=== PATIENT | male | born 1945 | race Hispanic/Latino ===

== ENCOUNTER 2017-10-04 12:34 | Emergency (ER) | payer MEDICARE, MEDICAID ==
[2017-10-04] MEDS ORDERED: Ketorolac Tromethamine 30 MG/ML VIAL ONE (13:27)
[2017-10-04 13:32] LABS: Bilirubin Small (Negative); Blood, Urine Negative (Negative); Glucose, Urine (Dipstick) Negative (Negative); Ketone, Urine Negative (Negative); Nitrite Negative (Negative); Protein, Urine (Dipstick) Negative (Neg-Trace)
[2017-10-04 13:40] LABS: Bacteria/HPF None Seen HPF (None Seen); Hyaline Casts/LPF 0-3 HYALINE CAST LPF (0-3 Hyaline); RBC/HPF 0-3 HPF (0-3); Squamous Epithelial None Seen HPF (0-3); WBC/HPF 0-3 HPF (0-3)
[2017-10-04 13:43] LABS: #Eosinphils 0.1 thou/uL (0.0-0.7); #Lymphocytes 1.6 thou/uL (1.20-3.40); #Monocytes 0.5 thou/uL (0.11-0.59); #Neutrophils 5.8 thou/uL (1.40-6.50); %Basophils 0.5 % (0.0-1.0); %Eosinophils 1.3 % (0.0-10.0); %Lymphocytes 20.1 % (21.0-51.0); Hematocrit 39.7 % (42.0-52.0); Mean Platelet Volume 6.5 fL (7.4-10.4)
--- NOTE | 2017-10-04 13:57 | CT ---
ABDOMEN CT WITHOUT CONTRAST PELVIC CT WITHOUT CONTRAST: Date: 10/04/17 HISTORY: Abdominal pain radiating to the groin. COMPARISON: None. CORRELATION: CT angiogram of the aorta. TECHNIQUE: Abdomen and pelvic CT performed without contrast. Coronal reformatted images are submitted for interp retation. FINDINGS: ABDOMEN CT: Dependent atelectatic changes. There is a focal opacity in the lingula, unchanged from the prior exam ination. Opacity has a pleural based component and measures 1.0 cm in the anterior posterior dimensio n. Extensive coronary artery calcification of the left coronary artery. No significant pericardial fl uid. Atherosclerosis of a nonaneurysmal aorta. No gastrohepatic, retrocrural, or periportal lymphaden opathy. Gallbladder is unremarkable. Symmetric attenuation of the psoas muscles. No mesenteric mass, lymphadenopathy, free air, or free fluid. Limited evaluation of the solid organs due to lack of IV contrast. No solid organ abnormality. Limited evaluation of the alimentary canal due to lack of oral contrast. No evidence of bowel obstruc tion. Ileocecal junction is normal. Normal caliber appendix. Fecal material in nondistended, nondilat ed colon. Bilaterally, no hydronephrosis, nephrolithiasis, or perinephric fat stranding. Bilateral ureters have a normal caliber. No hydroureter, periureteral fat stranding, or ureterolithiasis. PELVIC CT: Urinary bladder is decompressed. No pelvic mass, lymphadenopathy, free air, or free fluid. There are no lytic or blastic lesions in the osseous structures. IMPRESSION: 1. No evidence of nephrolithiasis or obstructive uropathy. 2. Stable atherosclerotic disease. 3. Stable coronary artery calcification. Pleural based opacities in the left hemithorax, unchanged. Follow-up imaging in 6 months is recommended[address]. POS: LARISA
[2017-10-04 14:06] LABS: ALT (SGPT) 8 U/L (8-55); AST (SGOT) 10 U/L (5-34); Alkaline Phosphatase 104 U/L (40-150); Anion Gap 11 mmol/L (10-20); BUN (Urea Nitrogen) 18 mg/dL (8.4-25.7); Bilirubin, Total 0.9 mg/dL (0.2-1.2); Calc. Creatinine Clearance 0 mL/min (70-130); Calcium 9.2 mg/dL (7.8-10.44); Carbon Dioxide 24 mmol/L (23-31); Chloride 105 mmol/L (98-107); Estimated GFR-MDRD 63; Globulin 3.4 g/dL (2.4-3.5); Lipase 51 U/L (8-78); Protein, Total 7.4 g/dL (5.8-8.1)
== END 2017-10-04 14:32 | disposition home or self-care (01) ==
LOC: ERS 12:34
DX: R10.32 Left lower quadrant pain (principal); E11.9 Type 2 diabetes mellitus without complications; E03.9 Hypothyroidism, unspecified; I25.10 Atherosclerotic heart disease of native coronary artery without angina pectoris; I25.2 Old myocardial infarction; E78.5 Hyperlipidemia, unspecified; I10 Essential (primary) hypertension; F32.9 Major depressive disorder, single episode, unspecified; F41.9 Anxiety disorder, unspecified; F17.200 Nicotine dependence, unspecified, uncomplicated; Z79.82 Long term (current) use of aspirin; Z79.84 Long term (current) use of oral hypoglycemic drugs; Z79.899 Other long term (current) drug therapy
CPT/HCPCS: 74176; 80053; 81003; 81015; 83690; 85025; 96374; J1885

== ENCOUNTER 2018-01-22 18:08 | Emergency (ER) | payer MEDICARE, MEDICAID ==
[2018-01-22 18:46] LABS: #Basophils 0.1 thou/uL (0.0-0.2); #Eosinphils 0.1 thou/uL (0.0-0.7); #Lymphocytes 1.3 thou/uL (1.20-3.40); #Monocytes 0.5 thou/uL (0.11-0.59); #Neutrophils 5.8 thou/uL (1.40-6.50); %Basophils 0.7 % (0.0-1.0); %Lymphocytes 17.2 % (21.0-51.0); %Monocytes 6.8 % (0.0-10.0); %Neutrophils 74.2 % (42.0-75.0); Hemoglobin 12.3 g/dL (14.0-18.0); Mean Corpuscular HGB CONC 32.7 g/dL (32.0-36.0); Mean Corpuscular Hemoglobin 26.2 pg (27.0-31.0); Mean Platelet Volume 7.4 fL (7.4-10.4); Platelet Count 273 thou/uL (130-400); Red Blood Cell (RBC) Count 4.71 mill/uL (4.70-6.10); White Blood Cell (WBC) Count 7.8 thou/uL (4.8-10.8)
[2018-01-22 19:07] LABS: ALT (SGPT) 15 U/L (8-55); AST (SGOT) 16 U/L (5-34); Alkaline Phosphatase 108 U/L (40-150); Anion Gap 14 mmol/L (10-20); BUN (Urea Nitrogen) 21 mg/dL (8.4-25.7); Bilirubin, Total 0.7 mg/dL (0.2-1.2); Calc. Creatinine Clearance 0 mL/min (70-130); Calcium 9.1 mg/dL (7.8-10.44); Carbon Dioxide 20 mmol/L (23-31); Chloride 105 mmol/L (98-107); Estimated GFR-MDRD 48; Globulin 3.1 g/dL (2.4-3.5); Glucose 196 mg/dL (83-110); Protein, Total 7.1 g/dL (5.8-8.1); Sodium 135 mmol/L (136-145)
[2018-01-22 19:12] LABS: CKMB 0.9 ng/mL (0-6.6); Troponin I Less than 0.010 ng/mL (< 0.028)
--- NOTE | 2018-01-22 19:19 | CT ---
CT BRAIN NONCONTRAST: HISTORY: 72-year-old male with altered mental status and syncope. FINDINGS: There is no midline shift or any other mass effect. There is no evidence of acute intracranial hemor rhage, large cortical infarct, obstructive hydrocephalus, or extraaxial fluid collection. The calvar ium is intact. IMPRESSION: No acute intracranial findings. janes POS: LARISA
--- NOTE | 2018-01-22 19:22 | RAD ---
RADIOGRAPH CHEST 1 VIEW: HISTORY: 72-year-old male with altered mental status and syncope. FINDINGS: There is no air space density, pulmonary edema, or pneumothorax. The lateral costophrenic angles are sharp. There are sternotomy wires. IMPRESSION: 1. No acute pulmonary findings. 2. Evidence for previous open heart surgery. janes POS: LARISA
[2018-01-22 21:25] LABS: Bilirubin Small (Negative); Blood, Urine Negative (Negative); Clarity CLEAR (Clear); Glucose, Urine (Dipstick) Negative (Negative); Leukocyte Negative (Negative); Nitrite Negative (Negative); Protein, Urine (Dipstick) Trace mg/dL (Neg-Trace); Specific Gravity, Urine 1.019 (1.002-1.036)
== END 2018-01-22 21:37 | disposition home or self-care (01) ==
LOC: ERS 18:08
DX: R53.1 Weakness (principal); I25.10 Atherosclerotic heart disease of native coronary artery without angina pectoris; I25.2 Old myocardial infarction; E11.9 Type 2 diabetes mellitus without complications; E78.5 Hyperlipidemia, unspecified; I10 Essential (primary) hypertension; F32.9 Major depressive disorder, single episode, unspecified; F17.200 Nicotine dependence, unspecified, uncomplicated; Z79.899 Other long term (current) drug therapy; Z79.82 Long term (current) use of aspirin; Z79.891 Long term (current) use of opiate analgesic
CPT/HCPCS: 36415; 70450; 71045; 80053; 81003; 82553; 84484; 85025; 93005; 96360; 96361

== ENCOUNTER 2018-02-27 22:26 | Emergency (ER) | payer MEDICARE, MEDICAID ==
[2018-02-27] MEDS ORDERED: Adacel (T-DAP) 0.5 ML VIAL ONE (22:42)
== END 2018-02-27 23:55 | disposition home or self-care (01) ==
LOC: ERS 22:26
DX: S61.511A Laceration without foreign body of right wrist, initial encounter (principal); E11.9 Type 2 diabetes mellitus without complications; E03.9 Hypothyroidism, unspecified; E78.5 Hyperlipidemia, unspecified; F32.9 Major depressive disorder, single episode, unspecified; F17.200 Nicotine dependence, unspecified, uncomplicated; I25.2 Old myocardial infarction; I25.10 Atherosclerotic heart disease of native coronary artery without angina pectoris; I10 Essential (primary) hypertension; Z79.82 Long term (current) use of aspirin; Z79.84 Long term (current) use of oral hypoglycemic drugs; Z79.899 Other long term (current) drug therapy; Z23 Encounter for immunization; W25.XXXA Contact with sharp glass, initial encounter
CPT/HCPCS: 12001; 90471; 90715

== ENCOUNTER 2018-12-05 05:37 | Emergency (ER) | payer MEDICARE, MEDICAID ==
--- NOTE | 2018-12-05 08:10 | RAD ---
RIGHT FOOT 3 VIEWS: Date: 12/05/18 INDICATION: Right foot pain. COMPARISON: 04/06/17. FINDINGS: No acute fracture or subluxation is evident. Lisfranc alignment is preserved. There is mild great toe MTP osteoarthrosis. There is scattered IP osteoarthrosis. Enthesopathic change seen off the posterio r calcaneus which is stable. IMPRESSION: No acute osseous abnormality. POS: BH
== END 2018-12-05 06:46 | disposition home or self-care (01) ==
LOC: ERS 05:37
DX: L03.115 Cellulitis of right lower limb (principal); M79.671 Pain in right foot; I25.10 Atherosclerotic heart disease of native coronary artery without angina pectoris; I25.2 Old myocardial infarction; E11.9 Type 2 diabetes mellitus without complications; E03.9 Hypothyroidism, unspecified; E78.5 Hyperlipidemia, unspecified; I10 Essential (primary) hypertension; F32.9 Major depressive disorder, single episode, unspecified

== ENCOUNTER 2018-12-07 08:14 | Observation (INO) | payer MEDICARE, MEDICAID ==
[2018-12-07] MEDS ORDERED: Ketorolac Tromethamine 30 MG/ML VIAL ONE (09:34)
[2018-12-07 11:22] LABS: #Eosinphils 0.1 thou/uL (0.0-0.7); #Lymphocytes 1.5 thou/uL (1.20-3.40); #Monocytes 0.9 thou/uL (0.11-0.59); #Neutrophils 6.7 thou/uL (1.40-6.50); %Basophils 0.5 % (0.0-1.0); %Eosinophils 1.3 % (0.0-10.0); %Lymphocytes 16.2 % (21.0-51.0); %Monocytes 9.3 % (0.0-10.0); %Neutrophils 72.8 % (42.0-75.0); Hemoglobin 12.1 g/dL (14.0-18.0); Mean Corpuscular HGB CONC 31.7 g/dL (32.0-36.0); Mean Platelet Volume 7.7 fL (7.4-10.4); Platelet Count 274 thou/uL (130-400); RBC Distribution Width 13.4 % (11.5-14.5); Red Blood Cell (RBC) Count 5.05 mill/uL (4.70-6.10); White Blood Cell (WBC) Count 9.3 thou/uL (4.8-10.8)
[2018-12-07 11:42] LABS: ALT (SGPT) 9 U/L (8-55); AST (SGOT) 11 U/L (5-34); Albumin 4.2 g/dL (3.4-4.8); Alkaline Phosphatase 109 U/L (40-150); Anion Gap 12 mmol/L (10-20); BUN (Urea Nitrogen) 19 mg/dL (8.4-25.7); Bilirubin, Total 0.9 mg/dL (0.2-1.2); Calc. Creatinine Clearance 0 mL/min (70-130); Calcium 9.3 mg/dL (7.8-10.44); Carbon Dioxide 25 mmol/L (23-31); Chloride 103 mmol/L (98-107); Estimated GFR-MDRD 56; Globulin 3.1 g/dL (2.4-3.5); Glucose 221 mg/dL (83-110); Potassium 4.1 mmol/L (3.5-5.1); Protein, Total 7.3 g/dL (5.8-8.1); Sodium 136 mmol/L (136-145)
[2018-12-07] MEDS ORDERED: Acetaminophen 500 MG TAB ONE (11:48)
[2018-12-07] MEDS ORDERED: Ondansetron PF 4 MG/2 ML Vial IVP PRN (12:00)
[2018-12-07] MEDS ORDERED: Ondansetron ODT 4 MG TAB SL PRN (12:00)
[2018-12-07] MEDS ORDERED: Acetaminophen 325 MG TAB PO PRN ×2 (12:00→15:14)
[2018-12-07] MEDS ORDERED: HYDROcodone/Acetaminophen 5/325 mg Tablet PO PRN ×3 (12:00→15:14)
[2018-12-07] MEDS ORDERED: Piperacillin/Tazobactam 3.375 GM VIAL ONE (12:39)
--- NOTE | 2018-12-07 12:56 | PDOC.FPRHP ---
- History of Present Illness Chief Complaint: Foot pain History of Present Illness: Mr. Olvera presents today for evaluation of foot pain He was seen 2 days ago and DCd home with a diagnosis of cellulitis on kelfex and doxycyline. He reports that since that time he has had increased pain, redness, fever, and chills. Took tylenol at home for fever and returned to the ED. He reports his movement in his foot is restricted 2/2 pain, sensation normal. Denies syncope, SOB, lesions in other areas, or known breaks in the skin. He reports that his sugars have all been under 200 recently. Reports good compliance with medication. ED Course: BCx, Xray, vanc CBC, ESR, CRP, CMP - Allergies/Adverse Reactions Allergies Allergy/AdvReac Type Severity Reaction Status Date / Time No Known Allergies Allergy Verified 12/07/18 15:43 - Home Medications Medication Instructions Recorded Confirmed Type Gabapentin [Neurontin] 600 mg PO TID 04/13/14 12/07/18 History Rosuvastatin [Crestor] 20 mg PO HS 04/13/14 12/07/18 History Acetaminophen [Tylenol Extra 2 tab PO Q6HR PRN 12/07/18 12/07/18 History Strength] Levothyroxine Sodium 150 mcg PO DAILY 12/07/18 12/07/18 History Tamsulosin HCl 0.4 mg PO DAILY 12/07/18 12/07/18 History metFORMIN HCl [Metformin HCl] 1,000 mg PO BID 12/07/18 12/07/18 History Clindamycin [Cleocin] 300 mg PO Q8H #42 cap 12/08/18 Rx - History PMHx: DMII, CAD, HTN, Hypothyroid, BPH, COPD PSHx: 3v CABG 2001, stent prox circumflex 2015, ORIF R shoulder FHx: CAD Social: no TAD - Review of Systems General: reports: fever/chills. denies: weight/appetite/sleep changes, night sweats Eyes: denies: eye pain, vision changes ENT: denies: nasal congestion, rhinorrhea Respiratory: denies: cough, congestion, shortness of breath Cardiovascular: denies: chest pain, palpitation, edema Gastrointestinal: reports: nausea. denies: vomiting, diarrhea, constipation Genitourinary: denies: incontinence, dysuria Skin: reports: rashes (R sided erythema extending from distal metatarsal to mid foot, no skin breaks, minimal edema/crepitus, pulses auscultated with doppler, ROM intact), lesions Musculoskeletal: reports: pain, tenderness, stiffness Neurological: denies: numbness, syncope - Vital signs BP: 165/81 HR: 70 RR: 18 Tmax: 97.7 Pox: 100% on RA Wt: 68kg - Physical Exam Constitutional: NAD, awake, alert and oriented HEENT: normocephalic and atraumatic, grossly normal vision, grossly normal hearing Neck: supple, FROM Chest: no-tender to palpation Heart: RRR, normal S1/S2, no murmurs/rubs/gallops Lungs: CTAB, no respiratory distress Abdomen: soft, non-tender Musculoskeletal: normal structure, normal tone -Musculoskeletal: R sided erythema extending from distal metatarsal to mid foot, no skin breaks, minimal edema/crepitus, pulses auscultated with doppler, ROM intact Neurological: no focal deficit, CN II-XII intact Skin: good turgor Heme/Lymphatic: no unusual bruising or bleeding Psychiatric: normal mood and affect, good judgment and insight FMR H&P: Results - Labs Result Diagrams: 12/08/18 04:45 12/08/18 04:45 Lab results: WBC 9.3 thou/uL (4.8-10.8) 12/07/18 11:00 Hgb 12.1 g/dL (14.0-18.0) L 12/07/18 11:00 Hct 38.3 % (42.0-52.0) L 12/07/18 11:00 MCV 76.0 fL (78.0-98.0) L 12/07/18 11:00 Plt Count 274 thou/uL (130-400) 12/07/18 11:00 Neutrophils % 72.8 % (42.0-75.0) 12/07/18 11:00 ESR Westergren 77 mm/hr (Less than 20) 12/07/18 11:00 Sodium 136 mmol/L (136-145) 12/07/18 11:00 Potassium 4.1 mmol/L (3.5-5.1) 12/07/18 11:00 Chloride 103 mmol/L (98-107) 12/07/18 11:00 Carbon Dioxide 25 mmol/L (23-31) 12/07/18 11:00 BUN 19 mg/dL (8.4-25.7) 12/07/18 11:00 Creatinine 1.27 mg/dL (0.7-1.3) 12/07/18 11:00 Glucose 221 mg/dL (83-110) H 12/07/18 11:00 Calcium 9.3 mg/dL (7.8-10.44) 12/07/18 11:00 Total Bilirubin 0.9 mg/dL (0.2-1.2) 12/07/18 11:00 AST 11 U/L (5-34) 12/07/18 11:00 ALT 9 U/L (8-55) 12/07/18 11:00 Alkaline Phosphatase 109 U/L (40-150) 12/07/18 11:00 C-Reactive Protein 5.68 mg/dL (= or < 0.5) H 12/07/18 11:00 Serum Total Protein 7.3 g/dL (5.8-8.1) 12/07/18 11:00 Albumin 4.2 g/dL (3.4-4.8) 12/07/18 11:00 FMR H&P: A/P - Problem List (1) Cellulitis Status: Acute Code(s): L03.90 - CELLULITIS, UNSPECIFIED (2) Hypothyroidism Status: Acute Code(s): E03.9 - HYPOTHYROIDISM, UNSPECIFIED (3) Anemia Status: Chronic Code(s): D64.9 - ANEMIA, UNSPECIFIED Qualifiers: Anemia type: B12 deficiency Vitamin B12 deficiency anemia type: unspecified B12 deficiency Qualified Code(s): D51.9 - Vitamin B12 deficiency anemia, unspecified (4) CAD (coronary artery disease) Status: Chronic Code(s): I25.10 - ATHSCL HEART DISEASE OF [place] CORONARY ARTERY W/O ANG PCTRS Qualifiers: Coronary Disease-Associated Artery/Lesion type: [place] artery [place] vs. transplanted heart: [place] heart (5) Diabetes mellitus type 2 in nonobese Status: Chronic Code(s): E11.9 - TYPE 2 DIABETES MELLITUS WITHOUT COMPLICATIONS (6) HLD (hyperlipidemia) Status: Chronic Code(s): E78.5 - HYPERLIPIDEMIA, UNSPECIFIED - Plan Cellulitis with concern for osteomyelitis - Elevated inflammatory markers in diabetic who failed outpatient treatment, no WBC elevation, VSS, afebrile - Xray wnl, MRI pending. Consult surgery with positive results - Vanc/zosyn - LR 120ml/hr - monitor vitals q4hr - wound care consulted DMII - poorly controlled 2/2 non compliance according to clinic records - lantus 30 units BID, moderate SSI - CC diet HTN - continue home meds - pressures in range Hypothyroid - continue home meds HLD - continue home meds CAD - no active chest pain, continue to monitor - continue home meds Code: Full ppx: lovenox Dispo: admit to medical, begin abx, continue osteo work up FMR H&P: Upper Level - Pertinent history 73M with history of uncontrolled, non compliant diabetes presents for evaluation of 2 day right foot pain. It involves the first digit and second. He does not know of inciting injury or events that lead to this. He was given doxycycline and keflex when seen at the ER 2 days ago. He states things have not improved. He endorse pain and subjective chills. While he endorses good compliance with his medication and with glucoses under 200, he has been known to be noncompliant, not taking his medication since his about 6 months prior. - Pertinent findings Gen: Grossly alert, oriented, not in acute distress. HEENT: Normocephalic, vision and hearing grossly intact, midline trachea, moist mucosal membrane CV: On doppler, pulse can be detected in dorsalis pedis of right foot. Resp: Unlabored, no retraction GI: Soft, no guarding, no rigidity Ext: No pitting edema. First and second right digit on foot are erythematous, indurated. No open wound. Mild tenderness to palpation. Neuro: No focal deficit - Plan Date/Time: 12/07/18 1250 I, [Joe Ly], have evaluated this patient and agree with findings/plan as outlined by agronomy internship resident. Pertinent changes/additions are listed here. 1. Diabetic foot cellulitis, concern for deeper infection - IDSA moderate severity class due to deep tissue involvement without SIRS but with concern for osteo due to elevated ESR/CRP - Cellultitis that has not improved with outpatient treatment. - While Xray negative, is too early for bony destruction to show up on xray - Plan for MRI, broad abx. Will consult gen surg as needed. - Admit to Medical 2. Uncontrolled DM2 - Chronic issue - Restart home insulin at reduced dosing. Continue gabapentin - Start sliding scale insulin, cc diet. 3. HTN - Chronic stable issue - Continue home med 4. Hypothyroid - Chronic stable Issue - Continue home meds 5. HLD - Chronic stable issue - Continue home meds 6. BPH - Chronic stable issue - Continue flomax Addendum - Attending - Attending Attestation Date/Time: 12/07/18 [id number] I personally evaluated the patient and discussed the management with Dr. Eaton and Dr. Chacon I agree with the History, Examination, Assessment and Plan documented above with any addition or exceptions noted below. 73 yo male with poorly controlled DM presents for foot infection. Currently on oral antibiotics for foot cellulitis. Reports worsening pain and redness. Minimal drainage at toe webbing. systemic symptoms reported include fever, chills, aches. VS reviewed. Labs reviewed. Agree with resident documented PE. 1. Uncontrolled DM: Adjust medications for improved wound healing. 2. DM foot wound: ESR and other clinical findings concerning for osteo. MRI pending. Start empiric antibiotics. Jose
--- NOTE | 2018-12-07 13:21 | RAD ---
RIGHT FOOT 3 VIEWS: HISTORY: Possible cellulitis. Pain. COMPARISON: 12/05/2018. FINDINGS: There are minimal vascular calcifications. Lisfranc alignment is maintained. Joint spaces are prese rved. No significant erosive or destructive changes. No significant soft tissue swelling. IMPRESSION: Unremarkable right foot 3 views. No significant change. POS: CET
[2018-12-07 15:05] VITALS: BMI 23.3
[2018-12-07] MEDS ORDERED: HumaLOG 300 UNITS/3 ML VIAL SC PRN (15:14)
[2018-12-07] MEDS ORDERED: Ondansetron ODT 4 MG TAB PO PRN (15:14)
[2018-12-07] MEDS ORDERED: Dextrose 50% Abboject 50 ML SYRINGE SLOW IVP PRN (15:14)
[2018-12-07] MEDS ORDERED: Dextrose 5% in Water 1,000 ML IV PRN (15:14)
[2018-12-07] MEDS: Sodium Chloride 0.9% 1,000 ML IV SCH (15:59)
[2018-12-07] MEDS: Lactated Ringer's 1,000 ML IV SCH (16:30)
--- NOTE | 2018-12-07 17:49 | MRI ---
EXAM: RIGHT FOOT MRI WITHOUT IV CONTRAST: 12/07/18 HISTORY: Right foot pain with redness around the first metatarsophalangeal joint. Concern for infection. Possi ble osteomyelitis. FINDINGS: there is some minimal nonspecific soft tissue swelling anteromedial and posterior to the great toe pr imarily at the level of the metatarsophalangeal joint. There is some mild nonspecific edematous ricks es overlying the dorsal aspect of the foot. There are some arthrosis changes involving the foot incl uding the first metatarsophalangeal joint. The sesamoid bones demonstrate normal signal. No evidence for a drainable abscess. No evidence for osteomyelitis. IMPRESSION: Some very mild soft tissue swelling around the great toe without evidence for drainable abscess or os teomyelitis. This certainly could represent some nonspecific cellulitis. Minimal edematous changes ov er the dorsal aspect of the foot. Generalized degenerative and osteoarthrosis changes including the f irst metatarsophalangeal joint. POS: LARISA
[2018-12-07] MEDS ORDERED: Piperacillin/Tazobactam 3.375 GM in Sodium Chloride 0.9% 100 ML IVPB SCH (18:00)
[2018-12-07] MEDS: Piperacillin/Tazobactam 3.375 GM in Sodium Chloride 0.9% 100 ML IVPB SCH (18:25)
[2018-12-07] MEDS: HumaLOG 300 UNITS/3 ML VIAL SC PRN (19:17)
[2018-12-07] MEDS: Insulin Glargine 30 UNITS in Pre-Filled Syringe 1 EACH SC SCH (20:49)
[2018-12-07] MEDS ORDERED: Vancomycin HCl 1.75 GM in Sodium Chloride 0.9% 500 ML IVPB SCH (21:00)
[2018-12-08] MEDS: Piperacillin/Tazobactam 3.375 GM in Sodium Chloride 0.9% 100 ML IVPB SCH ×3 (02:10→10:55)
[2018-12-08] MEDS: Lactated Ringer's 1,000 ML IV SCH ×2 (03:22→08:08)
[2018-12-08] MEDS: Sodium Chloride 0.9% 1,000 ML IV SCH (03:24)
[2018-12-08 05:16] LABS: #Eosinphils 0.2 thou/uL (0.0-0.7); #Lymphocytes 1.3 thou/uL (1.20-3.40); #Monocytes 0.9 thou/uL (0.11-0.59); %Basophils 0.5 % (0.0-1.0); %Eosinophils 2.6 % (0.0-10.0); %Lymphocytes 17.4 % (21.0-51.0); %Monocytes 11.7 % (0.0-10.0); %Neutrophils 67.9 % (42.0-75.0); Hemoglobin 11.3 g/dL (14.0-18.0); Mean Corpuscular HGB CONC 31.9 g/dL (32.0-36.0); Mean Corpuscular Hemoglobin 24.3 pg (27.0-31.0); Mean Corpuscular Volume 76.1 fL (78.0-98.0); Mean Platelet Volume 7.7 fL (7.4-10.4); Platelet Count 258 thou/uL (130-400); RBC Distribution Width 13.3 % (11.5-14.5); Red Blood Cell (RBC) Count 4.66 mill/uL (4.70-6.10); White Blood Cell (WBC) Count 7.3 thou/uL (4.8-10.8)
[2018-12-08 05:34] LABS: Anion Gap 13 mmol/L (10-20); BUN (Urea Nitrogen) 19 mg/dL (8.4-25.7); Calc. Creatinine Clearance 52 mL/min (70-130); Carbon Dioxide 25 mmol/L (23-31); Chloride 106 mmol/L (98-107); Estimated GFR-MDRD 62; Glucose 182 mg/dL (83-110); Potassium 3.7 mmol/L (3.5-5.1); Sodium 140 mmol/L (136-145)
--- NOTE | 2018-12-08 06:16 | PDOC.FM ---
- Subjective Subjective: Mr. Olvera is resting comfortably in bed, he would like to go home. the pain in his foot is much better, he would like to eat. - Objective Vital Signs & Weight: Vital Signs (12 hours) Temp Pulse Resp BP BP Pulse Ox 12/08/18 03:22 65 18 147/75 H 97 12/07/18 23:38 98.0 F 75 18 173/72 H 95 12/07/18 19:31 97.7 F 78 18 145/92 H 96 Weight Admit Weight 63.775 kg Weight 63.775 kg I&O: 12/06/18 12/07/18 12/08/18 06:59 06:59 06:59 Intake Total 1860 Output Total 1100 Balance 760 Result Diagrams: 12/08/18 04:45 12/08/18 04:45 Phys Exam - Physical Examination Constitutional: NAD HEENT: moist MMs Neck: no JVD Gastrointestinal: no distention Musculoskeletal: pulses present Neurological: moves all 4 limbs Psychiatric: normal affect Deviation from normal: erythema/edema greatly reduced, minimal pain Dx/Plan (1) Cellulitis Code(s): L03.90 - CELLULITIS, UNSPECIFIED Status: Acute (2) Hypothyroidism Code(s): E03.9 - HYPOTHYROIDISM, UNSPECIFIED Status: Acute (3) Anemia Code(s): D64.9 - ANEMIA, UNSPECIFIED Status: Chronic Qualifiers: Anemia type: B12 deficiency Vitamin B12 deficiency anemia type: unspecified B12 deficiency Qualified Code(s): D51.9 - Vitamin B12 deficiency anemia, unspecified (4) CAD (coronary artery disease) Code(s): I25.10 - ATHSCL HEART DISEASE OF [place] CORONARY ARTERY W/O ANG PCTRS Status: Chronic Qualifiers: Coronary Disease-Associated Artery/Lesion type: [place] artery [place] vs. transplanted heart: [place] heart (5) Diabetes mellitus type 2 in nonobese Code(s): E11.9 - TYPE 2 DIABETES MELLITUS WITHOUT COMPLICATIONS Status: Chronic (6) HLD (hyperlipidemia) Code(s): E78.5 - HYPERLIPIDEMIA, UNSPECIFIED Status: Chronic - Plan Plan: Cellulitis with concern for osteomyelitis - Elevated inflammatory markers in diabetic who failed outpatient treatment, no WBC elevation, VSS, afebrile - Xray wnl, MRI not suspicious for osteomyelitis. Consult surgery with positive results - Vanc/zosyn - LR 120ml/hr, DC IVF - monitor vitals q4hr - wound care consulted DMII - poorly controlled 2/2 non compliance according to clinic records - lantus 30 units BID, moderate SSI - CC diet HTN - continue home meds - pressures in range Hypothyroid - continue home meds HLD - continue home meds CAD - no active chest pain, continue to monitor - continue home meds Code: Full ppx: lovenox Dispo: transition to PO abx, possible DC
[2018-12-08] MEDS ORDERED: Acetaminophen 500 MG TAB PO PRN (06:17)
[2018-12-08 07:50] VITALS: BP 137/63; TEMP 98.5
[2018-12-08] MEDS ORDERED: metFORMIN 500 MG TAB PO SCH (08:00)
[2018-12-08] MEDS: Insulin Glargine 30 UNITS in Pre-Filled Syringe 1 EACH SC SCH (08:13)
[2018-12-08] MEDS ORDERED: Enoxaparin Sodium 40 MG/0.4 ML SYRINGE SC SCH (09:00)
[2018-12-08] MEDS ORDERED: Tamsulosin HCl 0.4 MG CAP PO SCH (09:00)
[2018-12-08] MEDS ORDERED: Gabapentin 300 MG CAP PO SCH (09:00)
[2018-12-08] MEDS ORDERED: Vancomycin HCl 1.25 GM in Sodium Chloride 0.9% 250 ML 250 ML IVPB SCH (09:00)
[2018-12-08] MEDS: HumaLOG 300 UNITS/3 ML VIAL SC PRN (10:56)
[2018-12-08] MEDS ORDERED: Clindamycin 150 MG CAP PO SCH (12:00)
[2018-12-08] MEDS ORDERED: Rosuvastatin 20 MG TAB PO SCH (21:00)
[2018-12-09] MEDS ORDERED: Levothyroxine 150 MCG TAB PO SCH (06:00)
--- NOTE | 2018-12-10 10:07 | PRG ---
DATE OF SERVICE: ADDENDUM: The patient was seen, evaluated, and examined with the residents by bedside. Please see the note from Dr. Eaton, for which I agree. The patient was seen, evaluated, and examined with the residents, basically right foot, basically first MTP area erythema and swelling thought to be cellulitis. MRI though is fairly benign and failed outpatient doxycycline and Keflex and so we switched him over to IV vancomycin and Zosyn. MRI that did not show any evidence of this is osteomyelitis and so, should be able to be switched over to p.o. clindamycin and discharge. We will continue same home medicines, etc. Close followup in the next few days to make sure it is completely clearing. All this was communicated with the patient through a electrical equipment technician that he chose on his phone. Job ID: [id number]
--- NOTE | 2018-12-10 13:55 | DIS ---
DATE OF ADMISSION: 12/07/2018 DATE OF DISCHARGE: 12/08/2018 RESIDENT: Homer Eaton DO ADMITTING ATTENDING: Lorene Montaño MD. DISCHARGE ATTENDING: Semaj Rhodes MD. CONSULTS: None. PROCEDURES: None. IMAGING: Foot x-ray significant for unremarkable right foot 3 views, no significant change when compared to x-ray from 2 days ago. Lower extremity MRI: Impression , mild tissue swelling around the great toe without evidence for drainable abscess or suspicion for osteomyelitis very well. PRIMARY DIAGNOSIS: Cellulitis. SECONDARY DIAGNOSES: 1. Diabetes mellitus, type 2. 2. Hypertension. 3. Hypothyroidism. 4. Hyperlipidemia. 5. Coronary artery disease. DISCHARGE MEDICATIONS: 1. Crestor 20 mg p.o. at bedtime. 2. Gabapentin 600 mg p.o. t.i.d. 3. Tamsulosin 0.4 mg p.o. daily. 4. Metformin 1000 mg p.o. b.i.d. 5. Tylenol Extra Strength two tabs p.o. q.6 hours p.r.n. 6. Levothyroxine 150 mcg p.o. daily. 7. Clindamycin 300 mg p.o. q.8 hours for a total of seven days. DISCONTINUED MEDICATIONS: 1. Keflex. 2. Doxycycline. HISTORY OF PRESENT ILLNESS/HOSPITAL COURSE: Mr. Olvera is a 73-year-old male who presents for evaluation of right foot pain. He was discharged from the emergency department on Keflex and doxycycline 2 days ago. He reports that since that time , the pain is increased and the swelling and redness have increased as well. He also reports fever and chills. Also, he has had to come back to the emergency room after not getting better. All imaging of the foot was negative for osteomyelitis, successfully ruling it out. The patient tolerated p.o. antibiotics well. Vital signs remained stable, remained afebrile, considered stable for discharge home on p.o. antibiotics. DISCHARGE INSTRUCTIONS: 1. Diet as tolerated diabetic. 2. Activity as tolerated. 3. Follow up with PCP, Dr. Joe Chacon in 3-4 days. Job ID: [id number] MTDD
== END 2018-12-08 12:26 | disposition home or self-care (01) ==
LOC: ERS 08:14 → 2SW 14:56
PROVIDERS: ADMIT Family Medicine; ATTEND Family Medicine
DX: E11.628 Type 2 diabetes mellitus with other skin complications (principal); L03.115 Cellulitis of right lower limb; E03.9 Hypothyroidism, unspecified; D51.9 Vitamin B12 deficiency anemia, unspecified; I25.10 Atherosclerotic heart disease of native coronary artery without angina pectoris; E78.5 Hyperlipidemia, unspecified; I10 Essential (primary) hypertension; N40.0 Benign prostatic hyperplasia without lower urinary tract symptoms; F32.9 Major depressive disorder, single episode, unspecified; Z79.2 Long term (current) use of antibiotics; Z79.84 Long term (current) use of oral hypoglycemic drugs; Z79.899 Other long term (current) drug therapy; Z91.19 Patient's noncompliance with other medical treatment and regimen; Z95.1 Presence of aortocoronary bypass graft
CPT/HCPCS: 73630; 73721; 80048; 80053; 82962 ×2; 85025 ×2; 85652; 86140; 87040; 90662; 96361 ×2; 96365; 96366 ×2; 96367; 96372 ×2; 97139; 99284; G0008; G0378 ×2; 36415; 36416; 90471; J1650; J1825; J1885; J2543; J3370; J7050

== ENCOUNTER 2019-01-03 11:08 | Outpatient (CLI) | payer MEDICARE, MEDICAID ==
--- NOTE | 2019-01-03 13:43 | RAD ---
RIGHT FOOT THREE VIEWS: History: Pain. Comparison: 12-07-18 FINDINGS: Stable vascular calcifications. Joint spaces are preserved. No significant change. No fracture. No co rtical irregularity or periosteal reaction. Lisfranc alignment is maintained. IMPRESSION: No significant interval change. If there is concern, consider MRI. POS: CET
== END 2019-01-03 11:09 | disposition home or self-care (01) ==
LOC: BICRAD 11:08
PROVIDERS: ATTEND Family Medicine
DX: M79.671 Pain in right foot (principal); E11.9 Type 2 diabetes mellitus without complications

== ENCOUNTER 2019-05-24 22:38 | Inpatient (IN) | payer MEDICARE, MEDICAID ==
[~2019-05-24 22:38] MED LIST: ISOVUE-370 76%-LOCM 1 ML ONE
--- NOTE | 2019-05-24 23:14 | RAD ---
Portable frontal chest radiograph: 05/24/2019 COMPARISON: 01/22/2018 HISTORY: Nausea and vomiting FINDINGS: Midline sternotomy wires are noted. No pneumothorax or pleural fluid. No focal consolidatio n or alveolar edema. IMPRESSION: No acute findings.
[2019-05-24 23:46] LABS: #Lymphocytes 0.5 thou/uL (1.20-3.40); #Neutrophils 5.3 thou/uL (1.40-6.50); %Eosinophils 0.4 % (0.0-10.0); %Lymphocytes 8.7 % (21.0-51.0); %Monocytes 0.6 % (0.0-10.0); %Neutrophils 90.3 % (42.0-75.0); Hemoglobin 10.6 g/dL (14.0-18.0); Mean Corpuscular HGB CONC 32.5 g/dL (32.0-36.0); Mean Corpuscular Hemoglobin 24.8 pg (27.0-31.0); Mean Corpuscular Volume 76.3 fL (78.0-98.0); Mean Platelet Volume 7.9 fL (7.4-10.4); Platelet Count 195 thou/uL (130-400); RBC Distribution Width 14.4 % (11.5-14.5); Red Blood Cell (RBC) Count 4.28 mill/uL (4.70-6.10); White Blood Cell (WBC) Count 5.9 thou/uL (4.8-10.8)
[2019-05-24 23:49] LABS: Base Excess-Venous -2.1 mmol/L (-2.0 to 3.0); Bicarbonate (HCO3v) 21.7 mmol/L (22.0-28.0); CO2 Tension (PvCO2) 33.2 mmHg (40.0-50.0); Calcium, Ionized 1.02 mmol/L (See Comments:); Chloride 110 mmol/L (98-107); Hemoglobin - Calc 11.1 g/dL (14.0-18.0); Potassium 3.7 mmol/L (3.5-5.1); Sodium 141 mmol/L (138-145); T. Carbon Dioxide 22.8 mmol/L (22.0-28.0); vO2 Saturation-calc 75.2 % (60.0-85.0)
[2019-05-25 00:11] LABS: ALT (SGPT) 267 U/L (8-55); AST (SGOT) 651 U/L (5-34); Albumin 3.7 g/dL (3.4-4.8); Alkaline Phosphatase 242 U/L (40-150); Anion Gap 14 mmol/L (10-20); BUN (Urea Nitrogen) 21 mg/dL (8.4-25.7); Bilirubin, Total 1.3 mg/dL (0.2-1.2); Calc. Creatinine Clearance 0 mL/min (70-130); Calcium 8.5 mg/dL (7.8-10.44); Carbon Dioxide 21 mmol/L (23-31); Chloride 108 mmol/L (98-107); Estimated GFR-MDRD 63; Globulin 2.9 g/dL (2.4-3.5); Glucose 175 mg/dL (83-110); Lipase 105 U/L (8-78); Potassium 3.7 mmol/L (3.5-5.1); Protein, Total 6.6 g/dL (5.8-8.1); Sodium 139 mmol/L (136-145)
[2019-05-25] MEDS ORDERED: Piperacillin/Tazobactam 4.5 GM VIAL ONE (00:27)
[2019-05-25] MEDS ORDERED: Vancomycin HCl 1.5 GM in Sodium Chloride 0.9% 250 ML 300 ML IVPB SCH (00:45)
[2019-05-25 00:51] LABS: Bacteria/HPF 2+ HPF (None Seen); Bilirubin Negative (Negative); Blood, Urine Negative (Negative); Clarity Turbid (Clear); Glucose, Urine (Dipstick) Normal (Negative); Leukocyte Negative Leu/uL (Negative); Nitrite Negative (Negative); Protein, Urine (Dipstick) 70 mg/dL (Neg-Trace); RBC/HPF 0-3 HPF (0-3); Squamous Epithelial 0-3 HPF (0-3); Urobilinogen 3 mg/dL (Less than 2); WBC/HPF 0-3 HPF (0-3); Yeast-Budding 1+ HPF (None Seen)
[2019-05-25 01:04] LABS: Sperm/HPF Rare HPF (None Seen)
[2019-05-25] MEDS ORDERED: Acetaminophen 325 MG TAB ONE (01:07)
[2019-05-25] MEDS ORDERED: Acetaminophen 325 MG TAB PO PRN (03:37)
[2019-05-25] MEDS ORDERED: Ondansetron ODT 4 MG TAB PO PRN (03:37)
[2019-05-25] MEDS ORDERED: HumaLOG 300 UNITS/3 ML VIAL SC PRN (03:47)
[2019-05-25] MEDS ORDERED: Dextrose 5% in Water 1,000 ML IV PRN (03:47)
[2019-05-25] MEDS ORDERED: Dextrose 50% Abboject 50 ML SYRINGE SLOW IVP PRN (03:47)
[2019-05-25] MEDS ORDERED: Norepinephrine 4 MG/4 ML VIAL ONE (03:49)
[2019-05-25] MEDS ORDERED: Norepinephrine 8 MG in Dextrose 5% in Water 242 ML IVPB PRN ×2 (03:52→16:15)
[2019-05-25] MEDS ORDERED: Norepinephrine 8 MG/250 ML BAG IVPB PRN (03:52)
--- NOTE | 2019-05-25 05:22 | HP ---
PRIMARY CARE DOCTOR: None reported. CODE STATUS: Full code. TIME OF EVALUATION: 3:39 a.m. CHIEF COMPLAINT: Fever. HISTORY OF PRESENT ILLNESS: This is a 73-year-old male patient with past medical history of diabetes, coronary artery disease, hypothyroidism, hyperlipidemia, hypertension, came to the hospital after having fever, severe abdominal pain. The symptoms started around 3 or 4 p.m. with no clear triggers, no alleviating factors, associated with nausea and vomiting. The symptoms have improved after initial treatment in the ER. On diagnostic imaging, it was found the patient had possible ascending cholangitis. The patient has been treated with broad-spectrum antibiotics. Blood pressure continued to drop, we put central line. The patient responded to fluids, might need vasopressors if he does not improve. REVIEW OF SYSTEMS: CONSTITUTIONAL: The patient has fever, chills, generalized weakness, respiratory, no cough, sputum production, shortness of breath. CARDIOVASCULAR: No chest pain or palpitation. GASTROINTESTINAL: The patient had nausea, vomiting, diarrhea, abdominal pain. PHYSICIAN OFFICE NURSE: No dizziness. The patient had some change in mental status and had some hallucinations. Mentation seems to be better. GENITOURINARY: No burning on urination. EXTREMITIES: No leg swelling. All other systems were reviewed and negative except for the findings mentioned above. FAMILY HISTORY: Reviewed, noncontributory for current presentation. PAST MEDICAL HISTORY: As mentioned in the HPI. PAST SURGICAL HISTORY: The patient has a history of CABG, three vessels. PSYCHIATRIC HISTORY: Includes depression. SOCIAL HISTORY: The patient is home with family. No alcohol. No drugs. No smoking history. KNOWN ALLERGIES: No known drug allergies. REPORTED MEDICATIONS: 1. Gabapentin. 2. Levothyroxine. 3. Tamsulosin. 4. Crestor. PHYSICAL EXAMINATION: VITAL SIGNS: On presentation, blood pressure 116/78 with heart rate 115, respiratory rate was 25, temperature 100.4. Pain 9/10. Oxygen saturation was 100% on room air. GENERAL: The patient is alert, oriented, not in acute distress. HEENT: Eyes, normal conjunctivae, moist oral mucosa. Anicteric. No JVD. RESPIRATORY: Bilateral air entry. No rales. No wheezing. Symmetric expansion. CARDIOVASCULAR: Normal rate, regular rhythm. No murmurs. No gallop. No edema. ABDOMEN: Soft, tender. Normal bowel sounds. MUSCULOSKELETAL: Baseline range of motion and strength. SKIN: Warm, intact. No pallor. No rash. No redness. Capillary refill seems to be intact. NEUROLOGIC: No evidence of any new focal weakness. Cranial nerves seems to be intact. PSYCHIATRIC: The patient is in good mood. No anxiety. Optimal judgment. Mentation has improved. IMAGING STUDIES: Chest x-ray was reviewed. The patient has no acute findings. Abdomen and pelvis CT was done. Also discussed with the ER physician. The patient has possible ascending cholangitis/cholecystitis. No official report from Radiology, needs to be followed. LABORATORY DATA: Reviewed. The patient has white count 5.9, hemoglobin 10.6, platelet count 195. Blood gas, VBG was done with pH 7.42, pCO2 of 33.2. Chemistry: Sodium 139, potassium 3.7, chloride 108, carbon dioxide 21, anion gap 14, BUN 21, creatinine 1.14, GFR 63, glucose 175. Lactic acid 1.9, calcium 9.5, total bilirubin 1.3. LFTs , ALT 267, alkaline phosphatase 242. Serum total protein 6.6, lipase 105. Urine was done and it was negative. ASSESSMENT AND PLAN: The patient will be placed in the hospital with following medical problems: 1. Severe sepsis. The patient has significant drop in blood pressure, last blood pressure in the 90s. The patient has tachycardia, fever, possible source is acute cholecystitis. The patient received antibiotics. Surgery will be consulted. We will follow recommendations. We will place in IMCU. Patient needs vasopressors. There is high risk of septic shock, will be placed in the ICU. after recurrent evaluation pt underwent into septic shock, placed on levophed with respiective consultation to critical care for assistance with our patient, also surgery and GI as per surgery recommendations. 2. He has acute cholecystitis. The patient has elevated LFTs. The patient is septic. We will treat as above. 3. Deep venous thrombosis prophylaxis. 4. History of coronary artery disease, this is chronic, stable, no need for any acute intervention at this point. We will reconcile home medications. 5. History of diabetes. There is uncontrolled glucose of 175. Place the patient on sliding scale for optimal control. 6. Chronic microcytic anemia, seems to be stable compared with previous lab values. This is something that can be followed as outpatient. 7. Hypothyroidism. Reconcile home medication. Continue hormone replacement. 8. Hyperlipidemia. Low-cholesterol diet is advised once patient is able to eat. Reconcile home medications. 9. History of hypertension, is uncontrolled. The patient is in severe sepsis with significant drop in the systolic blood pressure since presentation after hydration of 2 L. We will not restart blood pressure medication at this point. This can be reconcile later on once the patient is stable. Job ID: [id number] [facility]
[2019-05-25] MEDS: Sodium Chloride 0.9% 1,000 ML IV SCH ×2 (05:45→11:57)
[2019-05-25] MEDS: Levothyroxine Sodium 50 MCG TAB PO SCH (05:45)
--- NOTE | 2019-05-25 06:51 | CON ---
DATE OF CONSULTATION: CHIEF COMPLAINT: Right upper quadrant abdominal pain. HISTORY OF PRESENT ILLNESS: This is a 73-year-old male with multiple medical problems, who came in complaining of severe abdominal pain, nausea, vomiting. He was hypotensive and brought in by ambulance. PAST MEDICAL HISTORY: Diabetes, hypertension, coronary artery disease, myocardial infarction. PAST SURGICAL HISTORY: CABG. ALLERGIES: NO KNOWN DRUG ALLERGIES. MEDICATIONS: 1. Gabapentin. 2. Levothyroxine. 3. Tamsulosin. 4. Crestor. FAMILY HISTORY: Noncontributory. SOCIAL HISTORY: Speaks [place]. Lives with family. No alcohol. No drugs. No tobacco. PHYSICAL EXAMINATION: VITAL SIGNS: Temperature 97.9, pulse 93, blood pressure 118/54. GENERAL: He is awake, somewhat lethargic. HEENT: Do not notice any definite jaundice. ABDOMEN: Very tender in the right upper quadrant. LABORATORY DATA: His white count is 5.9, H and H 10 and 32, platelet count of 195. Electrolytes show an elevated glucose of 175. His T bilirubin is 1.3, alkaline phosphatase 242, lipase 105, AST of 651. ASSESSMENT: Hypotensive patient, on Levophed with cholecystitis and elevated liver functions. PLAN: GI consultation, percutaneous drainage of gallbladder, and cholecystostomy tube. Job ID: [id number]
--- NOTE | 2019-05-25 08:04 | CT ---
CT OF ABDOMEN AND PELVIS: DATE: 05/25/2019. COMPARISON: 10/04/2017. HISTORY: Nausea and vomiting. TECHNIQUE: Axial CT imaging obtained at 5 mm intervals from the lung bases through the pubic symphysis with Iv c ontrast. Coronal reformatted imaging obtained. FINDINGS: Evaluation of the lung bases is limited secondary to motion. There is a pleural-based nodular opacit y noted within the lingula measuring approximately 1.3 cm in AP dimension and 1.3 cm in transverse di mension This is new when compared to 12/04/2014 exam. When compared to 10/04/2017 exam, this nodule appears increased in size, previously measuring 8 x 10 mm. No free intraperitoneal air or fluid is seen. The gallbladder is distended measuring 4.8 cm in transverse dimension. There is punctate multifocal calcification within the gallbladder proximally suggesting cholelithiasis. There is small volume yg e fluid in the right paracolic gutter superiorly and within Morison's pouch. No discrete focal liver lesion identified. Spleen, pancreas, adrenal glands, and kidneys demonstrate no acute findings. Limited assessment of the bowel without oral contrast media demonstrates no inflammatory change or ev idence of obstruction. The appendix is visualized and is within normal limits. There is extensive multifocal atherosclerotic calcification of the abdominal aorta and its branches. There is no lymphadenopathy seen in the abdomen or pelvis. Review of the osseous structures demonstrates no acute findings. IMPRESSION: 1. Cholelithiasis with gallbladder distention and small volume free fluid in the right paracolic gut ter and Morison's pouch. Findings may be on the basis of acute cholecystitis. Dedicated right upper quadrant ultrasound advised. 2. Nodular opacity within the peripheral aspect of the lingula, which appears more prominent than on the prior examination. This could represent a neoplastic/malignant lesion. A dedicated CT examinat ion of the chest with IV contrast is advised for full assessment. CODE T POS: [facility]
[2019-05-25 08:05] LABS: INR-International Normal Ratio 1.4; PTT 32.2 SEC (22.9-36.1); Prothrombin Time 16.9 SEC (12.0-14.7)
--- NOTE | 2019-05-25 08:12 | ULT ---
RIGHT UPPER QUADRANT ULTRASOUND: DATE: 05/25/2019. COMPARISON: None. HISTORY: Right upper quadrant pain. TECHNIQUE: Multiplanar, davis scale sonographic imaging of the right upper quadrant obtained. FINDINGS: The imaged pancreas appears grossly unremarkable. The body and tail of the pancreas are partially ob scured by bowel gas. There is no focal liver lesion or intrahepatic biliary dilatation. The gallbladder is distended, measuring at least 5.3 cm in transverse dimension. The gallbladder wal l appears mildly thickened, measuring 4 mm. Punctate stones are noted in the region of the gallbladd er neck. Gallbladder sludge noted as well. Small volume pericholecystic fluid is seen. The lidder reports a positive Levin's sign. The common bile duct measures 6-7 mm, within normal limits for a patient of this age. The right kidney measures 11.6 cm in craniocaudal dimension and demonstrates no hydronephrosis. Ther e is small volume free fluid in Morison's pouch. A 7 mm right renal cyst is noted. IMPRESSION: Cholelithiasis with gallbladder sludge. Positive Levin's sign with mildly thickened gallbladder wal l and pericholecystic fluid/fluid in Morison's pouch. Findings are suspicious for acute cholecystiti s in the proper clinical setting. If further imaging assessment is clinically warranted, hepatobilia ry scan could best assess patency of the cystic duct. Recommend surgical consultation. POS: [facility]
[2019-05-25] MEDS ORDERED: Sodium Bicarbonate 2.5 MEQ/5 ML VIAL ONE (09:13)
[2019-05-25] MEDS ORDERED: Midazolam HCl 2 mg/2 ml Vial ONE (09:13)
[2019-05-25] MEDS ORDERED: Fentanyl 100 MCG/2 ML VIAL ONE (09:13)
[2019-05-25 09:24] LABS: ALT (SGPT) 370 U/L (8-55); AST (SGOT) 393 U/L (5-34); Albumin 3.1 g/dL (3.4-4.8); Alkaline Phosphatase 196 U/L (40-150); Anion Gap 12 mmol/L (10-20); BUN (Urea Nitrogen) 17 mg/dL (8.4-25.7); Bilirubin, Total 2.3 mg/dL (0.2-1.2); Calc. Creatinine Clearance 0 mL/min (70-130); Calcium 7.5 mg/dL (7.8-10.44); Carbon Dioxide 19 mmol/L (23-31); Chloride 113 mmol/L (98-107); Estimated GFR-MDRD 77; Globulin 2.5 g/dL (2.4-3.5); Glucose 165 mg/dL (83-110); Potassium 3.2 mmol/L (3.5-5.1); Protein, Total 5.6 g/dL (5.8-8.1); Sodium 141 mmol/L (136-145)
[2019-05-25 09:58] LABS: Band 36 % (5-11); Hemoglobin 10.1 g/dL (14.0-18.0); Lymphocytes 7 % (21-51); MDiff Complete? YES; Mean Corpuscular HGB CONC 32.4 g/dL (32.0-36.0); Mean Corpuscular Volume 77.3 fL (78.0-98.0); Mean Platelet Volume 8.4 fL (7.4-10.4); Neutrophil 56 % (42-75); Platelet Count 188 thou/uL (130-400); RBC Distribution Width 14.5 % (11.5-14.5); Red Blood Cell (RBC) Count 4.04 mill/uL (4.70-6.10); Vacuoles SLIGHT; White Blood Cell (WBC) Count 21.2 thou/uL (4.8-10.8)
--- NOTE | 2019-05-25 10:38 | RAD ---
PORTABLE CHEST: HISTORY: Central line placement. COMPARISON: Prior day's study. FINDINGS: There is interval placement of a right central line, catheter tip overlies the superior vena cava. N o signs of pneumothorax. IMPRESSION: Post central line placement. No signs of pneumothorax. No other interval change. POS: [facility]
--- NOTE | 2019-05-25 11:28 | PDOC.PN ---
- Subjective Encounter Start Date: 05/25/19 Encounter Start Time: 09:00 -: old records requested/rev Patient seen and examined. c/o abdominal pain, s/p drain placement, No overnight events - Objective Resuscitation Status - Order Detail: 05/25/19 03:37 Resuscitation Status Routine Resuscitation Status: FULL: Full Resuscitation MAR Reviewed: Yes Vital Signs & Weight: Vital Signs (12 hours) Temp Pulse Ox 05/25/19 08:00 98.6 F 05/25/19 07:00 98.6 F 05/25/19 06:17 98 Weight Weight 2.3 oz Most Recent Monitor Data Heart Rate from ECG 90 NIBP 106/65 NIBP BP-Mean 78 Respiration from ECG 16 SpO2 100 I&O: 05/24/19 05/25/19 05/26/19 06:59 06:59 06:59 Intake Total 0 Output Total 350 Balance -350 Result Diagrams: 05/26/19 04:20 05/26/19 04:20 Additional Labs: Accuchecks 05/25/19 05:53 POC Glucose 162 H Radiology Reviewed by me: Yes (US CT abdomen report noted) EKG Reviewed by me: Yes Phys Exam - Physical Examination Constitutional: NAD HEENT: moist MMs, sclera anicteric Neck: no JVD, supple Respiratory: no wheezing, no rales Cardiovascular: RRR, no significant murmur, no rub Gastrointestinal: soft, no distention, positive bowel sounds Musculoskeletal: no edema, pulses present Neurological: non-focal, normal sensation Lymphatic: no nodes Psychiatric: normal affect, A&O x 3 Skin: no rash, normal turgor Dx/Plan (1) Severe sepsis Code(s): A41.9 - SEPSIS, UNSPECIFIED ORGANISM; R65.20 - SEVERE SEPSIS WITHOUT SEPTIC SHOCK Status: Acute Comment: due to acute cholecystitis with septic shock (2) Cholelithiasis with acute cholecystitis Code(s): K80.00 - CALCULUS OF GALLBLADDER W ACUTE CHOLECYST W/O OBSTRUCTION Status: Acute Comment: s/p cholecystostomy tube placement (3) Abnormal LFTs Code(s): R94.5 - ABNORMAL RESULTS OF LIVER FUNCTION STUDIES Status: Acute Comment: due to acute cholecystitis (4) Hypokalemia Code(s): E87.6 - HYPOKALEMIA Status: Acute (5) Diabetes type 2, controlled Code(s): E11.9 - TYPE 2 DIABETES MELLITUS WITHOUT COMPLICATIONS Status: Chronic (6) CAD (coronary artery disease) Code(s): I25.10 - ATHSCL HEART DISEASE OF [place] CORONARY ARTERY W/O ANG PCTRS Status: Chronic (7) COPD (chronic obstructive pulmonary disease) Status: Chronic (8) HLD (hyperlipidemia) Code(s): E78.5 - HYPERLIPIDEMIA, UNSPECIFIED Status: Chronic (9) Hypothyroidism Code(s): E03.9 - HYPOTHYROIDISM, UNSPECIFIED Status: Chronic (10) Tobacco abuse Code(s): Z72.0 - TOBACCO USE Status: Chronic (11) BPH (benign prostatic hyperplasia) Code(s): N40.0 - BENIGN PROSTATIC HYPERPLASIA WITHOUT LOWER URINRY TRACT SYMP Status: Chronic (12) Bacteremia, escherichia coli Code(s): R78.81 - BACTEREMIA Status: Acute - Plan cont current plan of care, continue antibiotics * continue zosyn * continue IVF * medication reviewed as below * symptomatic treatment * vasopressure support as needed * follow up on culture * General surgery recommendation appreciated * monitor in CCU * pulmonary consult. Review of Systems - Review of Systems ENT: negative: Ear Pain, Ear Discharge, Nose Pain, Nose Discharge, Nose Congestion, Mouth Pain, Mouth Swelling, Throat Pain, Throat Swelling, Other Respiratory: negative: Cough, Dry, Shortness of Breath, Hemoptysis, SOB with Excertion, Pleuritic Pain, Sputum, Wheezing Cardiovascular: negative: chest pain, palpitations, orthopnea, paroxysmal nocturnal dyspnea, edema, light headedness, other Gastrointestinal: Nausea, Abdominal Pain. negative: Vomiting, Diarrhea, Constipation, Melena, Hematochezia, Other Genitourinary: negative: Dysuria, Frequency, Incontinence, Hematuria, Retention , Other Musculoskeletal: negative: Neck Pain, Shoulder Pain, Arm Pain, Back Pain, Hand Pain, Leg Pain, Foot Pain, Other - Medications/Allergies Allergies/Adverse Reactions: Allergies Allergy/AdvReac Type Severity Reaction Status Date / Time No Known Allergies Allergy Verified 12/07/18 15:43 Medications: Current Medications Acetaminophen (Tylenol) 650 mg PO Q4H PRN PRN Reason: Headache/Fever/Mild Pain (1-3) Acetaminophen (Tylenol) 650 mg MO Q4H PRN PRN Reason: Headache/Fever/Mild Pain (1-3) Dextrose/Water (Dextrose 50%) 25 gm SLOW IVP PRN PRN PRN Reason: Hypoglycemia Glucagon (Glucagon) 1 mg IM PRN PRN PRN Reason: Hypoglycemia Piperacillin Sod/Tazobactam (Sod 4.5 gm/ Sodium Chloride) 100 mls @ 200 mls/hr IVPB 0800,1600,2359 [facility] Sodium Chloride (Normal Saline 0.9%) 1,000 mls @ 125 mls/hr IV .Q8H [facility] Last Admin: 05/25/19 05:45 Dose: 1,000 mls Dextrose/Water (D5w) 1,000 mls @ 0 mls/hr IV .Q0M PRN PRN Reason: Hypoglycemia Norepinephrine Bitartrate (Levophed) 250 mls @ 0 mls/hr IVPB INF PRN; Protocol PRN Reason: Blood Pressure Norepinephrine Bitartrate 8 mg (/ Dextrose/Water) 250 mls @ 0 mls/hr IVPB INF PRN; Protocol PRN Reason: TO MAINTAIN MAP > 65 Insulin Human Lispro (Humalog) 0 units SC .MILD SLIDING SCALE PRN PRN Reason: Mild Correctional Scale Levothyroxine Sodium (Synthroid) 150 mcg PO 0600 [facility] Last Admin: 05/25/19 05:45 Dose: 150 mcg Miscellaneous Medication (Pharmacy To Dose) 1 each IVPB PRN PRN PRN Reason: SEPSIS Ondansetron HCl (Zofran Odt) 4 mg PO Q6H PRN PRN Reason: Nausea/Vomiting Ondansetron HCl (Zofran) 4 mg IVP Q6H PRN PRN Reason: Nausea/Vomiting Pneumococcal 13-Valent Conj Vacc (Prevnar) 0.5 ml IM .ONCE ONE Stop: 05/26/19 08:46
[2019-05-25] MEDS ORDERED: Sodium Chloride 0.65% Nasal 44 ML BOT EA NARE PRN (11:29)
[2019-05-25] MEDS ORDERED: Cepastat Lozenges 1 LOZ PO PRN (11:29)
[2019-05-25] MEDS ORDERED: Senokot S 8.6-50 MG TAB PO PRN (11:29)
[2019-05-25] MEDS ORDERED: Diabetic Tussin 200 MG/10 ML UDCUP PO PRN (11:29)
--- NOTE | 2019-05-25 11:51 | CT ---
CT-guided cholecystostomy tube placement. HISTORY: Patient with cholecystitis symptoms unable to go to surgery due to clinical status. A cholec ystostomy tube was requested. COMPARISON: Ultrasound examination and CT study done earlier today. FINDINGS: After informed consent was obtained patient was prepped and draped in the normal sterile fa shion. Local anesthesia was obtained with 1% Xylocaine. A small skin incision was made with a #11 scalpel blade. An AccuStick system was used. Initially a 22-gauge Chiba needle was inserted into the gallbladder with the maximum amount of purchase of liver that I could obtain. The patient was very combative during the examination and would not cooperate with holding the breath. A wire was placed through the 22-gauge needle an AccuStick system was inserted. After images confirm the position within the gallbladder A.038 inch guidewire was then introduced and once again images confirm the position within the gallbladder. Dilatation was performed to 8 Upper [place] and subsequently an 8 [place] drainage catheter was placed. Approximately 35 cc of bile-colored fluid was obtained. The tube was sutured in position and a Percu-Stay was also placed. The patient tolerated the procedure wi thout any immediate complications. Conscious sedation was used during the examination with a total of 100 mcg of fentanyl and 2 mg of Versed administered intravenously during the procedure.. IMPRESSION: Successful placement of an 8 [place] drainage catheter into the gallbladder. The final suleman m shows that the gallbladder is decompressed.
[2019-05-25] MEDS: Piperacillin/Tazobactam 4.5 GM in Sodium Chloride 0.9% 100 ML IVPB SCH ×3 (11:55→23:48)
[2019-05-25] MEDS: HYDROcodone/Acetaminophen 5/325 mg Tablet PO PRN (11:55)
[2019-05-25] MEDS ORDERED: Morphine 4 MG/ML VIAL ONE (12:16)
[2019-05-25] MEDS: Ondansetron PF 4 MG/2 ML Vial IVP PRN (12:19)
[2019-05-25] MEDS ORDERED: Vancomycin HCl 1.75 GM in Sodium Chloride 0.9% 500 ML IVPB SCH (13:00)
[2019-05-25] MEDS: Morphine 2 MG/ML SYRINGE SLOW IVP PRN ×2 (14:46→17:07)
[2019-05-25] MEDS: Ondansetron PF 4 MG/2 ML Vial SLOW IVP PRN (14:46)
--- NOTE | 2019-05-25 15:52 | CON ---
DATE OF CONSULTATION: 05/25/2019 CHIEF COMPLAINT: Abdominal pain. HISTORY OF PRESENT ILLNESS: Mr. Olvera is a 73-year-old man, who developed onset of severe abdominal pain yesterday afternoon. He ate some tamales for lunch, later after that developed severe epigastric aching, abdominal pain. The pain progressed such that he came to the emergency room by ambulance early this morning. When he came in, he had fever and tachycardia and developed hypotension. He received fluids and required pressors to keep his blood pressure up. He had a CT scan of the abdomen and pelvis that showed cholelithiasis. He had an ultrasound showing signs of cholecystitis and a bile duct that was 6 to 7 mm. He was evaluated by General Surgery, Dr. Henry, and ultimately, due to the septic picture and hypotension requiring pressors, he was sent for cholecystostomy tube placement by Interventional Radiology as he was not safe for surgery for his gallbladder. Given the sepsis as well, there was a question of cholangitis, and therefore, GI was consulted to evaluate further. Mr. Olvera states that he did have some nausea and vomiting last night. He had the cholecystostomy tube placed and he has pain at the site of the cholecystostomy tube, but the upper abdominal pain is doing better. He has had no diarrhea, constipation, or blood in the stool. No bloody emesis. PAST MEDICAL HISTORY: Coronary artery disease, diabetes mellitus, hypothyroidism, hyperlipidemia, and hypertension. PAST SURGICAL HISTORY: Coronary artery bypass graft. FAMILY HISTORY: Negative for GI malignancy. SOCIAL HISTORY: No alcohol, tobacco, or drugs. ALLERGIES: NO KNOWN DRUG ALLERGIES. MEDICATIONS: Currently include: 1. Levothyroxine. 2. Zosyn. 3. Vancomycin. Home medications include: 1. Metformin. 2. Tamsulosin. 3. Rosuvastatin. 4. Levothyroxine. 5. Gabapentin. 6. Clindamycin. 7. Acetaminophen. REVIEW OF SYSTEMS: Negative x10 systems reviewed except as stated in the history of present illness. PHYSICAL EXAMINATION: VITAL SIGNS: Temperature is 98.6 now, it was up to 100.4 in the ER; pulse 105; and blood pressure 99/64. GENERAL: He is in no acute distress. He is awake, alert, and oriented x3. HEENT: Eyes have no scleral icterus. Oropharynx is clear without lesions. LYMPH: No cervical or supraclavicular lymphadenopathy. LUNGS: Clear to auscultation bilaterally. HEART: Tachycardic, S1 and S2, without murmur. ABDOMEN: Soft. He does have some diffuse tenderness without guarding. Bowel sounds are present. EXTREMITIES: No lower extremity edema. He has a transhepatic cholecystostomy tube present between the right ribs. NEUROLOGIC: Cranial nerves are grossly intact. There is no asterixis. LABORATORY DATA: White blood cell count is 21.2, up from 5.9 on initial presentation last night; hemoglobin 10.1; MCV 77; platelets 188; and 36% bands. INR 1.4 and creatinine 0.96. He did have a low ferritin back in 2010, but it has been a while. Bilirubin is 2.3; AST 393, down from 651 last night; ALT 370, which is an increase; alkaline phosphatase 196; albumin 3.1; and lipase 105. IMPRESSION: 1. Acute cholecystitis, presenting with sepsis and hemodynamic instability and fever. He is status post cholecystostomy tube placement and is doing better hemodynamically after that. He is on broad-spectrum antibiotics. 2. Cholelithiasis. Question from a Gastroenterology standpoint now is whether or not he has choledocholithiasis. For now, he is drained and is clinically improving. Ultimately, he will require a cholecystectomy in the future. At that point, intraoperative cholangiogram could be performed to evaluate for choledocholithiasis. Alternatively, after the inflammation in the gallbladder is resolved, cholangiogram through the gallbladder could be considered as an option through the cholecystostomy tube. His common bile duct was not significantly dilated. His liver tests, however, were significantly elevated, which could be related to the cholecystitis or sepsis or potentially choledocholithiasis. A small amount of pus was initially drained from the gallbladder and then it ran with a clear yellow bile. RECOMMENDATIONS: Supportive care and antibiotics in the ICU. Typically, the cholecystostomy tube is left in place for quite a while before following through with surgery afterwards. We can determine if ERCP will be required based on intraoperative cholangiogram or cholangiogram through the cholecystostomy tube if that is possible. As long as he is draining well, then there is no urgency for ERCP at this point, and we will follow the trend of his liver tests and I will continue to follow. Job ID: [id number]
[2019-05-25] MEDS: 1/2 NS w/KCL 20 mEq 1,000 ML IV SCH ×2 (16:15→23:49)
[2019-05-25] MEDS: Acetaminophen 650 MG Suppository PR PRN (16:22)
--- NOTE | 2019-05-25 17:07 | CON ---
DATE OF CONSULTATION: 05/25/2019 SERVICE: Pulmonary Medicine. REASON FOR CONSULTATION: Severe sepsis, ICU patient. HISTORY OF PRESENT ILLNESS: The patient is a 73-year-old male with past medical history significant for essentially nothing. He presented to the hospital with complaints of abdominal discomfort. He was also having some fever. In the emergency department, he was discovered to have acute cholecystitis. Because of his severe inflammatory changes, he was deemed not to be a good surgical candidate in this setting. As such, he was referred for cholecystostomy tube placement. This was a difficult placement, but ultimately, it was put in the right position. It drained out significant amounts of purulent material. The patient had onset of more severe discomfort after the drain was placed. He had increasing tachycardia, tachypnea, and shortness of breath. He was tucked into the ICU. Gram-negative rods are already growing in blood cultures. Gram stain in the cholecystostomy fluid is also positive for gram-negative rods. He indicates having severe abdominal discomfort at this point. He has multiple doses of morphine and seems to be settling down a little bit. He looks less labored. He has a cough, but he did not bring up any sputum. Prior to this event, he did not have any shortness of breath, nausea, vomiting, or diarrhea. He does not have any hot, red, or swollen joints , arthralgias. PAST MEDICAL HISTORY: 1. Type-2 diabetes mellitus. 2. Coronary artery disease. 3. Dyslipidemia. 4. Hypertension. 5. Hypothyroidism. PAST SURGICAL HISTORY: 1. Coronary artery bypass graft, 3 vessels. 2. Percutaneous cholecystostomy drain placement. SOCIAL HISTORY: Negative for alcohol, tobacco, or illicit drug use. He lives at home with family. He is fully functional with his ADLs. FAMILY HISTORY: Noncontributory. ALLERGIES: NO KNOWN DRUG ALLERGIES. MEDICATIONS: List of the patient's inpatient medications were reviewed. I have discontinued the vancomycin as we already have our organism. REVIEW OF SYSTEMS: General; head, ears, eyes, nose, throat; cardiovascular; respiratory; GI; ; musculoskeletal; neurologic; and skin are negative as mentioned is the HPI. PHYSICAL EXAMINATION: VITAL SIGNS: Afebrile. Pulse 105, blood pressure 104/50, respirations 23, saturation 91% on room air. HEENT: Normocephalic and atraumatic. Sclerae white. Conjunctivae pink. Oral mucosa is moist without lesions. GENERAL: The patient is awake, alert. He is in moderate distress secondary to abdominal discomfort. HEART: Tachycardic. Regular. ABDOMEN: Soft. Tender to palpation throughout. There is guarding. There is also some rigidity. Rebound tenderness is present at this point. Bowel sounds are hypoactive. : Elliott catheter in place. NEUROLOGIC: Grossly nonfocal. LABORATORY DATA: WBC 21.2, hemoglobin 10.1, platelets 188,000. Neutrophils are 56% on top of 36% bands. INR 1.4. PH 7.4, pCO2 of 33. Creatinine is downtrending to 0.96. Potassium 3.2 and stable. Liver function studies including AST, ALT, and alkaline phosphatase are all downtrending at this moment. Total bilirubin however is up trending to 2.3. Calcium 7.5. Urinalysis is unremarkable. Blood cultures are growing gram-negative rods in 2/2. Body fluid culture has many gram- negative rods. There are also few white blood cells present. Urine culture is negative to date. Influenza A and B are negative. IMAGING: Abdominal imaging is consistent with acute cholecystitis. ASSESSMENT: 1. Septic shock. 2. Cholecystitis, status post percutaneous cholecystostomy tube, postop day zero. 3. Elevated transaminases. 4. Type-2 diabetes mellitus. 5. Bacteremia secondary to gram-negative anurag. DISCUSSION AND PLAN: We will drop the vancomycin. I will continue the Zosyn. I transduce a CVP. He has been adequately volume resuscitated. I will continue some IV hydration on him as he clinically appears to be dry. I will switch him over to half-normal saline with a little bit of potassium running at 150 an hour. We will watch his respiratory status quite closely. There is a very good chance that he is going to start dropping blood pressures. If this occurs, if his CVP is adequate , we will initiate some Levophed. At this point, he is protecting his airway quite well and is on room air. He does have much respiratory reserve currently. I will follow him very closely while he remains in the ICU. Once he cools off, in a couple of weeks, he will be a good candidate for a cholecystectomy. 70 minutes have been devoted to this patient in various activities. I personally reviewed all imaging studies and laboratory data noted within this document. For fifty percent of this time, I was interacting with the patient at the bedside or coordinating care with the care team. For the remainder of the time I was immediately available to the patient in the hospital unit. Job ID: [id number] MTDD
[2019-05-25] MEDS ORDERED: Fentanyl 100 MCG/2 ML VIAL SLOW IVP PRN (18:44)
[2019-05-25] MEDS: Fentanyl 100 MCG/2 ML VIAL SLOW IVP PRN ×3 (18:49→23:47)
[2019-05-26 04:49] LABS: #Eosinphils 0.1 thou/uL (0.0-0.7); #Lymphocytes 0.8 thou/uL (1.20-3.40); #Monocytes 0.4 thou/uL (0.11-0.59); #Neutrophils 9.6 thou/uL (1.40-6.50); %Basophils 0.1 % (0.0-1.0); %Eosinophils 0.7 % (0.0-10.0); %Monocytes 3.5 % (0.0-10.0); %Neutrophils 88.7 % (42.0-75.0); Hemoglobin 9.9 g/dL (14.0-18.0); Mean Corpuscular HGB CONC 31.8 g/dL (32.0-36.0); Mean Corpuscular Volume 78.7 fL (78.0-98.0); Mean Platelet Volume 8.3 fL (7.4-10.4); Platelet Count 149 thou/uL (130-400); RBC Distribution Width 14.6 % (11.5-14.5); Red Blood Cell (RBC) Count 3.96 mill/uL (4.70-6.10); White Blood Cell (WBC) Count 10.8 thou/uL (4.8-10.8)
[2019-05-26 05:07] LABS: Anion Gap 15 mmol/L (10-20); BUN (Urea Nitrogen) 15 mg/dL (8.4-25.7); Calc. Creatinine Clearance 72 mL/min (70-130); Calcium 7.6 mg/dL (7.8-10.44); Carbon Dioxide 18 mmol/L (23-31); Chloride 111 mmol/L (98-107); Estimated GFR-MDRD 87; Glucose 76 mg/dL (83-110); Potassium 3.8 mmol/L (3.5-5.1); Sodium 140 mmol/L (136-145)
[2019-05-26] MEDS: Levothyroxine Sodium 50 MCG TAB PO SCH (06:12)
[2019-05-26] MEDS: 1/2 NS w/KCL 20 mEq 1,000 ML IV SCH (06:12)
[2019-05-26] MEDS: Piperacillin/Tazobactam 4.5 GM in Sodium Chloride 0.9% 100 ML IVPB SCH ×2 (07:57→16:26)
[2019-05-26] MEDS ORDERED: Loperamide HCl 2 MG CAP PO PRN (08:24)
[2019-05-26] MEDS ORDERED: Zolpidem Tartrate 5 MG TAB PO PRN (08:24)
[2019-05-26] MEDS ORDERED: Artificial Tears 18 DROP/0.9 ML EA EYE PRN (08:24)
[2019-05-26] MEDS ORDERED: Prevnar 13-Val Conj/PF 0.5 ML SYRINGE IM ONE (08:45)
[2019-05-26] MEDS ORDERED: 1/2 NS w/KCL 20 mEq 1,000 ML IV SCH (09:30)
--- NOTE | 2019-05-26 10:03 | PRG ---
DATE OF SERVICE: 05/26/2019 SERVICE: Pulmonary medicine. INTERVAL HISTORY: The patient is doing really well from respiratory standpoint. He is breathing comfortably. His abdominal pain is little bit improved. He is no longer guarding. Otherwise, he has weaned off all Levophed. His blood pressures have firmed up, his heart rate settled down. PHYSICAL EXAMINATION: VITAL SIGNS: Afebrile with a T-max of 100.0, pulse 90, blood pressure 138/68, respirations 22, saturation 100% on 2 L nasal cannula. GENERAL: The patient is awake and alert, in no apparent distress. LUNGS: Decent air entry. No prolonged expiratory phase. Rhonchi present. Minimal dependent crackles are noted. HEART: Normal rate, regular. ABDOMEN: Soft. It is exquisitely tender to palpation. There is rebound but no guarding. Bowel sounds are hypoactive. : Elliott catheter in place. NEUROLOGIC: Grossly nonfocal. LABORATORY DATA: WBC 10.8, hemoglobin 9.9, platelets 149,000. Chloride 111. Basic metabolic profile is otherwise unremarkable. Potassium has improved to 3.8, creatinine is 0.86. Basic metabolic profile is otherwise unremarkable. Calcium is improved to 7.6. Urinalysis is essentially unremarkable. Body fluid cultures growing gram-negative rods. Blood culture is growing E coli in 2/2. Urine culture is negative to date. ASSESSMENT: 1. Septic shock, resolving. 2. Cholecystitis, status post percutaneous cholecystostomy tube, postop day 1. 3. Elevated transaminases. 4. Type 2 diabetes mellitus. 5. Bacteremia secondary to Escherichia coli. DISCUSSION AND PLAN: We will continue our empiric antibiotics. We will discontinue the transduction of the CVP. I will drop our IV fluids down to 50 an hour. At this point, he is stable for transition to the surgical unit. Once his gallbladder cools off for an adequate period of time, he will likely require a cholecystectomy. Pulmonary will follow for now. I will repeat LFTs in the morning. Job ID: [id number] [facility] CENTERJaki
[2019-05-26] MEDS: Morphine 2 MG/ML SYRINGE SLOW IVP PRN ×5 (11:00→22:02)
--- NOTE | 2019-05-26 11:50 | PDOC.PN ---
- Subjective Encounter Start Date: 05/26/19 Encounter Start Time: 07:30 Patient seen and examined. No new complaints. No overnight events - Objective Resuscitation Status - Order Detail: 05/25/19 03:37 Resuscitation Status Routine Resuscitation Status: FULL: Full Resuscitation MAR Reviewed: Yes Vital Signs & Weight: Vital Signs (12 hours) Temp Pulse Resp BP Pulse Ox 05/26/19 10:11 98.8 F 92 24 H 146/70 H 93 L 05/26/19 07:44 100 05/26/19 04:00 100.0 F H Weight Weight 141 lb 1.533 oz Most Recent Monitor Data Heart Rate from ECG 90 NIBP 138/68 NIBP BP-Mean 91 Respiration from ECG 22 SpO2 100 I&O: 05/25/19 05/26/19 05/27/19 06:59 06:59 06:59 Intake Total 4035.9 0 Output Total 1915 440 Balance 2120.9 -440 Result Diagrams: 05/26/19 04:20 05/26/19 04:20 Additional Labs: Accuchecks 05/26/19 05/26/19 05/25/19 11:10 05:46 21:14 POC Glucose 73 74 91 05/25/19 05/25/19 16:16 12:49 POC Glucose 122 H 163 H EKG Reviewed by me: Yes Phys Exam - Physical Examination Constitutional: NAD HEENT: PERRLA, moist MMs, sclera anicteric Neck: no JVD, supple Respiratory: no wheezing, no rales, no rhonchi Cardiovascular: RRR, no significant murmur, no rub Gastrointestinal: soft, no distention, positive bowel sounds epigastric discomfort, drain in place Musculoskeletal: no edema, pulses present Neurological: non-focal, normal sensation, moves all 4 limbs Lymphatic: no nodes Psychiatric: normal affect, A&O x 3 Skin: no rash, normal turgor Dx/Plan (1) Severe sepsis Code(s): A41.9 - SEPSIS, UNSPECIFIED ORGANISM; R65.20 - SEVERE SEPSIS WITHOUT SEPTIC SHOCK Status: Acute Comment: due to acute cholecystitis with septic shock (2) Bacteremia, escherichia coli Code(s): R78.81 - BACTEREMIA Status: Acute (3) Cholelithiasis with acute cholecystitis Code(s): K80.00 - CALCULUS OF GALLBLADDER W ACUTE CHOLECYST W/O OBSTRUCTION Status: Acute Comment: s/p cholecystostomy tube placement (4) Abnormal LFTs Code(s): R94.5 - ABNORMAL RESULTS OF LIVER FUNCTION STUDIES Status: Acute Comment: due to acute cholecystitis (5) Hypokalemia Code(s): E87.6 - HYPOKALEMIA Status: Acute (6) Diabetes type 2, controlled Code(s): E11.9 - TYPE 2 DIABETES MELLITUS WITHOUT COMPLICATIONS Status: Chronic (7) CAD (coronary artery disease) Code(s): I25.10 - ATHSCL HEART DISEASE OF [place] CORONARY ARTERY W/O ANG PCTRS Status: Chronic (8) COPD (chronic obstructive pulmonary disease) Status: Chronic (9) HLD (hyperlipidemia) Code(s): E78.5 - HYPERLIPIDEMIA, UNSPECIFIED Status: Chronic (10) Hypothyroidism Code(s): E03.9 - HYPOTHYROIDISM, UNSPECIFIED Status: Chronic (11) Tobacco abuse Code(s): Z72.0 - TOBACCO USE Status: Chronic (12) BPH (benign prostatic hyperplasia) Code(s): N40.0 - BENIGN PROSTATIC HYPERPLASIA WITHOUT LOWER URINRY TRACT SYMP Status: Chronic - Plan cont current plan of care, continue antibiotics, PT/OT * reduce IVF * urine output is good * drain output is getting more clearer * continue zosyn * continue PT * eventual lap matthew before discharge * medication reviewed as below * symptomatic treatment. * transfer to medical Review of Systems - Review of Systems ENT: negative: Ear Pain, Ear Discharge, Nose Pain, Nose Discharge, Nose Congestion, Mouth Pain, Mouth Swelling, Throat Pain, Throat Swelling, Other Respiratory: negative: Cough, Dry, Shortness of Breath, Hemoptysis, SOB with Excertion, Pleuritic Pain, Sputum, Wheezing Cardiovascular: negative: chest pain, palpitations, orthopnea, paroxysmal nocturnal dyspnea, edema, light headedness, other Gastrointestinal: Nausea, Abdominal Pain. negative: Vomiting, Diarrhea, Constipation, Melena, Hematochezia, Other Genitourinary: negative: Dysuria, Frequency, Incontinence, Hematuria, Retention , Other Musculoskeletal: negative: Neck Pain, Shoulder Pain, Arm Pain, Back Pain, Hand Pain, Leg Pain, Foot Pain, Other Skin: negative: Rash, Lesions, Raúl, Bruising, Other - Medications/Allergies Allergies/Adverse Reactions: Allergies Allergy/AdvReac Type Severity Reaction Status Date / Time No Known Allergies Allergy Verified 12/07/18 15:43 Medications: Current Medications Acetaminophen (Tylenol) 650 mg PO Q4H PRN PRN Reason: Headache/Fever/Mild Pain (1-3) Acetaminophen (Tylenol) 650 mg PA Q4H PRN PRN Reason: Headache/Fever/Mild Pain (1-3) Last Admin: 05/25/19 16:22 Dose: 650 mg Hydrocodone Bitart/Acetaminophen ([place] 5/325) 1 tab PO Q4H PRN PRN Reason: Moderate Pain (4-6) Last Admin: 05/25/19 11:55 Dose: 1 tab Artificial Tears (Tears Naturale) 2 drop EA EYE PRN PRN PRN Reason: Dry Eyes Dextrose/Water (Dextrose 50%) 25 gm SLOW IVP PRN PRN PRN Reason: Hypoglycemia Glucagon (Glucagon) 1 mg IM PRN PRN PRN Reason: Hypoglycemia Guaifenesin (Robitussin Sf) 200 mg PO Q4H PRN PRN Reason: Cough Piperacillin Sod/Tazobactam (Sod 4.5 gm/ Sodium Chloride) 100 mls @ 200 mls/hr IVPB 0800,1600,2359 [facility] Last Admin: 05/26/19 07:57 Dose: 100 mls Dextrose/Water (D5w) 1,000 mls @ 0 mls/hr IV .Q0M PRN PRN Reason: Hypoglycemia Potassium Chloride/Sodium Chloride (1/2 Ns W/Kcl 20 Meq) 1,000 mls @ 50 mls/hr IV .Q20H [facility] Last Admin: 05/26/19 11:00 Dose: 1,000 mls Insulin Human Lispro (Humalog) 0 units SC .MILD SLIDING SCALE PRN PRN Reason: Mild Correctional Scale Levothyroxine Sodium (Synthroid) 150 mcg PO 0600 [facility] Last Admin: 05/26/19 06:12 Dose: 150 mcg Loperamide HCl (Imodium) 2 mg PO PRN PRN PRN Reason: Diarrhea/Loose Stools Morphine Sulfate (Morphine) 2 mg SLOW IVP Q2H PRN PRN Reason: Moderate Pain (4-6) Last Admin: 05/26/19 11:00 Dose: 2 mg Ondansetron HCl (Zofran Odt) 4 mg PO Q6H PRN PRN Reason: Nausea/Vomiting Ondansetron HCl (Zofran) 4 mg IVP Q6H PRN PRN Reason: Nausea/Vomiting Last Admin: 05/25/19 12:19 Dose: 4 mg Ondansetron HCl (Zofran) 4 mg SLOW IVP Q2H PRN PRN Reason: Nausea/Vomiting Last Admin: 05/25/19 14:46 Dose: 4 mg Senna/Docusate Sodium (Senokot S) 2 tab PO BID PRN PRN Reason: Constipation Sodium Chloride ([place] Nasal [place] 0.65%) 0 ml EA NARE QIDPRN PRN PRN Reason: Nasal Congestion Throat Lozenges (Cepastat Lozenges) 1 rachel PO Q2H PRN PRN Reason: Sore Throat Zolpidem Tartrate (Ambien) 5 mg PO HSPRN PRN PRN Reason: Insomnia
--- NOTE | 2019-05-26 11:53 | PRG ---
DATE OF SERVICE: 05/26/2019 SUBJECTIVE: The patient is feeling much better after percutaneous drainage of his gallbladder. He has had moderate pain, but it is much improved. OBJECTIVE: VITAL SIGNS: His temperature is 98.8, pulse 92, blood pressure 146/70. Drain output just 25 mL. Urine output is good at 1200. GENERAL: He is more awake and alert. LABORATORY DATA: His white count is gone from 21 to 10, hemoglobin and hematocrit 10 and 31, platelet count 149. His LFTs are good. PLAN: Repeat LFTs. Continue drainage. Allow him to have clear liquids. Job ID: [id number]
[2019-05-26 14:32] LABS: ALT (SGPT) 196 U/L (8-55); AST (SGOT) 102 U/L (5-34); Albumin 2.9 g/dL (3.4-4.8); Alkaline Phosphatase 125 U/L (40-150); Bilirubin, Direct 2.4 mg/dL (0.1-0.3); Bilirubin, Total 3.1 mg/dL (0.2-1.2); Protein, Total 5.5 g/dL (5.8-8.1)
[2019-05-26] MEDS: Acetaminophen 650 MG Suppository PR PRN (21:55)
[2019-05-27] MEDS: Piperacillin/Tazobactam 4.5 GM in Sodium Chloride 0.9% 100 ML IVPB SCH ×4 (00:13→23:42)
[2019-05-27] MEDS: Acetaminophen 650 MG Suppository PR PRN (02:46)
[2019-05-27] MEDS: Morphine 2 MG/ML SYRINGE SLOW IVP PRN ×2 (02:46→05:35)
[2019-05-27] MEDS ORDERED: Sodium Chloride 0.9% 1,000 ML IV SCH (03:00)
--- NOTE | 2019-05-27 03:02 | PDOC.EVN ---
Event Note - Event Note Event Note: Patient continues to have some fever overnight. Will change IV fluids to NS at [address] Gomez.
[2019-05-27 04:40] LABS: #Basophils 0.1 thou/uL (0.0-0.2); #Lymphocytes 0.6 thou/uL (1.20-3.40); #Monocytes 0.3 thou/uL (0.11-0.59); #Neutrophils 8.9 thou/uL (1.40-6.50); %Basophils 0.5 % (0.0-1.0); %Eosinophils 0.4 % (0.0-10.0); %Lymphocytes 6.5 % (21.0-51.0); %Monocytes 2.5 % (0.0-10.0); %Neutrophils 90.1 % (42.0-75.0); Hemoglobin 10.3 g/dL (14.0-18.0); Mean Corpuscular HGB CONC 31.5 g/dL (32.0-36.0); Mean Corpuscular Hemoglobin 24.2 pg (27.0-31.0); Mean Corpuscular Volume 76.8 fL (78.0-98.0); Mean Platelet Volume 8.6 fL (7.4-10.4); Platelet Count 150 thou/uL (130-400); RBC Distribution Width 14.2 % (11.5-14.5); Red Blood Cell (RBC) Count 4.27 mill/uL (4.70-6.10); White Blood Cell (WBC) Count 9.8 thou/uL (4.8-10.8)
[2019-05-27 04:43] LABS: ALT (SGPT) 139 U/L (8-55); AST (SGOT) 62 U/L (5-34); Albumin 2.7 g/dL (3.4-4.8); Alkaline Phosphatase 134 U/L (40-150); Bilirubin, Direct 2.6 mg/dL (0.1-0.3); Bilirubin, Total 3.9 mg/dL (0.2-1.2); Protein, Total 5.4 g/dL (5.8-8.1)
[2019-05-27 04:44] LABS: ALT (SGPT) 146 U/L (8-55); AST (SGOT) 65 U/L (5-34); Albumin 2.7 g/dL (3.4-4.8); Alkaline Phosphatase 132 U/L (40-150); Anion Gap 13 mmol/L (10-20); BUN (Urea Nitrogen) 12 mg/dL (8.4-25.7); Bilirubin, Total 3.8 mg/dL (0.2-1.2); Calc. Creatinine Clearance 69 mL/min (70-130); Carbon Dioxide 18 mmol/L (23-31); Chloride 107 mmol/L (98-107); Estimated GFR-MDRD 86; Globulin 2.8 g/dL (2.4-3.5); Glucose 115 mg/dL (83-110); Potassium 3.2 mmol/L (3.5-5.1); Protein, Total 5.5 g/dL (5.8-8.1); Sodium 135 mmol/L (136-145)
[2019-05-27] MEDS: HYDROcodone/Acetaminophen 5/325 mg Tablet PO PRN ×4 (06:56→23:44)
[2019-05-27] MEDS: Levothyroxine Sodium 50 MCG TAB PO SCH (06:56)
--- NOTE | 2019-05-27 08:17 | RAD ---
CHEST 1 VIEW: Date: 05/27/19 COMPARISON: Prior day's examination. HISTORY: Respiratory distress. Fever. FINDINGS: Heart size is borderline with postop sternotomy changes. There is right-sided central line unchanged in position. Increasing upper lobe parenchymal changes and changes within the right lower lobe sugges t infiltrative change rather than edema. IMPRESSION: Bilateral upper lobe and right lower lobe infiltrative appearing changes. There could be some associa lacy right effusion. POS: TPC
[2019-05-27] MEDS: Ondansetron PF 4 MG/2 ML Vial IVP PRN ×2 (08:31→16:36)
--- NOTE | 2019-05-27 11:02 | PRG ---
DATE OF SERVICE: 05/27/2019 SERVICE: Pulmonary Medicine. INTERVAL HISTORY: The patient is doing wonderful from respiratory standpoint. He has been weaned down to 0.5 L nasal cannula. He denies any current nausea, vomiting, or diarrhea. He indicates that his abdominal discomfort continues to improve. Otherwise, he has no specific complaints today. His blood pressure is firmed up, and he is no longer toxic appearing. He is talking comfortable on the phone with relatives. PHYSICAL EXAMINATION: VITAL SIGNS: Afebrile currently with a T-max of 101.8 overnight, pulse 93, blood pressure 132/73, respirations 18, and saturation 98% on 2 L nasal cannula. GENERAL: The patient is awake and alert, in no apparent distress. LUNGS: Decent air entry. Minimal dependent crackles are present. HEART: Normal rate, regular. ABDOMEN: Soft. Tender to palpation. There is no rebound or guarding present today. Bowel sounds are present. MUSCULOSKELETAL: No cyanosis or clubbing. I do not appreciate any pitting in bilateral lower extremities. NEUROLOGIC: Grossly nonfocal. LABORATORY DATA: WBC 9.8, hemoglobin 10.3 and stable, and platelets 150,000. INR 1.4. Potassium 3.2. Basic metabolic profile is otherwise unremarkable. AST and ALT are both downtrending, bilirubin 2.6. Total bilirubin is stable. Urinalysis is unremarkable. E coli is growing in the gallbladder fluid. It is also growing blood in 2/2. There is nearly a pansensitive organism. IMAGING DATA: Chest x-ray demonstrates possible right-sided pleural effusion, which is small. There are bilateral upper lobe infiltrates. There is a right IJ central venous catheter in good position. Previous sternotomy wires are present. ASSESSMENT: 1. Septic shock, resolved. 2. Cholecystitis, severe, status post percutaneous cholecystostomy tube, postop day #2. 3. Type 2 diabetes mellitus. 4. Bacteremia secondary to Escherichia coli. 5. Right-sided pleural effusion, and bilateral infiltrates, new since presentation to the hospital. DISCUSSION AND PLAN: The infiltrates are likely associated with volume. He was aggressively fluid resuscitated on presentation, and he has not developed any lower extremity swelling. A chest x-ray should be repeated in 4 to 5 days. This should be a two view film. If the effusion persists, a repeat Pulmonary consultation should be considered. At this point, he has no further requirements for inpatient Pulmonary/Critical Care opinion, and I will sign off. Please call with additional questions or concerns through time. Job ID: [id number]
--- NOTE | 2019-05-27 12:29 | PRG ---
DATE OF SERVICE: SUBJECTIVE: Mr. Olvera still has abdominal pain, which is currently being controlled with oral pain medication. He did receive morphine last night, but he gets nausea with the morphine. OBJECTIVE: VITAL SIGNS: Temperature 97.8, pulse 90, and blood pressure 122/71. GENERAL: He is in no acute distress. He is awake and alert. LUNGS: Some expiratory wheezes and decreased breath sounds on the right. HEART: Regular rate and rhythm without murmur. ABDOMEN: Tender somewhat diffusely, but more so in the upper abdomen. Bowel sounds are present. EXTREMITIES: No lower extremity edema. LABORATORY DATA: White blood cell count 9.8, hemoglobin 10.3, and platelets 150. Creatinine 0.87, bilirubin 3.9, AST 62, ALT 139, and alk phos 134. IMPRESSION: 1. Acute cholecystitis, status post cholecystostomy tube. He is having good drainage of bile from the tube. He has expected pain given the transhepatic approach required to get to the gallbladder for the cholecystostomy tube. 2. Abnormal liver tests. His bilirubin remains elevated, but his alkaline phosphatase is normal and his transaminases are significantly improving. His white blood cell count is normal and he is afebrile. I think he has no ongoing signs of cholangitis at this point and ERCP will not be required immediately. RECOMMENDATIONS: 1. He will require the cholecystostomy tube for around 6 weeks, at which point, a cholangiogram could be performed through the cholecystostomy tube. If a stone is identified in the bile duct at that point, then ERCP could be performed then. Cholecystectomy will typically be performed around 6 weeks after placement of the tube as well. 2. Once his pain is controlled and as his liver tests continue to improve, then he should be ready to discharge. I would suspect this will likely be in a couple of days or so. Job ID: [id number]
--- NOTE | 2019-05-27 13:19 | PRG ---
DATE OF SERVICE: 05/27/2019 SUBJECTIVE: The patient states that he is feeling a little less pain, still having some nausea. He has not taken much p.o. He became a little hypoxic last night, and the chest x-ray suggested CHF, so he is on fluid restriction. OBJECTIVE: VITAL SIGNS: His temperature is 97.8, pulse 90, and blood pressure 122/71. GENERAL: He looks good. He is wide awake, alert. ABDOMEN: Soft, nondistended, nontender. The percutaneous drain put out 100 yesterday. LABORATORY DATA: His white count is 9.8, H and H 10 and 32, and platelet count 150. His T-bilirubin was still elevated at 3.9. LFTs are still elevated. ASSESSMENT: Status post percutaneous drain, better. Worried, there may be a stone in his duct. PLAN: I have recommend GI re-evaluate him. Job ID: [id number]
[2019-05-27] MEDS: Potassium Chloride 40 MEQ in Premix Bag 1 BAG IVPB SCH ×2 (13:24→18:02)
--- NOTE | 2019-05-27 17:54 | PDOC.PN ---
- Subjective Encounter Start Date: 05/27/19 Encounter Start Time: 10:45 Subjective: has mild abd pain at the percut tube site -: no nausea, is tolerating liq diet - Objective Resuscitation Status - Order Detail: 05/25/19 03:37 Resuscitation Status Routine Resuscitation Status: FULL: Full Resuscitation MAR Reviewed: Yes Vital Signs & Weight: Vital Signs (12 hours) Temp Pulse Resp BP Pulse Ox 05/27/19 15:45 98.3 F 89 20 148/75 H 96 05/27/19 11:23 97.8 F 90 18 122/71 98 05/27/19 07:19 98.1 F 93 18 132/73 98 Weight Weight 152 lb 6.4 oz Most Recent Monitor Data Heart Rate from ECG 90 NIBP 138/68 NIBP BP-Mean 91 Respiration from ECG 22 SpO2 100 I&O: 05/26/19 05/27/19 05/28/19 06:59 06:59 06:59 Intake Total 4035.9 770 Output Total 1915 3340 60 Balance 2120.9 -2570 -60 Result Diagrams: 05/27/19 04:14 05/27/19 04:14 Additional Labs: Accuchecks 05/27/19 05/27/19 05/27/19 15:52 11:27 06:19 POC Glucose 121 H 110 116 H 05/26/19 21:45 POC Glucose 103 Phys Exam - Physical Examination HEENT: PERRLA icterus+ Neck: no JVD, supple Respiratory: no wheezing rhonchi+ Cardiovascular: RRR, no significant murmur Gastrointestinal: soft, no distention, positive bowel sounds percut biliary tube+ Musculoskeletal: no edema, pulses present Neurological: non-focal, moves all 4 limbs Psychiatric: normal affect, A&O x 3 Dx/Plan (1) Acute cholecystitis Code(s): K81.0 - ACUTE CHOLECYSTITIS Status: Acute Comment: s/p percut biliary tube (2) Bacteremia, escherichia coli Code(s): R78.81 - BACTEREMIA Status: Acute (3) Severe sepsis Code(s): A41.9 - SEPSIS, UNSPECIFIED ORGANISM; R65.20 - SEVERE SEPSIS WITHOUT SEPTIC SHOCK Status: Resolved Comment: due to acute cholecystitis (4) BPH (benign prostatic hyperplasia) Code(s): N40.0 - BENIGN PROSTATIC HYPERPLASIA WITHOUT LOWER URINRY TRACT SYMP Status: Chronic Qualifiers: Lower urinary tract symptom presence: symptoms absent Qualified Code(s): N40.0 - Benign prostatic hyperplasia without lower urinary tract symptoms (5) CAD (coronary artery disease) Code(s): I25.10 - ATHSCL HEART DISEASE OF [place] CORONARY ARTERY W/O ANG PCTRS Status: Chronic Qualifiers: Coronary Disease-Associated Artery/Lesion type: bypass graft [place] vs. 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 Review of Systems - Medications/Allergies Allergies/Adverse Reactions: Allergies Allergy/AdvReac Type Severity Reaction Status Date / Time No Known Allergies Allergy Verified 12/07/18 15:43 Medications: Current Medications Acetaminophen (Tylenol) 650 mg PO Q4H PRN PRN Reason: Headache/Fever/Mild Pain (1-3) Acetaminophen (Tylenol) 650 mg VT Q4H PRN PRN Reason: Headache/Fever/Mild Pain (1-3) Last Admin: 05/27/19 02:46 Dose: 650 mg Hydrocodone Bitart/Acetaminophen ([place] 5/325) 1 tab PO Q4H PRN PRN Reason: Moderate Pain (4-6) Last Admin: 05/27/19 16:35 Dose: 1 tab Artificial Tears (Tears Naturale) 2 drop EA EYE PRN PRN PRN Reason: Dry Eyes Dextrose/Water (Dextrose 50%) 25 gm SLOW IVP PRN PRN PRN Reason: Hypoglycemia Glucagon (Glucagon) 1 mg IM PRN PRN PRN Reason: Hypoglycemia Guaifenesin (Robitussin Sf) 200 mg PO Q4H PRN PRN Reason: Cough Piperacillin Sod/Tazobactam (Sod 4.5 gm/ Sodium Chloride) 100 mls @ 200 mls/hr IVPB 0800,1600,2359 [facility] Last Admin: 05/27/19 16:36 Dose: 100 mls Dextrose/Water (D5w) 1,000 mls @ 0 mls/hr IV .Q0M PRN PRN Reason: Hypoglycemia Potassium Chloride 40 meq/ (Device) 100 mls @ 25 mls/hr IVPB Q4H [facility] Stop: 05/27/19 18:59 Last Admin: 05/27/19 13:24 Dose: 100 mls Insulin Human Lispro (Humalog) 0 units SC .MILD SLIDING SCALE PRN PRN Reason: Mild Correctional Scale Levothyroxine Sodium (Synthroid) 150 mcg PO 0600 [facility] Last Admin: 05/27/19 06:56 Dose: 150 mcg Loperamide HCl (Imodium) 2 mg PO PRN PRN PRN Reason: Diarrhea/Loose Stools Morphine Sulfate (Morphine) 2 mg SLOW IVP Q2H PRN PRN Reason: Moderate Pain (4-6) Last Admin: 05/27/19 05:35 Dose: 2 mg Ondansetron HCl (Zofran Odt) 4 mg PO Q6H PRN PRN Reason: Nausea/Vomiting Ondansetron HCl (Zofran) 4 mg IVP Q6H PRN PRN Reason: Nausea/Vomiting Last Admin: 05/27/19 16:36 Dose: 4 mg Ondansetron HCl (Zofran) 4 mg SLOW IVP Q2H PRN PRN Reason: Nausea/Vomiting Last Admin: 05/25/19 14:46 Dose: 4 mg Senna/Docusate Sodium (Senokot S) 2 tab PO BID PRN PRN Reason: Constipation Sodium Chloride ([place] Nasal [place] 0.65%) 0 ml EA NARE QIDPRN PRN PRN Reason: Nasal Congestion Throat Lozenges (Cepastat Lozenges) 1 rachel PO Q2H PRN PRN Reason: Sore Throat Zolpidem Tartrate (Ambien) 5 mg PO HSPRN PRN PRN Reason: Insomnia
[2019-05-27] MEDS: Ondansetron PF 4 MG/2 ML Vial SLOW IVP PRN (19:17)
[2019-05-28] MEDS: Levothyroxine Sodium 50 MCG TAB PO SCH (06:15)
[2019-05-28 08:09] LABS: #Basophils 0.1 thou/uL (0.0-0.2); #Eosinphils 0.2 thou/uL (0.0-0.7); #Lymphocytes 1.3 thou/uL (1.20-3.40); #Monocytes 0.6 thou/uL (0.11-0.59); #Neutrophils 8.4 thou/uL (1.40-6.50); %Basophils 0.8 % (0.0-1.0); %Eosinophils 1.8 % (0.0-10.0); %Lymphocytes 12.4 % (21.0-51.0); %Monocytes 5.2 % (0.0-10.0); %Neutrophils 79.7 % (42.0-75.0); Hemoglobin 10.3 g/dL (14.0-18.0); Mean Corpuscular HGB CONC 32.1 g/dL (32.0-36.0); Mean Corpuscular Hemoglobin 24.5 pg (27.0-31.0); Mean Corpuscular Volume 76.3 fL (78.0-98.0); Mean Platelet Volume 8.7 fL (7.4-10.4); Platelet Count 138 thou/uL (130-400); RBC Distribution Width 14.4 % (11.5-14.5); White Blood Cell (WBC) Count 10.6 thou/uL (4.8-10.8)
--- NOTE | 2019-05-28 08:20 | PRG ---
DATE OF SERVICE: 05/28/2019 SUBJECTIVE: The patient says he feels much better today, really has no pain. No nausea or vomiting. He wants to know when he can go home. He is tolerating clear liquids. OBJECTIVE: VITAL SIGNS: His temperature is 98.4, pulse 88, and blood pressure 122/53. GENERAL: He appears to be comfortable, in no apparent distress. HEENT: He has obvious jaundice. ABDOMEN: Soft, nondistended, and nontender. His drain tube is draining a thin green bile. ASSESSMENT: Choledocholithiasis with history of cholangitis and acute cholecystitis. PLAN: Full liquids. GI wants to wait before doing any type of ERCP at this point, but I am concerned that his LFTs are not coming down. Job ID: [id number]
[2019-05-28 08:38] LABS: ALT (SGPT) 92 U/L (8-55); AST (SGOT) 33 U/L (5-34); Albumin 2.7 g/dL (3.4-4.8); Alkaline Phosphatase 131 U/L (40-150); Bilirubin, Total 4.4 mg/dL (0.2-1.2); Protein, Total 5.7 g/dL (5.8-8.1)
[2019-05-28] MEDS: Piperacillin/Tazobactam 4.5 GM in Sodium Chloride 0.9% 100 ML IVPB SCH ×2 (09:33→15:57)
[2019-05-28] MEDS: HYDROcodone/Acetaminophen 5/325 mg Tablet PO PRN ×2 (10:19→20:26)
--- NOTE | 2019-05-28 12:54 | PDOC.HOSPP ---
- Subjective Subjective: abd pain is better, no nausea is tolerating liq diet says he is ambulating in room - Objective Vital Signs & Weight: Vital Signs (12 hours) Temp Pulse Resp BP Pulse Ox 05/28/19 12:32 98.2 F 79 18 151/64 H 88 L 05/28/19 09:00 97.6 F 75 16 157/68 H 93 L 05/28/19 08:00 93 L 05/28/19 05:38 92 L 05/28/19 04:10 98.4 F 88 16 122/53 L 92 L 05/28/19 02:44 98.9 F 05/28/19 01:08 96 97 Weight Weight 145 lb 14.4 oz Most Recent Monitor Data Heart Rate from ECG 90 NIBP 138/68 NIBP BP-Mean 91 Respiration from ECG 22 SpO2 100 I&O: 05/27/19 05/28/19 05/29/19 06:59 06:59 06:59 Intake Total 770 880 Output Total 5028 4390 487 [facility]2570 -1535 -350 Result Diagrams: 05/28/19 07:52 05/27/19 04:14 Additional Labs: Accuchecks 05/28/19 05/28/19 05/27/19 11:08 05:28 21:35 POC Glucose 98 115 H 143 H 05/27/19 15:52 POC Glucose 121 H ROS - Review of Systems All systems: All other ROS were reviewed and found negative. - Medication Medications: Active Medications Generic Name Dose Route Start Last Admin Trade Name Freq PRN Reason Stop Dose Admin Acetaminophen 650 mg 05/25/19 03:37 05/27/19 21:04 Tylenol PO 650 mg Q4H PRN Administration Headache/Fever/Mild Pain (1-3) Acetaminophen 650 mg 05/25/19 03:37 05/27/19 02:46 Tylenol OR 650 mg Q4H PRN Administration Headache/Fever/Mild Pain (1-3) Hydrocodone Bitart/Acetaminophen 1 tab 05/25/19 11:29 05/28/19 10:19 [place] 5/325 PO 1 tab Q4H PRN Administration Moderate Pain (4-6) Piperacillin Sod/Tazobactam 100 mls @ 200 mls/hr 05/25/19 08:00 05/28/19 09: 33 Sod 4.5 gm/ Sodium Chloride IVPB 100 mls 0800,1600,2359 ISI Administration Levothyroxine Sodium 150 mcg 05/25/19 06:00 05/28/19 06:15 Synthroid PO 150 mcg 0600 ISI Administration Morphine Sulfate 2 mg 05/25/19 12:17 05/27/19 05:35 Morphine SLOW IVP 2 mg Q2H PRN Administration Moderate Pain (4-6) Ondansetron HCl 4 mg 05/25/19 03:37 05/27/19 16:36 Zofran IVP 4 mg Q6H PRN Administration Nausea/Vomiting Ondansetron HCl 4 mg 05/25/19 12:18 05/27/19 19:17 Zofran SLOW IVP 4 mg Q2H PRN Administration Nausea/Vomiting - Exam awake alert Eye: PERRL, scleral icterus ENT: no oropharyngeal lesions, dry oral mucosa Neck: supple, no JVD Heart: RRR, no murmur Respiratory: no wheezes, no rales Gastrointestinal: soft, non-distended, normal bowel sounds (percut biliary tube+ ) Extremities: no cyanosis, no clubbing Skin: normal turgor, no lesions Neurological: CN's grossly intact, no focal deficits Musculoskeletal: normal tone, normal strength Hosp A/P (1) Acute cholecystitis Code(s): K81.0 - ACUTE CHOLECYSTITIS Status: Acute (2) Bacteremia, escherichia coli Code(s): R78.81 - BACTEREMIA Status: Acute (3) Severe sepsis Code(s): A41.9 - SEPSIS, UNSPECIFIED ORGANISM; R65.20 - SEVERE SEPSIS WITHOUT SEPTIC SHOCK Status: Resolved (4) BPH (benign prostatic hyperplasia) Code(s): N40.0 - BENIGN PROSTATIC HYPERPLASIA WITHOUT LOWER URINRY TRACT SYMP Status: Chronic Qualifiers: Lower urinary tract symptom presence: symptoms absent Qualified Code(s): N40.0 - Benign prostatic hyperplasia without lower urinary tract symptoms (5) CAD (coronary artery disease) Code(s): I25.10 - ATHSCL HEART DISEASE OF [place] CORONARY ARTERY W/O ANG PCTRS Status: Chronic Qualifiers: Coronary Disease-Associated Artery/Lesion type: bypass graft [place] vs. 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
--- NOTE | 2019-05-28 20:19 | PRG ---
DATE OF SERVICE: 05/28/2019 SUBJECTIVE: Mr. Olvera has pain in his right side when he breathes, which he states is similar to pain when he had a broken rib. OBJECTIVE: VITAL SIGNS: Temperature 98.1, pulse 75, blood pressure 154/72. GENERAL: He is in no acute distress. Awake and alert. LUNGS: Clear to auscultation bilaterally. HEART: Regular rate and rhythm without murmur. ABDOMEN: pot tender in the epigastric region without guarding. Bowel sounds are present. EXTREMITIES: No lower extremity edema. LABORATORY DATA: Bilirubin 4.4, AST 33, ALT 92, alkaline phosphatase 131. IMPRESSION: 1. Cholecystitis, status post cholecystostomy tube. 2. E. coli sepsis with E. coli also growing from the biliary drainage. 3. Abnormal liver tests. His transaminases and alkaline phosphatase have all markedly improved. His bilirubin is trending up. This pattern is most consistent with results from a hepatic injury from the sepsis itself rather than obstruction. An ischemic component could also have caused this pattern. With that being said, I cannot guarantee that he does not have choledocholithiasis. His bile duct was not significantly dilated on presentation and his bilirubin was not significantly elevated on presentation either. I will tentatively set him up for ERCP on . We will recheck his bilirubin tomorrow. If it is markedly trending down tomorrow, then we may hold off ERCP, otherwise, again we will replan it for . Job ID: [id number]
[2019-05-29] MEDS: Piperacillin/Tazobactam 4.5 GM in Sodium Chloride 0.9% 100 ML IVPB SCH ×3 (00:46→16:05)
[2019-05-29] MEDS: HYDROcodone/Acetaminophen 5/325 mg Tablet PO PRN ×4 (01:27→22:42)
[2019-05-29] MEDS: Levothyroxine Sodium 50 MCG TAB PO SCH (05:36)
[2019-05-29 09:50] LABS: ALT (SGPT) 72 U/L (8-55); AST (SGOT) 30 U/L (5-34); Alkaline Phosphatase 153 U/L (40-150); Bilirubin, Direct 3.6 mg/dL (0.1-0.3); Bilirubin, Total 5.1 mg/dL (0.2-1.2); Protein, Total 6.7 g/dL (5.8-8.1)
[2019-05-29] MEDS: Ondansetron PF 4 MG/2 ML Vial SLOW IVP PRN (10:34)
--- NOTE | 2019-05-29 16:20 | PDOC.HOSPP ---
- Subjective Subjective: has mild ruq pain where the percut cath is placed no nausea, tolerating oral diet has ambulated with PT yesterday - Objective Vital Signs & Weight: Vital Signs (12 hours) Temp Pulse Resp BP Pulse Ox 05/29/19 14:54 98.1 F 70 16 162/68 H 93 L 05/29/19 10:53 97.9 F 68 16 148/68 H 95 05/29/19 08:00 95 05/29/19 07:40 97.9 F 67 18 170/67 H 95 05/29/19 06:17 96 05/29/19 04:26 98.3 F 67 18 137/67 96 Weight Weight 143 lb 1.6 oz Most Recent Monitor Data Heart Rate from ECG 90 NIBP 138/68 NIBP BP-Mean 91 Respiration from ECG 22 SpO2 100 I&O: 05/28/19 05/29/19 05/30/19 06:59 06:59 06:59 Intake Total 880 100 Output Total 2415 1900 Balance -1535 -1800 Result Diagrams: 05/28/19 07:52 05/27/19 04:14 Additional Labs: Accuchecks 05/29/19 05/29/19 05/29/19 14:54 11:02 05:37 POC Glucose 131 H 95 71 05/28/19 05/28/19 21:18 17:03 POC Glucose 74 78 ROS - Review of Systems All systems: All other ROS were reviewed and found negative. - Medication Medications: Active Medications Generic Name Dose Route Start Last Admin Trade Name Freq PRN Reason Stop Dose Admin Acetaminophen 650 mg 05/25/19 03:37 05/27/19 21:04 Tylenol PO 650 mg Q4H PRN Administration Headache/Fever/Mild Pain (1-3) Acetaminophen 650 mg 05/25/19 03:37 05/27/19 02:46 Tylenol [place] 650 mg Q4H PRN Administration Headache/Fever/Mild Pain (1-3) Hydrocodone Bitart/Acetaminophen 1 tab 05/25/19 11:29 05/29/19 16:09 [place] 5/325 PO 1 tab Q4H PRN Administration Moderate Pain (4-6) Piperacillin Sod/Tazobactam 100 mls @ 200 mls/hr 05/25/19 08:00 05/29/19 16: 05 Sod 4.5 gm/ Sodium Chloride IVPB 100 mls 0800,1600,2359 ISI Administration Levothyroxine Sodium 150 mcg 05/25/19 06:00 05/29/19 05:36 Synthroid PO 150 mcg 0600 ISI Administration Morphine Sulfate 2 mg 05/25/19 12:17 05/27/19 05:35 Morphine SLOW IVP 2 mg Q2H PRN Administration Moderate Pain (4-6) Ondansetron HCl 4 mg 05/25/19 03:37 05/27/19 16:36 Zofran IVP 4 mg Q6H PRN Administration Nausea/Vomiting Ondansetron HCl 4 mg 05/25/19 12:18 05/29/19 10:34 Zofran SLOW IVP 4 mg Q2H PRN Administration Nausea/Vomiting - Exam awake alert Eye: PERRL, scleral icterus ENT: no oropharyngeal lesions, moist mucosa Neck: supple, no JVD Heart: RRR, no murmur Respiratory: no wheezes, no rales Gastrointestinal: soft, non-distended, normal bowel sounds, tender to palpation (percut biliary drain has bile in it) Extremities: no cyanosis, no edema Skin: no lesions, no rashes Neurological: CN's grossly intact, no focal deficits Musculoskeletal: normal strength, no muscle wasting Psychiatric: normal affect, A&O x 3 Hosp A/P (1) Acute cholecystitis Code(s): K81.0 - ACUTE CHOLECYSTITIS Status: Acute (2) Bacteremia, escherichia coli Code(s): R78.81 - BACTEREMIA Status: Acute (3) Severe sepsis Code(s): A41.9 - SEPSIS, UNSPECIFIED ORGANISM; R65.20 - SEVERE SEPSIS WITHOUT SEPTIC SHOCK Status: Resolved (4) BPH (benign prostatic hyperplasia) Code(s): N40.0 - BENIGN PROSTATIC HYPERPLASIA WITHOUT LOWER URINRY TRACT SYMP Status: Chronic Qualifiers: Lower urinary tract symptom presence: symptoms absent Qualified Code(s): N40.0 - Benign prostatic hyperplasia without lower urinary tract symptoms (5) CAD (coronary artery disease) Code(s): I25.10 - ATHSCL HEART DISEASE OF [place] CORONARY ARTERY W/O ANG PCTRS Status: Chronic Qualifiers: Coronary Disease-Associated Artery/Lesion type: bypass graft [place] vs. transplanted heart: [place] heart Associated angina: without angina Qualified Code(s): I25.810 - Atherosclerosis of coronary artery bypass graft(s) without angina pectoris (6) COPD (chronic obstructive pulmonary disease) Status: Chronic Qualifiers: COPD type: unspecified COPD Qualified Code(s): J44.9 - Chronic obstructive pulmonary disease, unspecified (7) Diabetes type 2, controlled Code(s): E11.9 - TYPE 2 DIABETES MELLITUS WITHOUT COMPLICATIONS Status: Chronic Qualifiers: Diabetes mellitus exterminator helper insulin use: without longterm use (8) HLD (hyperlipidemia) Code(s): E78.5 - HYPERLIPIDEMIA, UNSPECIFIED Status: Chronic Qualifiers: Hyperlipidemia type: unspecified Qualified Code(s): E78.5 - Hyperlipidemia , unspecified (9) Hypothyroidism Code(s): E03.9 - HYPOTHYROIDISM, UNSPECIFIED Status: Chronic Qualifiers: Hypothyroidism type: unspecified Qualified Code(s): E03.9 - Hypothyroidism , unspecified - Plan for ERCP in am, t.bili is around 5 this am. is ambulating in hallway per staff continue zosyn, synthroid diet per gen surg adv hemostable E.coli is sensitive to quinolones, likely will need anaerobic coverage, await opinion. Timing of lap matthew per .
--- NOTE | 2019-05-29 16:51 | PRG ---
DATE OF SERVICE: 05/29/2019 SUBJECTIVE: Mr. Olvera has mild pain today. He rates this as 4/10 and he has been taking [place] for that. No nausea or vomiting. He continues to have drainage from his cholecystostomy tube. OBJECTIVE: VITAL SIGNS: Temperature 98.1, pulse 70, blood pressure 162/68. GENERAL: He is in no acute distress. Awake and alert. LUNGS: Clear to auscultation bilaterally. HEART: Regular rate and rhythm without murmur. ABDOMEN: Soft. Minimal tenderness in the epigastric region without guarding. Bowel sounds are present. EXTREMITIES: No lower extremity edema. LABORATORY DATA: White blood cell count was 10 yesterday. Liver tests from today, bilirubin is increased to 5.1, ALT 72, AST 30, alkaline phosphatase 153. IMPRESSION: 1. Cholecystitis, status post cholecystostomy tube. 2. Abnormal liver tests. This could be secondary to the sepsis or medication side effects. However, given that his bilirubin continues to increase and his alkaline phosphatase increased today, we will need to rule out ongoing choledocholithiasis. RECOMMENDATIONS: ERCP tomorrow. Job ID: [id number]
[2019-05-30] MEDS: Piperacillin/Tazobactam 4.5 GM in Sodium Chloride 0.9% 100 ML IVPB SCH ×4 (00:04→23:21)
[2019-05-30] MEDS: HYDROcodone/Acetaminophen 5/325 mg Tablet PO PRN (03:08)
[2019-05-30] MEDS: Levothyroxine Sodium 50 MCG TAB PO SCH (06:07)
[2019-05-30 09:53] LABS: ALT (SGPT) 54 U/L (8-55); AST (SGOT) 31 U/L (5-34); Albumin 2.9 g/dL (3.4-4.8); Alkaline Phosphatase 189 U/L (40-150); Bilirubin, Direct 3.6 mg/dL (0.1-0.3); Protein, Total 6.1 g/dL (5.8-8.1)
[2019-05-30] MEDS ORDERED: Iothalamate Meglumine 60% 50 ML VIAL FS ONE (12:22)
[2019-05-30] MEDS ORDERED: Fentanyl 100 MCG/2 ML VIAL ONE (12:23)
[2019-05-30] MEDS ORDERED: Indomethacin 50 MG SUPP ONE ×2 (12:28→12:29)
[2019-05-30] MEDS ORDERED: Indomethacin 50 MG SUPP PR SCH (12:30)
--- NOTE | 2019-05-30 14:06 | RAD ---
EXAM: ERCP HISTORY: Elevated LFTs and gallstones FINDINGS/IMPRESSION: Limited fluoroscopic views from an ERCP were submitted for interpretation. A clint inage catheter projects in the region of the gallbladder. Contrast is seen in the common bile duct, cystic duct, gallbladder, and intrahepatic biliary tree. No filling defects are seen in the last imag e within the common bile duct. There is obviously not cystic duct obstruction as the contrast fills the gallbladder.
--- NOTE | 2019-05-30 17:02 | CON ---
DATE OF CONSULTATION: 05/30/2019 REASON FOR CONSULTATION: Acute cholecystitis, bacteremia. HISTORY OF PRESENT ILLNESS: A 73-year-old who was admitted with a history of type 2 diabetes, coronary artery disease, new onset of severe abdominal pain associated with fever and exam showed initial findings with blood pressure 116/78, heart rate 115, respirations 25, and a temperature 100.4, pain was 9/10. The abdomen is described as tender. Heart and lungs exam normal. Chest x-ray without infiltrates. CT of abdomen and pelvis with distended gallbladder and multifocal calcification within the gallbladder suggesting cholelithiasis. No discrete liver lesion identified. An abdominal ultrasound was completed the next day and it showed distended gallbladder with mildly thickened wall, stones within the gallbladder seen, small volume of pericholecystic fluid. CBD was within normal limits. Initial white cell count was 5.9 with 90% neutrophils and the bilirubin 1.3, AST 651, ALT 267, alkaline phosphatase 242 with lipase 105. ERCP was completed and it did not show any filling defects, and the ducts were patent. The patient had a surgical consultation. Because of his medical instability with hypotension on Levophed, percutaneous cholecystostomy was recommended and accomplished on May 25. The patient has improved and is currently in the surgical floor. He is awake, complaining that he wants to eat. Nobody is feeding him. He denies headaches. No visual symptoms, sore throat, odynophagia, or dysphagia. No cough or dyspnea. No chest pain. Minor abdominal pain. Voiding without difficulty. No joint symptoms. No neurological symptoms. PAST MEDICAL HISTORY: Type 2 diabetes, coronary artery disease, hypothyroidism, hyperlipidemia, and hypertension. PAST SURGICAL HISTORY: Bypass graft surgery. SOCIAL HISTORY: Never smoker. Lives with family in the area. ALLERGIES: NONE. CURRENT MEDICATIONS: 1. Tylenol. 2. [place]. 3. Dextrose. 4. Glucagon. 5. Synthroid. 6. Imodium. 7. Morphine. 8. Zofran. 9. Zosyn. PHYSICAL EXAMINATION: VITAL SIGNS: T-max 101.8 a few days ago he has defervesced since, blood pressure 180/60, pulse 71, respirations 18, and O2 saturation 95%. GENERAL: The patient has percutaneous cholecystostomy tube in the right upper quadrant lateral aspect and does not have a Elliott catheter. The patient has a peripheral IV access and no lymphadenopathy. HEENT: Ocular movements conjugate. Sclerae white. Pupils are equal. Oral cavity with still a few remaining teeth in place with marked decay and gum disease. NECK: Supple. No jugular vein distention or carotid bruits. LUNGS: Symmetric air entry. No crackles or wheezing. HEART: S1 and S2. Regular rate. No S3 or S4. ABDOMEN: Soft. Not distended or tender, maybe mild tenderness in the right upper quadrant area, but much less than before. No bladder distention. No joint inflammatory activity. EXTREMITIES: Able to move extremities equally. Pulses 1+ in dorsalis pedis. Plantar responses are flexor. No clonus. NEUROLOGIC: He is awake, oriented, and follows commands. LABORATORY DATA: Sodium 141, potassium 3.2, creatinine 0.96, glucose 165. Lactic acid 1.9. AST is down to 393, ALT is 370, alkaline phosphatase is down to 196, bilirubin is up to 2.3. The total albumin is down to 3.1. Urinalysis, 0 to 3 wbc's and microbiology with E. coli, which has broad susceptibility profile except to ampicillin and cefoxitin. This is retrieved from both the bile aspirate from the cholecystostomy procedure as well as 2 sets of blood cultures. ASSESSMENT: 1. Type 2 diabetes. 2. Coronary artery disease. 3. Sepsis with hypotension, requiring Levophed. 4. Acute cholecystitis with bacteremia, status post cholecystostomy. DISCUSSION: The patient did not have any evidence of obstruction of the bile duct and should be stable very soon to have cholecystectomy, after that, interruption of antimicrobial therapy could follow within a few days. He would be eligible for transition to oral quinolone for continuation of therapy in view of the susceptibility profile of the organism. He would not require more than 3 to 5 days after the cholecystectomy. An alternate approach if he is not felt to be a candidate for cholecystectomy at least at this time, would be to continue cholecystostomy drainage with eventual removal of the tube, continuation of antimicrobial therapy around 10-14 weeks approximately. Other sites of involvement are not apparent at this time. He does have one area of opacification in the right lung, but I believe this more likely to represent fluid and true infiltrate. Job ID: [id number] [facility]
[2019-05-31 03:49] VITALS: BMI 24.0
[2019-05-31] MEDS: Levothyroxine Sodium 50 MCG TAB PO SCH (05:38)
[2019-05-31] MEDS: Piperacillin/Tazobactam 4.5 GM in Sodium Chloride 0.9% 100 ML IVPB SCH ×2 (07:37→16:49)
[2019-05-31] MEDS ORDERED: Furosemide 40 MG/4 ML VIAL SLOW IVP SCH (07:45)
--- NOTE | 2019-05-31 08:39 | OP ---
DATE OF PROCEDURE: 05/30/2019 PREPROCEDURE DIAGNOSES: 1. Elevated LFTs. 2. Severe cholecystitis with need for cholecystostomy tube earlier this admission and pressors, now improved. 3. Persistent elevated bilirubin at 5 with a direct of 3.6. Normal AST and ALT. Alkaline phosphatase 189. Ultrasound showed a common bile duct of 4 mm, concern for possible ongoing choledocholithiasis versus intrahepatic cholestasis from sepsis. POSTPROCEDURE DIAGNOSES: 1. 4 mm common bile duct with no filling defects and no stones. Small sphincterotomy cut. Duct swept four times with no stones removed. Bile flows freely. 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 2. Elevated bilirubin is likely due to sepsis cholestasis. 3. Gallbladder does fill on this exam, full of gallstones. The patient is stable now and can go for a laparoscopic cholecystectomy whenever deemed ready by General Surgery. ANESTHESIA: General. DESCRIPTION OF PROCEDURE: The patient was informed of the risks, benefits, and possible complications of endoscopy including perforation, reaction to medication, aspiration, and pancreatitis. The patient and family gave informed consent. The patient was on antibiotics and therefore, no further prophylactic antibiotics were given. Indocin suppository 100 mg was given rectally. A liter of IV fluid was given before and during the procedure, lactated Ringer's. Once the patient was sedated in a prone position, casualty insurance claim adjuster films were obtained, showing cholecystostomy tube in place. The side-viewing duodenoscope was advanced through esophagus, stomach, and the second and third portion of the duodenum and slowly removed, when the ampulla was brought into view. Clear bile was noted to be draining from this. Cannulation could not initially be obtained. Therefore, a wire was placed in the pancreatic duct and a dual wire system was used to cannulate the common bile duct. Cholangiogram revealed a very narrow 4 mm duct with no overt filling defects. Distally, there was concern for possible small filling defect, this was more linear and not in the shape typically of a stone. A 9 mm catheter was then advanced over the guidewire up into the common hepatic duct. The balloon was inflated, and the balloon was slowly brought down through the duct while performing occlusion cholangiogram. This was after a sphincterotomy had been made over a guidewire. The occlusion cholangiogram showed no filling defects. No stones were noted to come from the ampulla. The gallbladder did fill. The duct was swept three more time, no stones noted. No stones were noted in the past. No filling defects were seen. The scope was removed. The patient tolerated the procedure well. No complications. Job ID: [id number]
[2019-05-31] MEDS ORDERED: Tamsulosin HCl 0.4 MG CAP PO SCH (09:00)
--- NOTE | 2019-05-31 09:00 | RAD ---
PORTABLE CHEST: HISTORY: Respiratory distress. COMPARISON: Prior day's study. FINDINGS: Heart size is within normal limits. Postop sternotomy changes are seen. The lungs are clear of infi ltrates. Right-sided central line is unchanged in position. IMPRESSION: Stable chest. POS: C
[2019-05-31 09:08] LABS: ALT (SGPT) 53 U/L (8-55); AST (SGOT) 46 U/L (5-34); Albumin 2.9 g/dL (3.4-4.8); Alkaline Phosphatase 236 U/L (40-150); Anion Gap 13 mmol/L (10-20); BUN (Urea Nitrogen) 13 mg/dL (8.4-25.7); Bilirubin, Total 4.3 mg/dL (0.2-1.2); Calc. Creatinine Clearance 80 mL/min (70-130); Calcium 8.5 mg/dL (7.8-10.44); Carbon Dioxide 25 mmol/L (23-31); Chloride 103 mmol/L (98-107); Estimated GFR-MDRD Greater than 90; Globulin 3.5 g/dL (2.4-3.5); Glucose 149 mg/dL (83-110); Protein, Total 6.4 g/dL (5.8-8.1); Sodium 138 mmol/L (136-145)
--- NOTE | 2019-05-31 09:42 | PRG ---
DATE OF SERVICE: 05/31/2019 SUBJECTIVE: The patient reports he feels fine. He has no pain. He is tolerating diet well. His ERCP yesterday showed no obstruction, free flow into the gallbladder and to the duodenum. OBJECTIVE: VITAL SIGNS: His temperature is 98.4, pulse 74, blood pressure 160/75. GENERAL: He is awake, alert, does not appear to be in any distress. HEENT: He has jaundice. LUNGS: Clear. ABDOMEN: Soft, nondistended, and nontender. LABORATORY DATA: His white count is 10.6, H and H of 10 and 32, platelet count of 138. ASSESSMENT: Acute cholecystitis with cholecystostomy tube. PLAN: The patient needs to allow his gallbladder to heal for about a month to 6 weeks prior to laparoscopic cholecystectomy due to the increased risk of surgery at this time. He should be discharged with his cholecystostomy tube and follow up with me in 2 to 3 weeks. Job ID: [id number]
--- NOTE | 2019-05-31 14:05 | PDOC.HOSPP ---
- Subjective Subjective: pt was seen and examined on 05/30/2019. abd pain is better, no nausea is ambulating had ercp with no obstruction per patient - Objective Vital Signs & Weight: Vital Signs (12 hours) Temp Pulse Resp BP Pulse Ox 05/31/19 11:16 97.8 F 75 14 160/78 H 95 05/31/19 07:25 98.4 F 74 14 169/75 H 96 05/31/19 03:25 95 05/31/19 03:22 98.4 F 93 16 148/68 H 74 L Weight Weight 140 lb Most Recent Monitor Data Heart Rate from ECG 90 NIBP 138/68 NIBP BP-Mean 91 Respiration from ECG 22 SpO2 100 I&O: 05/30/19 05/31/19 06/01/19 06:59 06:59 06:59 Intake Total 1230 Output Total 866 1510 Balance -866 -280 Result Diagrams: 05/28/19 07:52 05/31/19 07:54 Additional Labs: Accuchecks 05/31/19 05/31/19 05/30/19 11:14 06:06 20:38 POC Glucose 180 H 135 H 175 H 05/30/19 16:38 POC Glucose 120 H ROS - Review of Systems All systems: All other ROS were reviewed and found negative. - Medication Medications: Active Medications Generic Name Dose Route Start Last Admin Trade Name Freq PRN Reason Stop Dose Admin Acetaminophen 650 mg 05/25/19 03:37 05/27/19 21:04 Tylenol PO 650 mg Q4H PRN Administration Headache/Fever/Mild Pain (1-3) Acetaminophen 650 mg 05/25/19 03:37 05/27/19 02:46 Tylenol [place] 650 mg Q4H PRN Administration Headache/Fever/Mild Pain (1-3) Hydrocodone Bitart/Acetaminophen 1 tab 05/25/19 11:29 05/30/19 03:08 [place] 5/325 PO 1 tab Q4H PRN Administration Moderate Pain (4-6) Piperacillin Sod/Tazobactam 100 mls @ 200 mls/hr 05/25/19 08:00 05/31/19 07: 37 Sod 4.5 gm/ Sodium Chloride IVPB 100 mls 0800,1600,2359 ISI Administration Levothyroxine Sodium 150 mcg 05/25/19 06:00 05/31/19 05:38 Synthroid PO 150 mcg 0600 ISI Administration Morphine Sulfate 2 mg 05/25/19 12:17 05/27/19 05:35 Morphine SLOW IVP 2 mg Q2H PRN Administration Moderate Pain (4-6) Ondansetron HCl 4 mg 05/25/19 03:37 05/27/19 16:36 Zofran IVP 4 mg Q6H PRN Administration Nausea/Vomiting Ondansetron HCl 4 mg 05/25/19 12:18 05/29/19 10:34 Zofran SLOW IVP 4 mg Q2H PRN Administration Nausea/Vomiting Tamsulosin HCl 0.4 mg 05/31/19 09:00 05/31/19 10:43 Flomax PO 0.4 mg DAILY ISI Administration - Exam NAD, awake alert Eye: PERRL, scleral icterus ENT: normocephalic atraumatic, moist mucosa Neck: supple, no JVD Heart: RRR, no murmur Respiratory: no wheezes, no rales Gastrointestinal: soft, normal bowel sounds (percut biliary tube has bile) Extremities: no cyanosis, no edema Neurological: CN's grossly intact, no focal deficits Psychiatric: normal affect, A&O x 3 Hosp A/P (1) Acute cholecystitis Code(s): K81.0 - ACUTE CHOLECYSTITIS Status: Acute (2) Bacteremia, escherichia coli Code(s): R78.81 - BACTEREMIA Status: Acute (3) Severe sepsis Code(s): A41.9 - SEPSIS, UNSPECIFIED ORGANISM; R65.20 - SEVERE SEPSIS WITHOUT SEPTIC SHOCK Status: Resolved (4) BPH (benign prostatic hyperplasia) Code(s): N40.0 - BENIGN PROSTATIC HYPERPLASIA WITHOUT LOWER URINRY TRACT SYMP Status: Chronic Qualifiers: Lower urinary tract symptom presence: symptoms absent Qualified Code(s): N40.0 - Benign prostatic hyperplasia without lower urinary tract symptoms (5) CAD (coronary artery disease) Code(s): I25.10 - ATHSCL HEART DISEASE OF [place] CORONARY ARTERY W/O ANG PCTRS Status: Chronic Qualifiers: Coronary Disease-Associated Artery/Lesion type: bypass graft [place] vs. transplanted heart: [place] heart Associated angina: without angina Qualified Code(s): I25.810 - Atherosclerosis of coronary artery bypass graft(s) without angina pectoris (6) COPD (chronic obstructive pulmonary disease) Status: Chronic Qualifiers: COPD type: unspecified COPD Qualified Code(s): J44.9 - Chronic obstructive pulmonary disease, unspecified (7) Diabetes type 2, controlled Code(s): E11.9 - TYPE 2 DIABETES MELLITUS WITHOUT COMPLICATIONS Status: Chronic Qualifiers: Diabetes mellitus termite exterminator insulin use: without custodial use (8) HLD (hyperlipidemia) Code(s): E78.5 - HYPERLIPIDEMIA, UNSPECIFIED Status: Chronic Qualifiers: Hyperlipidemia type: unspecified Qualified Code(s): E78.5 - Hyperlipidemia , unspecified (9) Hypothyroidism Code(s): E03.9 - HYPOTHYROIDISM, UNSPECIFIED Status: Chronic Qualifiers: Hypothyroidism type: unspecified Qualified Code(s): E03.9 - Hypothyroidism , unspecified - Plan hemostable continue kristen d/w and Dr.Derbes [place] plan in am family to learn about percut biliary tube
--- NOTE | 2019-05-31 14:08 | PDOC.HOSPP ---
- Subjective Subjective: no abd pain, feels good wanting to go home - Objective Vital Signs & Weight: Vital Signs (12 hours) Temp Pulse Resp BP Pulse Ox 05/31/19 11:16 97.8 F 75 14 160/78 H 95 05/31/19 07:25 98.4 F 74 14 169/75 H 96 05/31/19 03:25 95 05/31/19 03:22 98.4 F 93 16 148/68 H 74 L Weight Weight 140 lb Most Recent Monitor Data Heart Rate from ECG 90 NIBP 138/68 NIBP BP-Mean 91 Respiration from ECG 22 SpO2 100 I&O: 05/30/19 05/31/19 06/01/19 06:59 06:59 06:59 Intake Total 1230 Output Total 866 1510 Balance -866 280 Result Diagrams: 05/28/19 07:52 05/31/19 07:54 Additional Labs: Accuchecks 05/31/19 05/31/19 05/30/19 11:14 06:06 20:38 POC Glucose 180 H 135 H 175 H 05/30/19 16:38 POC Glucose 120 H ROS - Review of Systems All systems: All other ROS were reviewed and found negative. - Medication Medications: Active Medications Generic Name Dose Route Start Last Admin Trade Name Freq PRN Reason Stop Dose Admin Acetaminophen 650 mg 05/25/19 03:37 05/27/19 21:04 Tylenol PO 650 mg Q4H PRN Administration Headache/Fever/Mild Pain (1-3) Acetaminophen 650 mg 05/25/19 03:37 05/27/19 02:46 Tylenol [place] 650 mg Q4H PRN Administration Headache/Fever/Mild Pain (1-3) Hydrocodone Bitart/Acetaminophen 1 tab 05/25/19 11:29 05/30/19 03:08 [place] 5/325 PO 1 tab Q4H PRN Administration Moderate Pain (4-6) Piperacillin Sod/Tazobactam 100 mls @ 200 mls/hr 05/25/19 08:00 05/31/19 07: 37 Sod 4.5 gm/ Sodium Chloride IVPB 100 mls 0800,1600,2359 ISI Administration Levothyroxine Sodium 150 mcg 05/25/19 06:00 05/31/19 05:38 Synthroid PO 150 mcg 0600 ISI Administration Morphine Sulfate 2 mg 05/25/19 12:17 05/27/19 05:35 Morphine SLOW IVP 2 mg Q2H PRN Administration Moderate Pain (4-6) Ondansetron HCl 4 mg 05/25/19 03:37 05/27/19 16:36 Zofran IVP 4 mg Q6H PRN Administration Nausea/Vomiting Ondansetron HCl 4 mg 05/25/19 12:18 05/29/19 10:34 Zofran SLOW IVP 4 mg Q2H PRN Administration Nausea/Vomiting Tamsulosin HCl 0.4 mg 05/31/19 09:00 05/31/19 10:43 Flomax PO 0.4 mg DAILY ISI Administration - Exam NAD, awake alert Eye: PERRL, scleral icterus ENT: no oropharyngeal lesions, moist mucosa Neck: supple, no JVD Heart: RRR, no murmur Respiratory: no wheezes, no rales Gastrointestinal: soft, non-tender, normal bowel sounds (percut biliary tube+) Extremities: no clubbing, no edema Neurological: CN's grossly intact, no focal deficits Musculoskeletal: normal tone, no muscle wasting Psychiatric: normal affect, A&O x 3 Hosp A/P (1) Acute cholecystitis Code(s): K81.0 - ACUTE CHOLECYSTITIS Status: Acute (2) Bacteremia, escherichia coli Code(s): R78.81 - BACTEREMIA Status: Acute (3) Severe sepsis Code(s): A41.9 - SEPSIS, UNSPECIFIED ORGANISM; R65.20 - SEVERE SEPSIS WITHOUT SEPTIC SHOCK Status: Resolved (4) BPH (benign prostatic hyperplasia) Code(s): N40.0 - BENIGN PROSTATIC HYPERPLASIA WITHOUT LOWER URINRY TRACT SYMP Status: Chronic Qualifiers: Lower urinary tract symptom presence: symptoms absent Qualified Code(s): N40.0 - Benign prostatic hyperplasia without lower urinary tract symptoms (5) CAD (coronary artery disease) Code(s): I25.10 - ATHSCL HEART DISEASE OF [place] CORONARY ARTERY W/O ANG PCTRS Status: Chronic Qualifiers: Coronary Disease-Associated Artery/Lesion type: bypass graft [place] vs. 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
[2019-05-31 15:26] VITALS: BP 147/74; TEMP 98.5
--- NOTE | 2019-05-31 21:30 | DIS ---
DATE OF ADMISSION: 05/25/2019 DATE OF DISCHARGE: 05/31/2019 DISCHARGE DISPOSITION: To home. PRIMARY DISCHARGE DIAGNOSES: Severe sepsis with cholangitis and acute cholecystitis, status post percutaneous biliary drain for laparoscopic cholecystectomy in 4 to 6 weeks. SECONDARY DISCHARGE DIAGNOSES: Coronary artery disease, benign prostatic hypertrophy, chronic obstructive pulmonary disease, diabetes mellitus type 2, hypothyroidism, dyslipidemia. PROCEDURES DONE DURING HOSPITALIZATION: The patient has had abdominal and pelvic CAT scan done on the day of admission, which showed cholelithiasis with gallbladder distention. The findings were suggestive of acute cholecystitis. Right upper quadrant ultrasound showed cholelithiasis with gallbladder sludge. There is positive Levin sign with thickened gallbladder wall and pericholecystic fluid. Findings were suspicious for acute cholecystitis. The patient had CT-guided cholecystostomy tube placement done by Interventional Radiology on 05/25/2019. He had an 8-[place] drainage catheter into the gallbladder. ERCP was done on 05/30/[address] Orozco, which showed free flowing of bile and mild ampullary stenosis. Blood cultures x2 grew E coli sensitive to all antibiotics except cefoxitin and ampicillin. Biliary cultures from gallbladder grew E coli with similar sensitivity pattern as blood. Discharge H and H of 10 and 32, platelet count 138. Had a white count of 10 on the day of discharge. Discharge total bilirubin is 4.3, AST 46, ALT 53, alkaline phosphatase 236. BNP 220. Albumin is 2.9 on the day of discharge. BUN 13, creatinine 0.7 on the day of discharge. Total bilirubin peaked up to 5.1 on the 24th. Initial AST on admission 651, ALT 267, alkaline phosphatase 242, total bilirubin 1.3 on the day of admission. INPATIENT CONSULTS: Dr. Henry for General Surgery, Dr. Raghavendra Ureña for Gastroenterology, Dr. Fowler for Infectious Disease, Dr. Sahu for Pulmonary/Critical Care. DISCHARGE MEDICATIONS: 1. Levaquin 500 mg p.o. daily for another 14 days. 2. Metformin 500 mg p.o. twice daily. 3. Flomax 0.4 mg p.o. daily. 4. Motrin p.r.n. for pain. 5. Crestor 20 mg p.o. q.h.s. 6. Levothyroxine 150 mcg p.o. daily. 7. Neurontin 600 mg p.o. three times daily. ALLERGIES: NO KNOWN DRUG ALLERGIES. DISCHARGE PLAN: The patient to follow up with primary care physician in 1 week. He needs to follow up with Dr. Henry in 2 weeks. BRIEF COURSE DURING HOSPITALIZATION: The patient initially was brought to emergency room with complaints of severe abdominal pain. He also had associated nausea and vomiting. The patient was septic with organ dysfunction and hypotension as well. He was placed on pressors and admitted to ICU. Initial workup in the ER revealed cholecystitis with cholelithiasis. He has had consultation with Dr. Henry for General Surgery and Dr. Raghavendra Ureña for Gastroenterology and Dr. Sahu for Pulmonary/Critical Care. The patient had pancultures drawn and was placed on broad-spectrum antibiotics. He was weaned off pressors and later downgraded to Med/Surge floor. The patient had CT-guided cholecystostomy tube placed by Interventional Radiology by Dr. Weston Negron in view of sepsis, cholangitis, and the patient requiring initially vasopressors. He still has a percutaneous biliary tube on the day of discharge. His total bilirubin was slowly increasing up to 5.1. Decision was made to have an ERCP to look out for choledocholithiasis, although his common bile duct had normal size on imaging. This was done by Dr. Orozco on the . He had mild ampullary stenosis, which was dilated. Postprocedure, the patient has remained hemodynamically stable. His daughter has been taught how to care for percutaneous biliary drainage tube. He will have this tube for another [address] Henry in his office. He has been instructed to come to the emergency room if the percutaneous tube was to get dislodged or get pulled. He was advised not to reposition the tube at home if it were to get dislodged. All these instructions were given in Swedish and the patient has clearly understood. He is hemodynamically stable. The patient will be sent home on Levaquin for a total duration of 14 days in view of initial presentation and the patient is still having a percutaneous tube. Dr. Henry has planned for laparoscopic cholecystectomy in 4 to 6 weeks once the inflammatory changes in the area resolves. Mr. Olvera is ambulating and tolerating solid food prior to discharge. Job ID: [id number]
== END 2019-05-31 19:32 | disposition home or self-care (01) | DRG 871 ==
LOC: ERS 22:38 → CCU 05-25 03:58 → SURG B 05-26 08:58
PROVIDERS: ADMIT Hospitalist; ATTEND Hospitalist
PROC: 0F9440Z Drainage of Gallbladder with Drainage Device, Percutaneous Endoscopic Approach (ICD-10-PCS; principal; 2019-05-25)
PROC: BF131ZZ Fluoroscopy of Gallbladder and Bile Ducts using Low Osmolar Contrast (ICD-10-PCS; 2019-05-25)
PROC: 0FJB8ZZ Inspection of Hepatobiliary Duct, Via Natural or Artificial Opening Endoscopic (ICD-10-PCS; 2019-05-25)
DX: A41.51 Sepsis due to Escherichia coli [E. coli] (principal); R65.21 Severe sepsis with septic shock; K80.42 Calculus of bile duct with acute cholecystitis without obstruction; J90 Pleural effusion, not elsewhere classified; R65.20 Severe sepsis without septic shock; I25.10 Atherosclerotic heart disease of native coronary artery without angina pectoris; N40.0 Benign prostatic hyperplasia without lower urinary tract symptoms; J44.9 Chronic obstructive pulmonary disease, unspecified; E11.9 Type 2 diabetes mellitus without complications; E03.9 Hypothyroidism, unspecified; E78.5 Hyperlipidemia, unspecified; I95.9 Hypotension, unspecified; F32.9 Major depressive disorder, single episode, unspecified; E87.6 Hypokalemia; D64.9 Anemia, unspecified; F17.200 Nicotine dependence, unspecified, uncomplicated; Z95.1 Presence of aortocoronary bypass graft; I25.2 Old myocardial infarction
CPT/HCPCS: 36415; 36416; 36556; 47010; 51701; 71045; 74177; 74330; 76705; 77002; 80048; 80053; 80076; 81003; 81015; 82330; 82803; 83605; 83690; 83880; 85025; 85610; 85730; 87040; 87070; 87077; 87086; 87149; 87186; 87205; 87804; 93005; 96361; 96365; 96367; C1729; G0283-GP; J1610; J1940; J2250; J2270; J2405; J2543; J3010; J3370; J3480; J3490; J7050; J7070; Q9966

== ENCOUNTER 2019-07-09 09:54 | Outpatient (CLI) | payer MEDICARE, MEDICAID ==
[2019-07-09 12:03] LABS: #Eosinphils 0.2 thou/uL (0.0-0.7); #Lymphocytes 1.5 thou/uL (1.20-3.40); #Monocytes 0.7 thou/uL (0.11-0.59); #Neutrophils 7.2 thou/uL (1.40-6.50); %Basophils 0.3 % (0.0-1.0); %Eosinophils 1.7 % (0.0-10.0); %Lymphocytes 15.6 % (21.0-51.0); %Monocytes 7.5 % (0.0-10.0); Hemoglobin 11.1 g/dL (14.0-18.0); Mean Corpuscular HGB CONC 33.2 g/dL (32.0-36.0); Mean Corpuscular Hemoglobin 25.4 pg (27.0-31.0); Mean Corpuscular Volume 76.5 fL (78.0-98.0); Mean Platelet Volume 7.7 fL (7.4-10.4); Platelet Count 281 thou/uL (130-400); RBC Distribution Width 15.9 % (11.5-14.5); Red Blood Cell (RBC) Count 4.38 mill/uL (4.70-6.10); White Blood Cell (WBC) Count 9.5 thou/uL (4.8-10.8)
[2019-07-09 12:35] LABS: ALT (SGPT) 16 U/L (8-55); AST (SGOT) 15 U/L (5-34); Albumin 4.1 g/dL (3.4-4.8); Alkaline Phosphatase 106 U/L (40-150); Anion Gap 11 mmol/L (10-20); BUN (Urea Nitrogen) 22 mg/dL (8.4-25.7); Bilirubin, Direct 0.4 mg/dL (0.1-0.3); Bilirubin, Total 0.8 mg/dL (0.2-1.2); Calc. Creatinine Clearance 0 mL/min (70-130); Calcium 9.1 mg/dL (7.8-10.44); Carbon Dioxide 25 mmol/L (23-31); Chloride 104 mmol/L (98-107); Estimated GFR-MDRD 68; Globulin 3.2 g/dL (2.4-3.5); Glucose 242 mg/dL (83-110); Potassium 4.2 mmol/L (3.5-5.1); Protein, Total 7.3 g/dL (5.8-8.1); Sodium 136 mmol/L (136-145)
--- NOTE | 2019-07-11 16:46 | EKG ---
Test Reason : Blood Pressure : / mmHG Vent. Rate : 083 BPM Atrial Rate : 083 BPM P-R Int : 164 ms QRS Dur : 130 ms QT Int : 396 ms P-R-T Axes : 052 059 050 degrees QTc Int : 465 ms Normal sinus rhythm Right bundle branch block Abnormal ECG Confirmed by MARTIN POTTER ([id number]) on 07/11/2019 4:45:55 PM Referred By: ELSY Confirmed By:MARTIN POTTER
== END 2019-07-09 09:55 | disposition home or self-care (01) ==
LOC: LABBT 09:54
PROVIDERS: ATTEND Surgery
DX: Z01.818 Encounter for other preprocedural examination (principal); K81.1 Chronic cholecystitis
CPT/HCPCS: 80053; 80076; 85025; 93005; 93010

== ENCOUNTER 2019-07-10 06:49 | Day surgery (SDC) | payer MEDICARE, MEDICAID ==
[2019-07-09 10:07] VITALS: BMI 25.0
[2019-07-10] MEDS ORDERED: Bupivacaine/Epinephrine 0.25% 30 ML VIAL ONE (08:01)
[2019-07-10] MEDS ORDERED: Fentanyl 100 MCG/2 ML VIAL ONE ×2 (08:43→10:05)
[2019-07-10] MEDS ORDERED: Lidocaine 2% Jelly 5 ML TUBE ONE (08:43)
[2019-07-10] MEDS ORDERED: Sodium Chloride 0.9% 100 ML ONE (08:45)
[2019-07-10] MEDS ORDERED: cefOXitin 2 GM VIAL ONE (08:45)
[2019-07-10] MEDS ORDERED: Insulin Regular 300 UNITS/3 ML VIAL ONE (08:52)
[2019-07-10] MEDS ORDERED: SUGAMMADEX SODIUM 200 MG/2 ML VIAL ONE (09:45)
[2019-07-10] MEDS ORDERED: Ondansetron PF 4 MG/2 ML Vial ONE (10:22)
[2019-07-10] MEDS ORDERED: Labetalol HCl 100 MG/20 ML VIAL ONE (10:34)
[2019-07-10] MEDS ORDERED: PROPOFOL 200 MG/20 ML VIAL ONE (10:54)
[2019-07-10] MEDS ORDERED: Lidocaine 1% PF 5 ML VIAL ONE (10:54)
[2019-07-10] MEDS ORDERED: Rocuronium Bromide 10 MG/ML (10ML VIAL) ONE (10:54)
[2019-07-10] MEDS ORDERED: HYDROcodone/Acetaminophen 5/325 mg Tablet ONE (11:05)
[2019-07-10] MEDS ORDERED: Ketorolac Tromethamine 30 MG/ML VIAL ONE (11:54)
--- NOTE | 2019-07-11 10:39 | OP ---
DATE OF PROCEDURE: 07/10/2019 PREOPERATIVE DIAGNOSIS: Acute on chronic cholecystitis. PROCEDURE PERFORMED: Laparoscopic cholecystectomy. INDICATIONS: A 74-year-old male, who a month ago presented with sepsis and cholangitis, had a cholecystostomy tube placed as well as an ERCP with sphincterotomy and stone extraction. He is now doing well. The cholecystostomy tube was removed, here for laparoscopic cholecystectomy. FINDINGS: A thickened gallbladder wall, dilated cystic duct. DESCRIPTION OF PROCEDURE: After informed consent was obtained, the patient was taken to the operating room and given general endotracheal anesthesia, placed in the supine position. Abdomen was prepped and draped in usual fashion. Local anesthesia infiltrated subcutaneously and deep and a subumbilical incision was performed. Subcu divided sharply. The fascia grasped and 2 stay sutures of 0 Vicryl placed in each side of midline. Midline incised. Digital palpation revealed no local adhesions. A blunt 12 mm trocar inserted. Pneumoperitoneum was created to a pressure of 15 mmHg. A 0 degree laparoscope inserted under direct vision. Three 5 mm ports were placed subcostally. The gallbladder was encased in omentum. This was taken down the gallbladder grasped and advanced superiorly. The peritoneum was dissected to expose the cystic duct and cystic artery in critical view. The duct was triply ligated with hemoclips and divided. The artery triply ligated with hemoclips and divided. The gallbladder was removed from its fossa utilizing electrocautery. It was placed in endosac and removed from the abdomen in the endosac. Hemostasis was assured. The abdomen irrigated. Irrigation fluid removed. Trocars and retractors removed. The fascia closed with interrupted 0 Vicryl suture. The skin closed with interrupted 4-0 Rapide. Dermabond applied. The patient tolerated the procedure well, transferred to Recovery in good condition. Sponge and needle count verified correct x2. Job ID: [id number]
== END 2019-07-10 13:20 | disposition home or self-care (01) ==
LOC: SDC 06:49
PROVIDERS: ATTEND Surgery
PROC: 0FT44ZZ Resection of Gallbladder, Percutaneous Endoscopic Approach (ICD-10-PCS; principal; 2019-07-10)
DX: K80.12 Calculus of gallbladder with acute and chronic cholecystitis without obstruction (principal); Z87.891 Personal history of nicotine dependence; Z79.4 Long term (current) use of insulin; Z79.82 Long term (current) use of aspirin; Z79.899 Other long term (current) drug therapy
CPT/HCPCS: 36416; 88304; J0694; J1815; J1885; J2405; J3010; J3490

== ENCOUNTER 2019-07-14 20:46 | Inpatient (IN) | payer MEDICARE, MEDICAID ==
[2019-07-14] MEDS ORDERED: Ketamine 50 MG/ML (10ML VIAL) ONE (21:00)
[2019-07-14] MEDS ORDERED: Rocuronium Bromide 10 MG/ML (10ML VIAL) ONE (21:00)
[2019-07-14] MEDS ORDERED: Norepinephrine 8 MG in Dextrose 5% in Water 242 ML IVPB PRN (21:05)
[2019-07-14] MEDS ORDERED: EPINEPHrine 1 MG/10 ML Abboject SYRINGE ONE (21:05)
[2019-07-14] MEDS ORDERED: fentaNYL Citrate/PF 2,000 MCG in Sodium Chloride 0.9% 60 ML IV SCH ×2 (21:13→23:13)
[2019-07-14] MEDS ORDERED: Fentanyl 100 MCG/2 ML VIAL ONE (21:15)
[2019-07-14] MEDS ORDERED: Piperacillin/Tazobactam 4.5 GM VIAL ONE (21:16)
[2019-07-14 21:33] LABS: Actual Bicarbonate (HCO3a) 16.3 mEq/L (22-28); Analyzer IN Cardio ER; Base Excess (BEa) -8.5 mEq/L (-2.0 to +3.0); Calcium, Ionized 1.05 mmol/L (1.12-1.30); Carboxyhemoglobin (COHb) 0.1 gm% (0.0-3.0); Hemoglobin (Hb) 8.9 g/dL (14.0-18.0); O2 Tension (PaO2) 150.1 mmHg (> 70.0); Potassium - ABG Lab 3.45 mmol/L (3.70-5.30); pH, Arterial 7.34 (7.35-7.45)
--- NOTE | 2019-07-14 21:41 | RAD ---
EXAM: Single view of the chest HISTORY: Altered mental status COMPARISON: 05/31/2019 FINDINGS: Single view of the chest shows a normal sized cardiomediastinal silhouette. The patient is status post sternotomy. There is an endotracheal tube with its tip between the clavicles. An NG tube courses off the inferior aspect of the film. A right subclavian central venous catheter is seen with its tip in the superior vena cava. No pneumothorax is present. There is a small left pleural effusion. The bones are unremarkable. IMPRESSION: 1. Appropriate position of lines and tubes 2. Small left pleural effusion
[2019-07-14 21:51] LABS: Amphetamine Not Detected (NotDetected); Barbiturates Screen Not Detected (NotDetected); Benzodiazepine Screen Not Detected (NotDetected); Bilirubin Negative (Negative); Blood, Urine 2+ (Negative); Clarity Turbid (Clear); Cocaine Metabolite Screen Not Detected (NotDetected); Glucose, Urine (Dipstick) 30 mg/dL (Negative); Leukocyte Negative Leu/uL (Negative); Medtox Control Line Valid? VALID (VALID); Medtox Reader # READER 1; Methadone Not Detected (NotDetected); Methamphetamine Not Detected (NotDetected); Mucous/LPF 2+ LPF (<2+); Nitrite Negative (Negative); Opiate Screen Detected (NotDetected); Oxycodone Screen Not Detected (NotDetected); Phencyclidine (PCP) Not Detected (NotDetected); Protein, Urine (Dipstick) 50 mg/dL (Neg-Trace); RBC/HPF 0-3 HPF (0-3); Squamous Epithelial 0-3 HPF (0-3); THC/Cannabinoid Screen Not Detected (NotDetected); Tricyclic Screen Not Detected (NotDetected)
[2019-07-14 21:53] LABS: #Eosinphils 0.2 thou/uL (0.0-0.7); #Lymphocytes 0.7 thou/uL (1.20-3.40); #Monocytes 0.6 thou/uL (0.11-0.59); #Neutrophils 9.4 thou/uL (1.40-6.50); %Basophils 0.1 % (0.0-1.0); %Eosinophils 1.9 % (0.0-10.0); %Lymphocytes 6.4 % (21.0-51.0); %Monocytes 5.5 % (0.0-10.0); %Neutrophils 86.1 % (42.0-75.0); Hemoglobin 8.7 g/dL (14.0-18.0); Mean Corpuscular Hemoglobin 26.2 pg (27.0-31.0); Mean Corpuscular Volume 79.5 fL (78.0-98.0); Mean Platelet Volume 7.8 fL (7.4-10.4); Platelet Count 193 thou/uL (130-400); RBC Distribution Width 15.8 % (11.5-14.5); Red Blood Cell (RBC) Count 3.32 mill/uL (4.70-6.10)
[2019-07-14 21:56] LABS: Bacteria/HPF Rare-Few HPF (None Seen)
--- NOTE | 2019-07-14 22:05 | CT ---
CT Abdomen Pelvis W Con: 07/14/2019 9:02 PM CLINICAL INFORMATION: Found in a car unresponsive COMPARISON: 05/25/2019 TECHNIQUE: Multiple contiguous axial images were obtained and a CT of the abdomen and pelvis with IV contrast. C oronal and sagittal reformats were performed. FINDINGS: Lower Chest: Bibasilar atelectasis Abdomen: Liver: within normal limits. Bile Ducts: Normal caliber. Gallbladder: Removed. There is a small amount of fluid in the gallbladder fossa likely from recent morales rgery. Pancreas: within normal limits. Spleen: within normal limits. Adrenals: within normal limits. Kidneys: Right kidney subcentimeter hypodensity likely represents a cyst. Pelvis: Reproductive Organs: No pelvic masses. Ureters: within normal limits. Bladder: within normal limits. A catheter is seen in the urinary bladder. Peritoneum: A moderate amount of free air is seen in the abdomen. This could be secondary to recent s urgery or secondary to a hollow viscus injury. No focal stranding changes are seen in the abdomen or pelvis. Bowel: Normal caliber. An NG tube is seen in the stomach. Normal appendix. A few scattered diverticul a are seen in the colon. Mesentery and Retroperitoneum: No enlarged mesenteric or retroperitoneal lymph nodes. Vessels: Atherosclerotic calcifications. Abdominal Wall: within normal limits. Bones: Within normal limits IMPRESSION: 1. There is free air in the abdomen. There is still fluid in the gallbladder fossa and the patient makenzie mercado had recent surgery as a cause for this free air. A hollow viscus perforation is also a possibility. Correlate with surgical history. 2. Right renal cyst 3. Diverticulosis
--- NOTE | 2019-07-14 22:07 | CT ---
EXAM: CT brain without contrast HISTORY: Found unresponsive in a car COMPARISON: 01/22/2018 TECHNIQUE: Multiple contiguous axial images were obtained and a CT of the brain without contrast. FINDINGS: There are scattered hypodensities in the subcortical and periventricular white matter consi stent with small vessel ischemic disease. There is no evidence of hydrocephalus, intracranial hemorrhage, or extra-axial fluid collection. The calvarium and overlying soft tissues are unremarkable. Fluid is seen in the right maxillary sinus . The other visualized paranasal sinuses and mastoid air cells are well aerated. IMPRESSION: No evidence of acute intracranial abnormality
--- NOTE | 2019-07-14 22:10 | CT ---
EXAM: CTA of the chest HISTORY: Found unresponsive in a car. COMPARISON: None TECHNIQUE: Multiple contiguous axial images were obtained a CTA of the chest with contrast per pulmon bessy embolism protocol. 3-D oblique MIP reformats and direct coronal reformats were performed. FINDINGS: HEART: Normal in size without focal cardiac abnormality. A central venous catheter seen with its tip at the atriocaval junction. PULMONARY ARTERIES: Normal in caliber without filling defects to suggest pulmonary emboli. MEDIASTINUM: No hilar or mediastinal lymphadenopathy. LUNGS: An endotracheal tube is seen with its tip above the jonelle. No focal infiltrates or masses. Bi basilar atelectasis. PLEURAL SPACE: No pleural effusion or pneumothorax. CHEST WALL SOFT TISSUES: Unremarkable VISUALIZED OSSEOUS STRUCTURES: Status post sternotomy. Degenerative changes in the spine. There are r emote healed left rib fractures. VISUALIZED SUBDIAPHRAGMATIC STRUCTURES: A dedicated abdominal CT IMPRESSION: 1. No evidence of pulmonary thromboembolism 2. Bibasilar atelectasis
[2019-07-14 22:14] LABS: Acetaminophen Less than 6.0 mcg/mL (10.0-30.0); Alcohol Less than 10 mg/dL (Less than 10); Lipase 51 U/L (8-78); Salicylate Less than 8.0 mg/dL (15.0-30.0)
[2019-07-14 22:16] LABS: ALT (SGPT) 37 U/L (8-55); AST (SGOT) 37 U/L (5-34); Albumin 3.1 g/dL (3.4-4.8); Alkaline Phosphatase 99 U/L (40-150); Anion Gap 17 mmol/L (10-20); BUN (Urea Nitrogen) 41 mg/dL (8.4-25.7); Bilirubin, Total 1.2 mg/dL (0.2-1.2); CK (CPK) 217 U/L (30-200); Calc. Creatinine Clearance 0 mL/min (70-130); Calcium 7.8 mg/dL (7.8-10.44); Carbon Dioxide 16 mmol/L (23-31); Chloride 105 mmol/L (98-107); Estimated GFR-MDRD 34; Globulin 2.8 g/dL (2.4-3.5); Glucose 181 mg/dL (83-110); Magnesium 1.4 mg/dL (1.6-2.6); Potassium 3.5 mmol/L (3.5-5.1); Protein, Total 5.9 g/dL (5.8-8.1); Sodium 134 mmol/L (136-145)
[2019-07-14] MEDS ORDERED: Magnesium 2 GM/50 ML BAG (IN WATER) ONE (23:06)
[2019-07-14] MEDS ORDERED: Ventilator Sedation Protocol 1 EACH FS SCH (23:12)
[2019-07-14] MEDS ORDERED: Propofol BOLUS 1,000 MG/100 ML VIAL IV PRN (23:13)
[2019-07-14] MEDS ORDERED: Fentanyl BOLUS 250 ML IVPB PRN (23:13)
[2019-07-14] MEDS ORDERED: DISCONTINUE PREVIOUS NARCOTIC PAIN MEDICATIONS AND BENZODIAZEPINES FS SCH (23:13)
[2019-07-14] MEDS ORDERED: Propofol 1,000 MG/100 ML VIAL IV PRN (23:13)
[2019-07-14] MEDS ORDERED: Morphine 2 MG/ML SYRINGE SLOW IVP PRN (23:13)
[2019-07-14] MEDS ORDERED: Lorazepam 2 MG/ML VIAL SLOW IVP PRN (23:13)
[2019-07-14] MEDS ORDERED: Dextrose 5% in Water 1,000 ML IV PRN (23:15)
[2019-07-14] MEDS ORDERED: HumaLOG 300 UNITS/3 ML VIAL SC PRN (23:15)
[2019-07-14] MEDS ORDERED: Dextrose 50% Abboject 50 ML SYRINGE SLOW IVP PRN (23:15)
[2019-07-15] MEDS: Sodium Chloride 0.9% 1,000 ML IV SCH ×3 (02:12→15:07)
[2019-07-15 04:21] LABS: #Eosinphils 0.3 thou/uL (0.0-0.7); #Lymphocytes 1.3 thou/uL (1.20-3.40); #Monocytes 0.8 thou/uL (0.11-0.59); #Neutrophils 7.6 thou/uL (1.40-6.50); %Eosinophils 3.3 % (0.0-10.0); %Lymphocytes 12.6 % (21.0-51.0); %Monocytes 7.8 % (0.0-10.0); %Neutrophils 76.2 % (42.0-75.0); Hemoglobin 8.8 g/dL (14.0-18.0); Mean Corpuscular HGB CONC 32.9 g/dL (32.0-36.0); Mean Corpuscular Hemoglobin 25.8 pg (27.0-31.0); Mean Corpuscular Volume 78.2 fL (78.0-98.0); Mean Platelet Volume 7.8 fL (7.4-10.4); Platelet Count 214 thou/uL (130-400); RBC Distribution Width 15.8 % (11.5-14.5); Red Blood Cell (RBC) Count 3.41 mill/uL (4.70-6.10); White Blood Cell (WBC) Count 9.9 thou/uL (4.8-10.8)
[2019-07-15 04:41] LABS: Anion Gap 14 mmol/L (10-20); BUN (Urea Nitrogen) 35 mg/dL (8.4-25.7); Calc. Creatinine Clearance 37 mL/min (70-130); Carbon Dioxide 19 mmol/L (23-31); Chloride 106 mmol/L (98-107); Estimated GFR-MDRD 43; Glucose 153 mg/dL (83-110); Potassium 3.5 mmol/L (3.5-5.1); Sodium 135 mmol/L (136-145)
[2019-07-15] MEDS: Piperacillin/Tazobactam 4.5 GM in Sodium Chloride 0.9% 100 ML IVPB SCH ×3 (05:13→22:00)
[2019-07-15 05:23] LABS: Puncture Site LBA
[2019-07-15 06:50] LABS: Actual Bicarbonate (HCO3a) 18.6 mEq/L (22-28); Base Excess (BEa) -5.1 mEq/L (-2.0 to +3.0); CO2 Tension 29.5 mmHg (35.0-45.0); Calcium, Ionized 1.09 mmol/L (1.12-1.30); Carboxyhemoglobin (COHb) 0.7 gm% (0.0-3.0); Hemoglobin (Hb) 9.7 g/dL (14.0-18.0); O2 Tension (PaO2) 134.8 mmHg (> 70.0); Potassium - ABG Lab 3.33 mmol/L (3.70-5.30); pH, Arterial 7.42 (7.35-7.45)
[2019-07-15 06:51] LABS: ALV-art Gradient 113.525 (0-20); Puncture Site LRA
--- NOTE | 2019-07-15 07:35 | HP ---
PRIMARY CARE DOCTOR: The patient has no PCP. CODE STATUS: Full code. TIME OF EVALUATION: 11 p.m. CHIEF COMPLAINT: The patient was found unresponsive. HISTORY OF PRESENT ILLNESS: This is a 74-year-old male patient with past medical history of CABG in 1999; diabetes, type 2; hypothyroidism; hyperlipidemia; and hypertension. As noted, also the patient has recent cholecystectomy, came to the hospital after being found unresponsive. As per family member, the patient was on his vehicle. The last time that he was contacted was around 5:00 p.m. by phone and he has been doing well during the day, the patient was baseline. The patient is able to drive and at around 8:00 p.m., he was found to be inside his car. Car was locked and he was unresponsive. He was found to have systolic blood pressures in the 80s. No clear triggers, no alleviating factors. Symptoms were severe. REVIEW OF SYSTEMS: Unable to obtain as the patient is intubated and sedated. PAST MEDICAL HISTORY: As mentioned in the HPI. SURGICAL HISTORY: The patient has a history of bypass graft surgery x3 vessels in 1999. PSYCHIATRIC HISTORY: History of depression. SOCIAL HISTORY: Lives at home with family. No alcohol. No drugs. The patient currently smokes tobacco. KNOWN ALLERGIES: No known drug allergies. REPORTED MEDICATIONS: Unable to obtain. PHYSICAL EXAMINATION: VITAL SIGNS: On presentation, initially systolics was in the 80s. The patient has been placed on Levophed. After fluid resuscitation, the patient's blood pressure has been stable in the 120s to 130s with heart rates in the 80s, respiratory rate was 19, and temperature 98.1. Pain, unable to rate. Oxygen saturation was 99% in the vent. GENERAL APPEARANCE: The patient is intubated, sedated, not responsive. HEENT: The patient is intubated. Dry oral mucosa. No JVD. RESPIRATORY: Bilateral air entry. No rales. No wheezes. Symmetric expansion. CARDIOVASCULAR: Normal rate, regular rhythm. No murmurs. No gallop. No edema. ABDOMEN: Soft. Normal bowel sounds. MUSCULOSKELETAL: Baseline range of motion and strength. SKIN: Warm, intact. No pallor. No rash. No redness. Capillary refill seems to be intact. NEURO: The patient is intubated, sedated, unable to fully explore. No evidence of any new focal weakness. PSYCH: Unable to explore, the patient is intubated. DIAGNOSTIC DATA: EKG was reviewed. The patient has normal sinus rhythm with RBBB, ventricular rate 87, [place] 174, QRS 142, and QT corrected 500. Abdomen and pelvis CT was done. The patient has free air in the abdomen. There is still fluid in the gallbladder fossa, and the patient likely had recent surgery as a cause of this free air. A hollow viscus perforation is also a possibility correlating surgical history. Right renal cyst. Diverticulosis. Chest x-ray was reviewed. Appropriate position of lines and tubes. Small right pleural effusion. Brain CT was done, no evidence of acute intracranial abnormalities. Chest CTA was done, no evidence of pulmonary thromboembolism. Bibasilar atelectasis. LABORATORY DATA: Reviewed. The patient has white count of 11. Hemoglobin 8.7, previous hemoglobin was 11. As the previous hemoglobin was 11, we will recheck hemoglobin stat. MCV 79.9 and platelet count 193. Chemistry; sodium 134, potassium 3.5, chloride 105, carbon dioxide 16, anion gap 17, BUN 41, and creatinine 1.96. On previous admission, the creatinine was 1.0. GFR 34, glucose 181, lactic acid 0.8, calcium 7.8, and magnesium 1.4. Total bilirubin 1.2, AST 37, ALT 37, and alkaline phosphatase 99. CK 217. Troponin was negative. Albumin 3.1. TSH 0.54660. Free T4 is normal. Urine was done, and the patient has white count of 4 to 6. Toxicology, the patient was positive for opiates. ASSESSMENT AND PLAN: The patient will be placed in the hospital with following medical problems; 1. Acute encephalopathy. The patient was found unresponsive, unclear etiology, could be secondary to dehydration. The patient was exposed to heat inside his car probably for hours. The patient has received hydration. Blood pressure has recovered. We will continue to monitor in ICU. Further workup is pending. 2. Hypotension on presentation of unclear etiology, could be related to dehydration. This patient has high BUN and creatinine. The patient received fluids. Blood pressure has recovered. We will continue to monitor. 3. Recent cholecystectomy. CAT scan has been reviewed, and Surgery is being consulted. We will follow recommendation from Surgery. Case was discussed by Dr. Jimenez with the surgeons. 4. Acute anemia, unclear etiology, could be related to recent surgery and some blood loss during the surgery. We will repeat hemoglobin, and we will treat accordingly. There is no evidence of bleeding seen or reported in the CAT scan. 5. Hyponatremia, sodium 134. This is mild. No need for acute intervention at this point. 6. Metabolic acidosis. This could be related to acute kidney injury. We will treat underlying condition. We will monitor. 7. Acute kidney injury. There is an increase of creatinine was 0.9. The patient received hydration. We will monitor. We will treat accordingly. 8. Hypomagnesemia. The patient has been given two rounds of magnesium. We will repeat electrolytes in the morning and replace it as needed. 9. Possible underlying infection. All this problems given the recent history of surgery and acute cholecystitis. Continued antibiotics have been started in the ER. Follow up cultures. If infection is ruled out, we can step down on antibiotics and discontinue it. 10. History of coronary artery disease. This problem is chronic, seems to be stable. We will monitor and treat accordingly. 11. History of hypothyroidism. Continue hormone replacement. 12. Hyperlipidemia. Low-cholesterol diet is advised. Reconcile home medications. 13. Uncontrolled hypertension. The patient presented with hypotension. We will not restart home medications until the patient is baseline. 14. Uncontrolled diabetes. The patient has blood sugar of 181. We will place the patient on sliding scale. 15. Deep venous thrombosis prophylaxis. Job ID: [id number]
--- NOTE | 2019-07-15 10:06 | PDOC.HOSPP ---
- Subjective Encounter Date: 07/15/19 Encounter Time: 09:45 Subjective: Mr. Olvera was seen today in follow-up possible heat stroke. He is intubated. He is awake and follows commands. - Objective Vital Signs & Weight: Vital Signs (12 hours) Temp Pulse Resp Pulse Ox 07/15/19 08:00 12 100 07/15/19 07:00 99 F 07/15/19 06:35 66 07/15/19 06:00 18 07/15/19 04:00 18 07/15/19 03:00 98.7 F 07/15/19 02:00 18 07/15/19 00:05 100 07/15/19 00:00 98.5 F 18 Weight Weight 140 lb 10.479 oz Most Recent Monitor Data Heart Rate from ECG 77 NIBP 116/50 NIBP BP-Mean 72 Respiration from ECG 14 SpO2 100 I&O: 07/14/19 07/15/19 07/16/19 06:59 06:59 06:59 Intake Total 561.7 Output Total 460 400 Balance 101.7 -400 Result Diagrams: 07/15/19 04:08 07/15/19 04:08 Hospitalist ROS - Medication Medications: Active Medications Generic Name Dose Route Start Last Admin Trade Name Freq PRN Reason Stop Dose Admin Piperacillin Sod/Tazobactam 100 mls @ 200 mls/hr 07/15/19 06:00 07/15/19 05: 13 Sod 4.5 gm/ Sodium Chloride IVPB 100 mls Q8HR ISI Administration Sodium Chloride 1,000 mls @ 75 mls/hr 07/15/19 02:15 07/15/19 05:16 Normal Saline 0.9% IV 1,000 mls .[id number] ISI Administration Propofol 1,000 mg 07/14/19 23:13 07/15/19 02:35 Diprivan IV 08/13/19 23:13 1,000 mg INF PRN Administration TO ACHIEVE GOAL RASS Protocol - Exam Eye: PERRL, anicteric sclera Heart: RRR, no murmur, no gallops, no rubs, normal peripheral pulses Respiratory: CTAB, no wheezes (+ coarse breath sounds), no rales, normal chest expansion Gastrointestinal: soft, non-tender, non-distended, normal bowel sounds, no palpable masses, no hepatomegaly, no splenomegaly Extremities: no cyanosis, no clubbing, no edema Neurological: CN's grossly intact (moves all extremities) Hosp A/P (1) Altered mental status Code(s): R41.82 - ALTERED MENTAL STATUS, UNSPECIFIED Status: Acute (2) Respiratory failure Code(s): J96.90 - RESPIRATORY FAILURE, UNSP, UNSP W HYPOXIA OR HYPERCAPNIA Status: Acute (3) Acute kidney injury Code(s): N17.9 - ACUTE KIDNEY FAILURE, UNSPECIFIED Status: Acute (4) CAD (coronary artery disease) Code(s): I25.10 - ATHSCL HEART DISEASE OF [place] CORONARY ARTERY W/O ANG PCTRS Status: Chronic Qualifiers: Coronary Disease-Associated Artery/Lesion type: bypass graft [place] vs. 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 etiology- patient was found in car unresponsive. CT brain was negative * Acute respiratory failure- plan is for bronchoscopy today- continue empiric antibiotics with Zosyn and Vancomycin * DM- continue SSI and scheduled Lantus * Acute Kidney injury- improving- likely due to pre-renal azotemia * CAD- stable * Recent Cholecystectomy- suspect changes on CT are consistent with this- await Surgery evaluation *
[2019-07-15] MEDS ORDERED: Magnesium Sulfate 4 GM in Sodium Chloride 0.9% 250 ML 250 ML IVPB SCH (10:15)
[2019-07-15] MEDS ORDERED: Insulin Glargine 20 UNITS in Pre-Filled Syringe 1 EACH SC SCH (10:15)
--- NOTE | 2019-07-15 12:24 | OP ---
DATE OF PROCEDURE: 07/15/2019 SERVICE: Pulmonary Medicine. PROCEDURE PERFORMED: Fiberoptic bronchoscopy with; 1. Airway inspection. 2. BAL of the left lower lobe. PREPROCEDURE DIAGNOSES: 1. Pulmonary infiltrate. 2. Possible endobronchial disease at the superior segment of the left lower lobe. POSTPROCEDURE DIAGNOSES: 1. Pulmonary infiltrate. 2. Possible endobronchial disease at the superior segment of the left lower lobe. MEDICATIONS USED: Propofol 20 mg IV push x1 off-pump. PREANESTHESIA ASSESSMENT: H and P had been performed. The patient's medications and allergies were reviewed. Informed consent was discussed from the medical decision maker. The rationale for performing the procedure as well as alternative options were discussed. DESCRIPTION OF PROCEDURE: Time-out was performed identifying the correct procedure and patient with name and date of . The bronchoscope was advanced through the 7.5 endotracheal tube. A tracheobronchial tree inspection was carried out with clear identification of the right upper lobe, right middle lobe, right lower lobe, left upper lobe, lingula, and left lower lobe. Anatomy was normal to the segmental level. Specifically, I did not see any endobronchial disease at the superior segment of the left lower lobe. There were no secretions present. A BAL was performed in the left lower lobe. Hemostasis was verified and the bronchoscope was subsequently removed from the patient. FINDINGS: 1. No endobronchial disease was present in bilateral lung goyal, and the superior segment of the left lower lobe was widely patent. 2. Secretions were absent. SPECIMENS OBTAINED: Microbiology on BAL. COMPLICATIONS: None. ESTIMATED BLOOD LOSS: None FLUOROSCOPY TIME: None. DISPOSITION: The patient will remain on mechanical ventilation and recover in the ICU. Job ID: [id number]
--- NOTE | 2019-07-15 12:44 | CON ---
DATE OF CONSULTATION: 07/15/2019 SERVICE: Pulmonary Medicine. REASON FOR CONSULTATION: Respiratory failure. HISTORY OF PRESENT ILLNESS: The patient is a very pleasant 74-year-old male with past medical history significant for essentially nothing. He is in his usual state of health when he started having increasing encephalopathy and confusion. He presented to the emergency department and was not protecting his airway. He ultimately got intubated. He was placed in the ICU on mechanical ventilation. He cannot provide any additional elements of the history at this point. Otherwise, he looks to be fairly comfortable. Overnight, all sedation was held and he woke up appropriately. He has been witnessed to move all 4 extremities and seems to be protecting his airway. He is following some simple commands, in [place]. PAST MEDICAL HISTORY: 1. Hypertension. 2. Dyslipidemia. 3. Coronary artery disease. 4. Type 2 diabetes mellitus. 5. Hypothyroidism. PAST SURGICAL HISTORY: 1. Cholecystectomy, recent. 2. Coronary artery bypass graft surgery. FAMILY HISTORY: Noncontributory. SOCIAL HISTORY: Negative for current alcohol, tobacco, or illicit drug use. There were no exposure to chemicals, dust, asbestos, or tuberculosis previously. ALLERGIES: NO KNOWN DRUG ALLERGIES. MEDICATIONS: List of his inpatient medications were reviewed. Multiple updates were made. REVIEW OF SYSTEMS: This cannot be obtained as the patient is currently intubated and under the influence of some sedation. PHYSICAL EXAMINATION: VITAL SIGNS: T-max 99.0, pulse 77, blood pressure 116/50, respirations 14, and saturation 100%, currently on 31% FiO2 and a PEEP of 5. GENERAL: The patient is intubated and sedated. HEENT: Normocephalic and atraumatic. Sclerae are white. Conjunctivae pink. Oral mucosa is moist without lesions. LUNGS: Decent air entry. No prolonged expiratory phase or wheezing is appreciated. No wheezing, rhonchi, or crackles. HEART: Normal rate, regular. ABDOMEN: Soft, nontender, and nondistended. Bowel sounds are positive. MUSCULOSKELETAL: No cyanosis or clubbing. No pitting in bilateral lower extremities. NEUROLOGIC: Grossly nonfocal. LABORATORY DATA: Hemoglobin 8.8, which is well below baseline of 11 from just last week; WBC 9.9; platelets 214,000; and MCV was previously low. PH of 7.42, pCO2 of 29, pO2 of 34 on SIMV at that time. Creatinine 1.59 and gently downtrending, baseline 1.05. Lipase 51. BNP and troponin are both unremarkable. Magnesium was low at 1.4. Liver function studies are otherwise unremarkable. Lactate 0.8. Urinalysis is negative for nitrites and leukocyte esterase. Significant hyaline casts are present. Urine drug screen is positive for opiates. Plasma alcohol, acetaminophen, and salicylates are negative. Blood cultures x2 are unremarkable. IMAGING DATA: 1. CTA of the chest demonstrates no evidence of PE. There is bibasilar atelectasis present. I cannot exclude an infiltrate in the left base. Additionally, I cannot clearly identify the takeoff of the superior segment of the left lower lobe. 2. CT of the brain demonstrates no acute intracranial abnormality. 3. CT of the abdomen and pelvis demonstrates free air in the belly. There is some free fluid as well. All of these are probably stable postop changes. ASSESSMENT: 1. Metabolic encephalopathy. 2. Heatstroke, possible. 3. Severe sepsis, quickly resolving. 4. Acute kidney injury. 5. Status post cholecystectomy, postoperative day 5 (free air and fluid may be secondary to recent procedure). DISCUSSION AND PLAN: I will do a bronchoscopy on the patient just so that I can clarify that abnormal finding on the CT. I will pay particular interest to the takeoff of the superior segment of the left lower lobe. Assuming this is stable, we will put him on a spontaneous breathing trial and consider extubation. I believe that the patient was intubated because of mentation issues. Those have resolved. He is clearing his end-organ damage, and his hemodynamics are perfectly stable. Whether or not an acute intervention is required for the abdomen is yet to be clarified. Surgical consultation is currently pending. I certainly do not see anything that looks consistent with an acute abdomen at this moment. At this point, my suspicion is that the patient may have fallen asleep in a hot car and had some element of heat stroke. That being said, at this point, I do agree with empiric antibiotics directed at [facility]. CRITICAL CARE TIME: 30 minutes. Job ID: [id number]
[2019-07-15 12:53] VITALS: BMI 23.3
[2019-07-15] MEDS: Gabapentin 300 MG CAP PO SCH ×2 (14:02→20:17)
[2019-07-15] MEDS: Insulin Glargine 20 UNITS in Pre-Filled Syringe 1 EACH SC SCH (20:17)
[2019-07-15] MEDS: Tamsulosin HCl 0.4 MG CAP PO SCH (20:17)
[2019-07-15] MEDS: Rosuvastatin 20 MG TAB PO SCH (20:17)
--- NOTE | 2019-07-15 22:36 | CON ---
DATE OF CONSULTATION: CHIEF COMPLAINT: Probable heat stroke. HISTORY OF PRESENT ILLNESS: The patient is a 74-year-old male, who underwent a laparoscopic cholecystectomy on July 10. He had cholangitis and had it drained and his family said he has been doing very well. He is really not having any pain. He was eating well. Yesterday, they found him locked in his car heat, unresponsive. He was brought in to the emergency room where he was intubated. A CT scan was performed that showed some free air and so there was concern about that. PAST MEDICAL HISTORY: Significant for diabetes, hypertension, cholecystitis. PAST SURGICAL HISTORY: He has had open-heart surgery and he has had the laparoscopic cholecystectomy. MEDICATIONS: 1. Levothyroxine. 2. Metformin. 3. Gabapentin. 4. Ibuprofen. 5. Levothyroxine. 6. Lisinopril. 7. Tamsulosin. ALLERGIES: NO KNOWN DRUG ALLERGIES. SOCIAL HISTORY: Former smoker, unemployed. FAMILY HISTORY: Unknown. PHYSICAL EXAMINATION: GENERAL: He is extubated. He is awake, he is somewhat weak. He denies any pain. VITAL SIGNS: His temperature is 98.3, pulse is 79, blood pressure 109/48. He is awake, alert. HEENT: Unremarkable. LUNGS: Clear. HEART: Regular rate and rhythm. ABDOMEN: Soft, nondistended, nontender. LABORATORY DATA: White count 9.9, H and H 8 and 27, and platelet count 214. Electrolytes are fine. His total bilirubin is 1.2, AST is 37, lipase 51. ASSESSMENT: Possible hypoglycemia/heat stroke. PLAN: Further medical management. No surgery needed at this time. Job ID: [id number]
[2019-07-15] MEDS ORDERED: Vancomycin HCl 1 GM in Premix Bag 1 BAG IVPB SCH (23:00)
[2019-07-16 05:26] LABS: #Eosinphils 0.5 thou/uL (0.0-0.7); #Lymphocytes 1.4 thou/uL (1.20-3.40); #Monocytes 0.8 thou/uL (0.11-0.59); #Neutrophils 7.4 thou/uL (1.40-6.50); %Basophils 0.1 % (0.0-1.0); %Eosinophils 4.6 % (0.0-10.0); %Lymphocytes 13.7 % (21.0-51.0); %Monocytes 7.8 % (0.0-10.0); %Neutrophils 73.8 % (42.0-75.0); Hemoglobin 9.1 g/dL (14.0-18.0); Mean Corpuscular HGB CONC 32.5 g/dL (32.0-36.0); Mean Corpuscular Hemoglobin 25.2 pg (27.0-31.0); Mean Corpuscular Volume 77.6 fL (78.0-98.0); Mean Platelet Volume 7.2 fL (7.4-10.4); Platelet Count 257 thou/uL (130-400); RBC Distribution Width 15.6 % (11.5-14.5); Red Blood Cell (RBC) Count 3.63 mill/uL (4.70-6.10); Reticulocyte Count 1.2 % (0.5-1.5); White Blood Cell (WBC) Count 10.1 thou/uL (4.8-10.8)
[2019-07-16 05:46] LABS: Iron 14 ug/dL (65-175); Iron Binding Capacity, Total 275 mcg/dL (261-462); Phosphorus 2.6 mg/dL (2.3-4.7)
[2019-07-16 05:47] LABS: Anion Gap 12 mmol/L (10-20); BUN (Urea Nitrogen) 16 mg/dL (8.4-25.7); Calc. Creatinine Clearance 60 mL/min (70-130); Calcium 8.8 mg/dL (7.8-10.44); Carbon Dioxide 23 mmol/L (23-31); Chloride 106 mmol/L (98-107); Estimated GFR-MDRD 74; Glucose 69 mg/dL (83-110); Iron 13 ug/dL (65-175); Iron Binding Capacity, Total 281 mcg/dL (261-462); Magnesium 1.8 mg/dL (1.6-2.6); Sodium 138 mmol/L (136-145); Transferrin, Serum 225 mg/dL (163-344)
[2019-07-16 05:49] LABS: Potassium 2.9 mmol/L (3.5-5.1)
[2019-07-16] MEDS: Levothyroxine 150 MCG TAB PO SCH (06:22)
[2019-07-16] MEDS: Piperacillin/Tazobactam 4.5 GM in Sodium Chloride 0.9% 100 ML IVPB SCH (06:22)
[2019-07-16] MEDS ORDERED: Potassium Chloride 20 MEQ TAB PO SCH ×2 (07:00→13:00)
[2019-07-16] MEDS: Gabapentin 300 MG CAP PO SCH ×3 (08:43→19:58)
[2019-07-16] MEDS: Lisinopril 2.5 MG TAB PO SCH (08:43)
[2019-07-16] MEDS: Aspirin 81 mg Enteric Coated Tablet PO SCH (08:43)
[2019-07-16] MEDS: Enoxaparin Sodium 30 MG/0.3 ML SYRINGE SC SCH (08:44)
[2019-07-16] MEDS: Insulin Glargine 20 UNITS in Pre-Filled Syringe 1 EACH SC SCH (09:19)
[2019-07-16] MEDS ORDERED: Cipro 250 MG TAB PO SCH (10:30)
--- NOTE | 2019-07-16 10:45 | PRG ---
DATE OF SERVICE: 07/16/2019 SERVICE: Pulmonary Medicine. INTERVAL HISTORY: The patient is doing great from respiratory standpoint. He remains on room air. Denies any current chest discomfort, nausea, vomiting, fevers, or chills. Otherwise, there has been no interval change to his condition. He got extubated comfortably yesterday. Since then, he has had absolutely no events. PHYSICAL EXAMINATION: VITAL SIGNS: Afebrile with a T-max of 99.3. Pulse 86, blood pressure 155/66, and saturation 100% on room air. GENERAL: The patient is awake and alert, in no apparent distress. LUNGS: Very good air entry with no prolonged expiratory phase or wheezing present. HEART: Normal rate and regular. ABDOMEN: Soft, nontender, and nondistended. Bowel sounds are positive. MUSCULOSKELETAL: No cyanosis or clubbing. No pitting in the bilateral lower extremities. NEUROLOGIC: Grossly nonfocal. LABORATORY DATA: Hemoglobin 9.1 and stable. CBC is otherwise unremarkable. MCV is low, retic count and retic fraction are quite low for this degree of anemia. Potassium 2.9. Basic metabolic profile is otherwise unremarkable. Iron is low, percent saturation is low, and the ferritin level is mid range. Total iron- binding capacity falls within the lower limits of normal. Magnesium 1.8, phosphorous falls within normal limits. All culture results remain negative to date. ASSESSMENT: 1. Metabolic encephalopathy, resolved. 2. Heatstroke, suspected. 3. Severe sepsis, resolved. 4. Acute kidney injury, resolved. 5. Status post cholecystectomy, postoperative day #6. DISCUSSION AND PLAN: We will continue empiric support. Potassium and magnesium will be replaced today. He remained stable for transition out of the ICU to the surgical unit. All end-organ damage is clearing beautifully. We can continue empiric antibiotics for the time being. A brief course of coverage should be considered, though is unlikely to be mandatory. Job ID: [id number] [facility]
[2019-07-16] MEDS ORDERED: Magnesium 2 GM/50 ML 2 GM in Premix Bag 1 BAG IVPB SCH (11:00)
[2019-07-16] MEDS: metroNIDAZOLE 500 MG TAB PO SCH ×2 (14:58→19:58)
--- NOTE | 2019-07-16 16:26 | PDOC.HOSPP ---
- Subjective Encounter Date: 07/16/19 Encounter Time: 16:24 Subjective: Mr. Olvera was seen today in follow-up of probable heat stroke. He is awake and alert today. He has been extubated. He says he does not remember what happened day be fore yesterday. - Objective Vital Signs & Weight: Vital Signs (12 hours) Temp Pulse Pulse BP BP Pulse Ox Pulse Ox 07/16/19 13:51 100 07/16/19 11:56 88 87 131/68 139/64 100 07/16/19 11:41 99.3 F 07/16/19 07:00 99.3 F Pulse Ox 07/16/19 13:51 07/16/19 11:56 99 07/16/19 11:41 07/16/19 07:00 Weight Admit Weight 140 lb Weight 141 lb 12.116 oz Most Recent Monitor Data Heart Rate from ECG 86 NIBP 131/68 NIBP BP-Mean 89 Respiration from ECG 16 SpO2 100 I&O: 07/15/19 07/16/19 07/17/19 06:59 06:59 06:59 Intake Total 561.7 2056 360 Output Total 460 3100 450 Balance 101.7 -1044 -90 Result Diagrams: 07/16/19 05:10 07/16/19 05:10 Additional Labs: Accuchecks 07/16/19 07/16/19 07/15/19 11:43 05:56 20:17 POC Glucose 155 H 71 167 H 07/15/19 17:30 POC Glucose 124 H Hospitalist ROS - Medication Medications: Active Medications Generic Name Dose Route Start Last Admin Trade Name Noemy PRN Reason Stop Dose Admin Aspirin 81 mg 07/16/19 09:00 07/16/19 08:43 Ecotrin PO 81 mg DAILY ISI Administration Enoxaparin Sodium 30 mg 07/16/19 09:00 07/16/19 08:44 Lovenox SC 30 mg 0900 ISI Administration Gabapentin 300 mg 07/15/19 15:00 07/16/19 14:59 Neurontin PO 300 mg TID ISI Administration Levothyroxine Sodium 150 mcg 07/16/19 06:00 07/16/19 06:22 Synthroid PO 150 mcg 0600 ISI Administration Lisinopril 2.5 mg 07/16/19 09:00 07/16/19 08:43 Zestril PO 2.5 mg DAILY ISI Administration Metronidazole 500 mg 07/16/19 15:00 07/16/19 14:58 Flagyl PO 07/22/19 15:01 500 mg TID ISI Administration Rosuvastatin Calcium 20 mg 07/15/19 21:00 07/15/19 20:17 Crestor PO 20 mg HS ISI Administration Sodium Chloride 10 ml 07/15/19 21:00 07/16/19 08:45 Flush - Normal Saline IVF 10 ml Q12HR ISI Administration Sodium Chloride 10 ml 07/15/19 15:06 07/15/19 22:01 Flush - Normal Saline IVF 10 ml PRN PRN Administration Saline Flush Tamsulosin HCl 0.4 mg 07/15/19 21:00 07/15/19 20:17 Flomax PO 0.4 mg HS ISI Administration - Exam Eye: PERRL, anicteric sclera Heart: RRR, no murmur, no gallops, no rubs, normal peripheral pulses Respiratory: CTAB, no wheezes, no rales, no ronchi, normal chest expansion Gastrointestinal: soft, non-tender, non-distended, normal bowel sounds, no palpable masses Extremities: no cyanosis, no clubbing, no edema Hosp A/P (1) Altered mental status Code(s): R41.82 - ALTERED MENTAL STATUS, UNSPECIFIED Status: Acute (2) Respiratory failure Code(s): J96.90 - RESPIRATORY FAILURE, UNSP, UNSP W HYPOXIA OR HYPERCAPNIA Status: Acute (3) Acute kidney injury Code(s): N17.9 - ACUTE KIDNEY FAILURE, UNSPECIFIED Status: Acute (4) CAD (coronary artery disease) Code(s): I25.10 - ATHSCL HEART DISEASE OF [place] CORONARY ARTERY W/O ANG PCTRS Status: Chronic Qualifiers: Coronary Disease-Associated Artery/Lesion type: bypass graft [place] vs. 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
[2019-07-16] MEDS: Ferrous Sulfate 325 MG TAB PO SCH (16:36)
[2019-07-16] MEDS: Cipro 250 MG TAB PO SCH (19:58)
[2019-07-16] MEDS: Rosuvastatin 20 MG TAB PO SCH (19:58)
[2019-07-16] MEDS: Tamsulosin HCl 0.4 MG CAP PO SCH (19:58)
[2019-07-16] MEDS: Insulin Glargine 15 UNITS in Pre-Filled Syringe 1 EACH SC SCH (19:59)
[2019-07-16] MEDS ORDERED: Acetaminophen 325 MG TAB PO PRN (20:36)
[2019-07-17] MEDS: Levothyroxine 150 MCG TAB PO SCH (05:01)
[2019-07-17] MEDS: Cipro 250 MG TAB PO SCH (05:01)
[2019-07-17 06:12] LABS: Anion Gap 12 mmol/L (10-20); BUN (Urea Nitrogen) 11 mg/dL (8.4-25.7); Calc. Creatinine Clearance 64 mL/min (70-130); Calcium 8.8 mg/dL (7.8-10.44); Carbon Dioxide 21 mmol/L (23-31); Chloride 107 mmol/L (98-107); Estimated GFR-MDRD 79; Glucose 84 mg/dL (83-110); Potassium 3.4 mmol/L (3.5-5.1); Sodium 137 mmol/L (136-145)
[2019-07-17] MEDS ORDERED: Clopidogrel Bisulfate 75 MG TAB ONE (07:23)
[2019-07-17 07:47] VITALS: BP 116/65; TEMP 97.9
[2019-07-17] MEDS: Aspirin 81 mg Enteric Coated Tablet PO SCH (08:43)
[2019-07-17] MEDS: metroNIDAZOLE 500 MG TAB PO SCH ×2 (08:43→16:25)
[2019-07-17] MEDS: Lisinopril 2.5 MG TAB PO SCH (08:43)
[2019-07-17] MEDS: Ferrous Sulfate 325 MG TAB PO SCH (08:43)
[2019-07-17] MEDS: Gabapentin 300 MG CAP PO SCH ×2 (08:43→16:25)
[2019-07-17] MEDS: Enoxaparin Sodium 30 MG/0.3 ML SYRINGE SC SCH ×2 (08:44→08:52)
[2019-07-17] MEDS: Insulin Glargine 15 UNITS in Pre-Filled Syringe 1 EACH SC SCH (08:53)
--- NOTE | 2019-07-17 14:40 | PDOC.HOSPP ---
- Subjective Encounter Date: 07/17/19 Encounter Time: 14:38 Subjective: Mr. Olvera was seen today in follow-up of heat stroke. He says he feels fine. He tells me he has to go home today, because he has to be there for his son's court date. - Objective Vital Signs & Weight: Vital Signs (12 hours) Temp Pulse Resp BP BP Pulse Ox 07/17/19 08:43 74 116/65 07/17/19 08:00 96 07/17/19 07:46 97.9 F 74 16 116/65 95 07/17/19 04:15 98.4 F 72 16 127/64 100 Weight Admit Weight 140 lb Weight 141 lb 12.116 oz Most Recent Monitor Data Heart Rate from ECG 86 NIBP 131/68 NIBP BP-Mean 89 Respiration from ECG 16 SpO2 100 I&O: 07/16/19 07/17/19 07/18/19 06:59 06:59 06:59 Intake Total 2056 1410 Output Total 3100 650 Balance -1044 760 Result Diagrams: 07/16/19 05:10 07/17/19 05:27 Additional Labs: Accuchecks 07/17/19 07/17/19 07/16/19 11:26 04:20 19:17 POC Glucose 276 H 70 77 07/16/19 16:47 POC Glucose 97 Hospitalist ROS - Medication Medications: Active Medications Generic Name Dose Route Start Last Admin Trade Name Freq PRN Reason Stop Dose Admin Acetaminophen 650 mg 07/16/19 20:36 07/16/19 20:55 Tylenol PO 650 mg Q6H PRN Administration Fever/Mild Pain 1-3 Aspirin 81 mg 07/16/19 09:00 07/17/19 08:43 Ecotrin PO 81 mg DAILY ISI Administration Ciprofloxacin 500 mg 07/16/19 20:00 07/17/19 05:01 Cipro PO 07/22/19 20:01 500 mg BID@0600,2000 ISI Administration Enoxaparin Sodium 30 mg 07/16/19 09:00 07/17/19 08:52 Lovenox SC 30 mg 00 ISI Administration Ferrous Sulfate 325 mg 07/16/19 17:00 07/17/19 08:43 Feosol PO 325 mg BID-WM ISI Administration Gabapentin 300 mg 07/15/19 15:00 07/17/19 08:43 Neurontin PO 300 mg TID ISI Administration Insulin Glargine 15 units/ 0.15 mls @ 1 mls/hr 07/16/19 21:00 07/17/19 08:53 Miscellaneous Medication SC 0.15 mls BID ISI Administration Insulin Human Lispro 0 units 07/14/19 23:15 07/17/19 12:16 Humalog SC 3 unit .MILD SLIDING SCALE PRN Administration Mild Correctional Scale Levothyroxine Sodium 150 mcg 07/16/19 06:00 07/17/19 05:01 Synthroid PO 150 mcg 0600 ISI Administration Lisinopril 2.5 mg 07/16/19 09:00 07/17/19 08:43 Zestril PO 2.5 mg DAILY ISI Administration Metronidazole 500 mg 07/16/19 15:00 07/17/19 08:43 Flagyl PO 07/22/19 15:01 500 mg TID ISI Administration Rosuvastatin Calcium 20 mg 07/15/19 21:00 07/16/19 19:58 Crestor PO 20 mg HS ISI Administration Sodium Chloride 10 ml 07/15/19 21:00 07/17/19 08:58 Flush - Normal Saline IVF 10 ml Q12HR ISI Administration Sodium Chloride 10 ml 07/15/19 15:06 07/15/19 22:01 Flush - Normal Saline IVF 10 ml PRN PRN Administration Saline Flush Tamsulosin HCl 0.4 mg 07/15/19 21:00 07/16/19 19:58 Flomax PO 0.4 mg HS ISI Administration - Exam Eye: PERRL Heart: RRR, no murmur, no gallops, no rubs, normal peripheral pulses Respiratory: CTAB, no wheezes, no rales, no ronchi, normal chest expansion Gastrointestinal: soft, non-tender, non-distended, normal bowel sounds Extremities: no cyanosis, no clubbing, no edema Skin: normal turgor Hosp A/P (1) Altered mental status Code(s): R41.82 - ALTERED MENTAL STATUS, UNSPECIFIED Status: Acute (2) Respiratory failure Code(s): J96.90 - RESPIRATORY FAILURE, UNSP, UNSP W HYPOXIA OR HYPERCAPNIA Status: Acute (3) Acute kidney injury Code(s): N17.9 - ACUTE KIDNEY FAILURE, UNSPECIFIED Status: Acute (4) CAD (coronary artery disease) Code(s): I25.10 - ATHSCL HEART DISEASE OF PLAT[place] CORONARY ARTERY W/O ANG PCTRS Status: Chronic Qualifiers: Coronary Disease-Associated Artery/Lesion type: bypass graft [place] vs. 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
--- NOTE | 2019-07-17 15:13 | PQF ---
CLINICAL DOCUMENTATION IMPROVEMENT CLARIFICATION FORM: ICD-10 Updated PLEASE DO AN ADDENDUM TO THE PROGRESS NOTE WITH ANY DOCUMENTATION UPDATES OR ADDITIONS AND CARRY THROUGH TO DC SUMMARY. THANK YOU. DATE: 07/17/19 ATTN: DR. GRULLON Please exercise your independent, professional judgment in responding to the clarification form. Clinical indicators are provided on the bottom of this form for your review Please check appropriate box(s) to clarify if the following diagnosis has been ruled in or ruled out: "SEPSIS" [ ] Ruled in diagnosis [ ] Continue to treat [ ] Resolved [ ] Ruled out diagnosis [ ] Cannot rule out diagnosis [ ] Other diagnosis [ ] Unable to determine In addition, please specify: Present on Admission (POA): [ ] Yes [ ] No [ ] Unable to determine For continuity of documentation, please document condition throughout progress notes and discharge summary. Thank You. CLINICAL INDICATORS - SIGNS / SYMPTOMS / LABS ER NOTE: "SEPSIS" BP 89/43 PULSE 128 RR 24 "MENTAL STATUS CHANGES" WBC 07/14: 11.0 CONSULTATION NOTE (MOHAN) 07/15: "SEVERE SEPSIS, QUICKLY RESOLVING" RISKS: ETIENNE (H&P 07/15) METABOLIC ENCEPHALOPATHY (ER NOTE) RECENT CHOLECYSTECTOMY (H&P 07/15) TREATMENT: IV LEVOPHED (ER) IV VANCOMYCIN (ER) IV ZOSYN (ER-07/15) CIPRO (07/16-PRESENT) CRITICAL CARE MONITORING BLOOD AND URINE CULTURES (07/14-07/15) (This form is maintained as a part of the permanent medical record) 2014 [employer], [employer]. All Rights Reserved [email or web address] Office: [phone] [facility] H[facility]ITALJ[facility]
--- NOTE | 2019-07-18 05:34 | DIS ---
DATE OF ADMISSION: 07/15/2019 DATE OF DISCHARGE: 07/17/2019 PRIMARY CARE PHYSICIAN: The patient does not have a primary care physician here in town. DISCHARGE DISPOSITION: Home. PRIMARY DISCHARGE DIAGNOSES: 1. Metabolic encephalopathy secondary to heat stroke. 2. Coronary artery disease. 3. Status post recent cholecystectomy. 4. Hypertension. 5. Diabetes mellitus, type 2. DISCHARGE MEDICATIONS: Include: 1. Crestor 20 mg at bedtime. 2. Flomax 0.4 mg daily. 3. Metformin 1000 mg twice daily. 4. Lisinopril 2.5 mg daily. 5. Levothyroxine 150 mcg daily. 6. Lantus insulin 50 units twice a day. 7. Neurontin 800 mg p.o. t.i.d. 8. Aspirin 81 mg daily. 9. Tylenol p.r.n. IMAGING DONE DURING THE HOSPITAL STAY: The patient had a CT angiogram of the chest showing no evidence of pulmonary embolism. There was bibasilar atelectasis. The patient had a CT scan of the brain, showed no evidence of any acute intracranial abnormalities. The patient had a CT scan of the abdomen and pelvis, showing a small amount of free air in the abdomen. There was fluid in the gallbladder fossa. There was a hollow viscus perforation possibility, evidence of diverticulosis. The patient also had a bronchoscopy, which was negative. There was no evidence of any airway or endobronchial disease. CODE STATUS: Full code. ALLERGIES: NO KNOWN DRUG ALLERGIES. HOSPITAL COURSE: Mr. Olvera is a 74-year-old gentleman, who was found by family in his car unresponsive. EMS was called and he was brought to the hospital. There was some concern, although it is unclear that he was not able to protect his airway. Therefore, he was intubated en route. He was brought into the hospital and admitted to the ICU. Pulmonary and Critical Care were consulted. The following morning, the patient was actually beginning to become more responsive and he was actually rapidly extubated the following day. It is unclear the events which led up to his hospitalization. The patient has no recollection of what happened, all he remembers is sitting in his car. It is suspected that he may have fallen asleep in the hot car and suffered from heat stroke. His temperature was elevated on admission. Otherwise, he had a rapid recovery. His blood pressure and blood sugars remained stable during his hospital stay. Urine tox screen was negative. No evidence of any infection. Therefore, he was discharged home once stable to continue his usual medications and have close outpatient followup with his primary care physician in 1 to 2 weeks. Job ID: [id number]
--- NOTE | 2019-07-20 15:56 | EKG ---
Test Reason : Blood Pressure : / mmHG Vent. Rate : 087 BPM Atrial Rate : 087 BPM P-R Int : 174 ms QRS Dur : 142 ms QT Int : 416 ms P-R-T Axes : 014 -02 014 degrees QTc Int : 500 ms Normal sinus rhythm Right bundle branch block Inferior infarct , age undetermined Abnormal ECG Confirmed by RADHA SAXENA ([id number]), acquisition editor SUSY SANTA ([id number]) on 07/20/2019 3:56:25 PM Referred By: Confirmed By:RADHA SAXENA
== END 2019-07-17 18:22 | disposition home or self-care (01) | DRG 922 ==
LOC: ERS 20:46 → CCU 07-15 → T4-B 07-16 12:26
PROVIDERS: ADMIT Hospitalist; ATTEND Hospitalist
PROC: 5A1945Z Respiratory Ventilation, 24-96 Consecutive Hours (ICD-10-PCS; principal; 2019-07-15)
PROC: 0BH17EZ Insertion of Endotracheal Airway into Trachea, Via Natural or Artificial Opening (ICD-10-PCS; 2019-07-15)
PROC: 02HV33Z Insertion of Infusion Device into Superior Vena Cava, Percutaneous Approach (ICD-10-PCS; 2019-07-15)
PROC: B518ZZA Fluoroscopy of Superior Vena Cava, Guidance (ICD-10-PCS; 2019-07-15)
PROC: 0B9J8ZX Drainage of Left Lower Lung Lobe, Via Natural or Artificial Opening Endoscopic, Diagnostic (ICD-10-PCS; 2019-07-15)
PROC: 3E033XZ Introduction of Vasopressor into Peripheral Vein, Percutaneous Approach (ICD-10-PCS; 2019-07-15)
DX: T67.0XXA Heatstroke and sunstroke, initial encounter (principal); J96.00 Acute respiratory failure, unspecified whether with hypoxia or hypercapnia; G93.41 Metabolic encephalopathy; E87.1 Hypo-osmolality and hyponatremia; N17.9 Acute kidney failure, unspecified; E86.0 Dehydration; D64.9 Anemia, unspecified; E83.42 Hypomagnesemia; I25.10 Atherosclerotic heart disease of native coronary artery without angina pectoris; E11.9 Type 2 diabetes mellitus without complications; E78.5 Hyperlipidemia, unspecified; E03.9 Hypothyroidism, unspecified; I10 Essential (primary) hypertension; F32.9 Major depressive disorder, single episode, unspecified; F17.200 Nicotine dependence, unspecified, uncomplicated; I25.2 Old myocardial infarction; Z90.49 Acquired absence of other specified parts of digestive tract; Z95.1 Presence of aortocoronary bypass graft; Z79.84 Long term (current) use of oral hypoglycemic drugs; Z79.899 Other long term (current) drug therapy
CPT/HCPCS: 31500; 36415; 36416; 36556; 51702; 70450; 71045; 71275; 74177; 80048; 80053; 80306; 80307; 81003; 81015; 82550; 82728; 82805; 83540; 83550; 83605; 83690; 83735; 83880; 84100; 84439; 84443; 84466; 84484; 85025; 85046; 86850; 86900; 86901; 87040; 87070; 87077; 87086; 87186; 87205; 93005; 94002; 94003; 96365; 96366; 96367; 96368; 96375; 96376; J0171; J1650; J1815; J2543; J2704; J3010; J3370; J3475; J3490; J7050; J7070; Q9966

== ENCOUNTER 2019-07-20 09:09 | Observation (INO) | payer MEDICARE, MEDICAID ==
[2019-07-20 09:38] LABS: #Eosinphils 0.4 thou/uL (0.0-0.7); #Lymphocytes 1.3 thou/uL (1.20-3.40); #Monocytes 0.6 thou/uL (0.11-0.59); #Neutrophils 7.9 thou/uL (1.40-6.50); %Basophils 0.3 % (0.0-1.0); %Lymphocytes 12.7 % (21.0-51.0); %Monocytes 6.2 % (0.0-10.0); %Neutrophils 76.9 % (42.0-75.0); Hemoglobin 9.8 g/dL (14.0-18.0); Mean Corpuscular HGB CONC 32.5 g/dL (32.0-36.0); Mean Corpuscular Hemoglobin 25.3 pg (27.0-31.0); Mean Corpuscular Volume 77.7 fL (78.0-98.0); Mean Platelet Volume 6.8 fL (7.4-10.4); Platelet Count 401 thou/uL (130-400); RBC Distribution Width 15.8 % (11.5-14.5); Red Blood Cell (RBC) Count 3.86 mill/uL (4.70-6.10); White Blood Cell (WBC) Count 10.3 thou/uL (4.8-10.8)
[2019-07-20 09:58] LABS: ALT (SGPT) 27 U/L (8-55); AST (SGOT) 23 U/L (5-34); Albumin 3.5 g/dL (3.4-4.8); Alkaline Phosphatase 96 U/L (40-150); Anion Gap 15 mmol/L (10-20); BUN (Urea Nitrogen) 24 mg/dL (8.4-25.7); Bilirubin, Total 0.3 mg/dL (0.2-1.2); CK (CPK) 81 U/L (30-200); Calc. Creatinine Clearance 0 mL/min (70-130); Calcium 8.3 mg/dL (7.8-10.44); Carbon Dioxide 19 mmol/L (23-31); Chloride 104 mmol/L (98-107); Estimated GFR-MDRD 22; Globulin 3.2 g/dL (2.4-3.5); Glucose 285 mg/dL (83-110); Lipase 78 U/L (8-78); Potassium 4.2 mmol/L (3.5-5.1); Protein, Total 6.7 g/dL (5.8-8.1); Sodium 134 mmol/L (136-145)
--- NOTE | 2019-07-20 10:17 | CT ---
EXAM: Abdomen and pelvic CT scan with contrast: HISTORY: Abdominal pain, weakness, hypotension COMPARISON: 07/14/2019 FINDINGS: There is some persistent but decreasing free intraperitoneal air. Minimal linear parenchymal changes particularly in the left base and lingula, possibly subsegmental a telectasis. Liver: Unremarkable. Gallbladder:Post surgical clips in the gallbladder fossa with a circumscribed low-attenuation focus i n the gallbladder fossa, etiology of which is uncertain, this could represent some residual gallbladder or neck of gallbladder or dilated cystic duct. Some other circumscribed fluid collection, including a circumscribed bile leak or choledochocyst is a possibility as well. Minimal surrounding fat stranding but showing definite improvement from prior CT. Pancreas:Unremarkable Spleen:Unremarkable. Adrenal glands:Unremarkable. Kidneys:No renal calculus or acute obstruction. Small renal cysts. No evidence for bowel obstruction. No CT evidence for acute appendicitis. The urinary bladder is unremarkable. Reproductive system:Unremarkable IMPRESSION: Decrease in amount of free intraperitoneal air as well as abnormal fat stranding in the region of the gallbladder fossa. Circumscribed somewhat irregularly-shaped fluid collection in the gallbladder fossa, possibly represe nting residual gallbladder, gallbladder neck, or dilated cystic duct versus some other type of circumscribed fluid collection including a circumscribed biloma or bile leak or choledochocyst. Follow-up NUCLEAR MEDICINE HEPATOBILIARY SCAN suggested for further assessment.
[2019-07-20] MEDS ORDERED: ISOVUE-370 76%-LOCM 1 ML ONE (12:55)
[2019-07-20] MEDS ORDERED: Ondansetron PF 4 MG/2 ML Vial IVP PRN (13:07)
[2019-07-20] MEDS ORDERED: Sodium Chloride 0.9% 1,000 ML IV SCH (13:07)
[2019-07-20] MEDS ORDERED: Ondansetron ODT 4 MG TAB SL PRN ×2 (13:07→19:39)
[2019-07-20 13:58] VITALS: BMI 22.5
[2019-07-20] MEDS ORDERED: Prevnar 13-Val Conj/PF 0.5 ML SYRINGE IM ONE (14:15)
--- NOTE | 2019-07-20 14:33 | PDOC.FPRHP ---
- History of Present Illness Chief Complaint: AMS History of Present Illness: Pt is a 74 yo with a history of DMII (insulin dependent), Hypothyroidism, HLD, and HTN who present to the ED via ambulance due to AMS. He says he was sitting in [employer] and fell asleep. One of the workers woke him up and said he looked unwell, so they called EMS. He denies any LOC, bowel or bladder incontinence, or biting his tongue. He was recently admitted 07/15/19 for acute encephalopathy and left AMA. ED Course: In the ED, he received 1L NS. His Creatinine was found to be 2.85 up from 0.94 on 07/17. His glucose was 285 and his Hgb was 9.8. - Allergies/Adverse Reactions Allergies Allergy/AdvReac Type Severity Reaction Status Date / Time No Known Allergies Allergy Verified 07/20/19 14:04 - Home Medications Medication Instructions Recorded Confirmed Type Gabapentin [Neurontin] 800 mg PO TID 04/13/14 07/20/19 History Rosuvastatin [Crestor] 20 mg PO HS 04/13/14 07/20/19 History Acetaminophen [Tylenol Extra 2 tab PO Q6HR PRN 12/07/18 07/20/19 History Strength] Levothyroxine Sodium 150 mcg PO DAILY 12/07/18 07/20/19 History Tamsulosin HCl 0.4 mg PO DAILY 12/07/18 07/20/19 History Ibuprofen [Motrin] 400 mg PO TID PRN #30 tab 05/30/19 07/20/19 Rx Aspirin [Aspir-Low] 81 mg PO DAILY 07/09/19 07/20/19 History Insulin Glargine,Hum.Rec.Anlog 50 units SQ BID 07/09/19 07/20/19 History [Lantus] Lisinopril [Zestril] 2.5 mg PO DAILY 07/09/19 07/20/19 History metFORMIN [Glucophage] 1,000 mg PO BID-WM 07/09/19 07/20/19 History Acetaminophen W/ Codeine 1 - 2 tab PO Q6HR PRN 07/20/19 07/20/19 History [Acetaminophen/Codeine #3] Ondansetron [Zofran ODT] 4 mg SL Q4HR PRN 07/20/19 07/20/19 History - History PMHx: DMII (Insulin Dependent), Hypothyroidism, HLD, HTN PSHx: Gallbladder, CABG 1999 FHx: Non-contributory Social: He quit smoking earlier this year he smoke from the age of [age]. He does not use recreational drugs and he does not drink. - Review of Systems General: denies: fever/chills Eyes: denies: vision changes ENT: denies: nasal congestion, rhinorrhea Respiratory: denies: cough, congestion, shortness of breath Cardiovascular: denies: chest pain Gastrointestinal: denies: nausea, vomiting, diarrhea Genitourinary: denies: dysuria Skin: denies: rashes Musculoskeletal: denies: pain Neurological: denies: numbness, weakness - Vital signs BP: 116/72 HR: 78 RR: 18 Tmax: 97.6 Pox: 100% on RA Wt: 61 kg - Physical Exam Constitutional: NAD HEENT: normocephalic and atraumatic, PERRLA, EOMI, normal nasal mucosa, MMM, oropharynx clear Neck: supple, trachea midline Chest: no-tender to palpation Heart: RRR, normal S1/S2, no murmurs/rubs/gallops Lungs: CTAB Abdomen: soft, non-tender, bowel sounds present Musculoskeletal: normal structure, normal tone Neurological: no focal deficit Skin: no rash/lesions Heme/Lymphatic: no unusual bruising or bleeding FMR H&P: Results - Labs Result Diagrams: 07/20/19 09:27 07/20/19 09:27 Lab results: WBC 10.3 thou/uL (4.8-10.8) 07/20/19 09:27 Hgb 9.8 g/dL (14.0-18.0) L 07/20/19 09:27 Hct 30.0 % (42.0-52.0) L 07/20/19 09:27 MCV 77.7 fL (78.0-98.0) L 07/20/19 09:27 Plt Count 401 thou/uL (130-400) H 07/20/19 09:27 Neutrophils % 76.9 % (42.0-75.0) H 07/20/19 09:27 Sodium 134 mmol/L (136-145) L 07/20/19 09:27 Potassium 4.2 mmol/L (3.5-5.1) 07/20/19 09:27 Chloride 104 mmol/L (98-107) 07/20/19 09:27 Carbon Dioxide 19 mmol/L (23-31) L 07/20/19 09:27 BUN 24 mg/dL (8.4-25.7) 07/20/19 09:27 Creatinine 2.85 mg/dL (0.7-1.3) H 07/20/19 09:27 Glucose 285 mg/dL (83-110) H 07/20/19 09:27 Calcium 8.3 mg/dL (7.8-10.44) 07/20/19 09:27 Total Bilirubin 0.3 mg/dL (0.2-1.2) 07/20/19 09:27 AST 23 U/L (5-34) 07/20/19 09:27 ALT 27 U/L (8-55) 07/20/19 09:27 Alkaline Phosphatase 96 U/L (40-150) 07/20/19 09:27 Creatine Kinase 81 U/L (30-200) 07/20/19 09:27 Serum Total Protein 6.7 g/dL (5.8-8.1) 07/20/19 09:27 Albumin 3.5 g/dL (3.4-4.8) 07/20/19 09:27 Lipase 78 U/L (8-78) 07/20/19 09:27 - EKG Interpretation EKG: EKG shows normal sinus rhythm, Rate (beats per minute): 75, with no ectopics, Conduction with, complete right bundle branch block, ST segments normal, T waves normal, [place] normal, Clinical impression:, non-specific EKG. FMR H&P: A/P - Problem List (1) Acute kidney injury Current Visit: No Status: Acute Code(s): N17.9 - ACUTE KIDNEY FAILURE, UNSPECIFIED (2) Microcytic anemia Current Visit: Yes Status: Acute Code(s): D50.9 - IRON DEFICIENCY ANEMIA, UNSPECIFIED (3) Diabetes type 2, controlled Current Visit: No Status: Chronic Code(s): E11.9 - TYPE 2 DIABETES MELLITUS WITHOUT COMPLICATIONS Qualifiers: Diabetes mellitus director long term care insulin use: without intermediate use (4) Hypothyroidism Current Visit: No Status: Chronic Code(s): E03.9 - HYPOTHYROIDISM, UNSPECIFIED Qualifiers: Hypothyroidism type: unspecified Qualified Code(s): E03.9 - Hypothyroidism , unspecified - Plan Pt is a 74 yo with a history of DMII (insulin dependent), Hypothyroidism, HLD, and HTN who present to the ED via ambulance due to AMS. 1. ETIENNE Cre: 2.85 * Cre: 0.94 on 07/17 * LR @ 100 * Ordered labs to calculate FeNa * Will monitor with serial BMP 2. Anemia Hgb: 9.4, MCV: 77 * Iron Studies ordered * Peripheral smear ordered * Will monitor * Consider iron supplementation when cause is assessed 3. DMII, Insulin Dependent B * Will restart home meds * Not taking at home as directed * Will start SSI 4. Hypothyroidism * Asymptomatic * Will restart home meds 5. HLD * Will restart home meds * Will get a lipid panel Code Status: Full DVT Prophylaxis: Lovenox GI prophylaxis: Pepcid Diet: CC Lines: Peripheral Dispo: Obs, d/c with resolution of ETIENNE and adjustment of medications. FMR H&P: Upper Level - Plan Date/Time: 07/20/19 1433 I, Gael Vazquez MD, have evaluated this patient and agree with findings/plan as outlined by civil engineering intern resident. Pertinent changes/additions are listed here. Manuel Olvera is a 74 year old M with a PMH of insulin dependent DM2, Hypothyoidism, HLD, HTN who presented to the ED via ambulance due to AMS. He was at [facility] and history from EMS is that patient fell asleep and was not very responsive. Patrons of [facility] were concerned and called 911. On arrival, EMS noted BP in the 80s systolic. He did not recall any details of the event. Does not remember falling asleep or being seen by EMS in [facility]. He denies any fever, chills, chest pain, dyspnea, n/v, abdominal pain. Patient has a history of a recent admission where he had acute renal failure. When he was discharged, his Cr was around 0.8. In the ED, her Cr was 2.85. The patient received 1 L NS and his BPs improved to the 120s systolic. He had a normal WBC on admission. Patient is being admitted to [facility] for ETIENNE. His mental status was improved in the ED. Will continue to monitor labs and will continue IVFs. Please see civil engineering intern note above for full H&P, which I have reviewed and agree with. Addendum - Attending - Attending Attestation Date/Time: 07/20/192020 I personally evaluated the patient and discussed the management with Drs. Rodas and George I agree with the History, Examination, Assessment and Plan documented above with any addition or exceptions noted below.
[2019-07-20] MEDS ORDERED: Acetaminophen 325 MG TAB PO PRN (14:41)
[2019-07-20 16:03] LABS: Iron Binding Capacity, Total 315 mcg/dL (261-462)
[2019-07-20 16:04] LABS: Iron 33 ug/dL (65-175)
[2019-07-20] MEDS: Lactated Ringer's 1,000 ML IV SCH (18:34)
[2019-07-20 18:58] LABS: Cardiac Risk 3.5 (Less than 4.5)
[2019-07-20 19:21] LABS: Free T4 (Free Thyroxine) 1.24 ng/dL (0.70-1.48); Thyroid Stimulating Hormone 0.5349 uIU/mL (0.35-4.94)
[2019-07-20 19:25] LABS: Creatinine, Urine 24.65 mg/dL (63-166)
[2019-07-20] MEDS ORDERED: Rosuvastatin 20 MG TAB PO SCH (21:00)
[2019-07-20] MEDS ORDERED: Insulin Glargine 50 UNITS in Pre-Filled Syringe 1 EACH SC SCH (21:00)
[2019-07-20] MEDS: Gabapentin 400 MG CAP PO SCH (21:17)
[2019-07-20 21:59] LABS: Bilirubin Negative (Negative); Blood, Urine Trace (Negative); Glucose, Urine (Dipstick) 100 mg/dL (Negative); Leukocyte Negative (Negative); Nitrite Negative (Negative); Protein, Urine (Dipstick) Negative (Neg-Trace); Urobilinogen 0.2 mg/dL (Less than 2)
[2019-07-20 22:00] LABS: Clarity Hazy (Clear); Urine Culture Reflex No No
[2019-07-20 22:03] LABS: Bacteria/HPF None Seen HPF (None Seen); RBC/HPF 0-3 HPF (0-3); Squamous Epithelial 0-3 HPF (0-3); WBC/HPF 0-3 HPF (0-3)
[2019-07-21] MEDS: Lactated Ringer's 1,000 ML IV SCH (04:36)
--- NOTE | 2019-07-21 05:20 | PDOC.FM ---
- Subjective Subjective: Pt did well overnight. No complaints of pain. He ate well. He did not have BM overnight. - Objective MAR Reviewed: Yes Vital Signs & Weight: Vital Signs (12 hours) Temp Pulse Resp BP Pulse Ox 07/21/19 04:32 98.7 F 77 20 138/65 97 07/20/19 23:31 98.8 F 75 16 135/61 96 07/20/19 19:26 98.6 F 74 14 149/67 H 100 Weight Weight 63.73 kg I&O: 07/19/19 07/20/19 07/21/19 06:59 06:59 06:59 Intake Total 1153 Output Total 1700 Balance -547 Result Diagrams: 07/21/19 05:41 07/21/19 05:41 Phys Exam - Physical Examination Constitutional: NAD HEENT: moist MMs Neck: no nodes, supple Respiratory: clear to auscultation bilateral Cardiovascular: RRR, no significant murmur Gastrointestinal: soft, non-tender, positive bowel sounds Musculoskeletal: no edema, pulses present Neurological: moves all 4 limbs Psychiatric: normal affect Skin: cap refill <2 seconds Dx/Plan (1) Acute kidney injury Code(s): N17.9 - ACUTE KIDNEY FAILURE, UNSPECIFIED Status: Acute (2) Microcytic anemia Code(s): D50.9 - IRON DEFICIENCY ANEMIA, UNSPECIFIED Status: Acute (3) Diabetes type 2, controlled Code(s): E11.9 - TYPE 2 DIABETES MELLITUS WITHOUT COMPLICATIONS Status: Chronic Qualifiers: Diabetes mellitus decal applier insulin use: without usp use (4) Hypothyroidism Code(s): E03.9 - HYPOTHYROIDISM, UNSPECIFIED Status: Chronic Qualifiers: Hypothyroidism type: unspecified Qualified Code(s): E03.9 - Hypothyroidism , unspecified - Plan Plan: Pt is a 74 yo with a history of DMII (insulin dependent), Hypothyroidism, HLD, and HTN who present to the ED via ambulance due to AMS. 1. ETIENNE Cre: 2.85 > 1.23 * Cre: 0.94 on 07/17 * LR @ 100 * FeNa: 7.7% Post Renal Obstructive * Will monitor with serial BMP 2. Anemia Hgb: 9.4, MCV: 77 * Iron 33, TIBC 315, % Sat 10, Ferritin 75.65- Iron Def Anemia likely * Peripheral smear ordered * Will monitor * Consider iron supplementation when cause is assessed 3. DMII, Insulin Dependent B * Will restart home meds * Not taking at home as directed * Will start SSI * BG checks QACHS 4. Hypothyroidism * Asymptomatic * TSH 0.5349, T4 1.24 * Will restart home meds 5. HLD * Will restart home meds * Trig 152, Chol 63, LDL 15, HDL 18 Code Status: Full DVT Prophylaxis: Lovenox GI prophylaxis: Pepcid Diet: CC Lines: Peripheral Dispo: Obs, d/c with resolution of ETIENNE and adjustment of medications. Addendum - Attending - Attending Attestation Date/Time: 07/21/19 [id number] I personally evaluated the patient and discussed the management with Dr. Stevens I agree with the History, Examination, Assessment and Plan documented above with any addition or exceptions noted below. Patient ETIENNE improved/resolved with fluids will need close outpatient follow up for monitoring of his DM,RFTs and anemia. Patient to continue on flomax for BPH.
[2019-07-21 05:52] LABS: #Eosinphils 0.6 thou/uL (0.0-0.7); #Lymphocytes 1.6 thou/uL (1.20-3.40); #Monocytes 0.6 thou/uL (0.11-0.59); #Neutrophils 7.7 thou/uL (1.40-6.50); %Basophils 0.2 % (0.0-1.0); %Eosinophils 6.2 % (0.0-10.0); %Lymphocytes 15.2 % (21.0-51.0); %Monocytes 5.4 % (0.0-10.0); Hemoglobin 10.2 g/dL (14.0-18.0); Mean Corpuscular HGB CONC 33.2 g/dL (32.0-36.0); Mean Corpuscular Hemoglobin 25.6 pg (27.0-31.0); Mean Corpuscular Volume 77.2 fL (78.0-98.0); Mean Platelet Volume 6.6 fL (7.4-10.4); Platelet Count 425 thou/uL (130-400); RBC Distribution Width 15.5 % (11.5-14.5); Red Blood Cell (RBC) Count 3.97 mill/uL (4.70-6.10); White Blood Cell (WBC) Count 10.5 thou/uL (4.8-10.8)
[2019-07-21] MEDS ORDERED: Levothyroxine 150 MCG TAB PO SCH (06:00)
[2019-07-21 06:58] LABS: Anion Gap 12 mmol/L (10-20); BUN (Urea Nitrogen) 15 mg/dL (8.4-25.7); Calc. Creatinine Clearance 48 mL/min (70-130); Calcium 8.3 mg/dL (7.8-10.44); Carbon Dioxide 24 mmol/L (23-31); Chloride 105 mmol/L (98-107); Estimated GFR-MDRD 58; Glucose 126 mg/dL (83-110); Potassium 3.6 mmol/L (3.5-5.1); Sodium 137 mmol/L (136-145)
[2019-07-21] MEDS ORDERED: Dextrose 5% in Water 1,000 ML IV PRN (07:15)
[2019-07-21] MEDS ORDERED: Dextrose 50% Abboject 50 ML SYRINGE SLOW IVP PRN (07:15)
[2019-07-21] MEDS ORDERED: Insulin Regular 300 UNITS/3 ML VIAL SC PRN (07:15)
[2019-07-21] MEDS ORDERED: metFORMIN 500 MG TAB PO SCH (08:00)
[2019-07-21] MEDS ORDERED: Famotidine 20 MG TAB PO SCH (09:00)
[2019-07-21] MEDS ORDERED: Tamsulosin HCl 0.4 MG CAP PO SCH (09:00)
[2019-07-21] MEDS ORDERED: Lisinopril 2.5 MG TAB PO SCH (09:00)
[2019-07-21] MEDS ORDERED: Aspirin 81 mg Enteric Coated Tablet PO SCH (09:00)
[2019-07-21] MEDS ORDERED: Insulin Glargine 50 UNITS in Pre-Filled Syringe 1 EACH SC SCH (09:00)
[2019-07-21] MEDS: Gabapentin 400 MG CAP PO SCH (09:04)
[2019-07-21 12:27] VITALS: BP 114/56; TEMP 97.9
--- NOTE | 2019-07-22 10:16 | DIS ---
DATE OF ADMISSION: 07/20/2019 DATE OF DISCHARGE: 07/21/2019 RESIDENT: David Stevens MD ADMITTING ATTENDING: Kristian Valenzuela MD DISCHARGE ATTENDING: Kristian Valenzuela MD CONSULTS: None. PROCEDURES PERFORMED: * Abdomen and pelvis CT 07/20: Decreased amount of free intraperitoneal air, as well as abnormal fat stranding in the region of the gallbladder fossa. Circumscribed somewhat irregular shaped fluid collection in the gallbladder fossa, possibly representing residual gallbladder neck or dilated cystic duct compared to some other type of circumscribed fluid collection including a circumscribed biloma or bile leak or choledochal cyst. PRIMARY DIAGNOSIS: Acute kidney injury. SECONDARY DIAGNOSES: 1. Microcytic anemia. 2. Diabetes type 2, uncontrolled. 3. Hypothyroidism. DISCHARGE MEDICATIONS: 1. Docusate sodium 100 mg p.o. b.i.d. 2. Iron 325 p.o. daily. DISCONTINUED MEDICATIONS: None. HISTORY OF PRESENT ILLNESS: The patient is a 74-year-old with history of type 2 diabetes insulin dependent, hypothyroidism, hyperlipidemia and hypertension, who presented to the ED via ambulance due to altered mental status. He says he was setting at [employer] and fell asleep, one of the workers woke him up and said he looked unwell, so they called EMS. He denies any loss of consciousness, bowel or bladder incontinence, or biting his tongue. He was recently admitted on for acute encephalopathy and left AMA. In the ED, he received 1 L of normal saline. His creatinine was found to be 2.85 up from 0.94 on 07/17. His glucose was 285. His hemoglobin was 9.8. 1. ETIENNE, creatinine 2.85, down to 1.23. * Creatinine 0.94 on 07/17. * FENa 7.7% post-renal obstruction but patient is currently on tamsulosin, so wethink this is the cause of elevated FENa. 2.Anemia. * Hemoglobin 9.4, MCV 77. * Iron 33, TIBC 315, percent sat 10, ferritin 75.65, most likely iron deficiency anemia. * The patient was sent home on iron supplementation. 3. Diabetes type 2, insulin dependent. * Blood glucose 285. * Restarted home medications. 4. Hypothyroidism. * TSH 0.5349, T4 of 1.24. * Restarted home medications. 5. Hyperlipidemia. * Triglycerides 152, cholesterol 63, LDL 15, HDL 18. * Rosuvastatin 20 mg at bedtime. DISPOSITION: Stable. DISCHARGE INSTRUCTION: 1. Location: Home. 2. Diet: Consistent carb. 3. ACTIVITY: As tolerated, but recommend on taking it easy for the next couple of days. 4. FOLLOWUP: Follow up with [facility] and physicians within 7 days. Recommend f /u with surgeon who did cholecystectomy for CT findings. Job ID: [id number] [email or web address]
== END 2019-07-21 13:20 | disposition home or self-care (01) ==
LOC: ERS 09:09 → 2SW 11:35
PROVIDERS: ADMIT Family Medicine; ATTEND Family Medicine
DX: N17.9 Acute kidney failure, unspecified (principal); R41.82 Altered mental status, unspecified; D50.9 Iron deficiency anemia, unspecified; E11.9 Type 2 diabetes mellitus without complications; E03.9 Hypothyroidism, unspecified; E78.5 Hyperlipidemia, unspecified; I10 Essential (primary) hypertension; Z87.891 Personal history of nicotine dependence; Z79.4 Long term (current) use of insulin; Z79.82 Long term (current) use of aspirin; Z79.899 Other long term (current) drug therapy; Z95.1 Presence of aortocoronary bypass graft
CPT/HCPCS: 74177; 80048; 80061; 81001; 82550; 82570; 82728; 82962 ×2; 83540; 83550; 83690; 84300; 84439; 84484; 85025; 90670; 93005; 96360; 96361; 99285; G0009; 36415; 36416; 80053; 84443; 90471; G0378; J1815; Q9966

== ENCOUNTER 2019-10-08 19:42 | Emergency (ER) | payer MEDICARE, MEDICAID ==
[2019-10-08] MEDS ORDERED: Proparacaine 0.5% Opth 15 ML BOT ONE (21:09)
[2019-10-08] MEDS ORDERED: Fluorescein Opthalmic Strip ONE (21:10)
== END 2019-10-08 23:56 | disposition home or self-care (01) ==
LOC: ERS 19:42
DX: S05.02XA Injury of conjunctiva and corneal abrasion without foreign body, left eye, initial encounter (principal); I25.10 Atherosclerotic heart disease of native coronary artery without angina pectoris; I25.2 Old myocardial infarction; E11.9 Type 2 diabetes mellitus without complications; E03.9 Hypothyroidism, unspecified; E78.5 Hyperlipidemia, unspecified; I10 Essential (primary) hypertension; F32.9 Major depressive disorder, single episode, unspecified; W22.8XXA Striking against or struck by other objects, initial encounter
CPT/HCPCS: 99283

== ENCOUNTER 2019-11-08 11:08 | Emergency (ER) | payer MEDICARE, MEDICAID ==
--- NOTE | 2019-11-08 12:05 | RAD ---
EXAM: XR Foot Lt 3 View STANDARD PROVIDED CLINICAL HISTORY: Pain FINDINGS: There is no evidence for fracture or other acute osseous abnormality. Alignment appears anatomic. Chery nt spaces appear preserved. Plantar and posterior calcaneal enthesophyte formation. Vascular calcifications. IMPRESSION: No evidence for an acute osseous abnormality. If there is persistent clinical concern, conservative m anagement and follow-up imaging advised.
[2019-11-08] MEDS ORDERED: HYDROcodone/Acetaminophen 10/325 mg Tablet ONE (12:06)
[2019-11-08] MEDS ORDERED: Ibuprofen 200 MG TAB ONE (13:01)
== END 2019-11-08 12:30 | disposition home or self-care (01) ==
LOC: ERS 11:08
DX: E11.69 Type 2 diabetes mellitus with other specified complication (principal); S91.105A Unspecified open wound of left lesser toe(s) without damage to nail, initial encounter; I25.10 Atherosclerotic heart disease of native coronary artery without angina pectoris; I25.2 Old myocardial infarction; E03.9 Hypothyroidism, unspecified; I10 Essential (primary) hypertension; F32.9 Major depressive disorder, single episode, unspecified; E78.5 Hyperlipidemia, unspecified; Z87.891 Personal history of nicotine dependence; X58.XXXA Exposure to other specified factors, initial encounter

== ENCOUNTER 2019-11-12 09:52 | Observation (INO) | payer MEDICARE, MEDICAID ==
[2019-11-12 11:00] LABS: Hemoglobin 10.4 g/dL (14.0-18.0); Mean Corpuscular HGB CONC 32.9 g/dL (32.0-36.0); Mean Corpuscular Hemoglobin 24.5 pg (27.0-31.0); Mean Corpuscular Volume 74.5 fL (78.0-98.0); Mean Platelet Volume 7.6 fL (7.4-10.4); Platelet Count 192 thou/uL (130-400); RBC Distribution Width 14.8 % (11.5-14.5); Red Blood Cell (RBC) Count 4.23 mill/uL (4.70-6.10); White Blood Cell (WBC) Count 9.9 thou/uL (4.8-10.8)
--- NOTE | 2019-11-12 11:04 | CT ---
Head CT without contrast 11/12/2019: COMPARISON: 07/14/2019 HISTORY: Fall, trauma TECHNIQUE: Axial CT imaging at 5 mm intervals from vertex through skull base without contrast FINDINGS: The imaged paranasal sinuses and mastoid air cells appear unremarkable. No displaced calvar ial fracture. No intracranial hemorrhage, midline shift, or mass effect. IMPRESSION: No intracranial hemorrhage or displaced calvarial fracture.
--- NOTE | 2019-11-12 11:05 | RAD ---
EXAM: Portable chest PROVIDED CLINICAL HISTORY: Chest pain COMPARISON: 07/14/2019 FINDINGS: Cardiac and mediastinal silhouette is within normal limits. No focal consolidation, pleural fluid or pneumothorax evident. Median sternotomy changes are seen. The bony thorax appears grossly intact. IMPRESSION: No evidence for an acute cardiopulmonary process.
--- NOTE | 2019-11-12 11:06 | CT ---
CT cervical spine noncontrast HISTORY: Fall. Neck injury. COMPARISON: 03/02/2017. FINDINGS: Vertebral body heights and alignment are maintained. Cervicothoracic junction is intact. Os teophytosis throughout the vertebral bodies and facets. Gas disc phenomenon at the C3-4, C4-5, and C5-6 levels. No acute fracture or dislocation. Prominent calcification within the carotid arteries at the bifurcations. IMPRESSION: No acute osseous abnormalities are demonstrated. There are degenerative changes throughou t the cervical spine. Prominent atherosclerosis.
[2019-11-12 11:07] LABS: ALT (SGPT) 23 U/L (8-55); AST (SGOT) 23 U/L (5-34); Albumin 4.2 g/dL (3.4-4.8); Alkaline Phosphatase 99 U/L (40-110); Anion Gap 14 mmol/L (10-20); BUN (Urea Nitrogen) 32 mg/dL (8.4-25.7); Bilirubin, Total 1.2 mg/dL (0.2-1.2); Calc. Creatinine Clearance 0 mL/min (70-130); Calcium 9.4 mg/dL (7.8-10.44); Carbon Dioxide 22 mmol/L (23-31); Chloride 110 mmol/L (98-107); Estimated GFR-MDRD 68; Globulin 3.2 g/dL (2.4-3.5); Glucose 102 mg/dL (83-110); Potassium 4.6 mmol/L (3.5-5.1); Protein, Total 7.4 g/dL (5.8-8.1); Sodium 141 mmol/L (136-145)
[2019-11-12 11:19] LABS: #Eosinphils 0.2 thou/uL (0.0-0.7); #Lymphocytes 1.1 thou/uL (1.20-3.40); #Monocytes 0.8 thou/uL (0.11-0.59); #Neutrophils 7.8 thou/uL (1.40-6.50); %Basophils 0.1 % (0.0-1.0); %Eosinophils 1.9 % (0.0-10.0); %Lymphocytes 11.4 % (21.0-51.0); %Monocytes 8.4 % (0.0-10.0); %Neutrophils 78.2 % (42.0-75.0); MDiff Complete? YES; Microcytosis SLIGHT = 6-15 cells (100X) (0-5/hpf); Platelet Morphology Comment Appears Adequate; Polychromasia SLIGHT = 2-3 cells (100X) (0-2/hpf)
[2019-11-12 11:29] LABS: CKMB 2.1 ng/mL (0-6.6)
--- NOTE | 2019-11-12 12:54 | PDOC.FPRHP ---
- History of Present Illness Chief Complaint: near syncope History of Present Illness: 74 y/o M with a pmhx of CAD S/P CABG, BPH on tamsulosin, HFpEF, and IDDM2, presents to the ED after a fall via EMS. He states he was standing up to wash his face and then fell over. He began to feel very dizzy. He "does not know what happened with his legs." He states he is unsure about loss consciousness, but states it is possible he was unconscious for about 10 minutes. Pt states he hit his head on right posterior side and hip on the left side. C/o pain to L-shoulder, L-hip and posterior head. C/o headache and L-shoulder pain. Pt c/o generalized weakness Pt denies eating any meals today. States he does not drink very much water, only about 15 oz a day. Denies CP or SOB at time of near syncopal event or now. Pt was started on Clindamycin 150 mg TID PO for 7 days antibiotics for gangrene in his left 5th digit on Nov 08 in the ER. Infection started 3-4 months ago. States he has been diagnosed with ischemic toe and will f/u with Dr. Stanford CV surg 11/19. Has not been treated until the . Started on [facility] 10 at [facility]. in X2 weeks pt states he will see surgeon for removal of toe. Pt was recently seen at [facility] for hypoglycemia. Lantus was decreased from 50 units to 45 units nightly. Pt states his fasting glucose has been 140-150 recently. Pt did not take his blood sugar morning of event. ED Course: Given 4 mg morphine, 162 ASA, 1 L NS EKG: Inverted T waves, RBBB - Allergies/Adverse Reactions Allergies Allergy/AdvReac Type Severity Reaction Status Date / Time No Known Allergies Allergy Verified 07/20/19 14:04 - Home Medications Medication Instructions Recorded Confirmed Type Gabapentin [Neurontin] 800 mg PO TID 04/13/14 11/12/19 History Rosuvastatin [Crestor] 20 mg PO HS 04/13/14 11/12/19 History Levothyroxine Sodium 125 mcg PO DAILY 12/07/18 11/12/19 History Tamsulosin HCl 0.4 mg PO DAILY 12/07/18 11/12/19 History Aspirin [Aspir-Low] 81 mg PO DAILY 07/09/19 11/12/19 History Insulin Glargine,Hum.Rec.Anlog 50 units SQ QPM 07/09/19 11/12/19 History [Lantus] Lisinopril [Zestril] 2.5 mg PO DAILY 07/09/19 11/12/19 History metFORMIN [Glucophage] 1,000 mg PO BID-WM 07/09/19 11/12/19 History HYDROcodone Bit/APAP 10/325 [[facility] 1 tab PO Q6HR PRN 11/12/19 11/12/19 History 10/325] - History PMHx: CAD s/p CABG 20 years ago. DM II insulin dependent, Hypothyroidism, Ischemic Left 5th toe. BPH with incontinence, HTN, Dry gangrene Left 5th digit. Adhesive capsulitis R shoulder PSHx: Cholecystectomy, CABG 2001, Stenting in 2008. FHx: Father: at 54 from [place], Mother: at 89 non-contributory. Social: Quit smoking 4 days ago. Smoked 1 ppd for 55 years. Denies Etoh or drug use. - Review of Systems General: reports: fatigue. denies: fever/chills, weight/appetite/sleep changes ENT: denies: nasal congestion Respiratory: denies: cough, shortness of breath, exercise intolerance Cardiovascular: denies: chest pain, palpitation, edema, paroxysmal nocturnal dyspnea, orthopnea Gastrointestinal: denies: nausea, vomiting, diarrhea, abdominal pain Genitourinary: denies: dysuria, polyuria Skin: denies: rashes, jaundice Musculoskeletal: reports: pain (see hpi), arthritis/arthralgias Neurological: reports: weakness, other (near syncopal event, see hpi) - Vital signs BP: 134/87 HR: 101 RR: 12 Tmax: 98.5 F Pox: 97% on RA Wt: 67.13 kg - Physical Exam Constitutional: NAD, awake, alert and oriented, well developed HEENT: PERRLA, EOMI, conjunctiva clear, no scleral icterus, grossly normal vision, grossly normal hearing, oropharynx clear, other (Slight ecchymosis to occipital region of head.) -HEENT: dry MM -Neck: C-collar in place. No tenderness to c-spine to palpation. Chest: no-tender to palpation Heart: RRR, normal S1/S2, no murmurs/rubs/gallops, pulses present, no edema Lungs: CTAB, no respiratory distress, good air movement, no rales/rhonchi, no wheezing, no retractions Abdomen: soft, non-tender, bowel sounds present, no masses/distention Musculoskeletal: normal structure, normal tone, ROM grossly normal -Musculoskeletal: Purple discoloration to Left 5th digit on foot. Very tender to touch. Neurological: no focal deficit, CN II-XII intact Skin: no jaundice Heme/Lymphatic: no purpura, no petechia Psychiatric: normal mood and affect, good judgment and insight, intact recent and remote memory FMR H&P: Results - Labs Result Diagrams: 11/12/19 10:38 11/12/19 10:38 Lab results: WBC 9.9 thou/uL (4.8-10.8) 11/12/19 10:38 Hgb 10.4 g/dL (14.0-18.0) L 11/12/19 10:38 Hct 31.5 % (42.0-52.0) L 11/12/19 10:38 MCV 74.5 fL (78.0-98.0) L 11/12/19 10:38 Plt Count 192 thou/uL (130-400) 11/12/19 10:38 Neutrophils % 78.2 % (42.0-75.0) H 11/12/19 10:38 Sodium 141 mmol/L (136-145) 11/12/19 10:38 Potassium 4.6 mmol/L (3.5-5.1) 11/12/19 10:38 Chloride 110 mmol/L (98-107) H 11/12/19 10:38 Carbon Dioxide 22 mmol/L (23-31) L 11/12/19 10:38 BUN 32 mg/dL (8.4-25.7) H 11/12/19 10:38 Creatinine 1.07 mg/dL (0.7-1.3) 11/12/19 10:38 Glucose 102 mg/dL (83-110) 11/12/19 10:38 Lactic Acid 0.9 mmol/L (0.5-2.2) 11/12/19 10:38 Calcium 9.4 mg/dL (7.8-10.44) 11/12/19 10:38 Total Bilirubin 1.2 mg/dL (0.2-1.2) 11/12/19 10:38 AST 23 U/L (5-34) 11/12/19 10:38 ALT 23 U/L (8-55) 11/12/19 10:38 Alkaline Phosphatase 99 U/L (40-110) 11/12/19 10:38 CK-MB (CK-2) 2.1 ng/mL (0-6.6) 11/12/19 10:38 Serum Total Protein 7.4 g/dL (5.8-8.1) 11/12/19 10:38 Albumin 4.2 g/dL (3.4-4.8) 11/12/19 10:38 Laboratory Tests 11/12/19 11/12/19 10:38 13:40 Troponin I 0.245 H 0.221 H - EKG Interpretation EKG: T wave inversion in V1, V1. RBBB. No new changes. - Radiology Interpretation CT scan - head Status: report reviewed by me (no acute findings.) Other Status: report reviewed by me (CT neck: no acute process or fx.) Chest x-ray Status: report reviewed by me (no acute cardiopulmonary findings.) FMR H&P: A/P - Problem List (1) Near syncope Current Visit: Yes Status: Acute (2) Elevated troponin Current Visit: Yes Status: Acute Code(s): R79.89 - OTHER SPECIFIED ABNORMAL FINDINGS OF BLOOD CHEMISTRY (3) Fall from ground level Current Visit: Yes Status: Acute Code(s): W18.30XA - FALL ON SAME LEVEL, UNSPECIFIED, INITIAL ENCOUNTER (4) BPH (benign prostatic hyperplasia) Current Visit: Yes Status: Chronic Code(s): N40.0 - BENIGN PROSTATIC HYPERPLASIA WITHOUT LOWER URINRY TRACT SYMP Qualifiers: Lower urinary tract symptom presence: symptoms absent Qualified Code(s): N40.0 - Benign prostatic hyperplasia without lower urinary tract symptoms (5) CAD (coronary artery disease) Current Visit: Yes Status: Chronic Code(s): I25.10 - ATHSCL HEART DISEASE OF [place] CORONARY ARTERY W/O ANG PCTRS Qualifiers: Coronary Disease-Associated Artery/Lesion type: bypass graft [place] vs. transplanted heart: [place] heart Associated angina: without angina Qualified Code(s): I25.810 - Atherosclerosis of coronary artery bypass graft(s) without angina pectoris (6) COPD (chronic obstructive pulmonary disease) Current Visit: Yes Status: Chronic Qualifiers: COPD type: unspecified COPD Qualified Code(s): J44.9 - Chronic obstructive pulmonary disease, unspecified (7) HLD (hyperlipidemia) Current Visit: Yes Status: Chronic Code(s): E78.5 - HYPERLIPIDEMIA, UNSPECIFIED Qualifiers: Hyperlipidemia type: unspecified Qualified Code(s): E78.5 - Hyperlipidemia , unspecified (8) Hypothyroidism Current Visit: Yes Status: Chronic Code(s): E03.9 - HYPOTHYROIDISM, UNSPECIFIED Qualifiers: Hypothyroidism type: unspecified Qualified Code(s): E03.9 - Hypothyroidism , unspecified (9) Tobacco abuse Current Visit: Yes Status: Chronic Code(s): Z72.0 - TOBACCO USE - Plan 74 y/o M admitted to [facility] obs for elevated troponins and a near syncopal event causing a GLF. 1. Elevated Troponin level - Trop 0.245 --> 0.221 - EKG did not show any new changes with inverted T waves, and RBBB. Rate 96. - Denies any CP with near syncopal event or upon admission. - Given ASA 162, morphine 4 mg and 1L NS in ED. 2. Near Syncopal Event - Most likely 2/2 volume depletion from dehydration as pt only drinks 15 oz of water daily. DDx includes cardiogenic, vasovagal, and neurogenic syncope. Also included is hypoglycemia or misuse of opioids as pt received a new script for [facility] 10 yesterday. - ordered TTE, Mg, Phos, CTA head and neck, and orthostatic bp readings. 3. Ground Level Fall - Pt reports L hip and shoulder pain - Ordered pelvis and L hip x-ray - Ordered L shoulder x-ray - CT head and neck negative for acute process 4. Hx of BPH - Pt on tamsulosin for incontinence treatment. - Consider d/c tamsulosin as medication frequently causes orthostasis - Orderd orthostatic BP's 5. HFpEF - TTE pending - Strict I/O - Daily weights - previous echo 2014, EF 55-60% with grade 1/3 diastolic disfunction. - Clinically not in exacerbation. 6. Hx of CAD S/P CABG - Trending trops as initially elevated. - Trops 0.245--> 0.221 - No new EKG changes see above. 7. Hx of Essential HTN - Hold home medications until orthostatic BP readings result. 8. Hypothyroidism - TSH X1 months ago 0.02, dose of levothyroxine changed from 150 to 125 mcg 9. Ischemic Left 5th digit of foot - Pending CV surgery Dr. Stanford appointment 11/19/19. - Continue Clindamycin 150 mg TID for treatment of Dry Gangrene 10. 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 Tobacco abuse - 55 pack year cigarette use. - Pt quit 4 days ago as he was told he would loose an extremity if he does not stop smoking. 12. DM II, insulin dependent - restart lantus at 45 units nightly - SSI mild - ACHS accuchecks - Monitor as pt may be having hypoglycemia causing symptoms. Code status: Full code Diet: HH, CC DVT ppx: lovenox Dispo: stable; <48 hr hx stay anticipated. FMR H&P: Upper Level - Pertinent history 74yo M presents for fall after feeling dizzy while getting up from bed. pt felt dizziness and is unclear as to if he fully syncopized. No CP or SOB, no palpitations PMH: CAD s/p CABG and stents, PVD with ischemic toe - Pertinent findings CARD: RRR, Grade 2/6 systolic murmur PULM: CTAB NEURO: A&O, CN2-12 wnl, normal sensation/strength/reflexes EKG: T wave inversions in V1-V2, RBBB - Plan Date/Time: 11/12/19 1252 IGeraldo pgy2, have evaluated this patient and agree with findings/ plan as outlined by exercise science internship resident. Pertinent changes/additions are listed here. Elevated troponin A- Pt has extensive cardiac hx, initial trop, EKG shows t-wave inversion V1-V2. Considering Risk factors will tend trops P- will admit tele, obs -trend trops Syncope A- per history likely 2/2 orthostatics vs. s/e from [facility] medication. Will r/o other causes considering pts cardiac history P- admit to tele for obs -TTE -orthostatics -CTA head and neck -TSH, Mg, Phos Ground level fall A- Brain CT and c-spine CT negative, no apparent injury P- Pelvis and hip XR HFpEF A- last echo on file was in 2014, EF 55-60% with grade 1/3 diastolic disfunction. He does not appear to be in exacerbation P- I/Os, daily weights -control BP -will be mindful of fluid status Ischemic toe 2/2 PVD A- has standing appointment for CV surg P- continue home norco for pain -f/u outpt DM2 A- last A1C 7.5 in outpt setting P- continue home meds, SSI, accuchecks HTN, HLD, Hypothyroid, BPH, CAD s/p CABG -stable, continue home meds CODE: FULL Addendum - Attending - Attending Attestation Date/Time: 11/12/19 6410 I personally evaluated the patient and discussed the management with Dr. Montero /Dennis I agree with the History, Examination, Assessment and Plan documented above with any addition or exceptions noted below. See event note for details.
[2019-11-12] MEDS ORDERED: Morphine 4 MG/ML VIAL ONE (12:57)
[2019-11-12] MEDS ORDERED: Aspirin Chewable 81 MG TAB ONE (12:57)
[2019-11-12 14:17] LABS: Troponin I 0.221 ng/mL (< 0.028)
[2019-11-12 15:13] LABS: Bilirubin Negative (Negative); Blood, Urine Negative (Negative); Clarity Clear (Clear); Glucose, Urine (Dipstick) Normal (Negative); Leukocyte Negative Leu/uL (Negative); Nitrite Negative (Negative); Protein, Urine (Dipstick) Negative (Neg-Trace); Urobilinogen Normal mg/dL (Less than 2)
[2019-11-12] MEDS ORDERED: Dextrose 5% in Water 1,000 ML IV PRN (15:32)
[2019-11-12] MEDS ORDERED: Dextrose 50% Abboject 50 ML SYRINGE SLOW IVP PRN (15:32)
[2019-11-12] MEDS ORDERED: HumaLOG 300 UNITS/3 ML VIAL SC PRN (15:32)
--- NOTE | 2019-11-12 15:32 | PDOC.EVN ---
Addendum - Attending - Attending Attestation Date/Time: 11/12/19 7838 I personally evaluated the patient and discussed the management with Dr. Collins/ Winston. I agree with the History, Examination, Assessment and Plan documented above with any addition or exceptions noted below. 74 yo HM PMH IDDM, PVD, hypothyroidism, CAD s/p stent x1 in 2015. presents as admit from ER after near syncopal episode and fall from standing that occurred at approx 0800 today after the patient urinated for the first time. He stated that he remembers feeling lightheaded/dizzy, falling to the floor and lying on the ground. C/O right hip, left shoulder, and posterior head pain. Can still ambulate. VSS. Exam unremarkable except for dry gangrene on left 5th digit. Labs showed Troponing 0.245->0.221 otherwise WNL. EKG unchanged from previous hospitalization july 2019. CXR, CT brain, and C C-spine unremarkable. Admit for near syncope w/ fall and elevated troponin. Trend trop and EKG. XR pelvis and left shoulder to r/o fracture from fall. CTA Head and neck, TTE, TSH , Mg, Phos, orthostatics, and tele monitoring to evaluate for near syncope. Patient on Lisinopril 2.5 mg and flomax 0.4 mg for IDDM and BPH. if orthostatic may need to d/c. Consider NM stress vs cards consult for elevate trop pending how they trend. Obs, tele, <2 midnights.
[2019-11-12] MEDS ORDERED: Acetaminophen 325 MG TAB PO PRN (16:18)
[2019-11-12] MEDS ORDERED: HYDROcodone/Acetaminophen 5/325 mg Tablet PO PRN (16:18)
[2019-11-12] MEDS ORDERED: Iopamidol-370 76% 500 ML 1 ML ONE (16:21)
[2019-11-12 16:55] LABS: Magnesium 1.6 mg/dL (1.6-2.6); Phosphorus 3.7 mg/dL (2.3-4.7)
[2019-11-12 16:58] LABS: Troponin I 0.209 ng/mL (< 0.028)
[2019-11-12] MEDS: metFORMIN 500 MG TAB PO SCH (17:04)
[2019-11-12] MEDS: Clindamycin 150 MG CAP PO SCH ×2 (17:04→21:02)
[2019-11-12 17:17] VITALS: BMI 24.0
[2019-11-12 17:51] LABS: Amphetamine Not Detected (NotDetected); Barbiturates Screen Not Detected (NotDetected); Benzodiazepine Screen Not Detected (NotDetected); Cocaine Metabolite Screen Not Detected (NotDetected); Medtox Control Line Valid? VALID (VALID); Medtox Reader # READER 4; Methadone Not Detected (NotDetected); Methamphetamine Not Detected (NotDetected); Opiate Screen Detected (NotDetected); Oxycodone Screen Not Detected (NotDetected); Phencyclidine (PCP) Not Detected (NotDetected); THC/Cannabinoid Screen Not Detected (NotDetected); Tricyclic Screen Not Detected (NotDetected)
[2019-11-12 18:06] LABS: Free T4 (Free Thyroxine) 1.42 ng/dL (0.70-1.48)
--- NOTE | 2019-11-12 18:12 | RAD ---
PELVIC RADIOGRAPHS 11/12/19 PROVIDED CLINICAL HISTORY: Pain. FINDINGS: No evidence for fracture or other acute osseous abnormality. If there is persistent clinical concern, conservative management and follow-up imaging are advised. IMPRESSION: As above. POS: ANA
--- NOTE | 2019-11-12 18:16 | RAD ---
LEFT SHOULDER RADIOGRAPHS THREE VIEWS: 11/12/19 PROVIDED CLINICAL HISTORY: Left shoulder pain. FINDINGS: No evidence for fracture or other acute osseous abnormality. If there is persistent clinical concern, conservative management and follow-up imaging are advised. IMPRESSION: As above. POS: ANA
--- NOTE | 2019-11-12 18:23 | RAD ---
TWO VIEWS LEFT HIP 11/12/19 PROVIDED CLINICAL HISTORY: Left hip pain. FINDINGS: No evidence for fracture or other acute osseous abnormality. Surgical clips overlie the left inguinal region. Vascular calcifications are seen. IMPRESSION: No evidence for an acute osseous abnormality. If there is persistent clinical concern, conservative m anagement and follow-up imaging are advised. POS: ANA
[2019-11-12] MEDS ORDERED: Aspirin 81 mg Enteric Coated Tablet PO SCH (18:30)
[2019-11-12] MEDS: HumaLOG 300 UNITS/3 ML VIAL SC PRN (18:39)
[2019-11-12] MEDS ORDERED: Gabapentin 300 MG CAP PO SCH (21:00)
[2019-11-12] MEDS: Gabapentin 400 MG CAP PO SCH (21:02)
[2019-11-12] MEDS: Rosuvastatin 20 MG TAB PO SCH (21:02)
[2019-11-12] MEDS ORDERED: Colchicine 0.6 MG TAB PO SCH (21:15)
--- NOTE | 2019-11-12 21:19 | CT ---
CT ANGIOGRAM HEAD WITH IV CONTRAST AND 3D RECONSTRUCTION CT ANGIOGRAM NECK WITH IV CONTRAST AND 3D RECONSTRUCTION 11/12/19 HISTORY: Syncopal episode. Right sided headache. COMPARISON: None. FINDINGS: Prominent vascular calcifications are seen in the coronary arteries with vascular calcifications in t he aortic arch. There is mild atherosclerotic plaque seen in the great vessels with irregularity and narrowing involv ing the proximal left subclavian artery with additional areas of irregularity and narrowing involving the left subclavian artery. There is mild atherosclerotic plaque and narrowing involving the region of the right axillary artery. The innominate artery is patent. There is eccentric atherosclerotic plaque involving the common carot id arteries bilaterally resulting in mild degrees of narrowing proximally, but the degrees of narrowi ng are less than 50%. There is less than 50% stenosis involving the origin of the right internal guevara tid artery with narrowing involving the proximal left internal carotid artery but again less than 50% narrowing is present. The origin of each vertebral artery is not well delineated or assessed due to dense vascular calcific ations and plaque, but there is at least mild narrowing involving the proximal left vertebral artery. Vertebral arteries are otherwise patent and codominant. The basilar artery is patent. Bilateral posterior cerebral arteries are patent. The bilateral anterior cerebral and middle cerebral arteries are patent. Dense vascular calcification s are seen in the carotid siphons bilaterally. No significant focal stenosis or branch occlusion is seen involving the [place] or vertebrobasilar system. No aneurysm is seen within the limitat ions of the technique of this exam. There are mild chronic lung changes seen in the visualized upper lung zones with atelectasis seen mihaela aterally. There is an 11 mm mass seen within the inferior aspect of the right parotid gland. This could represe nt an enlarged intraparotid lymph node, but a parotid lesion is a possibility. Thyroid gland as well as the bilateral submandibular glands demonstrate a normal CT appearance. There is a small amount of debris seen within the supraglottic airway which is likely related to secr etions in this region. Degenerative changes are seen in the spine with prominent osteophytes seen anteriorly at the C6-7 lev el. Median sternotomy wires are visualized. Mucosa thickening is seen in each maxillary antrum. IMPRESSION: 1. Hypodense lesion in the inferior aspect of the right parotid gland measuring 11 mm. This coul d potentially represent an enlarged intraparotid or periparotid lymph node, but an intraparotid lesio n is a possibility. ENT consultation is suggested for further evaluation. 2. Atherosclerotic plaque and calcifications seen involving the bilateral carotid arteries with mild degrees of narrowing present. However, the degrees of narrowing are less than 50%. 3. Limited evaluation of the origin of the left vertebral artery, but the vertebral arteries are otherwise patent. 4. No focal stenosis or branch occlusion is seen involving the [place] or vertebrobasil ar system. 5. Atherosclerotic plaque and narrowing involving the subclavian arteries bilaterally as well as the right axillary artery. 6. Dense coronary artery calcifications. POS: LARISA
[2019-11-12] MEDS ORDERED: HYDROcodone/Acetaminophen 5/325 mg Tablet PO SCH (23:45)
--- NOTE | 2019-11-13 01:10 | CON ---
DATE OF CONSULTATION: 11/12/2019 PRIMARY POWERHOUSE ATTENDANT: Dr. Mchugh. REASON FOR CONSULTATION: Probable syncopal episode. HISTORY OF PRESENT ILLNESS: Mr. Olvera is a pleasant 74-year-old gentleman. He was brought to the hospital after he fell from the history, it sounds he got lightheaded, dizzy, then fell and appeared to have lost consciousness for a few minutes. He was brought to the hospital where he was evaluated as outlined in the chart including x-rays of his hip, pelvis, and shoulder. The patient has been noted to be orthostatic while he is here. He has otherwise been mostly complaining when I talked to him about pain in his small toe on his left foot, but he has had for 6 days. PAST MEDICAL HISTORY: History of coronary artery disease. He had cardiac catheterization done by Dr. Ross in September 2016. He had a 3.0 x 32 mm Synergy stent placed, found to have a 70% proximal LAD and right coronary, 95% to 99% and patent mammary graft to the LAD and vein graft to the right coronary is patent. As mentioned, a drug coated stent was placed in a circumflex. The patient has been doing well since then until this episode today he tells me. MEDICATIONS: At home; 1. Rosuvastatin. 2. Tamsulosin. 3. Lisinopril. 4. Aspirin. 5. Insulin. 6. Metformin. ALLERGIES: NONE KNOWN. SOCIAL HISTORY: No reports of alcohol or tobacco abuse. REVIEW OF SYSTEMS: Otherwise, negative per the chart. PHYSICAL EXAMINATION: GENERAL: This is a pleasant 74-year-old gentleman, in no distress. VITAL SIGNS: Blood pressure supine was 147/64, standing 112/56, pulse 94. LUNGS: Clear. CARDIAC: Normal S1 and S2. ABDOMEN: Soft, nontender. EXTREMITIES: There is no edema. The 5th digit on the left foot is extremely painful and somewhat reddened. PERTINENT LABORATORY DATA: Hemoglobin is 10.4, troponin 0.221, glucose 228. EKG right bundle-branch block as previously noted. Chest x-ray did show previous sternal wires compatible with history of bypass surgery. Lung goyal are clear. ASSESSMENT: 1. Syncopal episode, most likely orthostatic hypotension. 2. Diabetes. 3. Coronary artery disease. 4. Increased troponin level compatible with non-ST elevation myocardial infarction. 5. Previous stent implantation. PLAN: 1. Check troponin level tomorrow. 2. Hold blood pressure medicines in view of orthostatic hypotension. 3. Re-evaluate left ventricular function with echocardiogram that has been ordered. 4. Aspirin. 5. I am not certain of the etiology of his pain and it could potentially be gout and severe pain, I gave him a dose of colchicine tonight. 6. Dr. Mchugh to see tomorrow. Job ID: [id number]
[2019-11-13 05:34] LABS: ALT (SGPT) 20 U/L (8-55); AST (SGOT) 17 U/L (5-34); Albumin 3.8 g/dL (3.4-4.8); Alkaline Phosphatase 93 U/L (40-110); Anion Gap 15 mmol/L (10-20); BUN (Urea Nitrogen) 27 mg/dL (8.4-25.7); Bilirubin, Total 1.2 mg/dL (0.2-1.2); Calc. Creatinine Clearance 66 mL/min (70-130); Carbon Dioxide 19 mmol/L (23-31); Chloride 110 mmol/L (98-107); Estimated GFR-MDRD 81; Globulin 3.1 g/dL (2.4-3.5); Glucose 108 mg/dL (83-110); Potassium 4.3 mmol/L (3.5-5.1); Protein, Total 6.9 g/dL (5.8-8.1); Sodium 140 mmol/L (136-145)
[2019-11-13] MEDS ORDERED: Levothyroxine Sodium 125 MCG TAB PO SCH (06:00)
--- NOTE | 2019-11-13 06:17 | PDOC.FM ---
- Subjective Subjective: NO ACUTE OVERNIGHT EVENTS SR BBB 75-100 on Tele overnight. Denies CP, or any other syncopal event. - Objective MAR Reviewed: Yes Vital Signs & Weight: Vital Signs (12 hours) Temp Pulse Resp BP Pulse Ox 11/13/19 04:02 98.4 F 80 16 130/58 L 98 11/12/19 23:57 98.5 F 90 16 150/67 H 100 11/12/19 19:57 98.4 F 82 16 156/69 H 99 Weight Weight 65.402 kg I&O: 11/11/19 11/12/19 11/13/19 06:59 06:59 06:59 Intake Total 480 Balance 480 Result Diagrams: 11/12/19 10:38 11/13/19 04:34 Phys Exam - Physical Examination Constitutional: NAD HEENT: moist MMs, sclera anicteric Neck: no nodes, full ROM Respiratory: no wheezing, no rales, no rhonchi, clear to auscultation bilateral Cardiovascular: RRR, no rub sys murmur Gastrointestinal: soft, non-tender, no distention, positive bowel sounds Musculoskeletal: no edema, pulses present Neurological: non-focal, moves all 4 limbs Psychiatric: normal affect, A&O x 3 Skin: no rash, normal turgor, cap refill <2 seconds Dx/Plan (1) Near syncope Status: Acute (2) Elevated troponin Code(s): R79.89 - OTHER SPECIFIED ABNORMAL FINDINGS OF BLOOD CHEMISTRY Status : Acute (3) Fall from ground level Code(s): W18.30XA - FALL ON SAME LEVEL, UNSPECIFIED, INITIAL ENCOUNTER Status : Acute (4) BPH (benign prostatic hyperplasia) Code(s): N40.0 - BENIGN PROSTATIC HYPERPLASIA WITHOUT LOWER URINRY TRACT SYMP Status: Chronic Qualifiers: Lower urinary tract symptom presence: symptoms absent Qualified Code(s): N40.0 - Benign prostatic hyperplasia without lower urinary tract symptoms (5) CAD (coronary artery disease) Code(s): I25.10 - ATHSCL HEART DISEASE OF [place] CORONARY ARTERY W/O ANG PCTRS Status: Chronic Qualifiers: Coronary Disease-Associated Artery/Lesion type: bypass graft [place] vs. transplanted heart: [place] heart Associated angina: without angina Qualified Code(s): I25.810 - Atherosclerosis of coronary artery bypass graft(s) without angina pectoris (6) COPD (chronic obstructive pulmonary disease) Status: Chronic Qualifiers: COPD type: unspecified COPD Qualified Code(s): J44.9 - Chronic obstructive pulmonary disease, unspecified (7) HLD (hyperlipidemia) Code(s): E78.5 - HYPERLIPIDEMIA, UNSPECIFIED Status: Chronic Qualifiers: Hyperlipidemia type: unspecified Qualified Code(s): E78.5 - Hyperlipidemia , unspecified (8) Hypothyroidism Code(s): E03.9 - HYPOTHYROIDISM, UNSPECIFIED Status: Chronic Qualifiers: Hypothyroidism type: unspecified Qualified Code(s): E03.9 - Hypothyroidism , unspecified (9) Tobacco abuse Code(s): Z72.0 - TOBACCO USE Status: Chronic - Plan Plan: 74 y/o M admitted to [facility] obs for elevated troponins and a near syncopal event causing a GLF. 1. Elevated Troponin level, possible NSTEMI etiology - Trop 0.245 --> 0.221 --> 0.209 - EKG did not show any new changes with inverted T waves, and RBBB. Rate 96. - Denies any CP with near syncopal event or upon admission. - Given ASA 162, morphine 4 mg and 1L NS in ED. - Cardiology consulted, appreciated recommendations. 2. Near Syncopal Event, most likely 2/2 orthostatic hypotension - Most likely 2/2 volume depletion from dehydration as pt only drinks 15 oz of water daily. DDx includes cardiogenic, orthostatic hypotension, and neurogenic syncope. Also included is hypoglycemia or misuse of opioids as pt received a new script for [place] 10 11/11. - ordered TTE pending - CTA head and neck: R sided 11 mm lesion of parotid gland, ENT consult suggested, will have pt f/u outpt with ENT. B carotid plaque <50% stenosis, Dense coronary artery calcifications. - Mg 1.6, Phos 3.7 - holding home lisinopril 3. Ground Level Fall - Pt reports L hip and shoulder pain - Ordered pelvis and L hip x-ray - Ordered L shoulder x-ray - CT head and neck negative for acute process 4. Hx of BPH - Pt on tamsulosin for incontinence treatment. - Consider d/c tamsulosin as medication frequently causes orthostasis - orthostatic BP's, + 5. HFpEF - TTE pending - Strict I/O - Daily weights - previous echo 2014, EF 55-60% with grade 1/3 diastolic disfunction. - Clinically not in exacerbation. 6. Hx of CAD S/P CABG - Trending trops as initially elevated. - Trops 0.245--> 0.221 - No new EKG changes see above. 7. Hx of Essential HTN - Hold home medications until orthostatic BP improves 8. Hx of Hypothyroidism, with low TSH and high T4, possibly iatrogenic hyperthyroidism. - TSH X1 months ago 0.02, dose of levothyroxine changed from 150 to 125 mcg - TSH 0.0025, Free T3 4.48, T4 1.42 - Holding levothyroxine. 9. Ischemic Left 5th digit of foot - Pending CV surgery Dr. Stanford appointment 11/19/19. - Continue Clindamycin 150 mg TID for treatment of Dry Gangrene 10. 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 Tobacco abuse - 55 pack year cigarette use. - Pt quit 4 days ago as he was told he would loose an extremity if he does not stop smoking. 12. DM II, insulin dependent - restart lantus at 45 units nightly - SSI mild - ACHS accuchecks - Monitor as pt may be having hypoglycemia causing symptoms. Code status: Full code Diet: HH, CC DVT ppx: lovenox Dispo: stable; <48 hr hx stay anticipated.
[2019-11-13] MEDS: HYDROcodone/Acetaminophen 10/325 mg Tablet PO PRN ×3 (08:37→21:53)
[2019-11-13] MEDS: Insulin Glargine 45 UNITS in Pre-Filled Syringe 1 EACH SC SCH (08:37)
[2019-11-13] MEDS: metFORMIN 500 MG TAB PO SCH ×2 (08:37→17:31)
[2019-11-13] MEDS: Clindamycin 150 MG CAP PO SCH ×3 (08:38→21:47)
[2019-11-13] MEDS: Aspirin 81 mg Enteric Coated Tablet PO SCH (08:38)
[2019-11-13] MEDS: Gabapentin 400 MG CAP PO SCH ×3 (08:38→21:48)
[2019-11-13] MEDS: Tamsulosin HCl 0.4 MG CAP PO SCH (08:38)
[2019-11-13] MEDS: Enoxaparin Sodium 40 MG/0.4 ML SYRINGE SC SCH (08:39)
[2019-11-13] MEDS ORDERED: Lisinopril 2.5 MG TAB PO SCH (09:00)
[2019-11-13 10:11] LABS: Reticulocyte Count 1.1 % (0.5-1.5)
[2019-11-13 10:35] LABS: Iron 132 ug/dL (65-175); Iron Binding Capacity, Total 490 mcg/dL (261-462)
[2019-11-13] MEDS: Lactated Ringer's 1,000 ML IV SCH ×2 (10:55→18:19)
[2019-11-13 11:00] LABS: Ferritin 23.57 ng/mL (22-322)
[2019-11-13] MEDS: Morphine 2 MG/ML SYRINGE SLOW IVP PRN ×2 (11:39→18:19)
--- NOTE | 2019-11-13 11:41 | PRG ---
DATE OF SERVICE: 11/13/2019 ADDENDUM: Addendum to the note of Dr. Cintia Collins. I have examined the patient. I have discussed the assessment and plan with Dr. Cintia Collins and agree with her assessment and plan. HISTORY OF PRESENT ILLNESS: Mr. Olvera is a 74-year-old male with a history of CABG and type 2 diabetes, and heart failure, preserved ejection fraction. He presented to the ED after a fall that was actually a near syncopal episode that occurred at home. He was admitted for further observation and workup. He so far has had an extensive workup including the following, brain CT showed no intracranial hemorrhage or displaced calvarial fracture. Cervical spine CT showed no acute osseous abnormalities. There were degenerative changes throughout the cervical spine. He had a CTA of the head and neck. Impression was hypodense lesion in the inferior aspect of the right parotid gland measuring 11 mm. This could represent an enlarged intraparotid lymph node, but findings were also concerning for a parotid lesion. There is atherosclerotic plaque and calcifications seen involving the bilateral carotid arteries including the proximal internal arteries bilaterally with mild degrees of narrowing. The degree of narrowing was less than 50%. Vertebral arteries appeared patent. There was no focal stenosis or branch occlusion involving the [place] or vertebrobasilar system. There was some narrowing at the subclavian arteries bilaterally. The patient has also been seen in consultation by Dr. Castro because of the near syncopal episode. Dr. Castro's recommendation were to check troponin levels. Hold his blood pressure medications in view of the patient's orthostatic hypotension. Re-evaluate his left ventricular function with an echocardiogram. He felt that the syncopal episode was possibly related to orthostatic hypotension. This morning, Mr. Olvera is awake, alert, in no distress. I also note he has a mild anemia with a hemoglobin of 10.2 with microcytic indices. We will initiate a workup to include iron studies, ferritin, reticulocyte, RBC, folate, and vitamin B12 level. I also see that his TSH is significantly depressed and we will hold his thyroid medications as well as readjust his dosage downward in several days. I am concerned that possibly had some degree of subclinical hyperthyroidism that could have led to arrhythmia and does the changes in his medications. Job ID: [id number]
[2019-11-13] MEDS: HumaLOG 300 UNITS/3 ML VIAL SC PRN (12:30)
[2019-11-13] MEDS ORDERED: Iopamidol-370 76% 500 ML 1 ML ONE ×2 (14:43→14:44)
--- NOTE | 2019-11-13 17:44 | PDOC.CPN ---
- Subjective Date: 11/13/19 Time: 17:42 Interval history: He is doing well. Denies any chest pain, tightness, pressure, SOB. He continues to feel lightheaded when standing up. He tells me he had vomiting the morning of her syncopal episode. - Review of Systems General: denies: fever/chills, weight/appetite/sleep changes, night sweats, fatigue Respiratory: denies: cough, congestion, shortness of breath, exercise intolerance Cardiovascular: denies: chest pain, palpitation, edema, paroxysmal nocturnal dyspnea, orthopnea Gastrointestinal: denies: nausea, vomiting, diarrhea, constipation, abd pain, GI bleeding Musculoskeletal: denies: pain, tenderness, stiffness, swelling, arthritis/ arthralgias Neurological: denies: numbness, syncope, seizure, weakness - Objective Allergies/Adverse Reactions: Allergies Allergy/AdvReac Type Severity Reaction Status Date / Time No Known Allergies Allergy Verified 07/20/19 14:04 Visit Medications: Current Medications Acetaminophen (Tylenol) 650 mg PO Q4H PRN PRN Reason: Headache/Fever/Mild Pain (1-3) Hydrocodone Bitart/Acetaminophen ([place] 10/325) 1 tab PO Q6H PRN PRN Reason: Moderate to Severe Pain (6-10) Last Admin: 11/13/19 14:44 Dose: 1 tab Aspirin (Ecotrin) 81 mg PO DAILY [facility] Last Admin: 11/13/19 08:38 Dose: 81 mg Clindamycin HCl (Cleocin) 150 mg PO TID [facility] Last Admin: 11/13/19 14:45 Dose: 150 mg Dextrose/Water (Dextrose 50%) 25 gm SLOW IVP PRN PRN PRN Reason: Hypoglycemia Enoxaparin Sodium (Lovenox) 40 mg SC 0900 [facility] Last Admin: 11/13/19 08:39 Dose: 40 mg Gabapentin (Neurontin) 800 mg PO TID [facility] Last Admin: 11/13/19 14:45 Dose: 800 mg Glucagon (Glucagon) 1 mg IM PRN PRN PRN Reason: Hypoglycemia Dextrose/Water (D5w) 1,000 mls @ 0 mls/hr IV .Q0M PRN PRN Reason: Hypoglycemia Insulin Glargine 45 units/ (Miscellaneous Medication) 0.45 mls @ 0 mls/hr SC QAM [facility] Last Admin: 11/13/19 08:37 Dose: 0.45 mls Lactated Ringer's (Lactated Ringer's) 1,000 mls @ 120 mls/hr IV .Q8H20M [facility] Last Admin: 11/13/19 10:55 Dose: 1,000 mls Insulin Human Lispro (Humalog) 0 units SC .MILD SLIDING SCALE PRN PRN Reason: Mild Correctional Scale Last Admin: 11/13/19 12:30 Dose: 3 units Insulin Human Lispro (Humalog) 0 units SC .BEDTIME SLIDING SC PRN PRN Reason: Bedtime Correctional Scale Metformin HCl (Glucophage) 1,000 mg PO BID[facility] Last Admin: 11/13/19 17:31 Dose: Not Given Morphine Sulfate (Morphine) 2 mg SLOW IVP Q4H PRN PRN Reason: Moderate to Severe Pain (6-10) Last Admin: 11/13/19 11:39 Dose: 2 mg Rosuvastatin Calcium (Crestor) 20 mg PO [facility] Last Admin: 11/12/19 21:02 Dose: 20 mg Tamsulosin HCl (Flomax) 0.4 mg PO DAILY [facility] Last Admin: 11/13/19 08:38 Dose: 0.4 mg Vital Signs & Weight: Vital Signs Temp Pulse Resp BP BP Pulse Ox 11/13/19 15:43 98.1 F 73 16 134/63 97 11/13/19 11:52 99/58 L 11/13/19 11:44 98.1 F 93 16 91/55 L 95 11/13/19 07:00 98.1 F 87 16 124/89 98 Weight 144 lb 3 oz - Physical Exam General: alert & oriented x3 HEENT: mucus membranes moist Neck: supple neck Cardiac: regular rate and rhythm Lungs: normal breath sounds Neuro: grossly intact Abdomen: active bowel sounds Extremities: no edema Skin: clear Musculoskeletal: no pain - Labs Result Diagrams: 11/12/19 10:38 11/13/19 04:34 Troponin/CKMB CK-MB (CK-2) 2.1 ng/mL (0-6.6) 11/12/19 10:38 Troponin I 0.209 ng/mL (< 0.028) H 11/12/19 16:27 - Telemetry Sinus rhythms and dysrhythmias: sinus rhythm - Assessment/Plan Assessment/Plan: 1. Syncope 2. Orthostatic hypotension 3. Nausea and vomiting, resolved. 4. CAD s/p CABG 5. PVD with acute infection of foot on abx. PLAN: - Normal LV function on echo - Agree with IV fluids, likely orthostatic hypotension and vomiting cause of syncope. - Will plan on risk stratification with stress test as an outpatient. - No tachy or sebastian arrhythmias on monitor. - Will follow.
--- NOTE | 2019-11-13 17:49 | CON ---
DATE OF CONSULTATION: HISTORY OF PRESENT ILLNESS: This is a 74-year-old gentleman, whom I have previously evaluated for peripheral vascular disease, undergoing angiography about 2 years ago for right SFA and tibial disease. At that time, he had 60% to 70% mid left SFA lesion and then some distal tibioperoneal disease and complete occlusion of the right popliteal artery and severe stenosis of the tibioperoneal trunk on the right. During that intervention, he had atherectomy of the tibioperoneal trunk in the popliteal artery and then angioplasty of the popliteal artery with a 3 x 4 balloon and then an [place] self expanding stent as well as drug coated balloon angioplasty of the proximal SFA. Best I can tell from talking with the patient and family, he developed rather significant pain in his left fifth toe last month for no apparent reason. He was scheduled to see me next week in the office, but was admitted with syncope by the [facility]. Here, he has been found to have a slightly elevated troponin, moderate, but noncritical carotid artery disease and a CT angiogram of his lower extremities are pending. PAST MEDICAL HISTORY: Includes diabetes mellitus, hypertension, dyslipidemia, and previous coronary artery bypass grafting for coronary artery disease. He has had a previous cholecystectomy, CABG in 2001 and stenting of his right leg in 2017. SOCIAL HISTORY: The patient smokes a pack of cigarettes a day. PHYSICAL EXAMINATION: GENERAL: On examination, he is alert and cooperative gentleman, speaks poor [place]. NECK: Right carotid bruit. LUNGS: Clear to auscultation anteriorly. CARDIAC: Regular rate and rhythm. No murmurs. ABDOMEN: Soft and nontender. EXTREMITIES: He has palpable femoral pulses with the right femoral pulse stronger than the left femoral pulse. He has no palpable pulses distally. His Doppler signals are present and all four pedal pulses. His left fifth toe is slightly discolored with surrounding bluish discoloration that could be consistent with an embolic event, or primarily ischemia from occlusive disease. I have reviewed a CT scan from 2017 and in 2019, showing progression of iliac disease on the left as well as superficial femoral artery disease. We will check his CT scan when it is done later tonight. Due to two consecutive days of contrast administration, we will probably not suggest angiography tomorrow. If patient is otherwise ready for discharge, then can perform as an outpatient next week. Job ID: [id number] [facility]
--- NOTE | 2019-11-13 21:13 | CT ---
CT ANGIOGRAM ABDOMEN AND PELVIS WITH IV CONTRAST AND 3D RECONSTRUCTIONS CT ANGIOGRAM BILATERAL LOWER EXTREMITIES WITH RUNOFF TO THE FEET WITH IV CONTRAST AND 3D RECONSTRUCTI ONS 11/13/19 HISTORY: Ischemic fifth digit left foot. COMPARISON: 05/16/17. CTA ABDOMEN AND PELVIS: There is dependent bibasilar atelectasis with blebs seen at the left lung base. Vascular calcifications seen in the coronary arteries, and the heart is enlarged. Again noted are vas cular calcifications and atherosclerotic plaque in the abdominal aorta and involving the iliac arteri es bilaterally. Mild degrees of narrowing are seen involving the infrarenal abdominal aorta and at th e origin of the right common iliac artery. There is prominent atherosclerotic plaque involving both t he celiac and superior mesenteric arteries with mild to moderate degrees of narrowing. Single bilater al renal arteries with mild narrowing at the origin of each renal artery. There is at least mild narr owing involving the origin of the DAN[place] which is otherwise patent. Prominent atherosclerotic plaque and irregularity involves the iliac arteries bilaterally with modera te degree of narrowing involving the mid left common iliac artery. Origins of each internal iliac art radha mostly obscured to dense vascular calcifications. There does appear to be severe narrowing at the origin of the left internal iliac artery with moderate to severe narrowing at the origin of the righ t internal iliac artery. There is also mild to moderate narrowing involving the most proximal right e xternal iliac artery. The external iliac arteries are otherwise patent bilaterally. Post cholecystectomy changes are noted. The liver, spleen, pancreas, bilateral adrenal glands, and urinary bladder demonstrate a normal CT ap pearance. However, there is increased density within the urinary bladder which could be related to p rior contrasted exam. Moderate amount of retained fecal material seen throughout the colon. The appendix is normal in calib er. No other interval change from prior exam. BILATERAL LOWER EXTREMITY RUNOFF: Right lower extremity: The right common femoral artery is patent. There is mild atherosclerotic plaque without significant n arrowing involving the origins of the superficial femoral and profunda femoral arteries with multifoc al areas of moderate narrowing involving the most proximal SFA related. There is eccentric atheroscle rotic plaque seen throughout the course of the superficial femoral artery with more moderate to sever e focal narrowing at the level of the adductor canal. A stent is present within the right popliteal artery, but no appreciable enhancement is able to be discerned within this stent some of which could be artifactual secondary to limited evaluation due to the stent and density of the contrast. However, the distal left popliteal artery is patent. Severe degree of narrowing involving the distal right po pliteal artery. The origin of proximal right anterior tibial artery is occluded with reconstitution o f the anterior tibial artery via collateral vessels with faint enhancement seen involving portions of the anterior tibial artery which again occludes at the level of the distal calf. There is dense ca lcification seen in the peroneal artery which limits evaluation of the peroneal artery proximally, bu t the remainder of the peroneal artery does appear to be patent. There is occlusion of the origin and proximal posterior tibial artery with reconstitution of the posterior tibial artery at the level of the mid calf which extends to the foot. Left lower extremity: Mild atherosclerotic plaque and narrowing involving the left common femoral artery. There is also ath erosclerotic irregularity involving the profunda femoral and proximal superficial femoral arteries w ith mild degrees of narrowing involving the proximal [place] femoral artery. Multifocal mild and mod erate degrees of narrowing are seen involving the proximal left superficial femoral artery with moder ate focal narrowing involving the superficial femoral artery at the level of the adductor canal. Ther e is atherosclerotic plaque and irregularity involving the proximal above the knee popliteal artery w ith at least moderate focal narrowing present. Mild multifocal degrees of narrowing are seen involvin g the remainder of the popliteal artery with more severe narrowing involving the most distal poplitea l artery. There is occlusion of the anterior tibial artery as well as tibioperoneal trunk with recons titution of the posterior tibial artery at the level of the mid calf which extends to the foot and do es demonstrate multifocal areas of mild narrowing. There are multifocal areas of reconstitution and occlusion of the anterior tibial artery. The dorsalis pedis artery does demonstrate enhancement at th e level of the foot. There is also reconstitution of the peroneal artery at the level of the lower ca lf. IMPRESSION: 1. Atherosclerotic vascular disease involving the lower extremity arterial vessels, greatest inv olving the tibioperoneal vessels on the left where there is occlusion of the left anterior tibial art radha and tibioperoneal trunk with eventual reconstitution of the left posterior tibial artery at the l evel of the mid calf with multifocal areas of irregularity and severe narrowing involving the peronea l artery which eventually is reconstituted at the level of the distal calf. There is reconstitution o f the dorsalis pedis artery. 2. Severe narrowing involving the right tibioperoneal trunk with dense vascular calcifications o bscuring the distal portion of the tibioperoneal trunk. Single vessel runoff is essentially the peron eal artery, but there is reconstitution of posterior tibial artery. Right anterior tibial artery is o ccluded proximally. The dorsalis pedis artery is not seen in the foot on the right. 3. Persistent atherosclerotic plaque and calcifications involving the iliac arteries as well as superficial femoral arteries bilaterally. There is moderate narrowing involving the right superficial femoral artery at the adductor canal. Mild to moderate narrowing also present on the left at this le [place]. Enhancement in the right popliteal artery stent is difficult to appreciate. 4. Additional findings as described above. POS: [facility]
[2019-11-13] MEDS: Rosuvastatin 20 MG TAB PO SCH (21:47)
[2019-11-14] MEDS: Morphine 2 MG/ML SYRINGE SLOW IVP PRN (01:19)
[2019-11-14] MEDS: Lactated Ringer's 1,000 ML IV SCH ×3 (03:43→12:09)
[2019-11-14] MEDS: HYDROcodone/Acetaminophen 10/325 mg Tablet PO PRN (05:02)
[2019-11-14 05:24] LABS: ALT (SGPT) 18 U/L (8-55); AST (SGOT) 15 U/L (5-34); Albumin 3.8 g/dL (3.4-4.8); Alkaline Phosphatase 91 U/L (40-110); Anion Gap 9 mmol/L (10-20); BUN (Urea Nitrogen) 21 mg/dL (8.4-25.7); Bilirubin, Total 0.8 mg/dL (0.2-1.2); Calc. Creatinine Clearance 68 mL/min (70-130); Carbon Dioxide 28 mmol/L (23-31); Chloride 109 mmol/L (98-107); Estimated GFR-MDRD 84; Glucose 84 mg/dL (83-110); Potassium 3.9 mmol/L (3.5-5.1); Protein, Total 6.8 g/dL (5.8-8.1); Sodium 142 mmol/L (136-145)
[2019-11-14 05:29] LABS: Troponin I 0.102 ng/mL (< 0.028)
--- NOTE | 2019-11-14 06:07 | PDOC.FM ---
- Subjective Subjective: Pt c/o LLE pain in the calf, B pain in femoral area. Denies CP, syncope or dizziness since admission Tele monitoring overnight: SR BBB rate 70-80's. - Objective MAR Reviewed: Yes Vital Signs & Weight: Vital Signs (12 hours) Temp Pulse Resp BP BP BP BP 11/14/19 04:00 98.1 F 85 16 133/60 11/14/19 00:00 98 F 76 16 138/64 11/13/19 22:07 166/72 H 11/13/19 19:52 98.1 F 95 16 93/51 L 11/13/19 19:43 127/59 L 93/59 L 145/66 H Pulse Ox 11/14/19 04:00 95 11/14/19 00:00 98 11/13/19 22:07 11/13/19 19:52 97 11/13/19 19:43 Weight Weight 65.402 kg I&O: 11/12/19 11/13/19 11/14/19 06:59 06:59 06:59 Intake Total 960 1340 Output Total 800 1100 Balance 160 240 Result Diagrams: 11/12/19 10:38 11/14/19 04:38 Phys Exam - Physical Examination Constitutional: NAD HEENT: moist MMs, sclera anicteric Neck: no nodes, full ROM Respiratory: no wheezing, no rhonchi, clear to auscultation bilateral Cardiovascular: RRR, no rub soft sys murmur Gastrointestinal: soft, non-tender Absent pulse L pedal. L 5th digit on foot purple and cool to touch. Neurological: non-focal, moves all 4 limbs Psychiatric: normal affect, A&O x 3 Skin: no rash Dx/Plan (1) Near syncope Status: Acute (2) Elevated troponin Code(s): R79.89 - OTHER SPECIFIED ABNORMAL FINDINGS OF BLOOD CHEMISTRY Status : Acute (3) Fall from ground level Code(s): W18.30XA - FALL ON SAME LEVEL, UNSPECIFIED, INITIAL ENCOUNTER Status : Acute (4) BPH (benign prostatic hyperplasia) Code(s): N40.0 - BENIGN PROSTATIC HYPERPLASIA WITHOUT LOWER URINRY TRACT SYMP Status: Chronic Qualifiers: Lower urinary tract symptom presence: symptoms absent Qualified Code(s): N40.0 - Benign prostatic hyperplasia without lower urinary tract symptoms (5) CAD (coronary artery disease) Code(s): I25.10 - ATHSCL HEART DISEASE OF [place] CORONARY ARTERY W/O ANG PCTRS Status: Chronic Qualifiers: Coronary Disease-Associated Artery/Lesion type: bypass graft [place] vs. transplanted heart: [place] heart Associated angina: without angina Qualified Code(s): I25.810 - Atherosclerosis of coronary artery bypass graft(s) without angina pectoris (6) COPD (chronic obstructive pulmonary disease) Status: Chronic Qualifiers: COPD type: unspecified COPD Qualified Code(s): J44.9 - Chronic obstructive pulmonary disease, unspecified (7) HLD (hyperlipidemia) Code(s): E78.5 - HYPERLIPIDEMIA, UNSPECIFIED Status: Chronic Qualifiers: Hyperlipidemia type: unspecified Qualified Code(s): E78.5 - Hyperlipidemia , unspecified (8) Hypothyroidism Code(s): E03.9 - HYPOTHYROIDISM, UNSPECIFIED Status: Chronic Qualifiers: Hypothyroidism type: unspecified Qualified Code(s): E03.9 - Hypothyroidism , unspecified (9) Tobacco abuse Code(s): Z72.0 - TOBACCO USE Status: Chronic (10) Microcytic anemia Code(s): D50.9 - IRON DEFICIENCY ANEMIA, UNSPECIFIED Status: Chronic - Plan Plan: 74 y/o M admitted to [facility], [place] for elevated troponins and a near syncopal event causing a GLF. 1. Elevated Troponin level - Trop 0.245 --> 0.221 --> 0.209 --> 0.102 - EKG did not show any new changes with inverted T waves, and RBBB. Rate 96. - Denies any CP with near syncopal event or upon admission. - Given ASA 162, morphine 4 mg and 1L NS in ED. - Cardiology consulted, appreciated recommendations. Will stress in outpt setting. Risk stratification and medical management. 2. Near Syncopal Event, most likely 2/2 orthostatic hypotension - Most likely 2/2 volume depletion from dehydration as pt only drinks 15 oz of water daily. DDx includes cardiogenic, orthostatic hypotension, and neurogenic syncope. Also included is hypoglycemia or misuse of opioids as pt received a new script for [place] 10 11/11. - TTE: EF 55-60% with grade 1/3 diastolic dysfunction. - CTA head and neck: R sided 11 mm lesion of parotid gland, ENT consult suggested, will have pt f/u outpt with ENT. B carotid plaque <50% stenosis, Dense coronary artery calcifications. - Mg 1.6, Phos 3.7 - holding home lisinopril 3. Ground Level Fall - Pt reports L hip and shoulder pain - pelvis and L hip x-ray no acute fx - L shoulder x-ray no acute fx - CT head and neck negative for acute process 4. Hx of BPH - Pt on tamsulosin for incontinence treatment. - Consider d/c tamsulosin as medication frequently causes orthostasis - orthostatic BP's, + 5. HFpEF - TTE EF 55-60% and grade 1/3 diastolic dysfunction - Strict I/O - Daily weights - previous echo 2014, EF 55-60% with grade 1/3 diastolic disfunction. - Clinically not in exacerbation. 6. Hx of CAD S/P CABG - Trending trops as initially elevated. - Trops 0.245--> 0.221 --> 0.209 --> 0.102 - No new EKG changes see above. - Cardiology recommending stress in outpt setting. Continue medical management 7. Hx of Essential HTN - Hold home medications until orthostatic BP improves 8. Hx of Hypothyroidism, with low TSH and high T4, possibly iatrogenic hyperthyroidism. - TSH X1 months ago 0.02, dose of levothyroxine changed from 150 to 125 mcg - TSH 0.0025, Free T3 4.48, T4 1.42 - Holding levothyroxine. 9. Ischemic Left 5th digit of foot - Pending CV surgery Dr. Stanford appointment 11/19/19. - Continue Clindamycin 150 mg TID for treatment of Dry Gangrene - Consulted CV surgery Dr. Stanford. Appreciate recommendations. 10. 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 Tobacco abuse - 55 pack year cigarette use. - Pt quit 4 days ago as he was told he would loose an extremity if he does not stop smoking. 12. DM II, insulin dependent - restart lantus at 45 units nightly - SSI mild - ACHS accuchecks - Monitor as pt may be having hypoglycemia causing symptoms. 13. Microcytic anemia - Iron 132, TIBC high at 490, ferritin nml at 23.57 - B12 203 - adding iron and B12 supplementation. Code status: Full code Diet: HH, CC DVT ppx: lovenox Dispo: stable; <48 hr hx stay anticipated.
[2019-11-14] MEDS ORDERED: Ferrous Sulfate 325 MG TAB PO SCH (08:00)
[2019-11-14] MEDS: metFORMIN 500 MG TAB PO SCH (08:22)
[2019-11-14] MEDS: Enoxaparin Sodium 40 MG/0.4 ML SYRINGE SC SCH (08:24)
[2019-11-14] MEDS: Clindamycin 150 MG CAP PO SCH (08:24)
[2019-11-14] MEDS: Aspirin 81 mg Enteric Coated Tablet PO SCH (08:24)
[2019-11-14] MEDS: Gabapentin 400 MG CAP PO SCH (08:25)
[2019-11-14] MEDS: Tamsulosin HCl 0.4 MG CAP PO SCH (08:25)
--- NOTE | 2019-11-14 08:46 | PDOC.CPN ---
- Subjective Date: 11/14/19 Time: 08:44 Interval history: No new issues. No chest pain. No more syncope or presyncope. - Review of Systems General: denies: fever/chills, weight/appetite/sleep changes, night sweats, fatigue Respiratory: denies: cough, congestion, shortness of breath, exercise intolerance Cardiovascular: denies: chest pain, palpitation, edema, paroxysmal nocturnal dyspnea, orthopnea Gastrointestinal: denies: nausea, vomiting, diarrhea, constipation, abd pain, GI bleeding Musculoskeletal: denies: pain, tenderness, stiffness, swelling, arthritis/ arthralgias Neurological: denies: numbness, syncope, seizure, weakness - Objective Allergies/Adverse Reactions: Allergies Allergy/AdvReac Type Severity Reaction Status Date / Time No Known Allergies Allergy Verified 07/20/19 14:04 Visit Medications: Current Medications Acetaminophen (Tylenol) 650 mg PO Q4H PRN PRN Reason: Headache/Fever/Mild Pain (1-3) Hydrocodone Bitart/Acetaminophen ([place] 10/325) 1 tab PO Q6H PRN PRN Reason: Moderate to Severe Pain (6-10) Last Admin: 11/14/19 05:02 Dose: 1 tab Aspirin (Ecotrin) 81 mg PO DAILY [facility] Last Admin: 11/14/19 08:24 Dose: 81 mg Clindamycin HCl (Cleocin) 150 mg PO TID [facility] Last Admin: 11/14/19 08:24 Dose: 150 mg Cyanocobalamin (Vitamin B-12) 1,000 mcg PO DAILY [facility] Last Admin: 11/14/19 08:25 Dose: 1,000 mcg Dextrose/Water (Dextrose 50%) 25 gm SLOW IVP PRN PRN PRN Reason: Hypoglycemia Enoxaparin Sodium (Lovenox) 40 mg SC 0900 [facility] Last Admin: 11/14/19 08:24 Dose: 40 mg Ferrous Sulfate (Feosol) 325 mg PO QAM-WM [facility] Last Admin: 11/14/19 08:24 Dose: 325 mg Gabapentin (Neurontin) 800 mg PO TID [facility] Last Admin: 11/14/19 08:25 Dose: 800 mg Glucagon (Glucagon) 1 mg IM PRN PRN PRN Reason: Hypoglycemia Dextrose/Water (D5w) 1,000 mls @ 0 mls/hr IV .Q0M PRN PRN Reason: Hypoglycemia Insulin Glargine 45 units/ (Miscellaneous Medication) 0.45 mls @ 0 mls/hr SC QAM [facility] Last Admin: 11/13/19 08:37 Dose: 0.45 mls Lactated Ringer's (Lactated Ringer's) 1,000 mls @ 120 mls/hr IV .Q8H20M [facility] Last Admin: 11/14/19 05:34 Dose: 1,000 mls Insulin Human Lispro (Humalog) 0 units SC .MILD SLIDING SCALE PRN PRN Reason: Mild Correctional Scale Last Admin: 11/13/19 12:30 Dose: 3 units Insulin Human Lispro (Humalog) 0 units SC .BEDTIME SLIDING SC PRN PRN Reason: Bedtime Correctional Scale Metformin HCl (Glucophage) 1,000 mg PO BID-[facility] Last Admin: 11/14/19 08:22 Dose: Not Given Morphine Sulfate (Morphine) 2 mg SLOW IVP Q4H PRN PRN Reason: Moderate to Severe Pain (6-10) Last Admin: 11/14/19 01:19 Dose: 2 mg Rosuvastatin Calcium (Crestor) [address] [facility] Last Admin: 11/13/19 21:47 Dose: 20 mg Tamsulosin HCl (Flomax) 0.4 mg PO DAILY [facility] Last Admin: 11/14/19 08:25 Dose: 0.4 mg Vital Signs & Weight: Vital Signs Temp Pulse Resp BP BP Pulse Ox 11/14/19 07:37 98.2 F 81 16 171/74 H 93 L 11/14/19 04:00 98.1 F 85 16 133/60 95 11/14/19 00:00 98 F 76 16 138/64 98 11/13/19 22:07 166/72 H Weight 144 lb 3 oz - Physical Exam General: alert & oriented x3 HEENT: mucus membranes moist Neck: supple neck Cardiac: regular rate and rhythm Lungs: clear to auscultation Neuro: grossly intact Abdomen: active bowel sounds Extremities: no edema Skin: clear Musculoskeletal: no pain - Labs Result Diagrams: 11/12/19 10:38 11/14/19 04:38 Troponin/CKMB CK-MB (CK-2) 2.1 ng/mL (0-6.6) 11/12/19 10:38 Troponin I 0.102 ng/mL (< 0.028) H 11/14/19 04:39 - Telemetry Sinus rhythms and dysrhythmias: sinus rhythm - Assessment/Plan Assessment/Plan: 1. Syncope 2. Orthostatic hypotension 3. Nausea and vomiting, resolved. 4. CAD s/p CABG 5. PVD with acute infection of foot on abx. PLAN: - Normal LV function on echo - Seems euvolemic now, would stop IV fluids. - No tachy or sebastian arrhythmias on monitor. - Will follow. - Discharge at any time from cardiac perspective. - Will scheduled for a follow up in 3-4 weeks with stress test pre clinic.
[2019-11-14] MEDS ORDERED: Cyanocobalamin (Vitamin B-12) 1,000 MCG TAB PO SCH (09:00)
[2019-11-14] MEDS: Insulin Glargine 45 UNITS in Pre-Filled Syringe 1 EACH SC SCH (09:59)
[2019-11-14 11:27] VITALS: BP 132/60; TEMP 98.5
--- NOTE | 2019-11-14 12:22 | PRG ---
DATE OF SERVICE: 11/14/2019 Mr. Olvera is in no acute distress this morning. He did have a CTA of the lower extremity yesterday of the aorta with runoff that showed significant peripheral vascular disease. We have consulted cardiovascular and they had an initial visit yesterday and we will follow up after reviewing his CTA today. He was also seen in consultation by Dr. Mchugh given that he may require extensive surgery in the future for his peripheral vascular disease. Dr. Mchugh had no other specific recommendations and will follow with the patient as needed. He will schedule a possible stress test as an outpatient in 3 to 4 weeks. Job ID: [id number]
[2019-11-14] MEDS: HumaLOG 300 UNITS/3 ML VIAL SC PRN (12:50)
[2019-11-14 16:09] LABS: Hematocrit 33.1 % (37.5-51.0); RBC Folate Test Component 785 ng/mL (>498)
--- NOTE | 2019-11-15 03:43 | DIS ---
DATE OF ADMISSION: 11/12/2019 DATE OF DISCHARGE: 11/14/2019 RESIDENT: Cintia Collins DO ADMITTING ATTENDING: Agusto Hernandez MD DISCHARGE ATTENDING: Bobo Herrera MD CONSULTS: 1. Dr. Castro, Cardiology. 2. Dr. Stanford, Cardiovascular Surgery. PROCEDURES PERFORMED: 1. Brain CT on 11/12 showed no intracranial hemorrhage or displaced calvarial fracture. 2. Cervical spine CT, no acute osseous abnormalities are demonstrated. There are degenerative changes throughout the cervical spine. CT angiography of head and neck showed hypodense lesion of the inferior aspect of the right parotid gland measuring 11 mm cyst could potentially represent an enlarged intraparotid and periparotid lymph node, but an intraparotid lesion is a possibility. ENT consultation is suggested for further evaluation. Also atherosclerotic plaquing calcifications were seen. Bilateral carotids, mild degrees of narrowing present, less than 50%. 3. Aorta with runoff, CTA. Atherosclerotic vascular disease involving the lower extremity arterial vessels, greatest involving the tibioperoneal vessels on the left, where there is occlusion of the left anterior tibial artery and tibioperoneal trunk with ventral reconstitution of the left posterior tibial artery at the level of the main calf with multifocal areas of irregularity and severe narrowing involving the peroneal artery, which eventually has reconstituted at the level of the distal calf. There is reconstitution of the dorsalis pedis artery. Severe narrowing involving the tibioperoneal trunk with severe stenosis present with dense vascular calcifications obscuring the distal portion of the tibioperoneal trunk. Echocardiogram on 11/13/2019, EF is 55% to 60% with grade 1/3 diastolic dysfunction. Mild left ventricular hypertrophy. DIAGNOSES: 1. Elevated troponin level. 2. Near syncopal event, most likely secondary to orthostatic hypotension. 3. Ground level fall. 4. Benign prostatic hyperplasia. 5. Heart failure preserved EF. 6. Coronary artery disease, status post coronary artery bypass grafting. 7. Hypertension. 8. Hypothyroidism with very low TSH and high T4, possible iatrogenic hyperthyroidism. 9. Ischemic left 5th digit of foot. 10. Dry gangrene, left 5th digit of foot. 11. Tobacco abuse and dependence. 12. Diabetes mellitus type 2, insulin dependent. 13. Microcytic anemia. 14. Right parotid mass of unknown significance. DISCHARGE MEDICATIONS: 1. Aspirin 81 mg p.o. daily. 2. Clindamycin 150 mg p.o. t.i.d. 3. B12 of 1000 mcg daily. 4. Ferrous sulfate 325 p.o. q.a.m. with meals. 5. Gabapentin 800 mg p.o. t.i.d. 6. Lantus 45 mg subcu at bedtime. 7. Metformin 1000 mg p.o. b.i.d. 8. Rosuvastatin 20 mg p.o. at bedtime. 9. Tamsulosin 0.4 mg p.o. daily. 10. [place] 10/325 one tab p.o. q.6 hours. 11. Lisinopril 2.5 mg p.o. daily. DISCONTINUED MEDICATIONS: Levothyroxine 125 mcg daily, holding this medication for one weeks time and will restart. Followup visit with [facility] early next week. HISTORY OF PRESENT ILLNESS/HOSPITAL COURSE: Mr. Manuel Olvera is a 74-year-old male with a history of coronary artery disease status post CABG and peripheral vascular disease. He came in with syncopal event and was found to have elevated troponins. His orthostatic blood pressures were positive. His TSH was 0.0025 and free T4 of 1.42, free T3 of 4.48. The patient's levothyroxine was discontinued for a total of five days and will restart in office at [facility] at followup visit early next week. The patient was instructed to not take his medication of levothyroxine until his followup visit one week and restart it. Cardiology was consulted due to EKG showing inverted T-waves in a right bundle branch block, although these are not new changes to his EKG. They would like to see the patient in the outpatient setting for a stress test. His EF showed normal left ventricular ejection fraction on echocardiogram with grade 1/3 diastolic dysfunction. CV surgery with Dr. Stanford was consulted because of ischemic left 5th digit on the foot. He was going to see him in the office on 11/19, but the pain was so severe during hospital admission. Dr. Stanford came and saw him for further evaluation. He will follow up outpatient for arterial angiography and possible interventions after that. The patient was found to have a parotid mass on the right side measuring 11 mm in diameter. It is recommended that he follow up with Ear, Nose, Throat physician to determine the etiology of this mass. Please place this referral at primary care followup visit. The patient also has microcytic anemia. Iron studies show normal iron, high TIBC of 490, and ferritin of 23, B12 was 203. The patient was started on ferrous sulfate, as well as B12 supplementation. It is recommended that he have GI followup, as well as he needs colonoscopy. The patient denies ever having a colonoscopy in the past. There is a risk that this is the source of his anemia and possible iron deficiency. The patient's troponin was originally 0.245, this downtrended to 0.102. The patient was stabilized when he was given IV fluids and taken off levothyroxine. He became less dizzy and his orthostatic hypotension also improved. DISPOSITION: The patient was stable upon discharge. DISCHARGE INSTRUCTIONS: 1. Location: Home. 2. Diet: Heart healthy and consistent carb. 3. Activity: As tolerated with slow transfers from sitting to standing. 4. Followup: Follow up with Dr. Castro, Cardiology. Follow up with Dr. Stanford, Cardiovascular Surgeon. Follow up with primary care in 1 week. Job ID: [id number] [facility]
== END 2019-11-14 13:18 | disposition home or self-care (01) ==
LOC: ERS 09:52 → INTOOBSV 13:20 → 2SE 13:20
PROVIDERS: ADMIT Family Medicine; ATTEND Family Medicine
DX: I95.1 Orthostatic hypotension (principal); R79.89 Other specified abnormal findings of blood chemistry; N40.1 Benign prostatic hyperplasia with lower urinary tract symptoms; N39.498 Other specified urinary incontinence; I11.0 Hypertensive heart disease with heart failure; I50.30 Unspecified diastolic (congestive) heart failure; E03.9 Hypothyroidism, unspecified; E11.52 Type 2 diabetes mellitus with diabetic peripheral angiopathy with gangrene; I96 Gangrene, not elsewhere classified; D50.9 Iron deficiency anemia, unspecified; K11.8 Other diseases of salivary glands; I25.10 Atherosclerotic heart disease of native coronary artery without angina pectoris; J44.9 Chronic obstructive pulmonary disease, unspecified; E78.5 Hyperlipidemia, unspecified; I25.2 Old myocardial infarction; I65.23 Occlusion and stenosis of bilateral carotid arteries; E11.51 Type 2 diabetes mellitus with diabetic peripheral angiopathy without gangrene; I70.208 Unspecified atherosclerosis of native arteries of extremities, other extremity; I70.203 Unspecified atherosclerosis of native arteries of extremities, bilateral legs; Z87.891 Personal history of nicotine dependence; Z79.4 Long term (current) use of insulin; Z79.82 Long term (current) use of aspirin; Z79.899 Other long term (current) drug therapy; Z95.1 Presence of aortocoronary bypass graft; Z95.5 Presence of coronary angioplasty implant and graft; W18.30XA Fall on same level, unspecified, initial encounter
CPT/HCPCS: 70450; 70496; 70498; 71045; 72125; 72170; 73030; 73502; 75635; 80053 ×2; 80306; 81003; 82553; 82607; 82728; 82747; 82962 ×3; 83540; 83550; 83605; 83735; 84100; 84439; 84481; 84484 ×3; 85014; 85046; 93005; 93306; 96361 ×3; 96372 ×2; 96374; 96376 ×2; 99285; G0378 ×3; 36415; 36416; 84443; 85025; J1650; J1815; J2270; L0120; Q9967

== ENCOUNTER 2019-11-19 10:25 | Emergency (ER) | payer MEDICARE, MEDICAID ==
[2019-11-19 11:02] LABS: #Eosinphils 0.3 thou/uL (0.0-0.7); #Lymphocytes 1.3 thou/uL (1.20-3.40); #Monocytes 0.6 thou/uL (0.11-0.59); %Basophils 0.4 % (0.0-1.0); %Lymphocytes 12.7 % (21.0-51.0); %Monocytes 5.4 % (0.0-10.0); %Neutrophils 78.5 % (42.0-75.0); Mean Corpuscular HGB CONC 32.1 g/dL (32.0-36.0); Mean Corpuscular Hemoglobin 24.2 pg (27.0-31.0); Mean Corpuscular Volume 75.4 fL (78.0-98.0); Mean Platelet Volume 7.5 fL (7.4-10.4); Platelet Count 229 thou/uL (130-400); RBC Distribution Width 15.8 % (11.5-14.5); Red Blood Cell (RBC) Count 4.54 mill/uL (4.70-6.10); White Blood Cell (WBC) Count 10.2 thou/uL (4.8-10.8)
[2019-11-19] MEDS ORDERED: Ondansetron PF 4 MG/2 ML Vial ONE (11:09)
[2019-11-19 11:24] LABS: ALT (SGPT) 16 U/L (8-55); AST (SGOT) 17 U/L (5-34); Albumin 4.2 g/dL (3.4-4.8); Alkaline Phosphatase 91 U/L (40-110); Anion Gap 12 mmol/L (10-20); BUN (Urea Nitrogen) 23 mg/dL (8.4-25.7); Bilirubin, Total 0.7 mg/dL (0.2-1.2); Calc. Creatinine Clearance 0 mL/min (70-130); Calcium 9.1 mg/dL (7.8-10.44); Carbon Dioxide 25 mmol/L (23-31); Chloride 107 mmol/L (98-107); Estimated GFR-MDRD 64; Globulin 3.3 g/dL (2.4-3.5); Glucose 108 mg/dL (83-110); Lipase 41 U/L (8-78); Potassium 4.5 mmol/L (3.5-5.1); Protein, Total 7.5 g/dL (5.8-8.1); Sodium 139 mmol/L (136-145)
[2019-11-19 11:37] LABS: Bilirubin Negative (Negative); Blood, Urine Negative (Negative); Clarity Clear (Clear); Glucose, Urine (Dipstick) Normal (Negative); Leukocyte Negative Leu/uL (Negative); Nitrite Negative (Negative); Protein, Urine (Dipstick) Negative (Neg-Trace); Urobilinogen Normal mg/dL (Less than 2)
== END 2019-11-19 12:48 | disposition home or self-care (01) ==
LOC: ERS 10:25
DX: R11.2 Nausea with vomiting, unspecified (principal); I10 Essential (primary) hypertension; F41.9 Anxiety disorder, unspecified; F32.9 Major depressive disorder, single episode, unspecified; E11.9 Type 2 diabetes mellitus without complications; E03.9 Hypothyroidism, unspecified; E78.5 Hyperlipidemia, unspecified; I25.2 Old myocardial infarction; Z87.891 Personal history of nicotine dependence; Z79.4 Long term (current) use of insulin
CPT/HCPCS: 36415; 80053; 81003; 83605; 83690; 85025; 96361; 96374; J2405

== ENCOUNTER 2019-11-22 06:11 | Day surgery (SDC) | payer MEDICARE, MEDICAID ==
[2019-11-21 13:35] VITALS: BMI 25.4
[2019-11-22] MEDS ORDERED: Lidocaine 1% (PF) 30 ML VIAL ONE (06:37)
[2019-11-22] MEDS ORDERED: Heparin (Artline) 500 ML ONE ×2 (06:37→07:51)
[2019-11-22] MEDS ORDERED: Fentanyl 100 MCG/2 ML VIAL ONE ×2 (07:14→09:13)
[2019-11-22] MEDS ORDERED: Heparin 10,000 UNITS/1 ML VIAL ONE (07:25)
[2019-11-22] MEDS ORDERED: Protamine Sulfate 50 MG/5 ML VIAL ONE (08:45)
[2019-11-22] MEDS ORDERED: hydrALAZINE 20 MG/ML VIAL ONE (08:45)
[2019-11-22] MEDS ORDERED: Clopidogrel Bisulfate 300 MG TAB ONE (09:05)
[2019-11-22] MEDS ORDERED: Iopamidol 370 76% 50 ML VIAL FS ONE (09:44)
--- NOTE | 2019-11-26 12:14 | OP ---
DATE OF PROCEDURE: 11/22/2019 DIAGNOSIS: Ischemic gangrenous left little toe. PROCEDURES PERFORMED: Aortogram, bilateral iliofemoral runoff, runoff of the left leg, angioplasty of the distal popliteal artery with a 2.5 x 15 mm balloon, angioplasty of the SFA distally with a Lutonix 4 x 80 balloon, stenting of the distal left common iliac and proximal external iliac with an 8 x 40 self expanding stent with the balloon taken being a 6 x 2 balloon to dilate the common iliac artery. ANESTHESIA: Local with sedation. FLUOROSCOPY: 14.8. CONTRAST: 57 mL on contrast. DESCRIPTION OF PROCEDURE: After prepping and draping, a 1% lidocaine was used to infiltrate the right groin and under ultrasound guidance, the common femoral artery was punctured. Wire inserted under fluoroscopy. A 5-Moldovan dilator and sheath and Contra catheter placed. Aortoiliac study was obtained demonstrating about a 70% stenosis in the distal left common iliac artery and [id number] atherosclerosis in the right common iliac artery. External iliac arteries were free of disease. The left common femoral was patent as was the superficial and profunda, but the superficial demonstrated diffuse irregularities throughout with about a 70% stenosis in the distal most SFA at the adductor canal. The popliteal artery had about an 80% stenosis prior to takeoff of an anterior tibial, which was severely diseased and small. Runoff to the foot consisted of posterior tibial artery, which reconstituted distally. A peroneal artery, which reconstituted distally with both of those being occluded at their origin and an anterior tibial artery that was diffusely and severely diseased. Following angioplasty, there was improved flow although angiographic result was not much different at the popliteal distally. The distal SFA had brisk flow, but once again angiographically did not appear to be much changed and the left common iliac artery had no residual stenosis post stenting. The Contra catheter was then advanced into the left common femoral artery, where runoff was obtained. A Magic Torque wire was then placed and a 6-Moldovan destination placed after heparinization. A 0.014 Luge wire was advanced into the origin of the anterior tibial artery, where the 2.5 mm diameter balloon was then advanced and inflated for 2 minutes. Following this, the Lutonix 4 x 80 balloon was advanced over a 0.035 wire that had been exchanged for the 0.014 wire and this was inflated for 3 minutes at the distal SFA and the patient experienced significant foot pain during this inflation. Finally, the 8 x 40 stent was advanced through the sheath and the sheath was then pulled back to the origin of the left common iliac artery and a stent was then deployed and a 6 x 2 balloon was then used to inflate x2 in the left common iliac artery. Sheath was then withdrawn. Wires were removed and protamine is to be given to partially reverse the heparin. Job ID: [id number]
--- NOTE | 2019-11-26 15:23 | OP ---
DATE OF PROCEDURE: 11/22/2019 PREOPERATIVE DIAGNOSIS: Ischemic left toe. PROCEDURE PERFORMED: Aortogram, iliofemoral runoff and left lower extremity runoff with angioplasty of the left tibioperoneal trunk and stenting of the left common iliac artery. FINDINGS: The patient had about a 30% stenosis of right common iliac artery about a 30% stenosis of distal right common iliac artery, about 70% stenosis of left distal common iliac artery, diffusely diseased left superficial femoral artery with lesions in the 50% to 70% range throughout, small caliber vessel. Tibioperoneal trunk had a 75% to 80% lesion just after the takeoff of the anterior tibial. The distal popliteal artery had a stenosis just prior to the takeoff of the anterior tibial. The posterior tibial was completely occluded and filled distally through collaterals. The peroneal artery was small and insignificant vessel and the anterior tibial was diffusely diseased with complete occlusions in its midportion. The posterior tibial as mentioned reconstituted in the mid leg, however, then was a very small poor quality vessel at the ankle and the peroneal artery dissipated above the ankle and the anterior tibial filled again near the ankle with all vessels being small. DESCRIPTION OF PROCEDURE: After prepping and draping the right groin, a standard needle with ultrasound guidance was attempted to enter the vessel. However, due to heavy calcification and despite multiple different spots being attempted, I could not enter. A micro puncture was then entered and a dilator with a micro puncture was used to enter into the vessel as dilator and sheath in combination would not. The dilator and sheath were then passed and then the 5-Italian dilator was placed and then the 5-Italian dilator and sheath. A Contra catheter was then passed into the aorta where an aortogram was obtained. Wire was then passed into the left iliac system and the Contra catheter advanced over it where runoff of the left leg was obtained. Following this, attempts at placing a 6-Italian Destination sheath in the right common femoral artery were unsuccessful due to heavy calcification. However, the 5-Italian Destination was placed after initial dilatation and then placement. It was then parked in the left common femoral artery where a Luge wire was advanced into the distal popliteal artery and proximal tibioperoneal trunk for angioplasty where a 2.5 mm x 15 mm Emerge balloon was then advanced and inflated for 1-1/2 minutes at 12 atmospheres. The result was improved. Repeat inflation was then performed for 2-1/2 minutes and result was essentially the same. Following this, the 6-Italian Destination sheath was pulled back into the proximal left common iliac artery where an 8 x 40 x 130 Innova stent was placed across the distal left common iliac artery lesion, inflated x2 with a 6 mm balloon in the common iliac artery. The external iliac artery was not dilated as the stent appeared to be apposed nicely there. After two separate inflations with a 6 mm balloon, heparin was reversed. Protamine and Apresoline were given systemically and the sheath removed from the right groin. Job ID: [id number]
== END 2019-11-22 15:41 | disposition home or self-care (01) ==
LOC: CCL 06:11
PROVIDERS: ATTEND Thoracic Surgery (Cardiothoracic Vascular Surgery)
PROC: 047N3ZZ Dilation of Left Popliteal Artery, Percutaneous Approach (ICD-10-PCS; principal; 2019-11-22)
DX: I70.262 Atherosclerosis of native arteries of extremities with gangrene, left leg (principal); Z79.84 Long term (current) use of oral hypoglycemic drugs; Z79.899 Other long term (current) drug therapy
CPT/HCPCS: 37221; 37224; 76942; 85347; C1769; C1887; J0360; J1644; J2001; J2720; J3010; Q9967

== ENCOUNTER 2020-05-17 15:41 | Inpatient (IN) | payer MEDICAID, MEDICARE ==
[2020-05-17 16:42] LABS: #Eosinphils 0.3 thou/uL (0.0-0.7); #Lymphocytes 1.5 thou/uL (1.20-3.40); #Monocytes 0.5 thou/uL (0.11-0.59); %Basophils 0.2 % (0.0-1.0); %Eosinophils 3.3 % (0.0-10.0); %Lymphocytes 18.3 % (21.0-51.0); %Monocytes 6.3 % (0.0-10.0); %Neutrophils 71.9 % (42.0-75.0); Hemoglobin 11.1 g/dL (14.0-18.0); Mean Corpuscular HGB CONC 33.7 g/dL (32.0-36.0); Mean Corpuscular Hemoglobin 29.1 pg (27.0-31.0); Mean Corpuscular Volume 86.3 fL (78.0-98.0); Mean Platelet Volume 7.3 fL (7.4-10.4); Platelet Count 200 thou/uL (130-400); RBC Distribution Width 13.1 % (11.5-14.5); White Blood Cell (WBC) Count 8.3 thou/uL (4.8-10.8)
--- NOTE | 2020-05-17 16:59 | RAD ---
PORTABLE UPRIGHT FRONTAL CHEST RADIOGRAPH: Date: 05-17-2020 Comparison: 11-12-2019 History: Dehydration. FINDINGS: Stable heart and mediastinal contours. Stable midline sternotomy wires. No pneumothorax, pleural flui d, focal consolidation or alveolar edema. Old left sided rib fractures. IMPRESSION: No acute findings. POS: [facility]
[2020-05-17 17:05] LABS: ALT (SGPT) 16 U/L (8-55); AST (SGOT) 12 U/L (5-34); Albumin 4.1 g/dL (3.4-4.8); Alkaline Phosphatase 83 U/L (40-110); Anion Gap 16 mmol/L (10-20); BUN (Urea Nitrogen) 39 mg/dL (8.4-25.7); Bilirubin, Total 0.7 mg/dL (0.2-1.2); Calc. Creatinine Clearance 0 mL/min (70-130); Calcium 8.4 mg/dL (7.8-10.44); Carbon Dioxide 20 mmol/L (23-31); Chloride 104 mmol/L (98-107); Estimated GFR-MDRD 16; Glucose 270 mg/dL (83-110); Potassium 4.1 mmol/L (3.5-5.1); Protein, Total 7.1 g/dL (5.8-8.1); Sodium 136 mmol/L (136-145)
--- NOTE | 2020-05-17 18:21 | CT ---
HEAD CT WITHOUT CONTRAST: Date: 05-17-2020 Comparison: 11-12-2019 History: Dizziness Technique: Axial CT imaging at 5 mm intervals from vertex through skull base without contrast. FINDINGS: The visualized paranasal sinuses and mastoid air cells appear grossly unremarkable. There is atherosc lerotic calcification of the cavernous carotid arteries. No intracranial hemorrhage, midline shift, m ass effect, or ventricular enlargement. Motion artifact slightly limits detailed assessment. No displ aced calvarial fracture. IMPRESSION: No acute findings. POS: [facility]
[2020-05-17 18:35] LABS: Bilirubin Negative (Negative); Blood, Urine Trace (Negative); Clarity Clear (Clear); Glucose, Urine (Dipstick) 100 mg/dL (Negative); Ketone, Urine Negative (Negative); Leukocyte Negative Leu/uL (Negative); Mucous/LPF Rare LPF (<2+); Nitrite Negative (Negative); Protein, Urine (Dipstick) 30 mg/dL (Neg-Trace); RBC/HPF 0-3 HPF (0-3); Specific Gravity, Urine 1.012 (1.002-1.036); Squamous Epithelial 0-3 HPF (0-3); Urobilinogen Normal mg/dL (Less than 2); WBC/HPF 0-3 HPF (0-3)
[2020-05-17 18:47] LABS: Bacteria/HPF Rare-Few HPF (None Seen); Sperm/HPF Rare HPF (None Seen)
--- NOTE | 2020-05-17 19:19 | PDOC.FPRHP ---
- History of Present Illness Chief Complaint: Generalized Weakness History of Present Illness: Pt reported to the ED today due to body aches, generalized weakness, and feeling "unwell". He states that this started today when he was at an outdoor baseball game and began to feel dizzy. As he started to feel unwell, he decided to go home and lie down, but he continued to feel unwell, have body aches, weakness in his legs, and was having a hard time getting up from sitting position. Pt then called his daughter who called EMS for him. He denied CP, SOB , N/V/D, but admitted to a headache, blurry vision, and poor urine output today. Of note, he states that he has been feel weak for the past month. A phone call with his daughter revealed further that the patient has been having episodes of "passing out" over the past month. When asked if he passed out today , patient denies it. His daughter also stated that patient lives alone and is able to do essential tasks of daily living and drive. ED Course: ED Course: During route to ED patient was given 1 L bolus. In the ED patient was given 500ml of fluid. Labs found that BUN/Drapery Installer was 39/3.67. - Allergies/Adverse Reactions Allergies Allergy/AdvReac Type Severity Reaction Status Date / Time No Known Allergies Allergy Verified 05/17/20 21:37 - Home Medications Medication Instructions Recorded Confirmed Type Gabapentin [Neurontin] 800 mg PO TID 04/13/14 11/22/19 History Rosuvastatin [Crestor] 20 mg PO HS 04/13/14 11/22/19 History Tamsulosin HCl 0.4 mg PO DAILY 12/07/18 11/22/19 History Lisinopril [Zestril] 2.5 mg PO DAILY 07/09/19 11/22/19 History metFORMIN [Glucophage] 1,000 mg PO BID-WM 07/09/19 11/22/19 History Clindamycin [Cleocin] 150 mg PO TID #0 cap 11/14/19 11/22/19 Rx Ferrous Sulfate [Feosol] 325 mg PO QAM-WM #30 tab 11/14/19 11/22/19 Rx HYDROcodone Bit/APAP 10/325 [[place]] 1 tab PO Q6H PRN tab 11/14/19 11/22/19 Rx Insulin Glargine,Hum.Rec.Anlog 45 units SQ QPM #0 11/14/19 11/22/19 Rx [Lantus] - History Patient was unable to tell me his full past medical history, but based on his PCP visit from 05/12/2020 his: PMHx -CAD s/p bypass x3, 20 years ago -Hyperlipidemia -HTN -PVD -Type 2 DM, Insulin dependent -Depression PSHx -Bilateral cataract removal -Cholecystectomy, 2019 -ORIF R shoulder -PCI, triple bypass FHx: -CAD, father had AR @ 52 y/o 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 denies: fever/chills, night sweats Eyes: reports: vision changes (blurry vision, headache) Respiratory: denies: shortness of breath Cardiovascular: denies: chest pain, palpitation Gastrointestinal: denies: nausea, vomiting, diarrhea Genitourinary: reports: other (poor urine output) Neurological: reports: weakness - Vital signs BP: 140/82 HR: 77 RR: 10 Pox: 100% Wt: 69kg - Physical Exam Constitutional: NAD, awake, alert and oriented HEENT: normocephalic and atraumatic, other (dry mucosal membranes) Heart: RRR Lungs: CTAB Abdomen: soft, non-tender Musculoskeletal: other (lower extremities cold to touch) Skin: other (capillary refill > 2 sec) Psychiatric: other (A&O x 3) FMR H&P: Results - Labs Result Diagrams: 05/18/20 04:36 05/18/20 04:36 Lab results: WBC 8.3 thou/uL (4.8-10.8) 05/17/20 16:29 Hgb 11.1 g/dL (14.0-18.0) L 05/17/20 16:29 Hct 32.8 % (42.0-52.0) L 05/17/20 16:29 MCV 86.3 fL (78.0-98.0) 05/17/20 16:29 Plt Count 200 thou/uL (130-400) 05/17/20 16:29 Neutrophils % 71.9 % (42.0-75.0) 05/17/20 16:29 Sodium 136 mmol/L (136-145) 05/17/20 16:29 Potassium 4.1 mmol/L (3.5-5.1) 05/17/20 16:29 Chloride 104 mmol/L (98-107) 05/17/20 16:29 Carbon Dioxide 20 mmol/L (23-31) L 05/17/20 16:29 BUN 39 mg/dL (8.4-25.7) H 05/17/20 16:29 Creatinine 3.67 mg/dL (0.7-1.3) H 05/17/20 16:29 Glucose 270 mg/dL (83-110) H 05/17/20 16:29 Calcium 8.4 mg/dL (7.8-10.44) 05/17/20 16: Total Bilirubin 0.7 mg/dL (0.2-1.2) 05/17/20 16:29 AST 12 U/L (5-34) 05/17/20 16: ALT 16 U/L (8-55) 05/17/20 16: Alkaline Phosphatase 83 U/L (40-110) 05/17/20 16:29 Serum Total Protein 7.1 g/dL (5.8-8.1) 05/17/20 16:29 Albumin 4.1 g/dL (3.4-4.8) 05/17/20 16:29 Urine Ketones Negative mg/dL (Negative) 05/17/20 18:05 Urine Blood Trace (Negative) A 05/17/20 18:05 Urine Nitrite Negative (Negative) 05/17/20 18:05 Ur Leukocyte Esterase Negative Elvira/uL (Negative) 05/17/20 18:05 Urine RBC 0-3 HPF (0-3) 05/17/20 18:05 Urine WBC 0-3 HPF (0-3) 05/17/20 18:05 Ur Squamous Epith Cells 0-3 HPF (0-3) 05/17/20 18:05 Urine Bacteria Rare-Few HPF (None Seen) 05/17/20 18:05 - EKG Interpretation EKG: EKG in ED showed 1st degree AV block and RBBB. FMR H&P: A/P - Problem List (1) Volume depletion Current Visit: Yes Status: Acute Code(s): E86.9 - VOLUME DEPLETION, UNSPECIFIED (2) Iron deficiency anemia Current Visit: Yes Status: Acute Code(s): D50.9 - IRON DEFICIENCY ANEMIA, UNSPECIFIED (3) HTN (hypertension) Current Visit: Yes Status: Acute Code(s): I10 - ESSENTIAL (PRIMARY) HYPERTENSION (4) Diabetes mellitus type 2, insulin dependent Current Visit: Yes Status: Acute Code(s): E11.9 - TYPE 2 DIABETES MELLITUS WITHOUT COMPLICATIONS; Z79.4 - GROUP HOME (CURRENT) USE OF INSULIN (5) Acute kidney injury Current Visit: No Status: Acute Code(s): N17.9 - ACUTE KIDNEY FAILURE, UNSPECIFIED (6) CAD (coronary artery disease) Current Visit: No Status: Chronic Code(s): I25.10 - ATHSCL HEART DISEASE OF [place] CORONARY ARTERY W/O ANG PCTRS Qualifiers: Coronary Disease-Associated Artery/Lesion type: bypass graft [place] vs. transplanted heart: [place] heart Associated angina: without angina Qualified Code(s): I25.810 - Atherosclerosis of coronary artery bypass graft(s) without angina pectoris (7) COPD (chronic obstructive pulmonary disease) Current Visit: No Status: Chronic Qualifiers: COPD type: unspecified COPD Qualified Code(s): J44.9 - Chronic obstructive pulmonary disease, unspecified (8) HLD (hyperlipidemia) Current Visit: No Status: Chronic Code(s): E78.5 - HYPERLIPIDEMIA, UNSPECIFIED Qualifiers: Hyperlipidemia type: unspecified Qualified Code(s): E78.5 - Hyperlipidemia , unspecified (9) Hypothyroidism Current Visit: No Status: Chronic Code(s): E03.9 - HYPOTHYROIDISM, UNSPECIFIED Qualifiers: Hypothyroidism type: unspecified Qualified Code(s): E03.9 - Hypothyroidism , unspecified (10) Tobacco abuse Current Visit: No Status: Chronic Code(s): Z72.0 - TOBACCO USE - Plan ## Pre Renal ETIENNE 2/2 Volume Depletion -volume resuscitation: given 1.5L bolus -maintenance fluids: LR @ 110ml/hr -strict I/O -BUN/Drapery Installer= 39/3.67 -will check BMP in the AM ## Type 2 DM, Insulin Dependent -Mild SSI -lantus 50U QHS -glucose checks -hold home medication metformin ## CAD s/p bypass x3 -on plavix 75mcg -on crestor 20mg ## HTN -monitor BPs -pt on lisinopril 2.5mg at home ## HLD -see above ## Hypothyroidism -pt on Levothyroxine 75mcg at home, restarted ## Iron Deficiency Anemia -H/H 11.132.6 -recheck CBC in AM -on ferrous sulfate at home ## COPD -not on any current medication at home ## Tobacco Abuse -detention smoker -will baby counselor with patient VTE PPX: Lovenox GI PPX: none Diet: Carb diet IVF: LR Code: Full PCP: Georgina Dispo: admitted to inpatient, telemetry. continue to volume resuscitate, monitor kidney function. FMR H&P: Upper Level - Plan Date/Time: 05/17/20 191 I, Aditi Haji, have evaluated this patient and agree with findings/plan as outlined by commercial intern resident. Pertinent changes/additions are listed here. 74 yo M with PMH CAD, IDDM2, HTN presents for weakness and is admitted for dehydration and ETIENNE. Endorsed gradual weakness over past week, worsening particularly today. No CP, SOB. Reports dizziness and mild headache that have now improved. He has AC at home. PE: Gen: NAD Heart: RRR, no murmur, MM dry, cap refill >2 secs Lungs: CTAB Ext: no peripheral edema ETIENNE 2/2 volume depletion -Cr on admission 3.67. Baseline GFR 60-80s on chart review - s/p 1.5L NS prior to admission -Avoid nephrotoxic meds and renally dose -Trops neg x3 -Continue LR @ 110, tolerating PO intake well here IDDM2 -BG 270 on admission, restart home insulin Chronic normocytic anemia -Hgb 11, at baseline. Prescribe iron supplements For full list of chronic medical problems see commercial intern note. Will be helpful to verify taken home meds in am with family Dispo: admit to telemetry inpatient, expected stay >48 hrs. Continue fluid resuscitation and continue to monitor for improved renal function. Addendum - Attending - Attending Attestation Date/Time: 05/17/20 3902 I personally evaluated the patient and discussed the management with Dr. Mercado I agree with the History, Examination, Assessment and Plan documented above with any addition or exceptions noted below - 74 yo M with PMH CAD, type 2 DM, HTN, and hypothyroidism presents for generalized weakness for the last week. Endorsed gradual weakness over past week, worsening particularly today. No CP, SOB. Reports dizziness and mild headache that have now improved. He has AC at home. Was outisde at baseball game earlier today whn dizziness developed. Does have AC at home. PMH/PSH/Meds/SH reviewed and agree with resident's documentation. Afebrile VSS Exam repeated by me and agree with resident's findings. Labs: WBC=8.3, H/H=11.1/32.8, Uv=788, K=4.1, By=963, CO2=20, BUN/Cr=39 /3.67, Nvwg=724, Trop I<0.010. A/P: 1) ETIENNE- will place in obs and continue IVF hydration. Review of hospital records shows patient had similar episode in July 2019. Baseline Cr=0.8-1. 2) DM - monitor accuchecks and continue home insulin. 3) Hypothyroidism - check TSH nad continue home levothyroxine.
[2020-05-17] MEDS ORDERED: Ondansetron PF 4 MG/2 ML Vial IVP PRN (19:30)
[2020-05-17] MEDS ORDERED: Ondansetron ODT 4 MG TAB PO PRN (19:30)
[2020-05-17] MEDS ORDERED: HumaLOG 300 UNITS/3 ML VIAL SC PRN ×2 (19:46→21:11)
[2020-05-17] MEDS ORDERED: Dextrose 50% Abboject 50 ML SYRINGE SLOW IVP PRN (19:46)
[2020-05-17] MEDS ORDERED: Dextrose 5% in Water 1,000 ML IV PRN (19:46)
[2020-05-17] MEDS: Lactated Ringer's 1,000 ML IV SCH (21:12)
[2020-05-17 21:37] VITALS: BMI 25.4
[2020-05-17 21:38] LABS: Troponin I 0.021 ng/mL (< 0.028)
[2020-05-17 23:01] LABS: Troponin I Less than 0.010 ng/mL (< 0.028)
[2020-05-18 04:53] LABS: #Basophils 0.1 thou/uL (0.0-0.2); #Eosinphils 0.3 thou/uL (0.0-0.7); #Lymphocytes 1.5 thou/uL (1.20-3.40); #Monocytes 0.6 thou/uL (0.11-0.59); #Neutrophils 6.2 thou/uL (1.40-6.50); %Basophils 0.6 % (0.0-1.0); %Eosinophils 3.3 % (0.0-10.0); Hemoglobin 11.4 g/dL (14.0-18.0); Mean Corpuscular HGB CONC 32.9 g/dL (32.0-36.0); Mean Corpuscular Hemoglobin 29.1 pg (27.0-31.0); Mean Corpuscular Volume 88.4 fL (78.0-98.0); Mean Platelet Volume 7.3 fL (7.4-10.4); Platelet Count 185 thou/uL (130-400); RBC Distribution Width 13.2 % (11.5-14.5); Red Blood Cell (RBC) Count 3.93 mill/uL (4.70-6.10); White Blood Cell (WBC) Count 8.6 thou/uL (4.8-10.8)
[2020-05-18 05:12] LABS: Anion Gap 12 mmol/L (10-20); BUN (Urea Nitrogen) 32 mg/dL (8.4-25.7); Calc. Creatinine Clearance 31 mL/min (70-130); Calcium 8.5 mg/dL (7.8-10.44); Carbon Dioxide 23 mmol/L (23-31); Chloride 108 mmol/L (98-107); Estimated GFR-MDRD 31; Glucose 387 mg/dL (83-110); Sodium 139 mmol/L (136-145)
--- NOTE | 2020-05-18 05:34 | PDOC.FM ---
- Subjective Subjective: Pt states that he is feeling better this AM. He states that his legs are not hurting like they were before. The nurse states his urine output has picked up. - Objective MAR Reviewed: Yes Vital Signs & Weight: Vital Signs (12 hours) Temp Pulse Resp BP Pulse Ox 05/18/20 03:14 98.2 F 75 18 148/68 H 93 L 05/17/20 23:22 134/61 05/17/20 20:15 98.2 F 71 16 164/69 H 98 Weight Weight 69.5 kg Result Diagrams: 05/18/20 04:36 05/18/20 04:36 Phys Exam - Physical Examination Constitutional: NAD HEENT: moist MMs Neck: no JVD Respiratory: no wheezing, clear to auscultation bilateral Cardiovascular: RRR, no significant murmur Gastrointestinal: soft, non-tender, no distention, positive bowel sounds Musculoskeletal: no edema, pulses present Neurological: moves all 4 limbs Psychiatric: normal affect, A&O x 3 Deviation from normal: Poor turgor, cap refill >2seconds Dx/Plan - Plan Plan: ETIENNE 2/2 volume depletion, improving -Continue mIVFs -Strict I&Os -Will monitor BMP -Possible DC tomorrow IDDM 2, poorly controlled -Lantus 50u HS -Diabetic protocol per orders -SSI, holding metformin HFpEF -Echo on 11/2019 EF 55-60%, grade 1/3 diastolic dysfunction -Will watch for fluid overload CAD -Continue home plavix and crestor HTN -Holding home lisinopril -Will start low dose coreg until his kidneys improve HLD As above Hypothyroidism -Continue levothyroxine 75mcg Iron deficiency anemia -Continue home ferrous sulfate COPD Tobacco abuse -Nicotine patch Addendum - Attending - Attending Attestation Date/Time: 05/18/20 1306 I personally evaluated the patient and discussed the management with Dr. Ross. I agree with the History, Examination, Assessment and Plan documented above with any addition or exceptions noted below. Cr down trending but still not at baseline. Continue IVF for now. repeat BMP tomorrow. Possible d/c tomorrow.
[2020-05-18] MEDS: Lactated Ringer's 1,000 ML IV SCH ×2 (05:44→16:03)
[2020-05-18] MEDS ORDERED: Levothyroxine Sodium 75 MCG TAB PO SCH (06:00)
[2020-05-18] MEDS: Acetaminophen 325 MG TAB PO PRN ×3 (08:18→20:53)
[2020-05-18] MEDS: Carvedilol 3.125 MG TAB PO SCH ×2 (08:18→18:17)
[2020-05-18] MEDS: Enoxaparin Sodium 30 MG/0.3 ML SYRINGE SC SCH (08:18)
[2020-05-18] MEDS ORDERED: HumaLOG 300 UNITS/3 ML VIAL SC SCH ×2 (11:30→17:00)
[2020-05-18] MEDS ORDERED: Carvedilol 3.125 MG TAB PO SCH (18:15)
[2020-05-18] MEDS ORDERED: Insulin Glargine 50 UNITS in Pre-Filled Syringe 1 EACH SC SCH (21:00)
[2020-05-18] MEDS ORDERED: Insulin Glargine 27 UNITS in Pre-Filled Syringe 1 EACH SC SCH (21:00)
[2020-05-18] MEDS ORDERED: Atorvastatin Calcium 40 MG TAB PO SCH (21:00)
[2020-05-18] MEDS ORDERED: Tamsulosin HCl 0.4 MG CAP PO SCH (21:00)
[2020-05-19] MEDS: Lactated Ringer's 1,000 ML IV SCH ×3 (01:18→10:51)
[2020-05-19 04:53] LABS: #Eosinphils 0.4 thou/uL (0.0-0.7); #Lymphocytes 1.9 thou/uL (1.20-3.40); #Monocytes 0.7 thou/uL (0.11-0.59); #Neutrophils 4.9 thou/uL (1.40-6.50); %Basophils 0.6 % (0.0-1.0); %Lymphocytes 23.5 % (21.0-51.0); %Monocytes 8.7 % (0.0-10.0); %Neutrophils 62.2 % (42.0-75.0); Hemoglobin 11.2 g/dL (14.0-18.0); Mean Corpuscular Hemoglobin 29.7 pg (27.0-31.0); Mean Corpuscular Volume 87.6 fL (78.0-98.0); Mean Platelet Volume 7.3 fL (7.4-10.4); Platelet Count 190 thou/uL (130-400); RBC Distribution Width 12.9 % (11.5-14.5); Red Blood Cell (RBC) Count 3.77 mill/uL (4.70-6.10); White Blood Cell (WBC) Count 7.9 thou/uL (4.8-10.8)
[2020-05-19 05:12] LABS: Anion Gap 12 mmol/L (10-20); BUN (Urea Nitrogen) 18 mg/dL (8.4-25.7); Calc. Creatinine Clearance 55 mL/min (70-130); Calcium 8.7 mg/dL (7.8-10.44); Carbon Dioxide 25 mmol/L (23-31); Chloride 108 mmol/L (98-107); Estimated GFR-MDRD 61; Glucose 80 mg/dL (83-110); Potassium 3.6 mmol/L (3.5-5.1); Sodium 141 mmol/L (136-145)
[2020-05-19] MEDS ORDERED: HumaLOG 300 UNITS/3 ML VIAL SC SCH (05:25)
--- NOTE | 2020-05-19 05:29 | PDOC.FM ---
- Subjective Subjective: Pt states he has doing better overnight. He reports no dizzines, leg pain, SOB, or chest pain. - Objective MAR Reviewed: Yes Vital Signs & Weight: Vital Signs (12 hours) Temp Pulse Resp BP Pulse Ox 05/19/20 03:18 97.9 F 68 16 130/58 L 99 05/18/20 19:10 98.6 F 68 16 169/68 H 98 Weight Weight 69.5 kg I&O: 05/17/20 05/18/20 05/19/20 06:59 06:59 06:59 Intake Total 1580 720 Output Total 1600 2125 Balance -20 -1405 Result Diagrams: 05/19/20 04:24 05/19/20 04:24 Phys Exam - Physical Examination Constitutional: NAD HEENT: moist MMs Neck: no JVD Respiratory: no wheezing, clear to auscultation bilateral Cardiovascular: RRR, no significant murmur Gastrointestinal: soft, non-tender, no distention, positive bowel sounds Musculoskeletal: no edema, pulses present Neurological: normal sensation, moves all 4 limbs Psychiatric: A&O x 3 Skin: cap refill <2 seconds Dx/Plan - Plan Plan: ETIENNE 2/2 volume depletion, nearing baseline -Continue mIVFs -Strict I&Os -Improved -Possible DC today IDDM 2, poorly controlled -Episode of hypoglycemia overnight, decreasing daily insulin by 10% -Lantus 50u HS -Humalog 7u AC -Diabetic protocol per orders -SSI, holding metformin, and may leave this off as he has had multiple admissions 2/2 dehydration and ETIENNE HFpEF -Echo on 11/2019 EF 55-60%, grade 1/3 diastolic dysfunction -Will watch for fluid overload CAD -Continue home plavix and crestor HTN -Continue lisinopril -Stopping coreg HLD As above Hypothyroidism -Continue levothyroxine 112 mcg Iron deficiency anemia -Continue home ferrous sulfate COPD Tobacco abuse -Nicotine patch Addendum - Attending - Attending Attestation Date/Time: 05/19/20 0964 I personally evaluated the patient and discussed the management with Dr. Ross. I agree with the History, Examination, Assessment and Plan documented above with any addition or exceptions noted below. Glucose better controlled but still not at goal. given hx of recurrent ETIENNE, will d/c metformin. PT to evaluate prior to d/c and recommend HH vs placement. Once PT evaluated, can D//C home. Needs to f/u at [facility] within next week for insulin titration. Could consider adding GLP1 agent at that time.
[2020-05-19] MEDS: Acetaminophen 325 MG TAB PO PRN (05:38)
[2020-05-19] MEDS ORDERED: Levothyroxine Sodium 75 MCG TAB PO SCH (06:00)
[2020-05-19] MEDS ORDERED: Ferrous Sulfate 325 MG TAB PO SCH (08:00)
[2020-05-19] MEDS ORDERED: Carvedilol 3.125 MG TAB PO SCH (08:00)
[2020-05-19] MEDS: HumaLOG 300 UNITS/3 ML VIAL SC SCH ×2 (08:13→10:55)
[2020-05-19] MEDS: Enoxaparin Sodium 30 MG/0.3 ML SYRINGE SC SCH (08:15)
[2020-05-19] MEDS ORDERED: Aspirin 81 mg Enteric Coated Tablet PO SCH (09:00)
[2020-05-19] MEDS ORDERED: Lisinopril 10 MG TAB PO SCH (09:00)
[2020-05-19] MEDS ORDERED: Insulin Glargine 25 UNITS in Pre-Filled Syringe 1 EACH SC SCH (09:00)
[2020-05-19 15:38] VITALS: TEMP 98.1
[2020-05-19 15:55] VITALS: BP 169/76
--- NOTE | 2020-05-19 20:00 | DIS ---
DATE OF ADMISSION: 05/17/2020 DATE OF DISCHARGE: 05/19/2020 ADMITTING ATTENDING: Dr. Sissy Couch. DISCHARGING ATTENDING: Dr. Agusto Hernandez. RESIDENT: Abraham Ross DO CONSULTS: None. PROCEDURES: Chest x-ray showing no acute process. Brain CT showing no acute intracranial process. PRIMARY DIAGNOSES: Severe hyperglycemia, dehydration, acute kidney injury on chronic kidney disease. SECONDARY DIAGNOSES: Hypertension, type 2 diabetes, hyperlipidemia, coronary artery disease, hypothyroidism, iron deficiency anemia, chronic obstructive pulmonary disease, and tobacco abuse. DISCHARGE MEDICATIONS: 1. Aspirin 81 mg p.o. daily. 2. Humalog 5 units a.c., hold if the patient does not eat meals or if glucose less than 100. 3. Levothyroxine 112 mcg p.o. daily. 4. Tamsulosin 0.4 mg p.o. h.s. 5. Ferrous sulfate 325 mg p.o. daily with meals. 6. Gabapentin 800 mg p.o. t.i.d. 7. [place] 10 mg p.r.n. q.6 hours for pain. 8. Lantus 50 units q.a.m. 9. Lisinopril 2.5 mg p.o. daily. 10. Rosuvastatin 20 mg p.o. h.s. DISCONTINUED MEDICATIONS: 1. Metformin. 2. Clindamycin. BRIEF HISTORY OF PRESENT ILLNESS/HOSPITAL COURSE: This is a 74-year-old male with past medical history as above, presented to the ER via EMS after feeling dizzy following a baseball game. He initially had BUN and creatinine that were 39 and 3.67 respectively. He was given a bolus in the ER and then an additional 500 mL bolus. He initially had oliguria, which resolved with fluid resuscitation. On admission, his glucose was 387. Following the first half of fluids, creatinine dropped down to 2.09. His metformin was held, and he received maintenance fluids as well as titrated on insulin to control his sugars. At the time of discharge, his metformin was decided to be stopped due to his frequent AKIs due to dehydration. I educated him extensively on hydration, sugar control, and to quit smoking. I also instructed him to follow up with his PCP, Dr. Townsend at [facility]. I discussed this plan with his daughter, who agreed with the plan at the time of discharge. They had no further questions at this time. The patient to follow up in 3 to 5 days in [facility]. DISPOSITION: Stable. DISCHARGE INSTRUCTIONS: 1. Location: Home. 2. Diet: Cardiac and carb consistent. 3. Activity: As tolerated. 4. Follow up as stated above with Dr. Townsend at [facility]. Job ID: [id number]
== END 2020-05-19 16:07 | disposition home or self-care (01) | DRG 683 ==
LOC: ERS 15:41 → 2NO 17:40
PROVIDERS: ADMIT Family Medicine; ATTEND Family Medicine
DX: N17.9 Acute kidney failure, unspecified (principal); I25.810 Atherosclerosis of coronary artery bypass graft(s) without angina pectoris; I13.0 Hypertensive heart and chronic kidney disease with heart failure and stage 1 through stage 4 chronic kidney disease, or unspecified chronic kidney disease; I50.32 Chronic diastolic (congestive) heart failure; E11.65 Type 2 diabetes mellitus with hyperglycemia; E86.0 Dehydration; E11.22 Type 2 diabetes mellitus with diabetic chronic kidney disease; E03.9 Hypothyroidism, unspecified; D50.9 Iron deficiency anemia, unspecified; J44.9 Chronic obstructive pulmonary disease, unspecified; E78.5 Hyperlipidemia, unspecified; E11.51 Type 2 diabetes mellitus with diabetic peripheral angiopathy without gangrene; E86.9 Volume depletion, unspecified; F17.210 Nicotine dependence, cigarettes, uncomplicated; F32.9 Major depressive disorder, single episode, unspecified; Z95.1 Presence of aortocoronary bypass graft; I25.2 Old myocardial infarction; Z90.49 Acquired absence of other specified parts of digestive tract; Z79.4 Long term (current) use of insulin; Z79.890 Hormone replacement therapy
CPT/HCPCS: 36415; 36416; 70450; 71045; 80048; 80053; 81003; 81015; 84443; 84484; 85025; 93005; 94760; 96360; 96361; J1650; J1815

== ENCOUNTER 2020-07-15 16:34 | Observation (INO) | payer MEDICARE, MEDICAID, OTHER ==
[~2020-07-15 16:34] MED LIST changes: -ISOVUE-370 76%-LOCM 1 ML ONE; +Iopamidol-370 76% 500 ML 1 ML ONE
--- NOTE | 2020-07-15 17:01 | RAD ---
Portable frontal chest radiograph: 07/15/2020 COMPARISON: 06/23/2020 HISTORY: Lethargy, weakness, hypotension FINDINGS: Lungs are clear. Heart and mediastinal contours appear within normal limits. Midline sterno lani wires are present. Supine imaging limits assessment for pneumothorax and pleural fluid. No focal consolidation or alveolar edema. IMPRESSION: No acute findings.
[2020-07-15 17:10] LABS: #Eosinphils 0.2 thou/uL (0.0-0.7); #Lymphocytes 1.4 thou/uL (1.20-3.40); #Monocytes 0.8 thou/uL (0.11-0.59); #Neutrophils 4.7 thou/uL (1.40-6.50); %Basophils 0.3 % (0.0-1.0); %Eosinophils 2.7 % (0.0-10.0); %Lymphocytes 19.3 % (21.0-51.0); %Monocytes 11.6 % (0.0-10.0); %Neutrophils 66.1 % (42.0-75.0); Hemoglobin 11.4 g/dL (14.0-18.0); Mean Corpuscular HGB CONC 32.2 g/dL (32.0-36.0); Mean Corpuscular Hemoglobin 28.4 pg (27.0-31.0); Mean Platelet Volume 7.6 fL (7.4-10.4); Platelet Count 263 thou/uL (130-400); RBC Distribution Width 12.5 % (11.5-14.5); Red Blood Cell (RBC) Count 4.01 mill/uL (4.70-6.10); White Blood Cell (WBC) Count 7.1 thou/uL (4.8-10.8)
--- NOTE | 2020-07-15 17:26 | CT ---
CT BRAIN WITHOUT CONTRAST: 07/15/20 HISTORY: Syncope. COMPARISON: 05/17/20. FINDINGS: Changes of cortical atrophy and chronic small vessel ischemic disease again seen. The ventricle size is stable and the basilar cisterns patent. No evidence of acute infarct, hemorrhage, midline shift or abnormal extra-axial fluid collections are seen. The bony calvarium is intact. There is mucosal disease in the paranasal sinuses. IMPRESSION: No CT evidence of acute intracranial process. POS: OFF
[2020-07-15 17:48] LABS: ALT (SGPT) 25 U/L (8-55); AST (SGOT) 16 U/L (5-34); Albumin 3.9 g/dL (3.4-4.8); Alkaline Phosphatase 65 U/L (40-110); Anion Gap 15 mmol/L (10-20); BUN (Urea Nitrogen) 22 mg/dL (8.4-25.7); Bilirubin, Total 0.6 mg/dL (0.2-1.2); CK (CPK) 41 U/L (30-200); Calc. Creatinine Clearance 0 mL/min (70-130); Calcium 8.3 mg/dL (7.8-10.44); Carbon Dioxide 19 mmol/L (23-31); Chloride 108 mmol/L (98-107); Estimated GFR-MDRD 41; Globulin 2.7 g/dL (2.4-3.5); Glucose 205 mg/dL (83-110); Lipase 65 U/L (8-78); Protein, Total 6.6 g/dL (5.8-8.1); Sodium 138 mmol/L (136-145)
--- NOTE | 2020-07-15 18:35 | CT ---
CT ANGIOGRAM THORAX WITH CONTRAST: (CTA pulmonary angiogram) DATE: 07/15/2020 HISTORY: 75-year-old male with hypotension and syncope TECHNIQUE: IV injection of iodinated contrast. Scan acquisition timing attempted to coincide with iodinated contrast bolus reaching maximal density in pulmonary arteries. 3-D MIP reconstructions. FINDINGS: Good contrast opacification of pulmonary arteries. No evidence of thrombus in pulmonary arteries or b ranches. Stents and or atherosclerotic calcifications of LAD, LCx, and left main coronary arteries. No pericardial effusion, pneumothorax, pleural effusion, pulmonary edema, or consolidation. Atherosclerosis of thoracic aorta without dissection or aneurysm. Several old left rib fracture defor mities. IMPRESSION: 1) no evidence of pulmonary thromboembolism. 2) coronary atherosclerosis due to calcified coronary lesion ICD-10: I 25.84
[2020-07-15 20:12] LABS: Lactic Acid 2.5 mmol/L (0.5-2.2)
[2020-07-15 20:20] LABS: Troponin I 0.017 ng/mL (< 0.028)
--- NOTE | 2020-07-15 20:25 | PDOC.FPRHP ---
- History of Present Illness Chief Complaint: syncope History of Present Illness: 75 y/o M with PMHx T2DM with neuropathy, hypothyroidism, BPH, CAD, diastolic dysfunction brought in by EMS after a syncopal episode with hypotension. 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 Thinks he may have hit his head. Denies chest pain, palpitations. States he drank 6 or 7 glasses of water today. Per report, when EMS arrived his BP was 60/30, he was given 800ml bolus. SBP improved to 90s upon arrival to the ED. He was given additional 2L fluid bolus in the ED with continued improvement to his BP. Patient also reports he was seen at an outside hospital 1 week ago and was diagnosed with pneumonia. He was given abx but he does not know what they are and he has not yet finished them. Denies fever, cough, SOB. ED Course: CT head negative for acute findings. CT chest no PE, no pneumonia. s/p 2L NS bolus. EKG with old RBBB, given ASA - Allergies/Adverse Reactions Allergies Allergy/AdvReac Type Severity Reaction Status Date / Time No Known Allergies Allergy Verified 07/16/20 02:14 - Home Medications Medication Instructions Recorded Confirmed Type Rosuvastatin [Crestor] 20 mg PO HS 04/13/14 07/16/20 History Tamsulosin HCl 0.4 mg PO DAILY 12/07/18 07/16/20 History Lisinopril [Zestril] 2.5 mg PO DAILY 07/09/19 07/16/20 History Ferrous Sulfate [Feosol] 325 mg PO QAM- #30 tab 11/14/19 07/16/20 Rx Aspirin [Ecotrin Low Strength] 81 mg PO DAILY #30 tab 05/19/20 07/16/20 Rx HumaLOG [HumaLOG Vial] 5 units SC AC 30 Days #1 vial 05/19/20 07/16/20 Rx Clopidogrel Bisulfate [Clopidogrel] 75 mg PO DAILY 07/16/20 07/16/20 History Insulin Glargine,Hum.Rec.Anlog 50 units SQ QPM 07/16/20 07/16/20 History [Lantus] Levothyroxine Sodium [Synthroid] 75 mcg PO 0600 07/16/20 07/16/20 History Mecobalamin [B12 Active] 1,000 mcg PO DAILY 07/16/20 07/16/20 History - History PMHx: T2DM, BPH, neuropathy, HLD, CAD s/p ND, diastolic dysfunction PSHx: sternotomy FHx: CAD Social: former smoker quit 2 weeks ago, former etoh use - Review of Systems General: denies: fever/chills ENT: denies: nasal congestion, rhinorrhea Respiratory: denies: cough, shortness of breath Cardiovascular: denies: chest pain, palpitation, edema Gastrointestinal: denies: nausea, vomiting, abdominal pain Genitourinary: denies: dysuria Neurological: reports: syncope - Vital signs BP: 128/75 HR: 70 RR: 15 Tmax: 97.7F Pox: 97% on RA Wt: 67.9 kg - Physical Exam Constitutional: NAD, awake, alert and oriented HEENT: normocephalic and atraumatic, conjunctiva clear, grossly normal vision, grossly normal hearing Heart: RRR, pulses present, no edema -Heart: distant heart sounds Lungs: CTAB, no respiratory distress Abdomen: soft, non-tender, bowel sounds present Neurological: no focal deficit Skin: no rash/lesions Psychiatric: normal mood and affect FMR H&P: Results - Labs Result Diagrams: 07/16/20 03:31 07/16/20 03:31 Lab results: WBC 7.1 thou/uL (4.8-10.8) 07/15/20 16:47 Hgb 11.4 g/dL (14.0-18.0) L 07/15/20 16:47 Hct 35.3 % (42.0-52.0) L 07/15/20 16:47 MCV 88.0 fL (78.0-98.0) 07/15/20 16:47 Plt Count 263 thou/uL (130-400) 07/15/20 16:47 Neutrophils % 66.1 % (42.0-75.0) 07/15/20 16:47 Sodium 138 mmol/L (136-145) 07/15/20 16:47 Potassium 4.0 mmol/L (3.5-5.1) 07/15/20 16:47 Chloride 108 mmol/L (98-107) H 07/15/20 16:47 Carbon Dioxide 19 mmol/L (23-31) L 07/15/20 16:47 BUN 22 mg/dL (8.4-25.7) 07/15/20 16:47 Creatinine 1.66 mg/dL (0.7-1.3) H 07/15/20 16:47 Glucose 205 mg/dL (83-110) H 07/15/20 16:47 Lactic Acid 2.5 mmol/L (0.5-2.2) H 07/15/20 19:49 Calcium 8.3 mg/dL (7.8-10.44) 07/15/20 16:47 Total Bilirubin 0.6 mg/dL (0.2-1.2) 07/15/20 16:47 AST 16 U/L (5-34) 07/15/20 16:47 ALT 25 U/L (8-55) 07/15/20 16:47 Alkaline Phosphatase 65 U/L (40-110) 07/15/20 16:47 Ammonia 36 umol/L (18-72) 07/15/20 16:49 Creatine Kinase 41 U/L (30-200) 07/15/20 16:47 B-Natriuretic Peptide 123.6 pg/mL (0-100) H 07/15/20 16:47 Serum Total Protein 6.6 g/dL (5.8-8.1) 07/15/20 16:47 Albumin 3.9 g/dL (3.4-4.8) 07/15/20 16:47 Lipase 65 U/L (8-78) 07/15/20 16:47 - EKG Interpretation 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 - BNP 123 - f/u echo, carotid dopplers - f/u orthostatics - monitor on tele ETIENNE Suspect prerenal given hypotension. - continue with IVF - hold home lisinopril Hypotension Suspect due to inadequate oral intake in combination with outdoor conditions. - IVF resuscitation - continue to monitor BPH - hold home tamsulosin as may contribute to orthostasis Neuropathy - continue home gabapentin T2DM Unclear if or how patient is taking his home insulin. - hold home insulin for now - mild SSI and adjust regimen as needed Hypothyroidism TSH wnl. - continue home levothyroxine Dispo: obs for syncope; CM consulted, may need placement, difficulty caring for self at home DVT ppx: lovenox GI ppx: not indicated FMR H&P: Upper Level - Plan Date/Time: 07/15/202024 I, [Ella Trejo], have evaluated this patient and agree with findings/plan as outlined by public health internship resident. Pertinent changes/additions are listed here. 75 yo M with hx of CABG brought in by EMS after syncopal episode. 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 Denies chest pain, palpitation. States he drank 6-7 cups of water today. Per ERMD had initial BP of 60/30mmHg. Received 1L fluid bolus in the ER. After discussion of patient with PCP, Dr. Erickson, it seems as if family has been concerned for patient's ability to care for himself for a while. EKG: RBBB, QTc 478ms Ddimer 0.64 BNP 123.[address]: No evidence of ICH CTA: Negative for embolus IMPRESSION: 1) no evidence of pulmonary thromboembolism. 2) coronary atherosclerosis due to calcified coronary lesion #Syncope: Likely presyncopal from dehydration. EKG with RBB, unsure if old or not. Further w/u with tele monitoring, orthostatics, TTE. #Hypotension: 60/30 in EMS. 109/50 after fluid bolus. Hold home anithypertensives. Rpt fluid bolus. #Dehydration- S/P fluid bolus. Clinically monitor. #Lactic acidosis- 3.2. 2/2 dehydration. S/P fluid bolus. Repeat 500cc fluid bolus, recheck. #ETIENNE vs. CKD- Likely prerenal from dehydration. Continue fluid resuscitation. Recheck in AM #Elevated ddimer- Neg CTA. No respiratory issues, non hypoxic. #Elevated BNP- 123- As high as 220 in May. TTE in Nov 2019 showed diastolic dysfunction with EF 55-60%. Euvolemic. Repeat echo in light of new syncope. #IDDM2- Sliding scale to cover #Physical deconditioning- PT/OT/CM. Anticipate possible placement. Need to further discuss with daughter in AM. Admit: Tele/Obs Code: Full PCP: Parisa Dvt ppx: Lovenox GI ppx: Not indicated See public health internship plan for rest of details Addendum - Attending - Attending Attestation Date/Time: 07/15/202119 I personally evaluated the patient and discussed the management with Dr. Herrera and Dr. Trejo I agree with the History, Examination, Assessment and Plan documented above with any addition or exceptions noted below. Admit for presyncope due to dehydration and hypovolemia. Monitor on tele. ECHO pending. Jose
[2020-07-15] MEDS ORDERED: Sodium Chloride 0.9% 1,000 ML IV SCH (21:40)
[2020-07-15] MEDS ORDERED: Ondansetron PF 4 MG/2 ML Vial IVP PRN (21:40)
[2020-07-15] MEDS ORDERED: Ondansetron ODT 4 MG TAB SL PRN (21:40)
[2020-07-15] MEDS ORDERED: Lactated Ringer's 500 ML IV SCH (22:45)
[2020-07-15] MEDS: Lactated Ringer's 1,000 ML IV SCH (22:45)
[2020-07-15 22:59] VITALS: BMI 24.9
[2020-07-15 23:18] LABS: Troponin I 0.025 ng/mL (< 0.028)
[2020-07-15 23:54] LABS: Amphetamine Not Detected (NotDetected); Barbiturates Screen Not Detected (NotDetected); Benzodiazepine Screen Not Detected (NotDetected); Cocaine Metabolite Screen Not Detected (NotDetected); Medtox Control Line Valid? VALID (VALID); Medtox Reader # READER 1; Methadone Not Detected (NotDetected); Methamphetamine Not Detected (NotDetected); Opiate Screen Not Detected (NotDetected); Oxycodone Screen Not Detected (NotDetected); Phencyclidine (PCP) Not Detected (NotDetected); THC/Cannabinoid Screen Not Detected (NotDetected); Tricyclic Screen Not Detected (NotDetected)
[2020-07-16 03:46] LABS: #Basophils 0.1 thou/uL (0.0-0.2); #Eosinphils 0.3 thou/uL (0.0-0.7); #Lymphocytes 1.6 thou/uL (1.20-3.40); #Monocytes 0.8 thou/uL (0.11-0.59); #Neutrophils 5.5 thou/uL (1.40-6.50); %Basophils 0.8 % (0.0-1.0); %Eosinophils 3.8 % (0.0-10.0); %Lymphocytes 19.6 % (21.0-51.0); %Monocytes 9.2 % (0.0-10.0); %Neutrophils 66.6 % (42.0-75.0); Hemoglobin 10.9 g/dL (14.0-18.0); Mean Corpuscular HGB CONC 33.3 g/dL (32.0-36.0); Mean Corpuscular Hemoglobin 29.1 pg (27.0-31.0); Mean Corpuscular Volume 87.3 fL (78.0-98.0); Mean Platelet Volume 7.5 fL (7.4-10.4); Platelet Count 229 thou/uL (130-400); RBC Distribution Width 12.6 % (11.5-14.5); Red Blood Cell (RBC) Count 3.74 mill/uL (4.70-6.10); White Blood Cell (WBC) Count 8.3 thou/uL (4.8-10.8)
[2020-07-16 04:04] LABS: Lactic Acid 1.4 mmol/L (0.5-2.2)
[2020-07-16 04:07] LABS: Anion Gap 14 mmol/L (10-20); BUN (Urea Nitrogen) 19 mg/dL (8.4-25.7); Calc. Creatinine Clearance 53 mL/min (70-130); Calcium 8.1 mg/dL (7.8-10.44); Carbon Dioxide 18 mmol/L (23-31); Chloride 111 mmol/L (98-107); Estimated GFR-MDRD 60; Glucose 158 mg/dL (83-110); Potassium 3.6 mmol/L (3.5-5.1); Sodium 139 mmol/L (136-145)
[2020-07-16] MEDS ORDERED: Dextrose 5% in Water 1,000 ML IV PRN (04:45)
[2020-07-16] MEDS ORDERED: HumaLOG 300 UNITS/3 ML VIAL SC PRN (04:45)
[2020-07-16] MEDS ORDERED: Dextrose 50% Abboject 50 ML SYRINGE SLOW IVP PRN (04:45)
--- NOTE | 2020-07-16 05:50 | PDOC.FM ---
- Subjective Subjective: Mr. Olvear is doing well this morning. He denies BLAKELY/lightheadedness/N/V/SOB/ dyspnea/CP/edema. He is A&O x3 but is not sure why he was brought to the hospital. He lives with his kids and gave permission to discuss his health with them. - Objective Vital Signs & Weight: Vital Signs (12 hours) Temp Pulse Resp BP Pulse Ox 07/16/20 00:00 98.6 F 57 L 17 157/71 H 100 07/15/20 21:25 97.7 F 65 12 172/73 H 100 Weight Weight 67.903 kg Result Diagrams: 07/16/20 03:31 07/16/20 03:31 Phys Exam - Physical Examination Constitutional: NAD (Sitting on edge of bed, eating breaskfast, talking on the phone) HEENT: moist MMs Neck: supple Respiratory: no wheezing, no rales, clear to auscultation bilateral Cardiovascular: RRR, no significant murmur Musculoskeletal: no edema, pulses present (radial and dorsalis pedis pulses palpable b/l) Neurological: non-focal, moves all 4 limbs Psychiatric: normal affect, A&O x 3 Skin: no rash, normal turgor, cap refill <2 seconds Dx/Plan - Plan Plan: This is a 75M who presented to the ED for a syncopal episode. Syncope - Suspected to be 2/2 dehydration. - EKG showed RBBB and prolonged QTc. It is unclear whether this is new or old. Will check previous records. - Echo from 11/2019 showed EF 55-60% with grade 1/3 diastolic dysf and aortic sclerosis that opens well Repeat echo pending to check to possible worsening stenosis - Tele monitoring continues to show HR in upper 50s/lower 60 with stable QTc prolongation and RBBB - TSH normal - UDS neg - Orthostatic vitals pending - Carotid doppler pending Hypertension - 60/30 in EMS -> fluid boluses -> 109/50 Hold home anithypertensives. Received a total of 3300mL boluses - mIVF 110mL/h - BP overnight 160-170s Add on prn medication Dehydration - S/P fluid bolus. - Clinically stable Moist mucous membranes Cap refill <1s Skin turgor normal - Eating/drinking well Anemia - Hb stable - Normocytic - Consider work up Lactic acidosis - 3.2 on admission -> 1.4 - Likely 2/2 dehydration. - BCx pending ETIENNE vs. CKD - Likely prerenal 2/2 dehydration. - Continue fluid resuscitation. - 07/16: Cr 1.18, BUN 19 Elevated ddimer - D-dimer 0.64 - Neg CTA. - No respiratory sxs or hypoxia Elevated BNP - BNP 126. As high as 220 in May. - TTE in Nov 2019 showed diastolic dysfunction with EF 55-60%. - Euvolemic. - Repeat echo in light of new syncope. IDDM2 - SSI - Monitor BGs Physical deconditioning - PT/OT/CM for possible placement. - Need to further discuss with daughters Admit: Tele/Obs Code: Full PCP: Parisa Dvt ppx: Lovenox GI ppx: Not indicated Disposition: Discharge pending echo and carotid artery doppler results Addendum - Attending - Attending Attestation Date/Time: 07/16/20 1349 I personally evaluated the patient and discussed the management with the team. I agree with the History, Examination, Assessment and Plan documented above with any addition or exceptions noted below. Await studies. TTE possibly can be deferred since last one ~7 months ago. Hopeful dc today.
[2020-07-16] MEDS: Lactated Ringer's 1,000 ML IV SCH ×2 (05:59→15:21)
[2020-07-16] MEDS ORDERED: Levothyroxine Sodium 75 MCG TAB PO SCH (06:00)
[2020-07-16 07:33] LABS: Troponin I Less than 0.010 ng/mL (< 0.028)
[2020-07-16] MEDS ORDERED: Ferrous Sulfate 325 MG TAB PO SCH (08:00)
[2020-07-16] MEDS ORDERED: Aspirin 81 mg Enteric Coated Tablet PO SCH (09:00)
[2020-07-16] MEDS ORDERED: Clopidogrel Bisulfate 75 MG TAB PO SCH (09:00)
[2020-07-16] MEDS ORDERED: Cyanocobalamin (Vitamin B-12) 1,000 MCG TAB PO SCH (09:00)
[2020-07-16] MEDS ORDERED: Enoxaparin Sodium 40 MG/0.4 ML SYRINGE SC SCH (09:00)
--- NOTE | 2020-07-16 09:16 | ULT ---
CAROTID DUPLEX ULTRASOUND: DATE: 07/16/2020 INDICATION: History of syncope. COMPARISON: None. FINDINGS: There is mild diffuse atherosclerotic irregularity involving the common carotid arteries, carotid bul bs, and bilateral ICAs. Peak systolic velocity in the right ICA is 71.8 cm/second and in the right CCA is 106.7 cm/second. Th e right ICA/CCA ratio is 0.67. Peak systolic velocity in the left ICA is 87.2 cm/second and in the left CCA is 121 cm/second. The le ft ICA/CCA ratio is 0.72. Antegrade flow is seen within both vertebral arteries. IMPRESSION: No hemodynamically significant stenosis demonstrated. POS: BH
[2020-07-16 12:30] LABS: SARS-CoV-2 MS2 Positive; SARS-CoV-2 N Gene Negative; SARS-CoV-2 S Gene Negative; SARS-CoV-2 by NAA Not Detected (NotDetected); SARS-CoV-2 orf1ab Negative
[2020-07-16] MEDS ORDERED: Rosuvastatin 20 MG TAB PO SCH (21:00)
[2020-07-16 23:10] VITALS: BP 183/86; TEMP 97.9
--- NOTE | 2020-07-17 01:39 | DIS ---
DATE OF ADMISSION: 07/15/2020 DATE OF DISCHARGE: 07/16/2020 RESIDENT: Teresa Gutierrez MD ADMITTING ATTENDING: Dr. Lorene Montaño. DISCHARGE ATTENDING: Dr. Jose Mckeon. CONSULTS: None. PROCEDURES: TTE (07/16), carotid dopplers (07/16). PRIMARY DIAGNOSIS: Syncope. SECONDARY DIAGNOSES: 1. Hypertension. 2. Dehydration. 3. Anemia. 4. Lactic acidosis. 5. Acute kidney injury versus chronic kidney disease. 6. Elevated D-dimer. 7. Elevated BNP. 8. Insulin-dependent type 2 diabetes. DISCHARGE MEDICATIONS: 1. Aspirin 81 mg. 2. Clopidogrel 75 mg p.o. s.i.d. 3. Ferrous sulfate 325 mg by mouth q.a.m. 4. Levothyroxine 75 mcg p.o. s.i.d. 5. B12 at 1000 mcg p.o. s.i.d. 6. Rosuvastatin 20 mg p.o. at bedtime. 7. Humalog 5 units subcu postprandial. 8. Insulin glargine 50 units subcu q.p.m. 9. Lisinopril 2.5 mg p.o. s.i.d. 10. Tamsulosin 0.4 mg p.o. s.i.d. DISCONTINUED MEDICATIONS: None. HISTORY OF PRESENT ILLNESS/HOSPITAL COURSE: This is a 75-year-old male, brought through EMS after a syncopal episode with hypotension. He had been outside most of the day when he began to feel hot and dizzy and then fainted. He was unsure if he had hit his head. When EMS arrived, his systolic blood pressure was in the 60s and he required 3300 mL of fluid in boluses to stabilize his BP. EKG showed right bundle branch block which is determined to be old and a prolonged QTc interval. Echo from November 2019 showed an EF of 55% to 60% with grade 1/3 diastolic dysfunction and aortic sclerosis that opened well. TSH was normal. UDS was negative. The patient was placed on maintenance fluids and did well overnight with no symptoms the next morning. He had a mild normocytic anemia, but the hemoglobin was stable. His lactic acidosis was 3.2 but resolved with fluids supporting the suspicion that it was secondary to dehydration. His ETIENNE was suspected to be secondary to dehydration and creatinine returned to normal after rehydration. Repeat echo obtained in the hospital demonstrated an EF of 55% to 60% with no mention of sclerotic or stenotic valve. Carotid artery dopplers were also obtained and were negative. There was some discussion from his children whom he lives with about potential need for him to be placed in a skilled facility or half-way. Case Management was consulted, but the patient was adamant he would not go and he was discharged home. DISPOSITION: Stable. DISCHARGE INSTRUCTIONS: Location: Home. Diet: Heart healthy. Activity: As tolerated. Followup: Recommended to follow up with PCP within 1 week of discharge. Job ID: [id number] [facility] HOSPITALJaki
--- NOTE | 2020-07-18 14:23 | EKG ---
Test Reason : Blood Pressure : / mmHG Vent. Rate : 073 BPM Atrial Rate : 073 BPM P-R Int : 180 ms QRS Dur : 138 ms QT Int : 434 ms P-R-T Axes : 036 017 021 degrees QTc Int : 478 ms Normal sinus rhythm Right bundle branch block Abnormal ECG Confirmed by GALILEA SQUIRES MD ([id number]), website/blog editor SELINA MOY ([id number]) on 07/18/2020 2:22:44 PM Referred By: Confirmed By:GALILEA SQUIRES MD
== END 2020-07-16 20:45 | disposition home or self-care (01) ==
LOC: ERS 16:34 → 2NO 21:48 → INTOOBSV 21:48
PROVIDERS: ADMIT Internal Medicine; ATTEND Student in an Organized Health Care Education/Training Program
DX: E86.0 Dehydration (principal); E86.1 Hypovolemia; R55 Syncope and collapse; I10 Essential (primary) hypertension; D64.9 Anemia, unspecified; E11.10 Type 2 diabetes mellitus with ketoacidosis without coma; N17.9 Acute kidney failure, unspecified; R79.89 Other specified abnormal findings of blood chemistry; E11.40 Type 2 diabetes mellitus with diabetic neuropathy, unspecified; I95.9 Hypotension, unspecified; N40.0 Benign prostatic hyperplasia without lower urinary tract symptoms; I25.10 Atherosclerotic heart disease of native coronary artery without angina pectoris; I25.84 Coronary atherosclerosis due to calcified coronary lesion; I25.2 Old myocardial infarction; E78.5 Hyperlipidemia, unspecified; E03.9 Hypothyroidism, unspecified; I45.10 Unspecified right bundle-branch block; R53.81 Other malaise; Z87.891 Personal history of nicotine dependence; Z79.02 Long term (current) use of antithrombotics/antiplatelets; Z79.4 Long term (current) use of insulin; Z79.82 Long term (current) use of aspirin; Z79.899 Other long term (current) drug therapy; Z95.1 Presence of aortocoronary bypass graft; Z20.828 Contact with and (suspected) exposure to other viral communicable diseases
CPT/HCPCS: 70450; 71045; 71275; 80048; 80306; 82140; 82550; 82962 ×2; 83605 ×2; 83690; 83880; 84484 ×3; 85025; 85379; 86850; 86900; 86901; 87040; 93005; 93306; 93880; 96360; 97116; 97139; 99285; U0003; 36415; 36416; 80053; 84443; 87635; 96361; 96372; G0378; J1650; Q9967

== ENCOUNTER 2021-03-26 08:48 | Emergency (ER) | payer MEDICARE, MEDICAID ==
[2021-03-26] MEDS ORDERED: Boostrix 0.5 ML (Tdap) VIAL ONE (09:08)
[2021-03-26] MEDS ORDERED: Ketorolac Tromethamine 30 MG/ML VIAL ONE (09:35)
== END 2021-03-26 10:58 | disposition home or self-care (01) ==
LOC: ERS 08:48
DX: S00.03XA Contusion of scalp, initial encounter (principal); S50.811A Abrasion of right forearm, initial encounter; I25.2 Old myocardial infarction; E11.9 Type 2 diabetes mellitus without complications; E03.9 Hypothyroidism, unspecified; E78.5 Hyperlipidemia, unspecified; I10 Essential (primary) hypertension; F17.210 Nicotine dependence, cigarettes, uncomplicated; Z79.899 Other long term (current) drug therapy; Z79.82 Long term (current) use of aspirin; Y04.2XXA Assault by strike against or bumped into by another person, initial encounter
CPT/HCPCS: 70450; 72125; 90471; 90715; 96372; J1885

== ENCOUNTER 2021-06-27 22:29 | Inpatient (IN) | payer MEDICARE, MEDICAID ==
[2021-06-27 23:33] LABS: #Eosinphils 0.1 thou/uL (0.0-0.7); #Lymphocytes 0.9 thou/uL (1.20-3.40); %Basophils 0.1 % (0.0-1.0); %Eosinophils 0.6 % (0.0-10.0); %Lymphocytes 5.2 % (21.0-51.0); %Monocytes 5.9 % (0.0-10.0); %Neutrophils 88.3 % (42.0-75.0); Hemoglobin 11.5 g/dL (14.0-18.0); Mean Corpuscular HGB CONC 34.1 g/dL (32.0-36.0); Mean Corpuscular Hemoglobin 29.2 pg (27.0-31.0); Mean Corpuscular Volume 85.7 fL (78.0-98.0); Mean Platelet Volume 7.2 fL (7.4-10.4); Platelet Count 253 thou/uL (130-400); RBC Distribution Width 12.1 % (11.5-14.5); Red Blood Cell (RBC) Count 3.95 mill/uL (4.70-6.10)
[2021-06-27 23:52] LABS: ALT (SGPT) 9 U/L (8-55); AST (SGOT) 9 U/L (5-34); Albumin 3.9 g/dL (3.4-4.8); Alkaline Phosphatase 105 U/L (40-110); Anion Gap 16 mmol/L (10-20); BUN (Urea Nitrogen) 41 mg/dL (8.4-25.7); Bilirubin, Total 0.8 mg/dL (0.2-1.2); Calc. Creatinine Clearance 0 mL/min (70-130); Carbon Dioxide 20 mmol/L (23-31); Chloride 99 mmol/L (98-107); Globulin 3.2 g/dL (2.4-3.5); Glucose 471 mg/dL (83-110); Potassium 3.9 mmol/L (3.5-5.1); Protein, Total 7.1 g/dL (5.8-8.1); Sodium 131 mmol/L (136-145)
[2021-06-28 03:02] LABS: Bacteria/HPF None Seen HPF (None Seen); Bilirubin Negative (Negative); Blood, Urine Negative (Negative); Clarity Clear (Clear); Glucose, Urine (Dipstick) Greater than 1000 mg/dL (Negative); Ketone, Urine Negative (Negative); Leukocyte Negative Leu/uL (Negative); Nitrite Negative (Negative); Protein, Urine (Dipstick) 50 mg/dL (Neg-Trace); RBC/HPF 0-3 HPF (0-3); Specific Gravity, Urine 1.026 (1.002-1.036); Squamous Epithelial 0-3 HPF (0-3); Urobilinogen Normal mg/dL (Less than 2); pH, Urine 5.5 (5.0-9.0)
[2021-06-28 04:34] LABS: SARS-CoV-2 NAA Rapid Test Not Detected (NotDetected)
[2021-06-28 04:43] LABS: Amphetamine Not Detected (NotDetected); Barbiturates Screen Not Detected (NotDetected); Benzodiazepine Screen Not Detected (NotDetected); Cocaine Metabolite Screen Not Detected (NotDetected); Methadone Not Detected (NotDetected); Methamphetamine Not Detected (NotDetected); Opiate Screen Not Detected (NotDetected); Oxycodone Screen Not Detected (NotDetected); Phencyclidine (PCP) Not Detected (NotDetected); THC/Cannabinoid Screen Not Detected (NotDetected); Tricyclic Screen Not Detected (NotDetected)
[2021-06-28] MEDS ORDERED: Ondansetron ODT 4 MG TAB SL PRN (06:15)
[2021-06-28] MEDS ORDERED: Ondansetron PF 4 MG/2 ML Vial IVP PRN (06:15)
[2021-06-28] MEDS ORDERED: Sodium Chloride 0.9% 1,000 ML IV SCH (06:15)
[2021-06-28] MEDS ORDERED: Acetaminophen 325 MG TAB PO PRN (06:15)
[2021-06-28] MEDS ORDERED: Cefepime 2 GM VIAL ONE ×2 (06:16→16:53)
[2021-06-28 08:30] LABS: Free T4 (Free Thyroxine) 0.74 ng/dL (0.70-1.48)
[2021-06-28] MEDS ORDERED: Communication Order-Pharmacy FS SCH (09:10)
[2021-06-28] MEDS ORDERED: Enoxaparin Sodium 30 MG/0.3 ML SYRINGE SC SCH (09:30)
[2021-06-28 09:47] LABS: #Eosinphils 0.2 thou/uL (0.0-0.7); #Lymphocytes 1.1 thou/uL (1.20-3.40); #Monocytes 0.9 thou/uL (0.11-0.59); #Neutrophils 13.1 thou/uL (1.40-6.50); %Eosinophils 1.1 % (0.0-10.0); %Lymphocytes 6.9 % (21.0-51.0); %Neutrophils 85.9 % (42.0-75.0); Hemoglobin 12.3 g/dL (14.0-18.0); Mean Corpuscular HGB CONC 32.6 g/dL (32.0-36.0); Mean Corpuscular Hemoglobin 28.1 pg (27.0-31.0); Mean Corpuscular Volume 86.1 fL (78.0-98.0); Mean Platelet Volume 7.3 fL (7.4-10.4); Platelet Count 259 thou/uL (130-400); Red Blood Cell (RBC) Count 4.37 mill/uL (4.70-6.10); White Blood Cell (WBC) Count 15.3 thou/uL (4.8-10.8)
[2021-06-28 10:07] LABS: ALT (SGPT) 11 U/L (8-55); AST (SGOT) 10 U/L (5-34); Albumin 3.6 g/dL (3.4-4.8); Alkaline Phosphatase 95 U/L (40-110); Anion Gap 14 mmol/L (10-20); BUN (Urea Nitrogen) 31 mg/dL (8.4-25.7); Bilirubin, Total 0.9 mg/dL (0.2-1.2); Calc. Creatinine Clearance 0 mL/min (70-130); Calcium 8.7 mg/dL (7.8-10.44); Carbon Dioxide 19 mmol/L (23-31); Chloride 106 mmol/L (98-107); Globulin 3.2 g/dL (2.4-3.5); Glucose 320 mg/dL (83-110); Potassium 3.5 mmol/L (3.5-5.1); Protein, Total 6.8 g/dL (5.8-8.1); Sodium 135 mmol/L (136-145)
[2021-06-28] MEDS ORDERED: Enoxaparin Sodium 30 MG/0.3 ML SYRINGE ONE (10:14)
[2021-06-28] MEDS: Sodium Chloride 0.9% 1,000 ML IV SCH ×2 (10:47→17:58)
[2021-06-28] MEDS ORDERED: Cefepime 1 GM in Sodium Chloride 0.9% 100 ML IVPB SCH (14:00)
[2021-06-28] MEDS ORDERED: Dextrose 5% in Water 1,000 ML IV PRN ×2 (15:01→22:43)
[2021-06-28] MEDS ORDERED: Dextrose 50% Abboject 50 ML SYRINGE SLOW IVP PRN ×2 (15:01→22:43)
[2021-06-28] MEDS ORDERED: Iopamidol-370 76% 500 ML 1 ML ONE (15:15)
[2021-06-28] MEDS: CEFEPIME HCL IN DEXTROSE 5 % 1 GM in Premix Bag 1 BAG IVPB SCH ×2 (17:59→23:33)
[2021-06-28 18:44] VITALS: BMI 24.0
[2021-06-28] MEDS: Vancomycin 1 GM in Premix Bag 1 BAG IVPB SCH (20:34)
[2021-06-28] MEDS: Rosuvastatin 20 MG TAB PO SCH (20:35)
[2021-06-28] MEDS ORDERED: Famotidine 20 MG TAB PO SCH (21:00)
[2021-06-28] MEDS ORDERED: HumaLOG 300 UNITS/3 ML VIAL SC PRN (22:43)
[2021-06-29] MEDS: Sodium Chloride 0.9% 1,000 ML IV SCH (01:47)
[2021-06-29 05:00] LABS: #Eosinphils 0.3 thou/uL (0.0-0.7); #Lymphocytes 1.3 thou/uL (1.20-3.40); #Monocytes 0.9 thou/uL (0.11-0.59); %Basophils 0.3 % (0.0-1.0); %Eosinophils 2.6 % (0.0-10.0); %Lymphocytes 10.6 % (21.0-51.0); %Monocytes 7.4 % (0.0-10.0); Hemoglobin 12.3 g/dL (14.0-18.0); Mean Corpuscular Hemoglobin 29.1 pg (27.0-31.0); Mean Corpuscular Volume 85.4 fL (78.0-98.0); Mean Platelet Volume 7.2 fL (7.4-10.4); Platelet Count 273 thou/uL (130-400); Red Blood Cell (RBC) Count 4.23 mill/uL (4.70-6.10); White Blood Cell (WBC) Count 12.6 thou/uL (4.8-10.8)
[2021-06-29 05:47] LABS: ALT (SGPT) 11 U/L (8-55); AST (SGOT) 12 U/L (5-34); Albumin 3.8 g/dL (3.4-4.8); Alkaline Phosphatase 103 U/L (40-110); Anion Gap 14 mmol/L (10-20); BUN (Urea Nitrogen) 20 mg/dL (8.4-25.7); Bilirubin, Total 0.8 mg/dL (0.2-1.2); Calc. Creatinine Clearance 47 mL/min (70-130); Carbon Dioxide 22 mmol/L (23-31); Chloride 105 mmol/L (98-107); Globulin 2.9 g/dL (2.4-3.5); Glucose 247 mg/dL (83-110); Potassium 3.2 mmol/L (3.5-5.1); Protein, Total 6.7 g/dL (5.8-8.1); Sodium 138 mmol/L (136-145)
[2021-06-29] MEDS ORDERED: Levothyroxine Sodium 100 MCG TAB PO SCH (06:00)
[2021-06-29] MEDS: HumaLOG 300 UNITS/3 ML VIAL SC PRN ×3 (06:32→18:16)
[2021-06-29] MEDS: CEFEPIME HCL IN DEXTROSE 5 % 1 GM in Premix Bag 1 BAG IVPB SCH ×3 (06:32→22:09)
[2021-06-29] MEDS ORDERED: Ondansetron ODT 4 MG TAB PO PRN (07:15)
[2021-06-29] MEDS ORDERED: Artificial Tear Sol 15 ML BOT EA EYE PRN (07:15)
[2021-06-29] MEDS ORDERED: Cepastat Lozenges 1 LOZ PO PRN (07:15)
[2021-06-29] MEDS ORDERED: Calcium Carbonate 500 MG ChewTAB PO PRN (07:15)
[2021-06-29] MEDS ORDERED: Ondansetron PF 4 MG/2 ML Vial IVP PRN (07:15)
[2021-06-29] MEDS ORDERED: Loperamide HCl 2 MG CAP PO PRN (07:15)
[2021-06-29] MEDS ORDERED: Senokot S 8.6-50 MG TAB PO PRN (07:15)
[2021-06-29] MEDS ORDERED: GUAIFENESIN SF SOLN 200 MG/10 ML UDCUP PO PRN (07:15)
[2021-06-29] MEDS ORDERED: Sodium Chloride 0.65% Nasal 44 ML BOT EA NARE PRN (07:15)
[2021-06-29] MEDS ORDERED: Loratadine 10 MG TAB PO PRN (07:15)
[2021-06-29] MEDS ORDERED: Hydrocerin (Eucerin) Cream 120 gm Jar TOP PRN (07:15)
[2021-06-29] MEDS ORDERED: HYDROcodone/Acetaminophen 5/325 mg Tablet PO PRN (07:15)
[2021-06-29] MEDS ORDERED: Bisacodyl 5 MG TAB PO PRN (07:15)
[2021-06-29] MEDS ORDERED: Potassium Chloride 20 MEQ TAB PO SCH (07:15)
[2021-06-29] MEDS ORDERED: hydrALAZINE 20 MG/ML VIAL SLOW IVP PRN (07:15)
[2021-06-29] MEDS ORDERED: Benzonatate 100 MG CAP PO PRN (07:15)
[2021-06-29] MEDS ORDERED: Zolpidem Tartrate 5 MG TAB PO PRN (07:15)
[2021-06-29] MEDS: Ferrous Sulfate 325 MG TAB PO SCH (09:16)
[2021-06-29] MEDS: Clopidogrel Bisulfate 75 MG TAB PO SCH (09:16)
[2021-06-29] MEDS: Aspirin 81 mg Enteric Coated Tablet PO SCH (09:16)
[2021-06-29] MEDS: Enoxaparin Sodium 30 MG/0.3 ML SYRINGE SC SCH (09:17)
[2021-06-29] MEDS: Lisinopril 2.5 MG TAB PO SCH (09:17)
[2021-06-29] MEDS: Tamsulosin HCl 0.4 MG CAP PO SCH (09:17)
[2021-06-29] MEDS: Vancomycin 1 GM in Premix Bag 1 BAG IVPB SCH ×2 (09:20→22:54)
[2021-06-29] MEDS ORDERED: Lantus 1000 UNITS/10 ML VIAL SC SCH (21:00)
[2021-06-29] MEDS ORDERED: Famotidine 20 MG TAB PO SCH (21:00)
[2021-06-29] MEDS: Rosuvastatin 20 MG TAB PO SCH (22:06)
[2021-06-30 05:09] LABS: #Eosinphils 0.5 thou/uL (0.0-0.7); #Lymphocytes 1.5 thou/uL (1.20-3.40); #Monocytes 0.7 thou/uL (0.11-0.59); #Neutrophils 7.4 thou/uL (1.40-6.50); %Basophils 0.1 % (0.0-1.0); %Eosinophils 4.7 % (0.0-10.0); %Monocytes 7.2 % (0.0-10.0); %Neutrophils 72.9 % (42.0-75.0); Hemoglobin 11.3 g/dL (14.0-18.0); Mean Corpuscular HGB CONC 33.3 g/dL (32.0-36.0); Mean Corpuscular Hemoglobin 28.3 pg (27.0-31.0); Mean Platelet Volume 7.4 fL (7.4-10.4); Platelet Count 274 thou/uL (130-400); RBC Distribution Width 11.9 % (11.5-14.5); White Blood Cell (WBC) Count 10.1 thou/uL (4.8-10.8)
[2021-06-30 05:32] LABS: ALT (SGPT) 18 U/L (8-55); AST (SGOT) 17 U/L (5-34); Albumin 3.4 g/dL (3.4-4.8); Alkaline Phosphatase 87 U/L (40-110); Anion Gap 12 mmol/L (10-20); BUN (Urea Nitrogen) 18 mg/dL (8.4-25.7); Bilirubin, Total 0.6 mg/dL (0.2-1.2); Calc. Creatinine Clearance 44 mL/min (70-130); Carbon Dioxide 22 mmol/L (23-31); Chloride 104 mmol/L (98-107); Globulin 3.2 g/dL (2.4-3.5); Glucose 218 mg/dL (83-110); Protein, Total 6.6 g/dL (5.8-8.1); Sodium 135 mmol/L (136-145)
[2021-06-30 05:35] LABS: Potassium 2.8 mmol/L (3.5-5.1)
[2021-06-30] MEDS ORDERED: Levothyroxine Sodium 75 MCG TAB PO SCH (06:00)
[2021-06-30] MEDS ORDERED: Potassium Chloride 20 MEQ TAB PO SCH (06:15)
[2021-06-30] MEDS: HumaLOG 300 UNITS/3 ML VIAL SC PRN ×3 (06:16→18:01)
[2021-06-30] MEDS: CEFEPIME HCL IN DEXTROSE 5 % 1 GM in Premix Bag 1 BAG IVPB SCH ×2 (06:17→14:34)
[2021-06-30 06:30] LABS: Magnesium 1.6 mg/dL (1.6-2.6)
[2021-06-30] MEDS ORDERED: Magnesium Sulfate 2 GM in Sodium Chloride 0.9% 100 ML IVPB SCH (07:15)
[2021-06-30] MEDS ORDERED: Magnesium 2 GM/50 ML 2 GM in Premix Bag 1 BAG IVPB SCH (07:30)
[2021-06-30] MEDS: Aspirin 81 mg Enteric Coated Tablet PO SCH (08:17)
[2021-06-30] MEDS: Ferrous Sulfate 325 MG TAB PO SCH (08:17)
[2021-06-30] MEDS: Enoxaparin Sodium 30 MG/0.3 ML SYRINGE SC SCH (08:17)
[2021-06-30] MEDS: Clopidogrel Bisulfate 75 MG TAB PO SCH (08:18)
[2021-06-30] MEDS: Tamsulosin HCl 0.4 MG CAP PO SCH (08:18)
[2021-06-30] MEDS: Lisinopril 2.5 MG TAB PO SCH (09:01)
[2021-06-30] MEDS: Vancomycin 1 GM in Premix Bag 1 BAG IVPB SCH (09:43)
[2021-06-30] MEDS ORDERED: 1/2 NS w/KCL 20 mEq 1,000 ML IV SCH (11:00)
[2021-06-30] MEDS: Potassium Chloride 20 MEQ TAB PO SCH ×2 (11:17→18:00)
[2021-06-30 15:35] LABS: Potassium 4.1 mmol/L (3.5-5.1)
[2021-06-30 16:13] VITALS: BP 123/64; TEMP 98
== END 2021-06-30 18:36 | disposition home or self-care (01) | DRG 871 ==
LOC: ERS 22:29 → ERHOLD 06-28 03:59 → 2SE 06-28 04:10 → OBSVTOIN 06-28 15:33 → 2SE 06-28 19:45 → 3SE 06-30 12:06
PROVIDERS: ADMIT Internal Medicine; ATTEND Internal Medicine
DX: A41.9 Sepsis, unspecified organism (principal); G93.41 Metabolic encephalopathy; N17.9 Acute kidney failure, unspecified; I25.810 Atherosclerosis of coronary artery bypass graft(s) without angina pectoris; E03.9 Hypothyroidism, unspecified; I10 Essential (primary) hypertension; R65.20 Severe sepsis without septic shock; E11.65 Type 2 diabetes mellitus with hyperglycemia; F17.210 Nicotine dependence, cigarettes, uncomplicated; E78.2 Mixed hyperlipidemia; J44.9 Chronic obstructive pulmonary disease, unspecified; Z20.822 Contact with and (suspected) exposure to COVID-19; N40.0 Benign prostatic hyperplasia without lower urinary tract symptoms; Z79.82 Long term (current) use of aspirin; Z95.1 Presence of aortocoronary bypass graft; Z79.4 Long term (current) use of insulin; Z79.899 Other long term (current) drug therapy; I25.2 Old myocardial infarction; Z90.49 Acquired absence of other specified parts of digestive tract
CPT/HCPCS: 36415; 36416; 70450; 71045; 71260; 74177; 80053; 80306; 81003; 81015; 82140; 83605; 83735; 84145; 84439; 84443; 84481; 85025; 87040; 87086; 93005; 96365; 96368; G0378; J0692; J1650; J1815; J3370; J3475; J3480; J7050; Q9967; U0002; U0005

== ENCOUNTER 2021-07-01 23:55 | Inpatient (IN) | payer MEDICARE, MEDICAID ==
[2021-07-02 00:58] LABS: #Eosinphils 0.5 thou/uL (0.0-0.7); #Monocytes 0.6 thou/uL (0.11-0.59); #Neutrophils 6.3 thou/uL (1.40-6.50); %Basophils 0.3 % (0.0-1.0); %Eosinophils 5.9 % (0.0-10.0); %Neutrophils 74.7 % (42.0-75.0); Hemoglobin 10.8 g/dL (14.0-18.0); Mean Corpuscular HGB CONC 32.6 g/dL (32.0-36.0); Mean Corpuscular Hemoglobin 28.4 pg (27.0-31.0); Mean Corpuscular Volume 87.2 fL (78.0-98.0); Mean Platelet Volume 7.4 fL (7.4-10.4); Platelet Count 327 thou/uL (130-400); Red Blood Cell (RBC) Count 3.79 mill/uL (4.70-6.10); White Blood Cell (WBC) Count 8.5 thou/uL (4.8-10.8)
[2021-07-02 01:32] LABS: ALT (SGPT) 17 U/L (8-55); AST (SGOT) 13 U/L (5-34); Albumin 3.2 g/dL (3.4-4.8); Alkaline Phosphatase 91 U/L (40-110); Anion Gap 12 mmol/L (10-20); BUN (Urea Nitrogen) 33 mg/dL (8.4-25.7); Bilirubin, Total 0.4 mg/dL (0.2-1.2); Calc. Creatinine Clearance 0 mL/min (70-130); Calcium 8.5 mg/dL (7.8-10.44); Carbon Dioxide 19 mmol/L (23-31); Chloride 105 mmol/L (98-107); Glucose 437 mg/dL (83-110); Potassium 4.2 mmol/L (3.5-5.1); Protein, Total 6.2 g/dL (5.8-8.1); Sodium 132 mmol/L (136-145)
[2021-07-02 06:32] LABS: Bilirubin Negative (Negative); Blood, Urine Trace (Negative); Clarity Clear (Clear); Glucose, Urine (Dipstick) 300 mg/dL (Negative); Ketone, Urine Negative (Negative); Leukocyte Negative Leu/uL (Negative); Nitrite Negative (Negative); Protein, Urine (Dipstick) 30 mg/dL (Neg-Trace); RBC/HPF 0-3 HPF (0-3); Specific Gravity, Urine 1.009 (1.002-1.036); Squamous Epithelial 0-3 HPF (0-3); Urobilinogen Normal mg/dL (Less than 2)
[2021-07-02 06:34] LABS: Bacteria/HPF 1+ HPF (None Seen)
[2021-07-02] MEDS ORDERED: Labetalol HCl 100 MG/20 ML VIAL SLOW IVP PRN (07:14)
[2021-07-02] MEDS ORDERED: cloNIDine 0.1 MG TAB PO PRN (07:14)
[2021-07-02] MEDS ORDERED: HumaLOG 300 UNITS/3 ML VIAL SC PRN (07:14)
[2021-07-02] MEDS ORDERED: Benzonatate 100 MG CAP PO PRN (07:14)
[2021-07-02] MEDS ORDERED: Loperamide HCl 2 MG CAP PO PRN (07:14)
[2021-07-02] MEDS ORDERED: Acetaminophen 325 MG TAB PO PRN (07:14)
[2021-07-02] MEDS ORDERED: Sodium Chloride 0.65% Nasal 44 ML BOT EA NARE PRN (07:14)
[2021-07-02] MEDS ORDERED: GUAIFENESIN SF SOLN 200 MG/10 ML UDCUP PO PRN (07:14)
[2021-07-02] MEDS ORDERED: Bisacodyl 10 MG SUPP PR PRN (07:14)
[2021-07-02] MEDS ORDERED: hydrALAZINE 20 MG/ML VIAL SLOW IVP PRN (07:14)
[2021-07-02] MEDS ORDERED: Artificial Tear Sol 15 ML BOT EA EYE PRN (07:14)
[2021-07-02] MEDS ORDERED: Ondansetron ODT 4 MG TAB PO PRN (07:14)
[2021-07-02] MEDS ORDERED: Loratadine 10 MG TAB PO PRN (07:14)
[2021-07-02] MEDS ORDERED: Cepastat Lozenges 1 LOZ PO PRN (07:14)
[2021-07-02] MEDS ORDERED: Dextrose 5% in Water 1,000 ML IV PRN (07:14)
[2021-07-02] MEDS ORDERED: HYDROcodone/Acetaminophen 5/325 mg Tablet PO PRN (07:14)
[2021-07-02] MEDS ORDERED: Ondansetron PF 4 MG/2 ML Vial IVP PRN (07:14)
[2021-07-02] MEDS ORDERED: Dextrose 50% Abboject 50 ML SYRINGE SLOW IVP PRN (07:14)
[2021-07-02] MEDS ORDERED: Hydrocerin (Eucerin) Cream 120 gm Jar TOP PRN (07:14)
[2021-07-02] MEDS ORDERED: Calcium Carbonate 500 MG ChewTAB PO PRN ×2 (07:14)
[2021-07-02] MEDS ORDERED: Guaifenesin DM 100-10/5 ML UDCUP PO PRN (07:14)
[2021-07-02] MEDS ORDERED: Senokot S 8.6-50 MG TAB PO PRN (07:14)
[2021-07-02] MEDS ORDERED: Melatonin 3 MG TAB PO PRN (07:18)
[2021-07-02] MEDS ORDERED: Aspirin Chewable 81 MG TAB ONE (08:13)
[2021-07-02] MEDS ORDERED: Clopidogrel Bisulfate 75 MG TAB ONE (08:13)
[2021-07-02] MEDS: Sodium Chloride 0.9% 1,000 ML IV SCH ×2 (08:28→20:58)
[2021-07-02] MEDS: Clopidogrel Bisulfate 75 MG TAB PO SCH (08:31)
[2021-07-02] MEDS: Aspirin 81 mg Enteric Coated Tablet PO SCH (08:31)
[2021-07-02] MEDS: Ferrous Sulfate 325 MG TAB PO SCH (10:41)
[2021-07-02] MEDS: Heparin 5,000 UNITS/ML VIAL SC SCH ×2 (10:41→20:58)
[2021-07-02] MEDS: Tamsulosin HCl 0.4 MG CAP PO SCH (10:42)
[2021-07-02 14:20] LABS: Creatinine, Urine 35.67 mg/dL (63-166)
[2021-07-02 15:58] VITALS: BMI 24.7
[2021-07-02] MEDS: HumaLOG 300 UNITS/3 ML VIAL SC PRN (17:54)
[2021-07-02] MEDS: Rosuvastatin 20 MG TAB PO SCH (20:57)
[2021-07-02] MEDS: Lantus 1000 UNITS/10 ML VIAL SC SCH (20:57)
[2021-07-03 03:44] LABS: #Eosinphils 0.6 thou/uL (0.0-0.7); #Monocytes 0.6 thou/uL (0.11-0.59); #Neutrophils 6.2 thou/uL (1.40-6.50); %Basophils 0.2 % (0.0-1.0); %Eosinophils 7.5 % (0.0-10.0); %Lymphocytes 11.4 % (21.0-51.0); %Monocytes 7.3 % (0.0-10.0); %Neutrophils 73.7 % (42.0-75.0); Hemoglobin 10.4 g/dL (14.0-18.0); Mean Corpuscular HGB CONC 34.1 g/dL (32.0-36.0); Mean Corpuscular Hemoglobin 29.3 pg (27.0-31.0); Mean Corpuscular Volume 85.9 fL (78.0-98.0); Mean Platelet Volume 6.7 fL (7.4-10.4); Platelet Count 261 thou/uL (130-400); RBC Distribution Width 11.8 % (11.5-14.5); Red Blood Cell (RBC) Count 3.54 mill/uL (4.70-6.10); White Blood Cell (WBC) Count 8.4 thou/uL (4.8-10.8)
[2021-07-03] MEDS: Sodium Chloride 0.9% 1,000 ML IV SCH (03:47)
[2021-07-03 04:37] LABS: ALT (SGPT) 12 U/L (8-55); AST (SGOT) 10 U/L (5-34); Albumin 3.1 g/dL (3.4-4.8); Alkaline Phosphatase 82 U/L (40-110); Anion Gap 11 mmol/L (10-20); BUN (Urea Nitrogen) 19 mg/dL (8.4-25.7); Bilirubin, Total 0.3 mg/dL (0.2-1.2); Calc. Creatinine Clearance 30 mL/min (70-130); Calcium 7.9 mg/dL (7.8-10.44); Carbon Dioxide 21 mmol/L (23-31); Chloride 109 mmol/L (98-107); Globulin 2.6 g/dL (2.4-3.5); Glucose 213 mg/dL (83-110); Magnesium 1.5 mg/dL (1.6-2.6); Phosphorus 2.7 mg/dL (2.3-4.7); Potassium 3.4 mmol/L (3.5-5.1); Protein, Total 5.7 g/dL (5.8-8.1); Sodium 138 mmol/L (136-145)
[2021-07-03] MEDS: Levothyroxine Sodium 100 MCG TAB PO SCH (05:59)
[2021-07-03] MEDS ORDERED: Potassium Chloride 20 MEQ TAB PO SCH (07:00)
[2021-07-03] MEDS: Aspirin 81 mg Enteric Coated Tablet PO SCH (07:46)
[2021-07-03] MEDS: Clopidogrel Bisulfate 75 MG TAB PO SCH (07:46)
[2021-07-03] MEDS: Tamsulosin HCl 0.4 MG CAP PO SCH (07:46)
[2021-07-03] MEDS: Ferrous Sulfate 325 MG TAB PO SCH (07:46)
[2021-07-03] MEDS: Multivitamin W/ Minerals 1 TAB PO SCH (07:47)
[2021-07-03] MEDS: 1/2 NS w/KCL 20 mEq 1,000 ML IV SCH ×2 (07:47→22:38)
[2021-07-03] MEDS: Heparin 5,000 UNITS/ML VIAL SC SCH ×2 (07:57→20:12)
[2021-07-03] MEDS ORDERED: Magnesium Sulfate 3 GM in Sodium Chloride 0.9% 100 ML IVPB SCH (08:00)
[2021-07-03] MEDS: HumaLOG 300 UNITS/3 ML VIAL SC PRN ×2 (12:07→16:19)
[2021-07-03] MEDS: Rosuvastatin 20 MG TAB PO SCH (20:12)
[2021-07-03] MEDS: Lantus 1000 UNITS/10 ML VIAL SC SCH (20:12)
[2021-07-04 05:04] LABS: Anion Gap 11 mmol/L (10-20); BUN (Urea Nitrogen) 14 mg/dL (8.4-25.7); Calc. Creatinine Clearance 48 mL/min (70-130); Calcium 8.5 mg/dL (7.8-10.44); Carbon Dioxide 23 mmol/L (23-31); Chloride 108 mmol/L (98-107); Glucose 91 mg/dL (83-110); Magnesium 1.8 mg/dL (1.6-2.6); Potassium 3.7 mmol/L (3.5-5.1); Sodium 138 mmol/L (136-145)
[2021-07-04] MEDS: Levothyroxine Sodium 100 MCG TAB PO SCH (06:01)
[2021-07-04] MEDS: Ferrous Sulfate 325 MG TAB PO SCH (08:23)
[2021-07-04] MEDS: Heparin 5,000 UNITS/ML VIAL SC SCH (08:24)
[2021-07-04] MEDS: Aspirin 81 mg Enteric Coated Tablet PO SCH (08:24)
[2021-07-04] MEDS: Tamsulosin HCl 0.4 MG CAP PO SCH (08:24)
[2021-07-04] MEDS: Multivitamin W/ Minerals 1 TAB PO SCH (08:24)
[2021-07-04] MEDS: Clopidogrel Bisulfate 75 MG TAB PO SCH (08:24)
[2021-07-04 08:38] VITALS: BP 135/76; TEMP 98.2
[2021-07-04] MEDS: 1/2 NS w/KCL 20 mEq 1,000 ML IV SCH (11:42)
== END 2021-07-04 13:21 | disposition home or self-care (01) | DRG 682 ==
LOC: ERS 23:55 → ERHOLD 07-02 02:41 → ONC 07-02 14:42
PROVIDERS: ADMIT Internal Medicine; ATTEND Internal Medicine
DX: N17.9 Acute kidney failure, unspecified (principal); G93.41 Metabolic encephalopathy; E87.1 Hypo-osmolality and hyponatremia; I25.810 Atherosclerosis of coronary artery bypass graft(s) without angina pectoris; E03.9 Hypothyroidism, unspecified; I95.9 Hypotension, unspecified; E11.65 Type 2 diabetes mellitus with hyperglycemia; E86.9 Volume depletion, unspecified; N40.0 Benign prostatic hyperplasia without lower urinary tract symptoms; J44.9 Chronic obstructive pulmonary disease, unspecified; E87.6 Hypokalemia; E78.2 Mixed hyperlipidemia; I11.0 Hypertensive heart disease with heart failure; Z95.1 Presence of aortocoronary bypass graft; I25.2 Old myocardial infarction; Z90.49 Acquired absence of other specified parts of digestive tract; Z79.82 Long term (current) use of aspirin; Z79.4 Long term (current) use of insulin; Z79.899 Other long term (current) drug therapy
CPT/HCPCS: 36415; 36416; 71045; 76770; 80048; 80053; 81003; 81015; 82570; 83605; 83735; 84100; 84156; 84300; 84443; 84481; 85025; 87040; 87086; 93005; J1644; J1815; J3475; J3480; J3490; J7050

== ENCOUNTER 2021-09-06 16:42 | Emergency (ER) | payer MEDICARE, MEDICAID ==
[2021-09-06] MEDS ORDERED: Magnesium 2 GM/50 ML BAG (IN WATER) ONE (17:17)
[2021-09-06 17:27] LABS: #Eosinphils 0.1 thou/uL (0.0-0.7); #Lymphocytes 0.7 thou/uL (1.20-3.40); #Monocytes 0.5 thou/uL (0.11-0.59); #Neutrophils 5.6 thou/uL (1.40-6.50); %Basophils 0.6 % (0.0-1.0); %Eosinophils 1.3 % (0.0-10.0); %Lymphocytes 10.5 % (21.0-51.0); %Monocytes 6.6 % (0.0-10.0); Hemoglobin 11.1 g/dL (14.0-18.0); Mean Corpuscular HGB CONC 33.3 g/dL (32.0-36.0); Mean Corpuscular Hemoglobin 29.1 pg (27.0-31.0); Mean Corpuscular Volume 87.4 fL (78.0-98.0); Mean Platelet Volume 7.4 fL (7.4-10.4); Platelet Count 250 thou/uL (130-400); RBC Distribution Width 12.8 % (11.5-14.5); Red Blood Cell (RBC) Count 3.83 mill/uL (4.70-6.10); White Blood Cell (WBC) Count 6.9 thou/uL (4.8-10.8)
[2021-09-06 17:51] LABS: ALT (SGPT) 10 U/L (8-55); AST (SGOT) 10 U/L (5-34); Alkaline Phosphatase 82 U/L (40-110); Anion Gap 14 mmol/L (10-20); BUN (Urea Nitrogen) 27 mg/dL (8.4-25.7); Bilirubin, Total 0.9 mg/dL (0.2-1.2); Calc. Creatinine Clearance 0 mL/min (70-130); Calcium 8.8 mg/dL (7.8-10.44); Carbon Dioxide 23 mmol/L (23-31); Chloride 105 mmol/L (98-107); Globulin 2.5 g/dL (2.4-3.5); Glucose 310 mg/dL (83-110); Magnesium 1.4 mg/dL (1.6-2.6); Potassium 3.9 mmol/L (3.5-5.1); Protein, Total 6.5 g/dL (5.8-8.1); Sodium 138 mmol/L (136-145)
== END 2021-09-06 19:00 | disposition left against medical advice (07) ==
LOC: ERS 16:42
DX: I95.9 Hypotension, unspecified (principal); R41.82 Altered mental status, unspecified; I45.10 Unspecified right bundle-branch block; E11.9 Type 2 diabetes mellitus without complications; I10 Essential (primary) hypertension; E78.00 Pure hypercholesterolemia, unspecified; Z95.5 Presence of coronary angioplasty implant and graft; Z79.84 Long term (current) use of oral hypoglycemic drugs; Z79.82 Long term (current) use of aspirin; Z79.899 Other long term (current) drug therapy
CPT/HCPCS: 36415; 70450; 71045; 80053; 83605; 83735; 83880; 84439; 84443; 84484; 85025; 93005; 96365; J3475

== ENCOUNTER 2022-03-11 20:39 | Emergency (ER) | payer MEDICARE, MEDICAID ==
[2022-03-11 21:19] LABS: Actual Bicarbonate (HCO3v) 19 mEq/L (22-28); Analyzer IN Cardio ER; Base Excess -4.7 mEq/L (-2.0 to +3.0); Calcium, Ionized (venous) 1.07 mmol/L (1.16-1.32); Chloride (VBG) 99 mmol/L (98-106); Hemoglobin (Hb) 14.4 g/dL (12.6-17.4); Potassium (VBG) 3.64 mmol/L (3.70-5.30); pH (venous) 7.41 (7.32-7.43)
[2022-03-11 21:27] LABS: #Eosinphils 0.1 thou/uL (0.0-0.7); #Lymphocytes 0.7 thou/uL (1.20-3.40); #Monocytes 0.7 thou/uL (0.11-0.59); #Neutrophils 10.1 thou/uL (1.40-6.50); %Basophils 0.2 % (0.0-1.0); %Lymphocytes 5.9 % (21.0-51.0); %Monocytes 5.9 % (0.0-10.0); Hemoglobin 13.8 g/dL (14.0-18.0); Mean Corpuscular HGB CONC 34.2 g/dL (32.0-36.0); Mean Corpuscular Hemoglobin 29.1 pg (27.0-31.0); Mean Corpuscular Volume 85.1 fL (78.0-98.0); Mean Platelet Volume 8.2 fL (7.4-10.4); Platelet Count 181 thou/uL (130-400); RBC Distribution Width 14.8 % (11.5-14.5); Red Blood Cell (RBC) Count 4.75 mill/uL (4.70-6.10); White Blood Cell (WBC) Count 11.6 thou/uL (4.8-10.8)
[2022-03-11] MEDS ORDERED: Morphine 4 MG/ML VIAL ONE (21:32)
[2022-03-11] MEDS ORDERED: Insulin Regular 300 UNITS/3 ML VIAL ONE (21:32)
[2022-03-11] MEDS ORDERED: Ondansetron PF 4 MG/2 ML Vial ONE (21:32)
[2022-03-11 22:46] LABS: Bilirubin Negative (Negative); Blood, Urine Negative (Negative); Clarity Clear (Clear); Glucose, Urine (Dipstick) Greater than 1000 mg/dL (Negative); Ketone, Urine Negative (Negative); Leukocyte Negative Leu/uL (Negative); Nitrite Negative (Negative); Protein, Urine (Dipstick) Negative (Neg-Trace); Specific Gravity, Urine 1.019 (1.002-1.036); Urobilinogen Normal mg/dL (Less than 2); pH, Urine 5.5 (5.0-9.0)
[2022-03-11 23:00] LABS: ALT (SGPT) 8 U/L (8-55); AST (SGOT) 8 U/L (5-34); Albumin 3.9 g/dL (3.4-4.8); Alkaline Phosphatase 116 U/L (40-110); Anion Gap 16 mmol/L (10-20); BUN (Urea Nitrogen) 20 mg/dL (8.4-25.7); Calc. Creatinine Clearance 0 mL/min (70-130); Calcium 8.6 mg/dL (7.8-10.44); Carbon Dioxide 21 mmol/L (23-31); Chloride 99 mmol/L (98-107); Globulin 2.7 g/dL (2.4-3.5); Glucose 483 mg/dL (83-110); Lipase 75 U/L (8-78); Magnesium 1.4 mg/dL (1.6-2.6); Potassium 3.6 mmol/L (3.5-5.1); Protein, Total 6.6 g/dL (5.8-8.1); Sodium 132 mmol/L (136-145)
== END 2022-03-12 01:35 | disposition home or self-care (01) ==
LOC: ERS 20:39
DX: B34.9 Viral infection, unspecified (principal); Z20.822 Contact with and (suspected) exposure to COVID-19
CPT/HCPCS: 36415; 70450; 71045; 72170; 80053; 81003; 82805; 83690; 83735; 84484; 85025; 93005; 96374; 96375; J1815; J2270; J2405

== ENCOUNTER 2022-04-02 17:30 | Emergency (ER) | payer MEDICARE, MEDICAID ==
[2022-04-02 18:01] LABS: #Eosinphils 0.2 thou/uL (0.0-0.7); #Monocytes 0.5 thou/uL (0.11-0.59); %Basophils 0.5 % (0.0-1.0); %Eosinophils 2.3 % (0.0-10.0); %Lymphocytes 12.4 % (21.0-51.0); %Monocytes 6.9 % (0.0-10.0); %Neutrophils 77.9 % (42.0-75.0); Hemoglobin 13.1 g/dL (14.0-18.0); Mean Corpuscular HGB CONC 33.4 g/dL (32.0-36.0); Mean Corpuscular Hemoglobin 28.8 pg (27.0-31.0); Mean Corpuscular Volume 86.3 fL (78.0-98.0); Mean Platelet Volume 7.4 fL (7.4-10.4); Platelet Count 194 thou/uL (130-400); RBC Distribution Width 12.7 % (11.5-14.5); Red Blood Cell (RBC) Count 4.55 mill/uL (4.70-6.10); White Blood Cell (WBC) Count 7.7 thou/uL (4.8-10.8)
[2022-04-02 18:21] LABS: Anion Gap 11 mmol/L (10-20); BUN (Urea Nitrogen) 19 mg/dL (8.4-25.7); Calc. Creatinine Clearance 0 mL/min (70-130); Calcium 7.9 mg/dL (7.8-10.44); Carbon Dioxide 22 mmol/L (23-31); Chloride 110 mmol/L (98-107); Glucose 262 mg/dL (83-110); Potassium 3.2 mmol/L (3.5-5.1); Sodium 140 mmol/L (136-145)
[2022-04-02] MEDS ORDERED: Potassium Chloride 20 MEQ TAB ONE (18:37)
== END 2022-04-02 18:54 | disposition home or self-care (01) ==
LOC: ERS 17:30
DX: E11.65 Type 2 diabetes mellitus with hyperglycemia (principal); E87.6 Hypokalemia; I10 Essential (primary) hypertension; I45.10 Unspecified right bundle-branch block
CPT/HCPCS: 36415; 36416; 80048; 85025; 93005; 96360

== ENCOUNTER 2022-05-04 09:18 | Observation (INO) | payer OTHER, MEDICAID ==
[2022-05-04 10:30] LABS: #Eosinphils 0.2 thou/uL (0.0-0.7); #Lymphocytes 1.2 thou/uL (1.20-3.40); #Monocytes 0.7 thou/uL (0.11-0.59); #Neutrophils 8.1 thou/uL (1.40-6.50); %Basophils 0.3 % (0.0-1.0); %Eosinophils 1.6 % (0.0-10.0); %Lymphocytes 11.4 % (21.0-51.0); %Monocytes 6.4 % (0.0-10.0); %Neutrophils 80.4 % (42.0-75.0); Hemoglobin 14.7 g/dL (14.0-18.0); Mean Corpuscular HGB CONC 32.9 g/dL (32.0-36.0); Mean Corpuscular Hemoglobin 28.4 pg (27.0-31.0); Mean Corpuscular Volume 86.5 fL (78.0-98.0); Mean Platelet Volume 7.7 fL (7.4-10.4); Platelet Count 206 thou/uL (130-400); RBC Distribution Width 11.9 % (11.5-14.5); Red Blood Cell (RBC) Count 5.15 mill/uL (4.70-6.10); White Blood Cell (WBC) Count 10.1 thou/uL (4.8-10.8)
[2022-05-04 10:51] LABS: ALT (SGPT) 13 U/L (8-55); AST (SGOT) 13 U/L (5-34); Albumin 4.2 g/dL (3.4-4.8); Alkaline Phosphatase 98 U/L (40-110); Anion Gap 17 mmol/L (10-20); BUN (Urea Nitrogen) 31 mg/dL (8.4-25.7); Bilirubin, Total 1.8 mg/dL (0.2-1.2); CK (CPK) 39 U/L (30-200); Calc. Creatinine Clearance 0 mL/min (70-130); Calcium 9.1 mg/dL (7.8-10.44); Carbon Dioxide 21 mmol/L (23-31); Chloride 102 mmol/L (98-107); Estimated GFR 35; Globulin 3.1 g/dL (2.4-3.5); Glucose 328 mg/dL (83-110); Lipase 80 U/L (8-78); Magnesium 1.2 mg/dL (1.6-2.6); Potassium 4.8 mmol/L (3.5-5.1); Protein, Total 7.3 g/dL (5.8-8.1); Sodium 135 mmol/L (136-145)
[2022-05-04] MEDS ORDERED: Magnesium 2 GM/50 ML BAG (IN WATER) ONE (11:19)
[2022-05-04 11:53] LABS: Phosphorus 3.2 mg/dL (2.3-4.7)
[2022-05-04 13:21] LABS: Bilirubin Negative (Negative); Blood, Urine Negative (Negative); Clarity Clear (Clear); Glucose, Urine (Dipstick) 150 mg/dL (Negative); Ketone, Urine Negative (Negative); Leukocyte Negative Leu/uL (Negative); Nitrite Negative (Negative); Protein, Urine (Dipstick) Negative (Neg-Trace); Specific Gravity, Urine 1.007 (1.002-1.036); Urobilinogen Normal mg/dL (Less than 2)
[2022-05-04] MEDS ORDERED: Ondansetron PF 4 MG/2 ML Vial IVP PRN (14:20)
[2022-05-04] MEDS ORDERED: Ondansetron ODT 4 MG TAB PO PRN (14:20)
[2022-05-04] MEDS ORDERED: Acetaminophen 325 MG TAB PO PRN (14:20)
[2022-05-04] MEDS ORDERED: Dextrose 5% in Water 1,000 ML IV PRN (14:20)
[2022-05-04] MEDS ORDERED: Dextrose 50% Abboject 50 ML SYRINGE SLOW IVP PRN (14:20)
[2022-05-04] MEDS ORDERED: HumaLOG 300 UNITS/3 ML VIAL SC PRN (14:22)
[2022-05-04] MEDS: Lactated Ringer's 1,000 ML IV SCH (15:12)
[2022-05-04 15:22] VITALS: BMI 22.1
[2022-05-04 16:18] LABS: Hemoglobin A1c Greater than 14.0 % (4.0-6.0)
[2022-05-04] MEDS: HumaLOG 300 UNITS/3 ML VIAL SC PRN ×2 (17:02→20:47)
[2022-05-04] MEDS ORDERED: Labetalol HCl 100 MG/20 ML VIAL SLOW IVP PRN (17:03)
[2022-05-04] MEDS ORDERED: hydrALAZINE 20 MG/ML VIAL SLOW IVP PRN (17:03)
[2022-05-04] MEDS ORDERED: Rosuvastatin 20 MG TAB PO SCH (21:00)
[2022-05-04] MEDS ORDERED: Insulin Glargine 30 UNITS/0.3 ML VIAL SC SCH (21:00)
[2022-05-05] MEDS: Lactated Ringer's 1,000 ML IV SCH (01:15)
[2022-05-05] MEDS: HumaLOG 300 UNITS/3 ML VIAL SC PRN (04:50)
[2022-05-05] MEDS ORDERED: Levothyroxine Sodium 75 MCG TAB PO SCH (06:00)
[2022-05-05 06:28] LABS: #Eosinphils 0.3 thou/uL (0.0-0.7); #Lymphocytes 1.4 thou/uL (1.20-3.40); #Monocytes 0.7 thou/uL (0.11-0.59); #Neutrophils 5.9 thou/uL (1.40-6.50); %Basophils 0.2 % (0.0-1.0); %Eosinophils 3.4 % (0.0-10.0); %Lymphocytes 17.3 % (21.0-51.0); %Monocytes 8.2 % (0.0-10.0); Hemoglobin 13.6 g/dL (14.0-18.0); Mean Corpuscular HGB CONC 33.1 g/dL (32.0-36.0); Mean Corpuscular Hemoglobin 28.7 pg (27.0-31.0); Mean Corpuscular Volume 86.6 fL (78.0-98.0); Mean Platelet Volume 8.1 fL (7.4-10.4); Platelet Count 190 thou/uL (130-400); Red Blood Cell (RBC) Count 4.74 mill/uL (4.70-6.10); White Blood Cell (WBC) Count 8.3 thou/uL (4.8-10.8)
[2022-05-05 06:51] LABS: Anion Gap 14 mmol/L (10-20); BUN (Urea Nitrogen) 27 mg/dL (8.4-25.7); Calc. Creatinine Clearance 47 mL/min (70-130); Calcium 8.8 mg/dL (7.8-10.44); Carbon Dioxide 21 mmol/L (23-31); Chloride 107 mmol/L (98-107); Estimated GFR 66; Glucose 192 mg/dL (83-110); Magnesium 1.4 mg/dL (1.6-2.6); Potassium 3.7 mmol/L (3.5-5.1); Sodium 138 mmol/L (136-145)
[2022-05-05] MEDS ORDERED: Ferrous Sulfate 325 MG TAB PO SCH (08:00)
[2022-05-05] MEDS ORDERED: HumaLOG 300 UNITS/3 ML VIAL SC PRN (08:22)
[2022-05-05] MEDS ORDERED: Enoxaparin Sodium 40 MG/0.4 ML SYRINGE SC SCH (09:00)
[2022-05-05] MEDS ORDERED: Clopidogrel Bisulfate 75 MG TAB PO SCH (09:00)
[2022-05-05] MEDS ORDERED: Cyanocobalamin (Vitamin B-12) 1,000 MCG TAB PO SCH (09:00)
[2022-05-05] MEDS ORDERED: Magnesium 2 GM/50 ML(in water) 2 GM in Premix Bag 1 BAG IVPB SCH (09:00)
[2022-05-05] MEDS ORDERED: Aspirin 81 mg Enteric Coated Tablet PO SCH (09:00)
[2022-05-05] MEDS ORDERED: Tamsulosin HCl 0.4 MG CAP PO SCH (09:00)
[2022-05-05 12:23] VITALS: BP 136/71; TEMP 97.8
[2022-05-05 14:24] LABS: Magnesium 1.8 mg/dL (1.6-2.6)
== END 2022-05-05 15:34 | disposition home or self-care (01) ==
LOC: ERS 09:18 → T4-B 13:28
PROVIDERS: ADMIT Student in an Organized Health Care Education/Training Program; ATTEND Student in an Organized Health Care Education/Training Program
DX: N17.9 Acute kidney failure, unspecified (principal); I12.9 Hypertensive chronic kidney disease with stage 1 through stage 4 chronic kidney disease, or unspecified chronic kidney disease; E11.22 Type 2 diabetes mellitus with diabetic chronic kidney disease; N18.30 Chronic kidney disease, stage 3 unspecified; E11.65 Type 2 diabetes mellitus with hyperglycemia; I25.10 Atherosclerotic heart disease of native coronary artery without angina pectoris; Z20.822 Contact with and (suspected) exposure to COVID-19; R19.7 Diarrhea, unspecified; E83.42 Hypomagnesemia; E03.9 Hypothyroidism, unspecified; F03.90 Unspecified dementia, unspecified severity, without behavioral disturbance, psychotic disturbance, mood disturbance, and anxiety; D50.9 Iron deficiency anemia, unspecified; E78.5 Hyperlipidemia, unspecified; N40.0 Benign prostatic hyperplasia without lower urinary tract symptoms; I73.9 Peripheral vascular disease, unspecified; Z79.4 Long term (current) use of insulin; Z79.02 Long term (current) use of antithrombotics/antiplatelets; Z79.82 Long term (current) use of aspirin; Z79.84 Long term (current) use of oral hypoglycemic drugs; Z79.890 Hormone replacement therapy; Z79.899 Other long term (current) drug therapy; Z87.891 Personal history of nicotine dependence; Z95.1 Presence of aortocoronary bypass graft
CPT/HCPCS: 71045; 80048; 81003; 82550; 82962 ×2; 83036; 83690; 83735 ×2; 84100; 84439; 85025; 93005; 94760; 96361; 96365; 96372; 96376; 99285; G0378 ×3; U0003; U0005; 36415; 36416; 80053; 84443; J1650; J1815; J3475; J7120

== ENCOUNTER 2022-06-23 22:18 | Emergency (ER) | payer MEDICARE, OTHER ==
[2022-06-23 23:18] LABS: Actual Bicarbonate (HCO3v) 23 mEq/L (22-28); Analyzer IN Cardio ER; Base Excess -2.7 mEq/L (-2.0 to +3.0); Calcium, Ionized (venous) 1.09 mmol/L (1.16-1.32); Chloride (VBG) 99 mmol/L (98-106); Hemoglobin (Hb) 13.6 g/dL (12.6-17.4); Potassium (VBG) 3.64 mmol/L (3.70-5.30); Sodium 130.4 mmol/L (133-146); pH (venous) 7.33 (7.32-7.43)
[2022-06-23 23:21] LABS: #Basophils 0.1 thou/uL (0.0-0.2); #Eosinphils 0.3 thou/uL (0.0-0.7); #Lymphocytes 1.1 thou/uL (1.20-3.40); #Monocytes 0.4 thou/uL (0.11-0.59); #Neutrophils 6.4 thou/uL (1.40-6.50); %Basophils 0.6 % (0.0-1.0); %Eosinophils 3.3 % (0.0-10.0); %Lymphocytes 13.4 % (21.0-51.0); %Monocytes 4.8 % (0.0-10.0); %Neutrophils 77.8 % (42.0-75.0); Hemoglobin 13.1 g/dL (14.0-18.0); Mean Corpuscular HGB CONC 33.6 g/dL (32.0-36.0); Mean Corpuscular Hemoglobin 29.3 pg (27.0-31.0); Mean Corpuscular Volume 87.1 fL (78.0-98.0); Platelet Count 200 thou/uL (130-400); RBC Distribution Width 12.3 % (11.5-14.5); Red Blood Cell (RBC) Count 4.48 mill/uL (4.70-6.10); White Blood Cell (WBC) Count 8.2 thou/uL (4.8-10.8)
[2022-06-23 23:30] LABS: Bilirubin Negative (Negative); Blood, Urine Negative (Negative); Clarity Clear (Clear); Glucose, Urine (Dipstick) Greater than 1000 mg/dL (Negative); Ketone, Urine Negative (Negative); Leukocyte Negative Leu/uL (Negative); Nitrite Negative (Negative); Protein, Urine (Dipstick) Negative (Neg-Trace); Specific Gravity, Urine 1.016 (1.002-1.036); Urobilinogen Normal mg/dL (Less than 2)
[2022-06-23 23:39] LABS: ALT (SGPT) 13 U/L (8-55); AST (SGOT) 11 U/L (5-34); Albumin 4.2 g/dL (3.4-4.8); Alkaline Phosphatase 93 U/L (40-110); Anion Gap 16 mmol/L (10-20); BUN (Urea Nitrogen) 21 mg/dL (8.4-25.7); Bilirubin, Total 0.8 mg/dL (0.2-1.2); Calc. Creatinine Clearance 0 mL/min (70-130); Carbon Dioxide 22 mmol/L (23-31); Chloride 99 mmol/L (98-107); Estimated GFR 52; Potassium 3.6 mmol/L (3.5-5.1); Protein, Total 7.2 g/dL (5.8-8.1); Sodium 133 mmol/L (136-145)
[2022-06-23 23:42] LABS: Glucose 565 mg/dL (83-110)
[2022-06-23] MEDS ORDERED: Insulin Regular 300 UNITS/3 ML VIAL ONE (23:58)
== END 2022-06-24 02:35 | disposition home or self-care (01) ==
LOC: ERS 22:18
DX: E11.65 Type 2 diabetes mellitus with hyperglycemia (principal); I10 Essential (primary) hypertension; Z79.82 Long term (current) use of aspirin; Z79.4 Long term (current) use of insulin; Z79.899 Other long term (current) drug therapy
CPT/HCPCS: 36415; 36416; 80053; 81003; 82805; 83605; 84484; 85025; 93005; 96361; 96374; J1815

== ENCOUNTER 2022-10-25 01:15 | Observation (INO) | payer OTHER, MEDICAID ==
[2022-10-25] MEDS ORDERED: Ondansetron PF 4 MG/2 ML Vial ONE (01:33)
[2022-10-25] MEDS ORDERED: Morphine 4 MG/ML VIAL ONE (01:33)
[2022-10-25 01:45] LABS: #Eosinphils 0.1 thou/uL (0.0-0.7); #Lymphocytes 0.9 thou/uL (1.20-3.40); #Monocytes 0.8 thou/uL (0.11-0.59); #Neutrophils 17.7 thou/uL (1.40-6.50); %Basophils 0.1 % (0.0-1.0); %Eosinophils 0.7 % (0.0-10.0); %Lymphocytes 4.5 % (21.0-51.0); %Monocytes 3.8 % (0.0-10.0); %Neutrophils 90.9 % (42.0-75.0); Hemoglobin 15.5 g/dL (14.0-18.0); Mean Corpuscular Hemoglobin 28.7 pg (27.0-31.0); Mean Corpuscular Volume 86.9 fl (78.0-98.0); Mean Platelet Volume 7.6 fL (7.4-10.4); Platelet Count 219 10x3/uL (130-400); RBC Distribution Width 12.5 % (11.5-14.5); White Blood Cell (WBC) Count 19.5 10x3/uL (4.8-10.8)
[2022-10-25 02:02] LABS: ALT (SGPT) 14 U/L (8-55); AST (SGOT) 17 U/L (5-34); Albumin 4.2 g/dL (3.4-4.8); Alkaline Phosphatase 109 U/L (40-110); Anion Gap 14 mmol/L (10-20); BUN (Urea Nitrogen) 20 mg/dL (8.4-25.7); Bilirubin, Total 0.6 mg/dL (0.2-1.2); Calc. Creatinine Clearance 0 mL/min (70-130); Calcium 9.5 mg/dL (7.8-10.44); Carbon Dioxide 23 mmol/L (23-31); Chloride 101 mmol/L (98-107); Estimated GFR 46; Globulin 2.9 g/dL (2.4-3.5); Potassium 4.1 mmol/L (3.5-5.1); Protein, Total 7.1 g/dL (5.8-8.1); Sodium 134 mmol/L (136-145)
[2022-10-25 02:04] LABS: Glucose 538 mg/dL (83-110)
[2022-10-25 02:16] LABS: PTT 26.4 sec (22.9-36.1); Prothrombin Time 13.1 sec (12.0-14.7)
[2022-10-25 02:29] LABS: Bilirubin Negative (Negative); Blood, Urine Negative (Negative); Clarity Clear (Clear); Glucose, Urine (Dipstick) Greater than 1000 mg/dL (Negative); Ketone, Urine Negative (Negative); Leukocyte Negative Leu/uL (Negative); Nitrite Negative (Negative); Protein, Urine (Dipstick) Negative (Neg-Trace); Specific Gravity, Urine 1.029 (1.002-1.036); Urobilinogen Normal mg/dL (Less than 2); pH, Urine 6.5 (5.0-9.0)
[2022-10-25] MEDS ORDERED: Boostrix 0.5 ML (Tdap) VIAL (>/=7 yrs of age) ONE (02:41)
[2022-10-25 02:43] LABS: Actual Bicarbonate (HCO3v) 23 mEq/L (22-28); Analyzer IN Cardio ER; Base Excess -2.5 mEq/L (-2.0 to +3.0); Calcium, Ionized (venous) 1.09 mmol/L (1.16-1.32); Chloride (VBG) 101 mmol/L (98-106); Sodium 134.7 mmol/L (133-146); pH (venous) 7.37 (7.32-7.43)
[2022-10-25 05:23] LABS: SARS-CoV-2 NAA Rapid Test Not Detected (NotDetected)
[2022-10-25] MEDS ORDERED: Acetaminophen 325 MG TAB PO PRN (06:00)
[2022-10-25 06:24] LABS: Hemoglobin A1c Greater than 14.0 % (4.0-6.0)
[2022-10-25] MEDS ORDERED: Dextrose 5% in Water 1,000 ML IV PRN (06:52)
[2022-10-25] MEDS ORDERED: Dextrose 50% Abboject 50 ML SYRINGE SLOW IVP PRN (06:52)
[2022-10-25] MEDS ORDERED: HumaLOG 300 UNITS/3 ML VIAL SC PRN (06:52)
[2022-10-25] MEDS ORDERED: Insulin Regular 300 UNITS/3 ML VIAL ONE (07:29)
[2022-10-25] MEDS: HumaLOG 300 UNITS/3 ML VIAL SC PRN (07:32)
[2022-10-25] MEDS ORDERED: HumaLOG 300 UNITS/3 ML VIAL ONE (07:34)
[2022-10-25] MEDS ORDERED: Mecobalamin [B12 Active] 1,000 MCG Tab.Chew PO SCH (09:00)
[2022-10-25] MEDS ORDERED: Ferrous Sulfate 325 MG TAB PO SCH (09:30)
[2022-10-25] MEDS ORDERED: Aspirin Chewable 81 MG TAB ONE (10:23)
[2022-10-25] MEDS ORDERED: Enoxaparin Sodium 40 MG/0.4 ML SYRINGE ONE (10:23)
[2022-10-25] MEDS ORDERED: Clopidogrel Bisulfate 75 MG TAB ONE (10:23)
[2022-10-25] MEDS: Aspirin 81 mg Enteric Coated Tablet PO SCH (10:50)
[2022-10-25] MEDS: Enoxaparin Sodium 40 MG/0.4 ML SYRINGE SC SCH (10:51)
[2022-10-25] MEDS: Clopidogrel Bisulfate 75 MG TAB PO SCH (10:51)
[2022-10-25] MEDS: Gabapentin 400 MG CAP PO SCH (10:52)
[2022-10-25] MEDS: Insulin Glargine 30 UNITS/0.3 ML VIAL SC SCH (10:53)
[2022-10-25] MEDS ORDERED: Levothyroxine Sodium 100 MCG TAB PO SCH (12:30)
[2022-10-25] MEDS ORDERED: metFORMIN 500 MG TAB PO SCH (17:00)
[2022-10-25 17:51] VITALS: BMI 26.2
[2022-10-25] MEDS ORDERED: Insulin Glargine 30 UNITS/0.3 ML VIAL SC SCH (21:00)
[2022-10-25] MEDS ORDERED: Rosuvastatin 20 MG TAB PO SCH (21:00)
[2022-10-26] MEDS ORDERED: Levothyroxine Sodium 100 MCG TAB PO SCH (06:00)
[2022-10-26] MEDS ORDERED: Levothyroxine Sodium 75 MCG TAB PO SCH (06:00)
[2022-10-26 07:16] LABS: #Basophils 0.1 thou/uL (0.0-0.2); #Eosinphils 0.2 thou/uL (0.0-0.7); #Lymphocytes 1.4 thou/uL (1.20-3.40); #Monocytes 0.7 thou/uL (0.11-0.59); #Neutrophils 9.4 thou/uL (1.40-6.50); %Basophils 0.5 % (0.0-1.0); %Eosinophils 2.1 % (0.0-10.0); %Lymphocytes 12.1 % (21.0-51.0); %Monocytes 5.8 % (0.0-10.0); %Neutrophils 79.5 % (42.0-75.0); Hemoglobin 14.6 g/dL (14.0-18.0); Mean Corpuscular HGB CONC 33.6 g/dL (32.0-36.0); Mean Corpuscular Hemoglobin 29.4 pg (27.0-31.0); Mean Corpuscular Volume 87.6 fl (78.0-98.0); Mean Platelet Volume 7.6 fL (7.4-10.4); Platelet Count 227 10x3/uL (130-400); RBC Distribution Width 12.6 % (11.5-14.5); Red Blood Cell (RBC) Count 4.97 mill/uL (4.70-6.10); White Blood Cell (WBC) Count 11.9 10x3/uL (4.8-10.8)
[2022-10-26 07:54] LABS: ALT (SGPT) 10 U/L (8-55); AST (SGOT) 11 U/L (5-34); Albumin 3.7 g/dL (3.4-4.8); Alkaline Phosphatase 92 U/L (40-110); Anion Gap 13 mmol/L (10-20); BUN (Urea Nitrogen) 25 mg/dL (8.4-25.7); Bilirubin, Total 0.7 mg/dL (0.2-1.2); Calc. Creatinine Clearance 50 mL/min (70-130); Calcium 8.9 mg/dL (7.8-10.44); Carbon Dioxide 25 mmol/L (23-31); Chloride 108 mmol/L (98-107); Estimated GFR 74; Globulin 2.9 g/dL (2.4-3.5); Glucose 139 mg/dL (83-110); Potassium 3.2 mmol/L (3.5-5.1); Protein, Total 6.6 g/dL (5.8-8.1); Sodium 143 mmol/L (136-145)
[2022-10-26] MEDS ORDERED: FLU VACC QS2022-23(65YR UP)/PF 240 MCG/0.7 ML SYRINGE IM ONE (09:00)
[2022-10-26] MEDS ORDERED: Cyanocobalamin (Vitamin B-12) 1,000 MCG TAB PO SCH (09:00)
[2022-10-26] MEDS: Clopidogrel Bisulfate 75 MG TAB PO SCH (09:06)
[2022-10-26] MEDS: Aspirin 81 mg Enteric Coated Tablet PO SCH (09:06)
[2022-10-26] MEDS: Enoxaparin Sodium 40 MG/0.4 ML SYRINGE SC SCH (09:07)
[2022-10-26] MEDS: Gabapentin 400 MG CAP PO SCH (09:08)
[2022-10-26] MEDS: Insulin Glargine 30 UNITS/0.3 ML VIAL SC SCH (09:09)
[2022-10-26] MEDS ORDERED: Potassium Chloride 20 MEQ TAB PO SCH (10:15)
[2022-10-26] MEDS: HumaLOG 300 UNITS/3 ML VIAL SC PRN (11:40)
[2022-10-26 12:22] VITALS: TEMP 98.4
[2022-10-26 13:31] VITALS: BP 166/89
[2022-10-27] MEDS ORDERED: Ferrous Sulfate 325 MG TAB PO SCH (08:00)
== END 2022-10-26 16:52 | disposition home or self-care (01) ==
LOC: ERS 01:15 → ERHOLD 04:20 → 2SW 17:31
PROVIDERS: ADMIT Family Medicine; ATTEND Family Medicine
DX: R55 Syncope and collapse (principal); E87.6 Hypokalemia; E03.9 Hypothyroidism, unspecified; I12.9 Hypertensive chronic kidney disease with stage 1 through stage 4 chronic kidney disease, or unspecified chronic kidney disease; E11.22 Type 2 diabetes mellitus with diabetic chronic kidney disease; N18.30 Chronic kidney disease, stage 3 unspecified; N17.9 Acute kidney failure, unspecified; E87.1 Hypo-osmolality and hyponatremia; E11.51 Type 2 diabetes mellitus with diabetic peripheral angiopathy without gangrene; D50.9 Iron deficiency anemia, unspecified; E78.5 Hyperlipidemia, unspecified; J44.9 Chronic obstructive pulmonary disease, unspecified; I25.10 Atherosclerotic heart disease of native coronary artery without angina pectoris; I25.2 Old myocardial infarction; G31.9 Degenerative disease of nervous system, unspecified; M25.511 Pain in right shoulder; I08.3 Combined rheumatic disorders of mitral, aortic and tricuspid valves; S06.9X1A Unspecified intracranial injury with loss of consciousness of 30 minutes or less, initial encounter; S01.01XA Laceration without foreign body of scalp, initial encounter; Z79.02 Long term (current) use of antithrombotics/antiplatelets; Z79.4 Long term (current) use of insulin; Z79.82 Long term (current) use of aspirin; Z79.84 Long term (current) use of oral hypoglycemic drugs; Z79.890 Hormone replacement therapy; Z79.899 Other long term (current) drug therapy; Z95.1 Presence of aortocoronary bypass graft; Z20.822 Contact with and (suspected) exposure to COVID-19; W19.XXXA Unspecified fall, initial encounter
CPT/HCPCS: 12002; 70450; 71045; 72125; 73030; 80053; 81003; 82010; 82805 ×2; 82962 ×2; 83036; 83605; 84145; 84484; 85025; 85610; 85730; 87040; 87086; 90471; 90715; 93005; 93306; 93880; 96372 ×2; 96374; 96375; 97116; 97535; 99285; G0378 ×3; U0002; 36415; 36416; 84443; J1650; J1815; J2270; J2405

== ENCOUNTER 2022-11-16 08:14 | Emergency (ER) | payer OTHER, MEDICAID ==
[2022-11-16 09:00] LABS: #Eosinphils 0.2 thou/uL (0.0-0.7); #Lymphocytes 1.1 thou/uL (1.20-3.40); #Monocytes 0.4 thou/uL (0.11-0.59); #Neutrophils 5.5 thou/uL (1.40-6.50); %Basophils 0.5 % (0.0-1.0); %Eosinophils 2.2 % (0.0-10.0); %Lymphocytes 14.8 % (21.0-51.0); %Monocytes 6.1 % (0.0-10.0); %Neutrophils 76.4 % (42.0-75.0); Hemoglobin 15.9 g/dL (14.0-18.0); Mean Corpuscular HGB CONC 33.7 g/dL (32.0-36.0); Mean Corpuscular Hemoglobin 28.9 pg (27.0-31.0); Mean Corpuscular Volume 85.8 fl (78.0-98.0); Mean Platelet Volume 7.7 fL (7.4-10.4); Platelet Count 222 10x3/uL (130-400); RBC Distribution Width 12.2 % (11.5-14.5); Red Blood Cell (RBC) Count 5.51 mill/uL (4.70-6.10); White Blood Cell (WBC) Count 7.2 10x3/uL (4.8-10.8)
[2022-11-16 09:21] LABS: ALT (SGPT) 9 U/L (8-55); AST (SGOT) 16 U/L (5-34); Albumin 4.5 g/dL (3.4-4.8); Alkaline Phosphatase 88 U/L (40-110); Anion Gap 15 mmol/L (10-20); BUN (Urea Nitrogen) 22 mg/dL (8.4-25.7); Bilirubin, Total 2.6 mg/dL (0.2-1.2); Calc. Creatinine Clearance 0 mL/min (70-130); Calcium 9.4 mg/dL (7.8-10.44); Carbon Dioxide 23 mmol/L (23-31); Chloride 102 mmol/L (98-107); Estimated GFR 54; Globulin 3.1 g/dL (2.4-3.5); Glucose 168 mg/dL (83-110); Potassium 4.4 mmol/L (3.5-5.1); Protein, Total 7.6 g/dL (5.8-8.1); Sodium 136 mmol/L (136-145)
== END 2022-11-16 11:30 | disposition home or self-care (01) ==
LOC: ERS 08:14
DX: R06.02 Shortness of breath (principal)
CPT/HCPCS: 36415; 71045; 80053; 83690; 83880; 84484; 85025; 93005

== ENCOUNTER 2023-11-01 18:33 | Emergency (ER) | payer OTHER, MEDICAID ==
[2023-11-01 19:41] LABS: #Basophils 0.1 thou/uL (0.0-0.2); #Eosinphils 0.2 thou/uL (0.0-0.7); #Monocytes 0.5 thou/uL (0.11-0.59); #Neutrophils 9.3 thou/uL (1.40-6.50); %Basophils 0.5 % (0.0-1.0); %Eosinophils 1.5 % (0.0-10.0); %Lymphocytes 9.3 % (21.0-51.0); %Monocytes 4.3 % (0.0-10.0); Hematocrit 36.3 % (42.0-52.0); Hemoglobin 12.3 g/dL (14.0-18.0); Mean Corpuscular HGB CONC 33.9 g/dL (32.0-36.0); Mean Corpuscular Hemoglobin 29.6 pg (27.0-31.0); Mean Corpuscular Volume 87.3 fl (78.0-98.0); Mean Platelet Volume 9.6 fL (7.4-10.4); Platelet Count 211 10x3/uL (130-400); RBC Distribution Width 12.4 % (11.5-14.5); Red Blood Cell (RBC) Count 4.16 mill/uL (4.70-6.10); White Blood Cell (WBC) Count 11.1 10x3/uL (4.8-10.8)
[2023-11-01 19:55] LABS: INR-International Normal Ratio 1.1; PTT 28.8 sec (22.9-36.1); Prothrombin Time 14.6 sec (12.0-14.7)
[2023-11-01 20:07] LABS: Troponin I Less than 0.010 ng/mL (< 0.028)
[2023-11-01 20:08] LABS: ALT (SGPT) 11 U/L (8-55); AST (SGOT) 13 U/L (5-34); Albumin 4.6 g/dL (3.4-4.8); Alkaline Phosphatase 101 U/L (40-110); Anion Gap 15 mmol/L (10-20); BUN (Urea Nitrogen) 27 mg/dL (8.4-25.7); Calc. Creatinine Clearance 0 mL/min (70-130); Calcium 8.8 mg/dL (7.8-10.44); Carbon Dioxide 22 mmol/L (23-31); Chloride 109 mmol/L (98-107); Estimated GFR 42; Globulin 2.8 g/dL (2.4-3.5); Glucose 113 mg/dL (83-110); Potassium 4.6 mmol/L (3.5-5.1); Protein, Total 7.4 g/dL (5.8-8.1); Sodium 141 mmol/L (136-145)
== END 2023-11-01 21:55 | disposition home or self-care (01) ==
LOC: ERS 18:33
DX: S00.03XA Contusion of scalp, initial encounter (principal); S09.90XA Unspecified injury of head, initial encounter; I10 Essential (primary) hypertension; E11.9 Type 2 diabetes mellitus without complications; F17.210 Nicotine dependence, cigarettes, uncomplicated; Z79.82 Long term (current) use of aspirin; Z79.899 Other long term (current) drug therapy; Z79.84 Long term (current) use of oral hypoglycemic drugs; W18.30XA Fall on same level, unspecified, initial encounter
CPT/HCPCS: 36415; 70450; 71045; 72125; 80053; 84484; 85025; 85610; 85730; 93005

== ENCOUNTER → 2023-11-04 | Emergency (ER) | payer OTHER, MEDICAID ==
[2023-11-04 15:43] LABS: #Basophils 0.1 thou/uL (0.0-0.2); #Eosinphils 0.2 thou/uL (0.0-0.7); #Monocytes 0.5 thou/uL (0.11-0.59); #Neutrophils 5.7 thou/uL (1.40-6.50); %Basophils 0.7 % (0.0-1.0); %Eosinophils 2.5 % (0.0-10.0); %Lymphocytes 14.6 % (21.0-51.0); %Monocytes 6.7 % (0.0-10.0); %Neutrophils 75.2 % (42.0-75.0); Hematocrit 34.9 % (42.0-52.0); Hemoglobin 11.4 g/dL (14.0-18.0); Mean Corpuscular HGB CONC 32.7 g/dL (32.0-36.0); Mean Corpuscular Hemoglobin 29.5 pg (27.0-31.0); Mean Corpuscular Volume 90.4 fl (78.0-98.0); Mean Platelet Volume 10.1 fL (7.4-10.4); Platelet Count 196 10x3/uL (130-400); RBC Distribution Width 12.6 % (11.5-14.5); Red Blood Cell (RBC) Count 3.86 mill/uL (4.70-6.10); White Blood Cell (WBC) Count 7.6 10x3/uL (4.8-10.8)
[2023-11-04 16:03] LABS: ALT (SGPT) 12 U/L (8-55); AST (SGOT) 15 U/L (5-34); Alkaline Phosphatase 86 U/L (40-110); Anion Gap 17 mmol/L (10-20); BUN (Urea Nitrogen) 23 mg/dL (8.4-25.7); Bilirubin, Total 1.5 mg/dL (0.2-1.2); Calc. Creatinine Clearance 0 mL/min (70-130); Calcium 8.3 mg/dL (7.8-10.44); Carbon Dioxide 17 mmol/L (23-31); Chloride 110 mmol/L (98-107); Estimated GFR 50; Globulin 2.6 g/dL (2.4-3.5); Glucose 120 mg/dL (83-110); Potassium 4.4 mmol/L (3.5-5.1); Protein, Total 6.6 g/dL (5.8-8.1); Sodium 140 mmol/L (136-145)
[2023-11-04 16:05] LABS: Troponin I Less than 0.010 ng/mL (< 0.028)
== END ==
LOC: ERS 15:03
DX: I95.9 Hypotension, unspecified (principal); I10 Essential (primary) hypertension; E11.9 Type 2 diabetes mellitus without complications; F17.200 Nicotine dependence, unspecified, uncomplicated; W19.XXXA Unspecified fall, initial encounter; Z79.84 Long term (current) use of oral hypoglycemic drugs; Z79.82 Long term (current) use of aspirin
CPT/HCPCS: 36415; 70450; 80053; 84484; 85025; 93005